=== PATIENT | male | born 1945 | race Caucasian/White ===

== ENCOUNTER 2020-07-20 10:13 | Outpatient (CLI) | payer MEDICARE, SELFPAY ==
[2020-07-20 10:43] LABS: Basophils Percent Auto 0.5 % (0.2-1.2); Eosinophils Absolute Auto 0.1 K/mm3 (0-0.3); Eosinophils Percent Auto 1.3 % (0-4.4); Hematocrit 43.7 % (42.0-52.0); Hemoglobin 14.6 g/dL (14.0-18.0); Immature Granulocyte Absolute 0.02 K/mm3 (0.00-0.031); Immature Granulocyte Percent A 0.3 % (0-0.5); Lymphocytes Absolute Auto 1.76 K/mm3 (0.9-3.2); Lymphocytes Percent Auto 28.7 % (18.3-44.2); Mean Corpuscular HGB Conc 33.4 g/dl (32-36); Mean Corpuscular Hemoglobin 30.3 pg (26-34); Mean Corpuscular Volume 90.7 fl (80-100); Mean Platelet Volume 10.4 fl (7.4-10.4); Monocytes Absolute Auto 0.7 K/mm3 (0.1-0.6); Monocytes Percent Auto 10.9 % (2.6-8.5); Neutrophils Absolute Auto 3.6 K/mm3 (1.3-6.7); Neutrophils Percent Auto 58.3 % (45.5-73.1); Platelet Count Result 248 k/mm3 (150-375); Red Blood Count 4.82 M/mm3 (4.6-6.20); Red Cell Distribution Width 12.2 % (11.5-14.5); White Blood Count 6.1 K/mm3 (4.5-10.0)
[2020-07-20 10:53] LABS: Blood Urea Nitrogen 19 mg/dL (8-26); Carbon Dioxide 24 mmol/L (22-30); Chloride 102 mmol/L (98-109); Estimated Glomerular Filt Rate > 60; Glucose 117 mg/dL (70-105); Potassium 4.1 mmol/L (3.5-4.9); Sodium 140 mmol/L (138-146)
[2020-07-20 13:35] LABS: Alanine Aminotransferase 26 U/L (4-50); Albumin Level 4.5 g/dL (3.5-5.1); Alkaline Phosphatase 56 U/L (38-126); Anion Gap 8 mmol/L (8-16); Aspartate Amino Transferase 30 U/L (17-59); Bilirubin,Total 0.7 mg/dL (0.2-1.3); Blood Urea Nitrogen 18 mg/dL (9-20); Calcium 9.6 mg/dL (8.4-10.2); Carbon Dioxide 25 mmol/L (22-30); Chloride 103 mmol/L (98-107); Estimated Glomerular Filt Rate > 60; Glucose 120 mg/dL (75-110); Potassium 4.5 mmol/L (3.4-5.0); Sodium 136 mmol/L (137-145)
[2020-07-20 13:51] LABS: Immunoglobulin A 129 mg/dL (70-400); Immunoglobulin G 745 mg/dL (700-1600)
[2020-07-20 14:09] LABS: Immunoglobulin M 673 mg/dL (40-230)
[2020-07-23 18:48] LABS: Kappa\\Lambda Light Chains 5.41 (0.26-1.65); Lambda Light Chain 8.1 mg/L (5.7-26.3)
[2020-07-24 21:25] LABS: Abnormal Protein Band 1 0.5 g/dL; Albumin 4.1 g/dL (3.8-4.8); Alpha 1 Globulin 0.3 g/dL (0.2-0.3); Alpha 2 Globulin 0.6 g/dL (0.5-0.9); Beta 1 Globulin 0.4 g/dL (0.4-0.6); Protein, Total 6.6 g/dL (6.1-8.1)
== END 2020-07-20 10:14 | disposition home or self-care (01) ==
LOC: ANHLAB 10:14
PROVIDERS: PCP Internal Medicine; Visit Provider Internal Medicine Hematology & Oncology
DX: D47.2 Monoclonal gammopathy (principal)
CPT/HCPCS: 36415; 80048; 80053; 82784; 83883; 84155; 84165; 85025; 86334

== ENCOUNTER 2021-08-08 09:36 | Outpatient (CLI) | payer MEDICARE, SELFPAY ==
[2021-08-08 10:00] LABS: Basophils Percent Auto 0.8 % (0.2-1.2); Eosinophils Absolute Auto 0.2 K/mm3 (0-0.3); Eosinophils Percent Auto 2.8 % (0-4.4); Hematocrit 42.8 % (42.0-52.0); Immature Granulocyte Absolute 0.01 K/mm3 (0.00-0.031); Immature Granulocyte Percent A 0.2 % (0-0.5); Lymphocytes Absolute Auto 1.57 K/mm3 (0.9-3.2); Lymphocytes Percent Auto 29.8 % (18.3-44.2); Mean Corpuscular HGB Conc 32.7 g/dl (32-36); Mean Corpuscular Hemoglobin 30.1 pg (26-34); Monocytes Absolute Auto 0.7 K/mm3 (0.1-0.6); Monocytes Percent Auto 12.7 % (2.6-8.5); Neutrophils Absolute Auto 2.8 K/mm3 (1.3-6.7); Neutrophils Percent Auto 53.7 % (45.5-73.1); Platelet Count Result 209 k/mm3 (150-375); Red Blood Count 4.65 M/mm3 (4.6-6.20); Red Cell Distribution Width 12.3 % (11.5-14.5); White Blood Count 5.3 K/mm3 (4.5-10.0)
[2021-08-12 03:06] LABS: Abnormal Protein Band 1 0.5 g/dL; Alpha 1 Globulin 0.3 g/dL (0.2-0.3); Alpha 2 Globulin 0.6 g/dL (0.5-0.9); Beta 1 Globulin 0.4 g/dL (0.4-0.6); Protein, Total 6.5 g/dL (6.1-8.1)
== END 2021-08-08 09:37 | disposition home or self-care (01) ==
LOC: ANHLAB 09:38
PROVIDERS: PCP Internal Medicine; Visit Provider Internal Medicine Hematology & Oncology
DX: D47.2 Monoclonal gammopathy (principal)
CPT/HCPCS: 36415; 84155; 84165; 85025

== ENCOUNTER 2022-08-08 11:11 | Outpatient (CLI) | payer MEDICARE, SELFPAY ==
[2022-08-08 12:05] LABS: Basophils Percent Auto 0.6 % (0.2-1.2); Eosinophils Absolute Auto 0.1 K/mm3 (0-0.3); Eosinophils Percent Auto 1.1 % (0-4.4); Hematocrit 42.2 % (42.0-52.0); Hemoglobin 13.5 g/dL (14.0-18.0); Immature Granulocyte Absolute 0.01 K/mm3 (0.00-0.031); Immature Granulocyte Percent A 0.2 % (0-0.5); Lymphocytes Absolute Auto 1.46 K/mm3 (0.9-3.2); Lymphocytes Percent Auto 30.7 % (18.3-44.2); Mean Corpuscular Hemoglobin 30.1 pg (26-34); Mean Platelet Volume 9.8 fl (7.4-10.4); Monocytes Absolute Auto 0.5 K/mm3 (0.1-0.6); Monocytes Percent Auto 11.2 % (2.6-8.5); Neutrophils Absolute Auto 2.7 K/mm3 (1.3-6.7); Neutrophils Percent Auto 56.2 % (45.5-73.1); Platelet Count Result 293 k/mm3 (150-375); Red Blood Count 4.49 M/mm3 (4.6-6.20); Red Cell Distribution Width 12.4 % (11.5-14.5); White Blood Count 4.8 K/mm3 (4.5-10.0)
[2022-08-08 12:33] LABS: Alanine Aminotransferase 43 U/L (6-50); Albumin Level 4.5 g/dL (3.5-5.1); Alkaline Phosphatase 60 U/L (38-126); Anion Gap 7 mmol/L (8-16); Aspartate Amino Transferase 66 U/L (17-59); Bilirubin,Total 0.7 mg/dL (0.2-1.3); Blood Urea Nitrogen 15 mg/dL (9-20); Calcium 9.2 mg/dL (8.4-10.2); Carbon Dioxide 27 mmol/L (22-30); Chloride 105 mmol/L (98-107); Estimated Glomerular Filt Rate > 60; Glucose 110 mg/dL (65-110); Potassium 4.1 mmol/L (3.4-5.0); Sodium 139 mmol/L (137-145)
[2022-08-08 14:11] LABS: Immunoglobulin A 91 mg/dL (70-400); Immunoglobulin G 637 mg/dL (700-1600)
[2022-08-08 14:24] LABS: Immunoglobulin M 651 mg/dL (40-230)
[2022-08-11 20:08] LABS: Abnormal Protein Band 1 0.6 g/dL; Albumin 4.1 g/dL (3.8-4.8); Alpha 1 Globulin 0.3 g/dL (0.2-0.3); Alpha 2 Globulin 0.6 g/dL (0.5-0.9); Beta 1 Globulin 0.4 g/dL (0.4-0.6); Protein, Total 6.6 g/dL (6.1-8.1)
[2022-08-12 05:01] LABS: Kappa\\Lambda Light Chains 6.18 (0.26-1.65); Lambda Light Chain 6.2 mg/L (5.7-26.3)
== END 2022-08-08 11:12 | disposition home or self-care (01) ==
LOC: ANHLAB 11:12
PROVIDERS: PCP Internal Medicine; Visit Provider Internal Medicine Hematology & Oncology
DX: D47.2 Monoclonal gammopathy (principal)
CPT/HCPCS: 36415; 80053; 82784; 83883; 84155; 84165; 85025

== ENCOUNTER 2023-08-01 08:59 | Outpatient (CLI) | payer MEDICARE, SELFPAY ==
[2023-08-01 09:25] LABS: Basophils Percent Auto 0.4 % (0.2-1.2); Eosinophils Absolute Auto 0.1 K/mm3 (0-0.3); Eosinophils Percent Auto 1.2 % (0-4.4); Hematocrit 45.1 % (42.0-52.0); Hemoglobin 14.7 g/dL (14.0-18.0); Immature Granulocyte Absolute 0.01 K/mm3 (0.00-0.031); Immature Granulocyte Percent A 0.2 % (0-0.5); Lymphocytes Absolute Auto 2.01 K/mm3 (0.9-3.2); Lymphocytes Percent Auto 38.7 % (18.3-44.2); Mean Corpuscular HGB Conc 32.6 g/dl (32-36); Mean Corpuscular Hemoglobin 29.5 pg (26-34); Mean Corpuscular Volume 90.4 fl (80-100); Mean Platelet Volume 10.1 fl (7.4-10.4); Monocytes Absolute Auto 0.6 K/mm3 (0.1-0.6); Monocytes Percent Auto 10.6 % (2.6-8.5); Neutrophils Absolute Auto 2.6 K/mm3 (1.3-6.7); Neutrophils Percent Auto 48.9 % (45.5-73.1); Platelet Count Result 289 k/mm3 (150-375); Red Blood Count 4.99 M/mm3 (4.6-6.20); Red Cell Distribution Width 12.2 % (11.5-14.5); White Blood Count 5.2 K/mm3 (4.5-10.0)
[2023-08-01 11:40] LABS: Anion Gap 6 mmol/L (8-16); Blood Urea Nitrogen 13 mg/dL (9-20); Carbon Dioxide 30 mmol/L (22-30); Chloride 102 mmol/L (98-107); Sodium 138 mmol/L (137-145)
[2023-08-01 11:41] LABS: Alanine Aminotransferase 27 U/L (6-50); Albumin Level 4.5 g/dL (3.5-5.1); Alkaline Phosphatase 62 U/L (38-126); Aspartate Amino Transferase 35 U/L (17-59); Bilirubin,Total 0.9 mg/dL (0.2-1.3); Calcium 9.2 mg/dL (8.4-10.2); Estimated Glomerular Filt Rate > 60; Glucose 111 mg/dL (65-110)
[2023-08-01 11:46] LABS: Immunoglobulin A 119 mg/dL (70-400); Immunoglobulin G 841 mg/dL (700-1600)
[2023-08-01 12:36] LABS: Immunoglobulin M 796 mg/dL (40-230)
[2023-08-04 12:55] LABS: Abnormal Protein Band 1 0.6 g/dL; Albumin 4.1 g/dL (3.8-4.8); Alpha 1 Globulin 0.3 g/dL (0.2-0.3); Alpha 2 Globulin 0.6 g/dL (0.5-0.9); Beta 1 Globulin 0.4 g/dL (0.4-0.6); Gamma Globulin 1.3 g/dL (0.8-1.7)
[2023-08-05 15:46] LABS: Kappa\\Lambda Light Chains 5.91 (0.26-1.65); Lambda Light Chain 9.2 mg/L (5.7-26.3)
== END 2023-08-01 09:00 | disposition home or self-care (01) ==
PROVIDERS: PCP Internal Medicine; Visit Provider Internal Medicine Hematology & Oncology
DX: D47.2 Monoclonal gammopathy (principal)
CPT/HCPCS: 36415; 80053; 82784; 83883; 84155; 84165; 85025

== ENCOUNTER 2024-07-17 08:42 | Emergency (ER) | payer MEDICARE, SELFPAY ==
--- NOTE | ~2024-07-17 | XR_ITS ---
EXAMINATION: XR chest 2V DATE: 07/17/2024 09:28 INDICATION: Chest tightness TECHNIQUE: PA and lateral views of the chest were obtained. COMPARISON: None FINDINGS: Mild eventration along the left and right hemidiaphragm. Calcified right lower lobe nodule consistent with old granulomatous disease. No other airspace opacities, pulmonary edema, pleural effusion or pn eumothorax. The cardiomediastinal silhouette is normal. Old healed anterior right sixth and seventh r ib fractures. IMPRESSION: 1. No acute cardiopulmonary disease. Reviewed, dictated and finalized at location B.
[2024-07-17 08:53] VITALS: BP 121/76; PULSE 73; RESP 24; TEMP 36.3; O2SAT 100
--- NOTE | 2024-07-17 08:55 | ECG_ITS ---
Test Date: 2024-07-17 08:58:02 Measurements Intervals [place] Rate: 80 P: 0 MS: 0 QRS: -26 QRSD: 143 T: 1 QT: 441 QTc: 509 Interpretive Statements ATRIAL FLUTTER WITH NORMAL VENTRICULAR RESPONSE RIGHT BUNDLE BRANCH BLOCK ABNORMAL ECG No previous ECG available for comparison Electronically Signed On 07-17-2024 10:05:39 CDT by Prashanth House D.O.
[2024-07-17 09:04] VITALS: PULSE 68
[2024-07-17 09:07] LABS: Basophils Percent Auto 0.7 % (0.2-1.2); Eosinophils Absolute Auto 0.2 K/mm3 (0-0.3); Eosinophils Percent Auto 2.9 % (0-4.4); Hematocrit 45.4 % (42.0-52.0); Hemoglobin 14.9 g/dL (14.0-18.0); Immature Granulocyte Absolute 0.02 K/mm3 (0.00-0.031); Immature Granulocyte Percent A 0.3 % (0-0.5); Lymphocytes Absolute Auto 2.22 K/mm3 (0.9-3.2); Lymphocytes Percent Auto 38.5 % (18.3-44.2); Mean Corpuscular HGB Conc 32.8 g/dl (32-36); Mean Corpuscular Hemoglobin 30.8 pg (26-34); Mean Corpuscular Volume 93.8 fl (80-100); Mean Platelet Volume 10.2 fl (7.4-10.4); Monocytes Absolute Auto 0.6 K/mm3 (0.1-0.6); Monocytes Percent Auto 10.4 % (2.6-8.5); Neutrophils Absolute Auto 2.7 K/mm3 (1.3-6.7); Neutrophils Percent Auto 47.2 % (45.5-73.1); Platelet Count Result 312 k/mm3 (150-375); Red Blood Count 4.84 M/mm3 (4.6-6.20); Red Cell Distribution Width 12.6 % (11.5-14.5); White Blood Count 5.8 K/mm3 (4.5-10.0)
--- NOTE | 2024-07-17 09:07 | ED.CHESTPAIN ---
HPI - Chest Pain General Chief Complaint: Chest Pain Stated Complaint: CP Time Seen by Provider: 07/17/24 09:04 Source: patient Mode of arrival: EMS Limitations: no limitations History of Present Illness HPI narrative: This is a 78 year old male that presents to the ER for an episode of chest pain today. Reports he was seated at breakfast. Started to feel sweaty and nauseous. Had some associated chest tightness. He took Nitro with relief. Reports history of CAD. His supervisor testing is Dr. Thomson. He reports he recently had a stress test that was without concerning findings. Denies shortness of breath or lower extremity edema. Related Data Home Medications Medication Instructions Recorded Confirmed albuterol sulfate 90 mcg/actuation 1 puff inhalation Q4H PRN 01/08/20 05/15/22 aerosol inhaler (ProAir HFA) amlodipine 5 mg tablet 5 mg PO DAILY 01/08/20 05/15/22 aspirin 81 mg tablet,delayed 81 mg PO DAILY 01/08/20 05/15/22 release (Adult Low Dose Aspirin) atorvastatin 20 mg tablet 20 mg PO DAILY 01/08/20 05/15/22 cyanocobalamin (vitamin B-12) 1,000 mcg PO DAILY 01/08/20 05/15/22 1,000 mcg capsule dutasteride 0.5 mg capsule 0.5 mg PO DAILY 01/08/20 05/15/22 fluticasone propionate 50 1 spray intranasal DAILY 01/08/20 05/15/22 mcg/actuation nasal spray,suspension (Allergy Relief (fluticasone)) folic acid 800 mcg tablet 0.8 mg PO DAILY 01/08/20 05/15/22 isosorbide mononitrate 60 mg 60 mg PO DAILY 01/08/20 05/15/22 tablet,extended release 24 hr lisinopril 20 mg tablet 20 mg PO DAILY 01/08/20 05/15/22 loratadine 10 mg tablet 10 mg PO DAILY 01/08/20 05/15/22 multivitamin 1 tablet PO DAILY 01/08/20 05/15/22 Allergies Allergy/AdvReac Type Severity Reaction Status Date / Time No Known Allergies Allergy Unverified 05/15/22 12:45 Review of Systems Review of Systems: CONSTITUTIONAL: Denies fever CARDIOVASCULAR: Reports chest pain. Denies edema. RESPIRATORY: Denies dyspnea. GASTROINTESTINAL: Reports nausea All systems reviewed & are unremarkable except as noted in HPI and below PMFSH Past Medical History Medical History (Updated 07/17/24 @ 13:35 by Deloris Abbott PA-C) History of atrial fibrillation History of CAD (coronary artery disease) History of hyperlipidemia History of hypertension Social History Social History Social History: Smoking status: Never smoker Second hand tobacco smoke exposure: No Alcohol intake: current Alcohol use details: occasionally Substance use: never Substance use type: does not use Living arrangements: with family Occupation/Education: retired Gender identity (if verbalized by the patient): Male Exam Narrative: GENERAL: Well-appearing, well-nourished, and in no acute distress. HEAD: Normocephalic, atraumatic. EYES: EOMI. NECK: Supple. No JVD CHEST: Clear to auscultation. No respiratory distress. No wheezes rales or rhonchi HEART: Regular rate and rhythm. No murmur heard. Normal peripheral pulses. EXTREMITIES: Normal range of motion. No edema. SKIN: Warm, dry, no rash. NEURO: No focal deficits. Alert and oriented x3. PSYCH: Normal mood and affect Course Course Emergency Course: Patient still feeling well, resting comfortably. Updated on workup. Agrees with plan of care Consultations Consultation #1: Spoke with patient's supervisor testing office. He did just have a stress test last week. Is scheduled for a cardioversion in a couple of weeks. They will get ahold of patient to ensure follow up Date: 07/17/24 Vital Signs Vital signs: Vital Signs Temperature 97.4 F L 07/17/24 08:53 Pulse Rate 73 07/17/24 08:53 Respiratory Rate 24 H 07/17/24 08:53 Blood Pressure 121/76 07/17/24 08:53 Pulse Oximetry 100 07/17/24 08:53 Oxygen Delivery Room Air 07/17/24 08:53 Temperature 97.4 F L 07/17/24 08:53 Pulse Rate 90 07/17/24 12:00 Respiratory Rate 19
[2024-07-17 09:20] LABS: Alanine Aminotransferase 28 U/L (6-50); Albumin Level 4.2 g/dL (3.5-5.1); Alkaline Phosphatase 56 U/L (38-126); Anion Gap 9 mmol/L (4-12); Aspartate Amino Transferase 38 U/L (17-59); Bilirubin,Total 0.7 mg/dL (0.2-1.3); Blood Urea Nitrogen 21 mg/dL (9-20); Carbon Dioxide 27 mmol/L (22-30); Chloride 102 mmol/L (98-107); Estimated CRCL calculation 52 ml/min; Estimated Glomerular Filt Rate > 60; Glucose 143 mg/dL (65-110); INR 1.3; Lipase 82 U/L (23-300); Prothrombin Time 16.4 Seconds (11.1-14.7); Sodium 138 mmol/L (137-145)
[2024-07-17 09:21] LABS: Partial Thromboplastin Time 26.6 Seconds (22.3-36.8)
[2024-07-17 09:30] LABS: Troponin I < 0.012 ng/mL (0.000-0.034)
[2024-07-17 10:07] VITALS: BP 96/68; PULSE 68; RESP 20; O2SAT 96
--- NOTE | 2024-07-17 11:49 | ECG_ITS ---
Test Date: 2024-07-17 11:55:01 Measurements Intervals [place] Rate: 94 P: 0 UT: 0 QRS: -45 QRSD: 155 T: 3 QT: 434 QTc: 543 Interpretive Statements ATRIAL FLUTTER/TACHYCARDIA RIGHT BUNDLE BRANCH BLOCK LEFT ANTERIOR FASCICULAR BLOCK ABNORMAL ECG Compared to ECG 07/17/2024 08:58:02 NO SIGNIFICANT CHANGE Electronically Signed On 07-17-2024 13:06:01 CDT by Prashanth House D.O.
[2024-07-17 12:00] VITALS: BP 117/71; PULSE 90; RESP 19; O2SAT 97
[2024-07-17 12:22] LABS: Troponin I < 0.012 ng/mL (0.000-0.034)
[2024-07-17] MEDS: PANTOPRAZOLE SODIUM IV 40 MG VIAL IV PUSH (13:12)
[2024-07-17 13:38] VITALS: BP 124/90; PULSE 85; RESP 20; O2SAT 98
== END 2024-07-17 13:47 | disposition home or self-care (01) ==
PROVIDERS: Emergency Medicine; Emergency Provider Physician Assistant; PCP Internal Medicine
DX: R07.89 Other chest pain (principal); I48.91 Unspecified atrial fibrillation; I25.10 Atherosclerotic heart disease of native coronary artery without angina pectoris; I10 Essential (primary) hypertension; E78.5 Hyperlipidemia, unspecified; Z79.82 Long term (current) use of aspirin; Z79.899 Other long term (current) drug therapy; I48.92 Unspecified atrial flutter; I45.2 Bifascicular block; R00.0 Tachycardia, unspecified
CPT/HCPCS: 36415; 71046; 80053; 83690; 84484; 85025; 85610; 85730; 93005; 96374; 99284; J2470

== ENCOUNTER 2024-12-17 08:51 | Outpatient (CLI) | payer MEDICARE, SELFPAY ==
--- OUTSIDE RECORDS SUMMARY | 2024-12-17 09:25 | XMS_ITS | Data Portability ---
Author Organization [place] - [facility], Main Office Address [address] [place] [address] Care Team Providers Care Supervisor Tree Trimming Name Role Phone BELINDA COSTELLO Primary Care Provider BELINDA COSTELLO Referring Provider TANIA THOMSON Oracle Iam Consultant MIGUEL VO Yard Motor Operator CELIO FUNEZ Engine Wiper Assessment Encounter Date Assessment Date Assessment LastModified by Organization Details LastModified Time 12/24/2023 12/24/2023 12/13/2022: A1C 5.9 TSH 4.720H, FT4 1.27 CBC: WNL Gluc 110 Urine monty alb: WNL Lipids WNL 01/15/2023: PSA 0.54 04/20/2023: Gluc 114 A1C 6.3 HGB 12.9 08/22/2023: A1C 5.8 Gluc 108 12/10/2023: [facility]1C 5.4 [email or web address] Not available 12/24/2023 12:12:01 02/19/2024 02/19/2024 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 Jasper Santos. Patient may need gammaglobulin infusions during times of infection. General information on COPD was covered. The video explained what COPD is and how it affects breathing. Self-care skills such as not smoking, using medications as prescribed, oxygen therapy, and knowing when to contact the healthcare provider are covered. Diaphragmatic breathing and pursed lip breathing are explained and demonstrated. Positive lifestyle changes are introduced. Following these self-care skills will help in the management of COPD so the patient can stay out of the hospital. Advised to continue not to smoke. Continue albuterol HFA as needed. Discontinue Wixela Inhub. The patient does not know how to accurately administer the inhaler. Today, the patient was shown how to take this medication. The proper technique for delivering this medication was instructed. The patient expressed a clear understanding and demonstrated back how to use this medication. Without the proper technique, the patient will not reap the benefits of this medication as the contents will not reach the lower airways as intended to be. Adherence to therapy is advocated. Nonadherence may lead to treatment failure, further progression of the condition, and other complications. Hospitals admissions are often the result of individuals not taking prescription medications accurately. Alternatively, greater adherence to medication regimens have shown to lower rates of hospitalization and decrease total medical costs in patients with chronic medical conditions. Advocated influenza vaccination annually and pneumonia vaccination MARTHA. Advocated weight loss through diet and exercise. Patient's ideal body weight according to height and gender is up to 200 lbs. Encouraged patient to adjust caloric intake to maintain/achieve ideal body weight, emphasizing on fruits, vegetables, whole grains, and fat-free or low-fat products. These include lean meats, poultry, fish, beans, eggs, and nuts and foods that are low in saturated fats, trans-fats, cholesterol, salt (sodium), and glycemic index. Stressed the importance of regular exercise up to the patient's capacity limits. In this case, we recommend 20 min daily walking, 2 days a week of resistance training. Patient to monitor BP daily and bring records to PCP for further management. Follow-up: 1 year, February 2024 Not available 02/19/2024 11:40:45 05/12/2024 05/12/2024 12/13/2022: A1C 5.9 TSH 4.720H, FT4 1.27 CBC: WNL Gluc 110 Urine monty alb: WNL Lipids WNL 01/15/2023: PSA 0.54 04/20/2023: Gluc 114 A1C 6.3 HGB 12.9 08/22/2023: A1C 5.8 Gluc 108 12/10/2023: A1C 5.4 scott Not available 05/12/2024 10:46:31 05/23/2024 05/23/2024 The patient has lateral hip trochanteric bursitis of the left hip. We talked about treatment options in detail today I offered him a shot of cortisone and oral prednisone he declined both of these he states these did not help his hip in the past he would rather just do physical therapy. We will get him set up for a course of physical therapy to work on modalities and stretching exercises teach home program. I will see him back in 6-8 weeks see how he is doing if he has symptoms continue we will push harder for a shot of cortisone and/or oral prednisone. For now we will see how he does he voiced understanding agrees above plan call for any further problems difficulties or questions. [email or web address] Not available 05/23/2024 12:28:56 09/22/2024 09/22/2024 12/13/2022: A1C 5.9 TSH 4.720H, FT4 1.27 CBC: WNL Gluc 110 Urine monty alb: WNL Lipids WNL 01/15/2023: PSA 0.54 04/20/2023: Gluc 114 A1C 6.3 HGB 12.9 08/22/2023: A1C 5.8 Gluc 108 12/10/2023: A1C 5.4 05/13/2024: A1C 5.7 Gluc 120 09/19/2024: CBC/Lipids/TSH/FT4 : Stable 45 minutes spent with the patient, labs reviewed, discussed is julianne in detail, and discussed his appointment with Dr Soto [facility], will instead see Dr Berto chavez Not available 09/22/2024 14:00:54 Plan of Treatment Reminders Order Date Submit Date Provider Last Modified By Organization Details Last Modified Time Details Appointments Any 15 2024 01:45P Eliana correia MD Not available Not available Not available Any 15 2024 10:00A Eliana Vo MD Not available Not available Not available Lab glycohemo globin, total, blood [address] (Lab), [address] [place], [address], 06/23/2024 14:29:07 microalbu min, urine [address] (Lab), [address] [place], [address], 06/23/2024 14:29:08 lipid panel, serum [address] (Lab), [address] [place], [address], 06/23/2024 14:29:08 CMP, serum or plasma [address] (Lab), [address] [place], [address], 06/23/2024 14:29:08 CBC w/ auto diff [address] (Lab), [address] [place], [address], 06/23/2024 14:29:08 TSH, serum or plasma [address] (Lab), [address] [place], [address], 06/23/2024 14:29:08 T4, free, serum [address] (Lab), [address] [place], [address], 06/23/2024 14:29:08 lipid panel, serum 2023 024 NICOLE [facility] (Lab), [address] [place], [address], 05/13/2024 13:24:07 CMP, serum or plasma 2023 024 [facility] (Lab), [address] [place], [address], 05/13/2024 13:24:13 CBC w/ auto diff 2023 024 [facility] (Lab), [address] [place], [address], 05/13/2024 12:50:23 TSH, serum or plasma 2023 024 [facility] (Lab), [address] [place], [address], 05/13/2024 13:28:22 T4, free, serum 2023 024 [facility] (Lab), [address] [place], [address], 05/13/2024 13:28:11 glycohemo globin, total, blood 2023 024 [facility] (Lab), [address] [place], [address], 05/13/2024 14:33:10 microalbu min, urine 2023 024 [facility] (Lab), [address] [place], [address], 05/13/2024 15:30:04 lipid panel, serum [address] (Lab), [address] [place], [address], 09/22/2024 12:29:42 CMP, serum or plasma [address] (Lab), [address] [place], [address], 09/22/2024 12:29:42 CBC w/ auto diff [address] (Lab), [address] [place], [address], 09/22/2024 12:29:42 TSH, serum or plasma [address] (Lab), [address] [place], [address], 09/22/2024 12:29:42 T4, free, serum [address] (Lab), [address] [place], [address], 09/22/2024 12:29:43 glycohemo globin, total, blood [address] (Lab), [address] [place], [address], 09/22/2024 12:29:41 microalbu min, urine [address] (Lab), [address] [place], [address], 09/22/2024 12:29:41 Referral podiatris t referral 2023 024 [email or web address] Yoan Phillips DPM, [address], [address], [place], [address], 06/23/2024 14:30:04 nephrolog ist referral 2023 024 [email or web address] [place], [address] [address], [address], [place], [address], 01/21/2024 09:41:54 cardiolog ist referral 2023 024 [email or web address] Tania Thomson, [address] [address], [place], [address], 06/23/2024 14:29:47 nephrolog ist referral 2023 024 [email or web address] [place], [address] [address], [address], [place], [address], 06/18/2024 12:30:32 orthopedi c surgeon referral 2023 024 NICOLE Jimenez MD, [address] [facility], [place], [address], 05/23/2024 12:31:47 cardiolog ist referral 2023 024 [email or web address] Tania Thomson, [address] [address], [place], [address], 11/13/2024 08:33:30 podiatris t referral 2023 024 [email or web address] Theodore Thakkar Jr DPM, [address], [address], [place], [address], 09/24/2024 16:14:19 physical therapist referral - Please contact patient to schedule [email or web address] [facility], [address] [place], [address], 06/12/2024 09:58:07 nephrolog ist referral 2023 024 [email or web address] [place], [address] [address], [address], [place], [address], 09/24/2024 16:13:38 orthopedi c surgeon referral 2023 024 [email or web address] Peter Jimenez MD, [address] [facility], [place], [address], 09/24/2024 16:12:54 cardiolog ist referral 2023 024 [email or web address] Tania Soodhir, [address] [address], [place], [address], 09/24/2024 16:09:32 podiatris t referral - Please call patient to schedule. 2023 024 GERRY Thakkar Jr DPM, [address], [address], [place], [address], 09/24/2024 17:02:05 Procedures None recorded. Surgeries None recorded. Imaging XR, hip + pelvis, unilatera l 2023 024 [email or web address], [address], [place], [address], 05/23/2024 13:16:31 Medication Orders albuterol sulfate HFA 90 mcg/actua tion aerosol inhaler 2023 024 [id number], [address], [place], [place], [id number], 02/19/2024 11:39:04 Patient TargetsNo targets recorded. Patient Instructions Encounter Date Encounter Id Patient Instructions Last Modified By Organization Details Last Modified Time 02/19/2024 [id number] complete PFT w/ post bronchodilator spirometry* Not available 02/19/2024 11:38:55 05/12/2024 [id number] dementia rating scale-2* Not available 05/12/2024 12:09:14 alcohol misuse* [email or web address] Not available 05/12/2024 12:09:29 depression screening* [email or web address] Not available 05/12/2024 12:09:53 Timed Up and Go test (TUG)* [email or web address] Not available 05/12/2024 12:10:10 multi-dimensiona l health assessment questionnaire* [email or web address] Not available 05/12/2024 17:04:17 Personalized a lth Plan and Screening Recommendations Advance Directives - Do you have one? Yes Advance Directives - Do we have your advance directive on file in your health record? No, please bring in a copy at your earliest convenience Primary Prevention/Interven tion (prevents or decreases the chance of common diseases from occurring) Smoking Risk: Non Smoker Alcohol Misuse Screening: Negative Weight: Appropriate Overwei ght continue your current weight loss efforts try to lose 5% of your body weight try to lose 10% of your body weight Physical activity: Need more exercise/physical activity minimum of 10-20 minutes of activity that causes mild breathlessness/day Nutrition: Good Average Refer to attached handout Heart-Healthy Diet: After Your Visit Refer to attached handout DASH Diet: After Your Visit Fall Risk (screened today): Low Refer to attached handout Preventing Falls: After your Visit Vaccines Pneumococcal: Ordered Recommended today Recommended today, but you have declined No further needed Influenza: Your next one in the fall of this year Chronic Disease Risks Stroke: Low Risk Heart Attack: Low risk Intermediate Risk Clogging of the Arteries: Low risk Intermediate Risk Diabetes: High Risk Active diagnosis, Continue current treatment plan Secondary Prevention/Interven tion (detects treatable diseases before they may cause symptoms, disability, or ) Prostate Cancer Screening: No PSA screening necessary Colon Cancer Screening: Colonoscopy Date Screening Last Performed: 04/18/24 Eye Disease Screening: Ordered Recommended today Dementia Risk: Low I have no recommendations Depression Screening: Negative [email or web address] Not available 05/12/2024 12:12:23 Reason for Referral Mailing Specialist Referral for Hype rglycemia Referring Physician: Belinda Costello Internal Medicine, Encounter Date: 12/24/2023 Engine Wiper Referral for Ch ronic kidney disease Referring Physician: Belinda Costello Internal Medicine, Encounter Date: 12/24/2023 Oracle Iam Consultant Referral for Es sential hypertension Referring Physician: Belinda Costello Internal Medicine, Encounter Date: 12/24/2023 Engine Wiper Referral for Ch ronic kidney disease Referring Physician: Belinda Costello Internal Medicine, Encounter Date: 05/12/2024 Oracle Iam Consultant Referral for Es sential hypertension Referring Physician: Belinda Costello Internal Medicine, Encounter Date: 05/12/2024 Orthopedic Surgeon Referral for Pain of left hip joint Referring Physician: Belinda Costello Internal Medicine, Encounter Date: 05/12/2024 Mailing Specialist Referral for Pain in left foot Referring Physician: Belinda Costello Internal Medicine, Encounter Date: 05/12/2024 Physical Therapist Referral for Trochanteric bursitis of left hip Please contact patient to schedule Referring Physician: Marco Antonio Iglesias, Orthopedic Surgery, Encounter Date: 05/23/2024 Engine Wiper Referral for Ch ronic kidney disease Referring Physician: Belinda Costello Internal Medicine, Encounter Date: 09/22/2024 Oracle Iam Consultant Referral for Es sential hypertension Referring Physician: Belinda Costello Internal Medicine, Encounter Date: 09/22/2024 Orthopedic Surgeon Referral for Pain of left hip joint Referring Physician: Belinda Costello Internal Medicine, Encounter Date: 09/22/2024 Mailing Specialist Referral for Pain in left foot Please call patient to schedule. Referring Physician: Belinda Costello Internal Medicine, Encounter Date: 09/22/2024 Results Created Date Observation Date Name Description Value Unit Range Abnormal Flag Note LastModifiedBy Organization Detail LastModifiedTime 12/10/19 24 12/10/2023 CBC/C OMPLE TE BLD COUNT W/DIF F white blood cells 5.4 x10'3 /uL 4.2-10 .8 Not Available [facility] (Lab) [address] [place], [address], 12/10/2023 12:39:09 12/10/19 24 12/10/2023 CBC/C OMPLE TE BLD COUNT W/DIF F red blood cells 4.68 x10'6 /uL 4.10-5 .80 Not Available [facility] (Lab) [address] [place], [address], 12/10/2023 12:39:09 12/10/19 24 12/10/2023 CBC/C OMPLE TE BLD COUNT W/DIF F hemoglobin 14.5 g/dL 13.2-1 7.0 Not Available [facility] (Lab) [address] [facility] [place], [address], 12/10/2023 12:39:09 12/10/19 24 12/10/2023 CBC/C OMPLE TE BLD COUNT W/DIF F hematocrit 43.8 % 39.3-5 0.0 Not Available [facility] (Lab) [address] [facility] [place], [address], 12/10/2023 12:39:09 12/10/19 24 12/10/2023 CBC/C OMPLE TE BLD COUNT W/DIF F mean red cell volume 93.6 fL 80.0-9 7.0 Not Available [facility] (Lab) [address] [place], [address], 12/10/2023 12:39:09 12/10/19 24 12/10/2023 CBC/C OMPLE TE BLD COUNT W/DIF F mean red cell hemoglobin 31.0 pg 27.0-3 3.0 Not Available [facility] (Lab) [address] [place], [address], 12/10/2023 12:39:09 12/10/19 24 12/10/2023 CBC/C OMPLE TE BLD COUNT W/DIF F mean RBC HGB concentratio n 33.1 g/dL 31.0-3 6.0 Not Available [facility] (Lab) [address] [place], [address], 12/10/2023 12:39:09 12/10/19 24 12/10/2023 CBC/C OMPLE TE BLD COUNT W/DIF F red cell distribution width 12.1 % 11.8-1 5.5 Not Available [facility] (Lab) [address] [place], [address], 12/10/2023 12:39:09 12/10/19 24 12/10/2023 CBC/C OMPLE TE BLD COUNT W/DIF F platelets 313 x10'3 /uL 150-40 0 Not Available [facility] (Lab) [address] [place], [address], 12/10/2023 12:39:09 12/10/19 24 12/10/2023 CBC/C OMPLE TE BLD COUNT W/DIF F mean platelet volume 10.5 fL 9.0-12 .4 Not Available [facility] (Lab) [address] [facility] [place], [address], 12/10/2023 12:39:09 12/10/19 24 12/10/2023 CBC/C OMPLE TE BLD COUNT W/DIF F neutrophils 50.3 % 39.0-7 2.0 Not Available [facility] (Lab) [address] [place], [address], 12/10/2023 12:39:09 12/10/19 24 12/10/2023 CBC/C OMPLE TE BLD COUNT W/DIF F lymphocytes 35.9 % 16.0-4 7.0 Not Available [facility] (Lab) [address] [place], [address], 12/10/2023 12:39:09 12/10/19 24 12/10/2023 CBC/C OMPLE TE BLD COUNT W/DIF F monocytes 11.7 % 5.0-12 .0 Not Available [facility] (Lab) [address] [place], [address], 12/10/2023 12:39:09 12/10/19 24 12/10/2023 CBC/C OMPLE TE BLD COUNT W/DIF F eosinophils 1.3 % 1.0-7. 0 Not Available [facility] (Lab) [address] [facility] [place], [address], 12/10/2023 12:39:09 12/10/19 24 12/10/2023 CBC/C OMPLE TE BLD COUNT W/DIF F basophils 0.4 % 0.0-2. 0 Not Available [facility] (Lab) [address] [place], [address], 12/10/2023 12:39:09 12/10/19 24 12/10/2023 CBC/C OMPLE TE BLD COUNT W/DIF F immature granulocytes 0.4 % 0.00-0 .50 Not Available [facility] (Lab) [address] [place], [address], 12/10/2023 12:39:09 12/10/19 24 12/10/2023 CBC/C OMPLE TE BLD COUNT W/DIF F neutrophils, absolute count 2.72 x10'3 /uL 1.5-8. 0 Not Available [facility] (Lab) [address] [place], [address], 12/10/2023 12:39:09 12/10/19 24 12/10/2023 CBC/C OMPLE TE BLD COUNT W/DIF F lymphocytes, absolute count 1.94 x10'3 /uL 1.07-3 .43 Not Available [facility] (Lab) [address] [place], [address], 12/10/2023 12:39:09 12/10/19 24 12/10/2023 CBC/C OMPLE TE BLD COUNT W/DIF F monocytes, absolute count 0.63 x10'3 /uL 0.29-0 .99 Not Available [facility] (Lab) [address] [place], [address], 12/10/2023 12:39:09 12/10/19 24 12/10/2023 CBC/C OMPLE TE BLD COUNT W/DIF F eosinophils, absolute count 0.07 x10'3 /uL 0.02-0 .53 Not Available [facility] (Lab) [address] [place], [address], 12/10/2023 12:39:09 12/10/19 24 12/10/2023 CBC/C OMPLE TE BLD COUNT W/DIF F basophils, absolute count 0.02 x10'3 /uL 0.01-0 .08 Not Available [facility] (Lab) [address] [place], [address], 12/10/2023 12:39:09 12/10/19 24 12/10/2023 CBC/C OMPLE TE BLD COUNT W/DIF F immature granulocytes ,absolute 0.02 x10'3 /uL 0.00-0 .05 Not Available [facility] (Lab) [address] [place], [address], 12/10/2023 12:39:09 12/10/19 24 12/10/2023 CBC/C OMPLE TE BLD COUNT W/DIF F nucleated red blood cells 0.0 % -0 Not Available [facility] (Lab) [address] [place], [address], 12/10/2023 12:39:09 12/10/19 24 12/10/2023 CBC/C OMPLE TE BLD COUNT W/DIF F NRBC# 0.00 x10'3 /uL Not Available [facility] (Lab) [address] [place], [address], 12/10/2023 12:39:09 12/10/19 24 12/10/2023 LIPID PANEL cholesterol 136 mg/dL 140-19 9 low NIH ANAND NSUS RECOM MENDA TION FOR DALI STERO L: ADULT CHILD LOW RISK: <200 <170 BORDE RLINE : <200- 239 ----- HIGH RISK: >240 >200 Not Available [facility] (Lab) [address] [place], [address], 12/10/2023 12:54:07 12/10/19 24 12/10/2023 LIPID PANEL triglyceride s 58 mg/dL 0-150 NIH ANAND NSUS REPOR T RECOM MENDA TION FOR TRIGL YCERI LIANNE: ADULT CHILD LOW RISK: <150 ----- BODER LINE: 150-1 99 ----- HIGH RISK: >200 ----- Not Available [facility] (Lab) [address] [place], [address], 12/10/2023 12:54:07 12/10/19 24 12/10/2023 LIPID PANEL HDL cholesterol 64 mg/dL 40- Not Available [facility] (Lab) [address] [place], [address], 12/10/2023 12:54:07 12/10/19 24 12/10/2023 LIPID PANEL LDL cholesterol, calculated 60 mg/dL 0-130 NIH ANAND NSUS REPOR T RECOM MENDA TIONS FOR LDL: ADULT CHILD LOW RISK <130 <110 (OPTI MAL LDL) <100 ----- BORDE RLINE : 130-1 59 ----- HIGH RISK: >160 >130 A TRIGL YCERI DE RESUL T >400 INVAL IDATE S THE CALCU LATIO N FOR LDL FRACT IONAT ION - THE LDL RESUL T WILL NOT BE REPOR ANABELLE. Not Available [facility] (Lab) [address] [place], [address], 12/10/2023 12:54:07 12/10/19 24 12/10/2023 COMPR EHENS RONNY METAB OLIC PANEL sodium 140 mmol/ L 137-14 5 Not Available [facility] (Lab) [address] [place], [address], 12/10/2023 12:54:12 12/10/19 24 12/10/2023 COMPR EHENS RONNY METAB OLIC PANEL potassium 4.7 mmol/ L 3.5-5. 1 Not Available [facility] (Lab) [address] [place], [address], 12/10/2023 12:54:12 12/10/19 24 12/10/2023 COMPR EHENS RONNY METAB OLIC PANEL chloride 104 mmol/ L 98-107 Not Available [facility] (Lab) [address] [facility] [place], [address], 12/10/2023 12:54:12 12/10/19 24 12/10/2023 COMPR EHENS RONNY METAB OLIC PANEL carbon dioxide 33 mmol/ L 22-30 high Not Available [facility] (Lab) [address] [place], [address], 12/10/2023 12:54:12 12/10/19 24 12/10/2023 COMPR EHENS RONNY METAB OLIC PANEL anion gap 7.7 mmol/ L 14-22 low Not Available [facility] (Lab) [address] [place], [address], 12/10/2023 12:54:12 12/10/19 24 12/10/2023 COMPR EHENS RONNY METAB OLIC PANEL glucose 99 mg/dL 70-99 Not Available [facility] (Lab) [address] [place], [address], 12/10/2023 12:54:12 12/10/19 24 12/10/2023 COMPR EHENS RONNY METAB OLIC PANEL BUN 19 mg/dL 8-19 Not Available [facility] (Lab) [address] [place], [address], 12/10/2023 12:54:12 12/10/19 24 12/10/2023 COMPR EHENS RONNY METAB OLIC PANEL creatinine 1.06 mg/dL 0.66-1 .25 Not Available [facility] (Lab) [address] [place], [address], 12/10/2023 12:54:12 12/10/19 24 12/10/2023 COMPR EHENS RONNY METAB OLIC PANEL GFR >60 Refer ence Range : [place] ge GFR Healt hy Adult : >60 mL/mi n/1.7 3 m2 Chron ic Kidne y Disea se: 15-60 mL/mi n/1.7 3 m2 Kidne y Failu re: <15/m L/min /1.73 m2 www.n iddk. nih.g ov The MDRD study equat ion has not been valid ated in child malathi <18 years of age; pregn ant women ; the elder ly >85 years of age; or in some racia l or ethni c subgr oups, such as Hispa nics. Outsi de the valid ated nisha eters , estim ated GFR is less accur ate, requi ring clini dilcia judgm ent on a case- by-ca se basis . Clini dilcia inter preta tion for other races and ages must be made by the clini bereket. The MDRD study equat ion has not been valid ated for the evalu ation of serum creat inine relat ed to nutri rosa l statu s or medic ation usage . For perso ns <18 years of age, a pedia tric GFR calcu lator is avail able on the [facility] websi te: https ://romy ayala.jerrica bautista/nidia copelandal s/binao qi/gf r_cal culat or Not Available [facility] (Lab) [address] [place], [address], 12/10/2023 12:54:12 12/10/19 24 12/10/2023 COMPR EHENS RONNY METAB OLIC PANEL alkaline phosphatase 63 U/L 38-126 Not Available [facility] (Lab) [address] [place], [address], 12/10/2023 12:54:12 12/10/19 24 12/10/2023 COMPR EHENS RONNY METAB OLIC PANEL alanine aminotransfe rase 27 U/L 0-50 Not Available [facility] (Lab) [address] [place], [address], 12/10/2023 12:54:12 12/10/19 24 12/10/2023 COMPR EHENS RONNY METAB OLIC PANEL aspartate aminotransfe rase 39 U/L 15-46 Not Available [facility] (Lab) [address] [place], [address], 12/10/2023 12:54:12 12/10/19 24 12/10/2023 COMPR EHENS RONNY METAB OLIC PANEL bilirubin, total 0.80 mg/dL 0.20-1 .30 Not Available [facility] (Lab) [address] [place], [address], 12/10/2023 12:54:12 12/10/19 24 12/10/2023 COMPR EHENS RONNY METAB OLIC PANEL calcium 9.4 mg/dL 8.4-10 .2 Not Available [facility] (Lab) [address] [place], [address], 12/10/2023 12:54:12 12/10/19 24 12/10/2023 COMPR EHENS RONNY METAB OLIC PANEL total protein 7.0 g/dL 6.3-8. 2 Not Available [facility] (Lab) [address] [place], [address], 12/10/2023 12:54:12 12/10/19 24 12/10/2023 COMPR EHENS RONNY METAB OLIC PANEL albumin 4.3 g/dL 3.0-4. 4 Not Available [facility] (Lab) [address] [place], [address], 12/10/2023 12:54:12 12/10/19 24 12/10/2023 COMPR EHENS RONNY METAB OLIC PANEL globulin 2.7 g/dL 2.6-4. 2 Not Available [facility] (Lab) [address] [place], [address], 12/10/2023 12:54:12 12/10/19 24 12/10/2023 COMPR EHENS RONNY METAB OLIC PANEL A/G ratio 1.6 ratio 1.0-2. 0 Not Available [facility] (Lab) [address] [place], [address], 12/10/2023 12:54:12 12/10/19 24 12/10/2023 MICRO ALBUM IN RANDO M URINE microalbumin , urine <6.0 mg/L 0.0-16 .6 Not Available [facility] (Lab) [address] [place], [address], 12/10/2023 12:57:00 12/10/19 24 12/10/2023 T4 FREE free T4 1.14 NG/dL 0.78-2 .19 Not Available [facility] (Lab) [address] [place], [address], 12/10/2023 13:00:32 12/10/19 24 12/10/2023 TSH thyroid-stim ulating hormone 4.470 uIU/m L 0.465- 4.680 Not Available [facility] (Lab) [address] [place], [address], 12/10/2023 13:02:41 12/10/19 24 12/10/2023 HEMOG LOBIN A1C HA1C 5.4 % 4.0-6. 0 Diabe hallie Scree maryjane Crite dasia: <5.7% Consi stent with absen ce of diabe hallie 5.7-6 .4% Consi stent with incre ased risk for diabe hallie (pred iabet es) >OR=6 .5% Consi stent with diabe hallie REFER ENCE: Diabe hallie Care 2016, 39([place] ppl.1 ):s13 -s22 Not Available [facility] (Lab) [address] [place], [address], 12/10/2023 13:54:21 05/13/20 24 05/13/2024 CBC/C OMPLE TE BLD COUNT W/DIF F white blood cells 6.1 x10'3 /uL 4.2-10 .8 Not Available [facility] (Lab) [address] [place], [address], 05/13/2024 12:50:23 05/13/20 24 05/13/2024 CBC/C OMPLE TE BLD COUNT W/DIF F red blood cells 4.61 x10'6 /uL 4.10-5 .80 Not Available [facility] (Lab) [address] [place], [address], 05/13/2024 12:50:23 05/13/2005/13/2024 CBC/C OMPLE TE BLD COUNT W/DIF F hemoglobin 14.3 g/dL 13.2-1 7.0 Not Available [facility] (Lab) [address] [place], [address], 05/13/2024 12:50:23 05/13/20 24 05/13/2024 CBC/C OMPLE TE BLD COUNT W/DIF F hematocrit 43.7 % 39.3-5 0.0 Not Available [facility] (Lab) [address] [place], [address], 05/13/2024 12:50:23 05/13/2005/13/2024 CBC/C OMPLE TE BLD COUNT W/DIF F mean red cell volume 94.8 fL 80.0-9 7.0 Not Available [facility] (Lab) [address] [place], [address], 05/13/2024 12:50:23 05/13/20 24 05/13/2024 CBC/C OMPLE TE BLD COUNT W/DIF F mean red cell hemoglobin 31.0 pg 27.0-3 3.0 Not Available [facility] (Lab) [address] [place], [address], 05/13/2024 12:50:23 05/13/20 24 05/13/2024 CBC/C OMPLE TE BLD COUNT W/DIF F mean RBC HGB concentratio n 32.7 g/dL 31.0-3 6.0 Not Available [facility] (Lab) [address] [place], [address], 05/13/2024 12:50:23 05/13/20 24 05/13/2024 CBC/C OMPLE TE BLD COUNT W/DIF F red cell distribution width 12.3 % 11.8-1 5.5 Not Available [facility] (Lab) [address] [place], [address], 05/13/2024 12:50:23 05/13/20 24 05/13/2024 CBC/C OMPLE TE BLD COUNT W/DIF F platelets 308 x10'3 /uL 150-40 0 Not Available [facility] (Lab) [address] [place], [address], 05/13/2024 12:50:23 05/13/20 24 05/13/2024 CBC/C OMPLE TE BLD COUNT W/DIF F mean platelet volume 10.5 fL 9.0-12 .4 Not Available [facility] (Lab) [address] [place], [address], 05/13/2024 12:50:23 05/13/20 24 05/13/2024 CBC/C OMPLE TE BLD COUNT W/DIF F neutrophils 49.4 % 39.0-7 2.0 Not Available [facility] (Lab) [address] [place], [address], 05/13/2024 12:50:23 05/13/20 24 05/13/2024 CBC/C OMPLE TE BLD COUNT W/DIF F lymphocytes 35.8 % 16.0-4 7.0 Not Available [facility] (Lab) [address] [place], [address], 05/13/2024 12:50:23 05/13/20 24 05/13/2024 CBC/C OMPLE TE BLD COUNT W/DIF F monocytes 10.7 % 5.0-12 .0 Not Available [facility] (Lab) [address] [place], [address], 05/13/2024 12:50:23 05/13/20 24 05/13/2024 CBC/C OMPLE TE BLD COUNT W/DIF F eosinophils 3.3 % 1.0-7. 0 Not Available [facility] (Lab) [address] [place], [address], 05/13/2024 12:50:23 05/13/20 24 05/13/2024 CBC/C OMPLE TE BLD COUNT W/DIF F basophils 0.5 % 0.0-2. 0 Not Available [facility] (Lab) [address] [place], [address], 05/13/2024 12:50:23 05/13/20 24 05/13/2024 CBC/C OMPLE TE BLD COUNT W/DIF F immature granulocytes 0.3 % 0.00-0 .50 Not Available [facility] (Lab) [address] [place], [address], 05/13/2024 12:50:23 05/13/20 24 05/13/2024 CBC/C OMPLE TE BLD COUNT W/DIF F neutrophils, absolute count 2.99 x10'3 /uL 1.5-8. 0 Not Available [facility] (Lab) [address] [place], [address], 05/13/2024 12:50:23 05/13/20 24 05/13/2024 CBC/C OMPLE TE BLD COUNT W/DIF F lymphocytes, absolute count 2.17 x10'3 /uL 1.07-3 .43 Not Available [facility] (Lab) [address] [place], [address], 05/13/2024 12:50:23 05/13/20 24 05/13/2024 CBC/C OMPLE TE BLD COUNT W/DIF F monocytes, absolute count 0.65 x10'3 /uL 0.29-0 .99 Not Available [facility] (Lab) [address] [place], [address], 05/13/2024 12:50:23 05/13/20 24 05/13/2024 CBC/C OMPLE TE BLD COUNT W/DIF F eosinophils, absolute count 0.20 x10'3 /uL 0.02-0 .53 Not Available [facility] (Lab) [address] [place], [address], 05/13/2024 12:50:23 05/13/20 24 05/13/2024 CBC/C OMPLE TE BLD COUNT W/DIF F basophils, absolute count 0.03 x10'3 /uL 0.01-0 .08 Not Available [facility] (Lab) [address] [place], [address], 05/13/2024 12:50:23 05/13/20 24 05/13/2024 CBC/C OMPLE TE BLD COUNT W/DIF F immature granulocytes ,absolute 0.02 x10'3 /uL 0.00-0 .05 Not Available [facility] (Lab) [address] [place], [address], 05/13/2024 12:50:23 05/13/20 24 05/13/2024 CBC/C OMPLE TE BLD COUNT W/DIF F nucleated red blood cells 0.0 % -0 Not Available [facility] (Lab) [address] [place], [address], 05/13/2024 12:50:23 05/13/20 24 05/13/2024 CBC/C OMPLE TE BLD COUNT W/DIF F NRBC# 0.00 x10'3 /uL Not Available [facility] (Lab) [address] [place], [address], 05/13/2024 12:50:23 05/13/2005/13/2024 LIPID PANEL cholesterol 146 mg/dL 140-19 9 NIH ANAND NSUS RECOM MENDA TION FOR DALI STERO L: ADULT CHILD LOW RISK: <200 <170 BORDE RLINE : <200- 239 ----- HIGH RISK: >240 >200 Not Available [facility] (Lab) [address] [place], [address], 05/13/2024 13:24:07 05/13/20 24 05/13/2024 LIPID PANEL triglyceride s 88 mg/dL 0-150 NIH ANAND NSUS REPOR T RECOM MENDA TION FOR TRIGL YCERI LIANNE: ADULT CHILD LOW RISK: <150 ----- BODER LINE: 150-1 99 ----- HIGH RISK: >200 ----- Not Available [facility] (Lab) [address] [place], [address], 05/13/2024 13:24:07 05/13/20 24 05/13/2024 LIPID PANEL HDL cholesterol 69 mg/dL 40- Not Available [facility] (Lab) [address] [place], [address], 05/13/2024 13:24:07 05/13/20 24 05/13/2024 LIPID PANEL LDL cholesterol, calculated 59 mg/dL 0-130 NIH ANAND NSUS REPOR T RECOM MENDA TIONS FOR LDL: ADULT CHILD LOW RISK <130 <110 (OPTI MAL LDL) <100 ----- BORDE RLINE : 130-1 59 ----- HIGH RISK: >160 >130 A TRIGL YCERI DE RESUL T >400 INVAL IDATE S THE CALCU LATIO N FOR LDL FRACT IONAT ION - THE LDL RESUL T WILL NOT BE REPOR ANABELLE. Not Available [facility] (Lab) [address] [place], [address], 05/13/2024 13:24:07 05/13/20 24 05/13/2024 COMPR EHENS RONNY METAB OLIC PANEL sodium 137 mmol/ L 137-14 5 Not Available [facility] (Lab) [address] [place], [address], 05/13/2024 13:24:13 05/13/20 24 05/13/2024 COMPR EHENS RONNY METAB OLIC PANEL potassium 4.4 mmol/ L 3.5-5. 1 Not Available [facility] (Lab) [address] [place], [address], 05/13/2024 13:24:13 05/13/20 24 05/13/2024 COMPR EHENS RONNY METAB OLIC PANEL chloride 106 mmol/ L 98-107 Not Available [facility] (Lab) [address] [place], [address], 05/13/2024 13:24:13 05/13/20 24 05/13/2024 COMPR EHENS RONNY METAB OLIC PANEL carbon dioxide 30 mmol/ L 22-30 Not Available [facility] (Lab) [address] [place], [address], 05/13/2024 13:24:13 05/13/20 24 05/13/2024 COMPR EHENS RONNY METAB OLIC PANEL anion gap 5.4 mmol/ L 14-22 low Not Available [facility] (Lab) [address] [place], [address], 05/13/2024 13:24:13 05/13/20 24 05/13/2024 COMPR EHENS RONNY METAB OLIC PANEL glucose 120 mg/dL 70-99 high Not Available [facility] (Lab) [address] [place], [address], 05/13/2024 13:24:13 05/13/20 24 05/13/2024 COMPR EHENS RONNY METAB OLIC PANEL BUN 18 mg/dL 8-19 Not Available [facility] (Lab) [address] [place], [address], 05/13/2024 13:24:13 05/13/2005/13/2024 COMPR EHENS RONNY METAB OLIC PANEL creatinine 1.15 mg/dL 0.66-1 .25 Not Available [facility] (Lab) [address] [place], [address], 05/13/2024 13:24:13 05/13/20 24 05/13/2024 COMPR EHENS RONNY METAB OLIC PANEL GFR >60 Refer ence Range : [place] ge GFR Healt hy Adult : >60 mL/mi n/1.7 3 m2 Chron ic Kidne y Disea se: 15-60 mL/mi n/1.7 3 m2 Kidne y Failu re: <15/m L/min /1.73 m2 www.n iddk. nih.g ov The MDRD study equat ion has not been valid ated in child malathi <18 years of age; pregn ant women ; the elder ly >85 years of age; or in some racia l or ethni c subgr oups, such as Hismd nics. Outsi de the valid ated nisha eters , estim ated GFR is less accur ate, requi ring clini dilcia judgm ent on a case- by-ca se basis . Clini dilcia inter preta tion for other races and ages must be made by the clini bereket. The MDRD study equat ion has not been valid ated for the evalu ation of serum creat inine relat ed to nutri rosa l statu s or medic ation usage . For perso ns <18 years of age, a pedia tric GFR calcu lator is avail able on the NKF websi te: https ://romy ayala.jerrica bautista/pr ofess ional s/kdo qi/gf r_cal culat or Not Available [facility] (Lab) [address] [place], [address], 05/13/2024 13:24:13 07/09/20 24 05/13/2024 COMPR EHENS RONNY METAB OLIC PANEL alkaline phosphatase 57 U/L 38-126 Not Available [facility] (Lab) [address] [place], [address], 05/13/2024 13:24:13 05/13/20 24 05/13/2024 COMPR EHENS RONNY METAB OLIC PANEL alanine aminotransfe rase 27 U/L 0-50 Not Available [facility] (Lab) [address] [place], [address], 05/13/2024 13:24:13 05/13/20 24 05/13/2024 COMPR EHENS RONNY METAB OLIC PANEL aspartate aminotransfe rase 36 U/L 15-46 Not Available [facility] (Lab) [address] [place], [address], 05/13/2024 13:24:13 05/13/20 24 05/13/2024 COMPR EHENS RONNY METAB OLIC PANEL bilirubin, total 1.00 mg/dL 0.20-1 .30 Not Available [facility] (Lab) [address] [place], [address], 05/13/2024 13:24:13 05/13/20 24 05/13/2024 COMPR EHENS RONNY METAB OLIC PANEL calcium 9.1 mg/dL 8.4-10 .2 Not Available [facility] (Lab) [address] [place], [address], 05/13/2024 13:24:13 05/13/20 24 05/13/2024 COMPR EHENS RONNY METAB OLIC PANEL total protein 6.8 g/dL 6.3-8. 2 Not Available [facility] (Lab) [address] [place], [address], 05/13/2024 13:24:13 05/13/20 24 05/13/2024 COMPR EHENS RONNY METAB OLIC PANEL albumin 4.3 g/dL 3.0-4. 4 Not Available [facility] (Lab) [address] [place], [address], 05/13/2024 13:24:13 05/13/20 24 05/13/2024 COMPR EHENS RONNY METAB OLIC PANEL globulin 2.5 g/dL 2.6-4. 2 low Not Available [facility] (Lab) [address] [place], [address], 05/13/2024 13:24:13 05/13/20 24 05/13/2024 COMPR EHENS RONNY METAB OLIC PANEL A/G ratio 1.7 ratio 1.0-2. 0 Not Available [facility] (Lab) [address] [place], [address], 05/13/2024 13:24:13 05/13/20 24 05/13/2024 T4 FREE free T4 1.14 NG/dL 0.78-2 .19 Not Available [facility] (Lab) [address] [place], [address], 05/13/2024 13:28:11 05/13/20 24 05/13/2024 TSH thyroid-stim ulating hormone 2.750 uIU/m L 0.465- 4.680 Not Available [facility] (Lab) [address] [place], [address], 05/13/2024 13:28:21 05/13/20 24 05/13/2024 HEMOG LOBIN A1C HA1C 5.7 % 4.0-6. 0 Diabe hallie Scree maryjane Crite dasia: <5.7% Consi stent with absen ce of diabe hallie 5.7-6 .4% Consi stent with incre ased risk for diabe hallie (pred iabet es) >OR=6 .5% Consi stent with diabe hallie REFER ENCE: Diabe hallie Care 2016, 39([place] ppl.1 ):s13 -s22 Not Available [facility] (Lab) [address] [place], [address], 05/13/2024 14:33:10 05/13/20 24 05/13/2024 MICRO ALBUM IN RANDO M URINE microalbumin , urine <6.0 mg/L 0.0-16 .6 Not Available [facility] (Lab) [address] [place], [address], 05/13/2024 15:30:04 09/19/20 24 09/19/2024 CBC/C OMPLE TE BLD COUNT W/DIF F white blood cells 6.5 x10'3 /uL 4.2-10 .8 Not Available [facility] (Lab) [address] [place], [address], 09/19/2024 12:38:27 09/19/20 24 09/19/2024 CBC/C OMPLE TE BLD COUNT W/DIF F red blood cells 5.21 x10'6 /uL 4.10-5 .80 Not Available [facility] (Lab) [address] [place], [address], 09/19/2024 12:38:27 09/19/20 24 09/19/2024 CBC/C OMPLE TE BLD COUNT W/DIF F hemoglobin 16.3 g/dL 13.2-1 7.0 Not Available [facility] (Lab) [address] [place], [address], 09/19/2024 12:38:27 09/19/20 24 09/19/2024 CBC/C OMPLE TE BLD COUNT W/DIF F hematocrit 49.2 % 39.3-5 0.0 Not Available [facility] (Lab) [address] [place], [address], 09/19/2024 12:38:27 09/19/20 24 09/19/2024 CBC/C OMPLE TE BLD COUNT W/DIF F mean red cell volume 94.4 fL 80.0-9 7.0 Not Available [facility] (Lab) [address] [place], [address], 09/19/2024 12:38:27 09/19/20 24 09/19/2024 CBC/C OMPLE TE BLD COUNT W/DIF F mean red cell hemoglobin 31.3 pg 27.0-3 3.0 Not Available [facility] (Lab) [address] [facility] [place], [address], 09/19/2024 12:38:27 09/19/20 24 09/19/2024 CBC/C OMPLE TE BLD COUNT W/DIF F mean RBC HGB concentratio n 33.1 g/dL 31.0-3 6.0 Not Available [facility] (Lab) [address] [place], [address], 09/19/2024 12:38:27 09/19/20 24 09/19/2024 CBC/C OMPLE TE BLD COUNT W/DIF F red cell distribution width 12.7 % 11.8-1 5.5 Not Available [facility] (Lab) [address] [place], [address], 09/19/2024 12:38:27 09/19/20 24 09/19/2024 CBC/C OMPLE TE BLD COUNT W/DIF F platelets 348 x10'3 /uL 150-40 0 Not Available [facility] (Lab) [address] [place], [address], 09/19/2024 12:38:27 09/19/20 24 09/19/2024 CBC/C OMPLE TE BLD COUNT W/DIF F mean platelet volume 10.7 fL 9.0-12 .4 Not Available [facility] (Lab) [address] [place], [address], 09/19/2024 12:38:27 09/19/20 24 09/19/2024 CBC/C OMPLE TE BLD COUNT W/DIF F neutrophils 50.2 % 39.0-7 2.0 Not Available [facility] (Lab) [address] [place], [address], 09/19/2024 12:38:27 09/19/20 24 09/19/2024 CBC/C OMPLE TE BLD COUNT W/DIF F lymphocytes 36.9 % 16.0-4 7.0 Not Available [facility] (Lab) [address] [place], [address], 09/19/2024 12:38:27 09/19/20 24 09/19/2024 CBC/C OMPLE TE BLD COUNT W/DIF F monocytes 11.0 % 5.0-12 .0 Not Available [facility] (Lab) [address] [place], [address], 09/19/2024 12:38:27 09/19/20 24 09/19/2024 CBC/C OMPLE TE BLD COUNT W/DIF F eosinophils 1.1 % 1.0-7. 0 Not Available [facility] (Lab) [address] [place], [address], 09/19/2024 12:38:27 09/19/20 24 09/19/2024 CBC/C OMPLE TE BLD COUNT W/DIF F basophils 0.5 % 0.0-2. 0 Not Available [facility] (Lab) [address] [place], [address], 09/19/2024 12:38:27 09/19/20 24 09/19/2024 CBC/C OMPLE TE BLD COUNT W/DIF F immature granulocytes 0.3 % 0.00-0 .50 Not Available [facility] (Lab) [address] [place], [address], 09/19/2024 12:38:27 09/19/20 24 09/19/2024 CBC/C OMPLE TE BLD COUNT W/DIF F neutrophils, absolute count 3.29 x10'3 /uL 1.5-8. 0 Not Available [facility] (Lab) [address] [place], [address], 09/19/2024 12:38:27 09/19/20 24 09/19/2024 CBC/C OMPLE TE BLD COUNT W/DIF F lymphocytes, absolute count 2.41 x10'3 /uL 1.07-3 .43 Not Available [facility] (Lab) [address] [place], [address], 09/19/2024 12:38:27 09/19/20 24 09/19/2024 CBC/C OMPLE TE BLD COUNT W/DIF F monocytes, absolute count 0.72 x10'3 /uL 0.29-0 .99 Not Available [facility] (Lab) [address] [place], [address], 09/19/2024 12:38:27 09/19/20 24 09/19/2024 CBC/C OMPLE TE BLD COUNT W/DIF F eosinophils, absolute count 0.07 x10'3 /uL 0.02-0 .53 Not Available [facility] (Lab) [address] [place], [address], 09/19/2024 12:38:27 09/19/20 24 09/19/2024 CBC/C OMPLE TE BLD COUNT W/DIF F basophils, absolute count 0.03 x10'3 /uL 0.01-0 .08 Not Available [facility] (Lab) [address] [place], [address], 09/19/2024 12:38:27 09/19/20 24 09/19/2024 CBC/C OMPLE TE BLD COUNT W/DIF F immature granulocytes ,absolute 0.02 x10'3 /uL 0.00-0 .05 Not Available [facility] (Lab) [address] [place], [address], 09/19/2024 12:38:27 09/19/20 24 09/19/2024 CBC/C OMPLE TE BLD COUNT W/DIF F nucleated red blood cells 0.0 % -0 Not Available [facility] (Lab) [address] [place], [address], 09/19/2024 12:38:27 09/19/20 24 09/19/2024 CBC/C OMPLE TE BLD COUNT W/DIF F NRBC# 0.00 x10'3 /uL Not Available [facility] (Lab) [address] [place], [address], 09/19/2024 12:38:27 09/19/2009/19/2024 LIPID PANEL cholesterol 189 mg/dL 140-19 9 NIH ANAND NSUS RECOM MENDA TION FOR DALI STERO L: ADULT CHILD LOW RISK: <200 <170 BORDE RLINE : <200- 239 ----- HIGH RISK: >240 >200 Not Available [facility] (Lab) [address] [place], [address], 09/19/2024 13:14:44 09/19/2009/19/2024 LIPID PANEL triglyceride s 75 mg/dL 0-150 NIH ANAND NSUS REPOR T RECOM MENDA TION FOR TRIGL YCERI LIANNE: ADULT CHILD LOW RISK: <150 ----- BODER LINE: 150-1 99 ----- HIGH RISK: >200 ----- Not Available [facility] (Lab) [address] [place], [address], 09/19/2024 13:14:44 09/19/20 24 09/19/2024 LIPID PANEL HDL cholesterol 82 mg/dL 40- Not Available [facility] (Lab) [address] [place], [address], 09/19/2024 13:14:44 09/19/20 24 09/19/2024 LIPID PANEL LDL cholesterol, calculated 92 mg/dL 0-130 NIH ANAND NSUS REPOR T RECOM MENDA TIONS FOR LDL: ADULT CHILD LOW RISK <130 <110 (OPTI MAL LDL) <100 ----- BORDE RLINE : 130-1 59 ----- HIGH RISK: >160 >130 A TRIGL YCERI DE RESUL T >400 INVAL IDATE S THE CALCU LATIO N FOR LDL FRACT IONAT ION - THE LDL RESUL T WILL NOT BE REPOR ANABELLE. Not Available [facility] (Lab) [address] [place], [address], 09/19/2024 13:14:44 09/19/20 24 09/19/2024 T4 FREE free T4 1.09 NG/dL 0.78-2 .19 Not Available [facility] (Lab) [address] [place], [address], 09/19/2024 13:31:16 09/19/20 24 09/19/2024 TSH thyroid-stim ulating hormone 3.040 uIU/m L 0.465- 4.680 Not Available [facility] (Lab) [address] [place], [address], 09/19/2024 13:55:56 01/31/20 24 01/30/2024 pulmo nary funct ion test* No observ ation record ed. BARCODE Not Available 2023 11:24:10 05/23/20 XR, hip + pelvi s, unila teral No observ ation record ed. [email or web address] [facility] [address] [facility] [address], [place], [address], 05/23/2024 12:29:51 07/11/20 24 07/11/2024 cardi ac stres s test No observ ation record ed. [email or web address] [facility] [address], [place], [address], 10/27/2024 14:59:08 09/11/20 24 09/10/2024 imagi ng/di agnos tic resul t No observ ation record ed. [email or web address] [facility] [address], [place], [address], 10/30/2024 09:02:29 09/11/20 24 09/10/2024 imagi ng/di agnos tic resul t No observ ation record ed. [address] [facility] [address], [place], [address], 10/30/2024 09:02:42 11/13/19 25 10/30/2024 imagi ng/di agnos tic resul t No observ ation record ed. [facility] [address], [place], [address], 11/13/2024 10:29:57 11/21/19 25 11/21/2024 imagi ng/di agnos tic resul t No observ ation record ed. [address], [address], 11/21/2024 14:11:36 Result Notes None recorded. Problems Name Problem SNOMED Code Status Onset Date Resolution Date Notes Provider Name and Address Organization Details Recorded Time Hallux valgus 225409087 Active Not Available [facility] 3 08:23:49 Capsulitis of metatarsop halangeal joint of left foot 0246138330438 9105 Active 2020 Not Available [facility] 3 08:23:49 Benign prostatic hyperplasi a 684843748 Active Not Available [facility] 3 08:23:49 Benavides's neuroma of left foot 0999774423676 05 Active 2019 Not Available [facility] 3 08:23:49 Enthesopat hy of hip region 96192108 Active Not Available [facility] 3 08:23:49 Hypertensi ve disorder 15246093 Active Not Available [facility] 3 08:23:49 Osteoarthr itis 768804566 Active Not Available [facility] 3 08:23:49 Hypothyroi dism 24141027 Active 2022 Not Available [facility] 3 08:23:49 Coronary arterioscl erosis 31677573 Active Not Available [facility] 3 08:23:49 Hyperlipid emia 46623065 Active Not Available [facility] 3 08:23:49 Allergic rhinitis 93038561 Active Not Available [facility] 3 08:23:49 COVID-19 364290287 Active 2022 Not Available [facility] 3 08:23:49 Recurrent urinary tract infection 611712663 Active 2022 Not Available [facility] 3 08:23:49 Chronic kidney disease 413223851 Active 2022 Not Available [facility] 3 08:23:49 Urinary incontinen ce 589412121 Active 2022 Not Available [facility] 3 08:23:49 Neuropathy 025681442 Active 2022 Not Available [facility] 3 08:23:49 Environmen philip allergy 213149093 Active 2022 Not Available [facility] 3 08:23:49 Serum thyroid stimulatin g hormone level outside reference range 799040666 Active 2022 Not Available [facility] 3 08:23:49 Mild chronic obstructiv e pulmonary disease 716003791 Active 2022 Not Available [facility] 3 08:23:49 Bunion 757952292 Active 2022 Not Available [facility] 3 08:23:49 Thyroid nodule 543845438 Active 2022 Karley guerrier, [facility] 3 11:07:15 Acute urinary tract infection 750146501 Active 2023 MANOLO Mendes, [facility] 4 15:13:44 Pain in right hip joint [id number] 02 Active 2023 Belinda parker MD [address], [address], [place], [address] , [facility] 4 14:51:37 Chronic obstructiv e pulmonary disease 48752982 Active 2023 Belinda parker MD [address], [address], [place], [address] , [place] [facility] 4 14:51:37 Essential hypertensi on 89077355 Active 2023 Belinda parker MD [address], [address], [place], [address] , [facility] 4 14:51:37 Hyperglyce livan 97881785 Active 2023 Belinda parker MD [address], [address], [place], [address] , [facility] 4 14:51:37 Forgetful 43968538 Active 2023 Belinda parker MD [address], [address], [place], [address] , [facility] 4 14:51:37 Pain of left hip joint [id number] 00 Active 2023 Belinda parker MD [address], [address], [place], [address] , [facility] 4 11:22:21 Pain in left foot [id number] 07 Active 2023 Belinda parker MD [address], [address], [place], [address] , [facility] 4 11:23:38 Trochanter ic bursitis of left hip [id number] 03 Active 2023 Henrietta guerrier, [place] [facility] 4 12:25:15 Notes:Medical History: COVID infection 12/2022 Right hearing loss/tinnitus Rhinitis with postnasal drip Eosinophils 90/uL IgE 35 IU/mL Hypogammaglobulinemia (total) AAT PiMM 160 mg% Mild COPD RLL calcified granuloma Obesity Hypothyroidism Hyperlipidemia Hypertension CAD Intermittent atrial fibrillation Elevated BNP OCTAVIANO BPH OA Hallux valgus Left Benavides's neuroma Bunion Procedure History: Bilateral knee arthroscopies 1991 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 Unintended recipients are directed to securely destroy any materials received. You are hereby notified that the unauthorized disclosure or other unlawful use of this fax or any personal health information is prohibited. To the extent patient information contained in this fax is subject to 42 CFR Part 2, this regulation prohibits unauthorized disclosure of these records. If you received this fax in error, please visit [email or web address] to notify the sender and confirm that the information will be destroyed. If you do not have internet access, please call to notify the sender and confirm that the information will be destroyed. Thank you for your attention and cooperation. [ID:[id number]] , Date: 4RE: Jesusita Saab MD, I would like to thank you for referring John Alston to me for consultation and evaluation of Left hip pain , on 05/23/2024. I have enclosed a copy of the office assessment and plan for your records. Once again, thank you for allowing me to participate in the care of this patient. Sincerely, Electronically Signed by: ENE RAMESH, PASFAYE Assessment/PlanThe patient has lateral hip trochanteric bursitis of the left hip. We talked about treatment options in detail today I offered him a shot of cortisone and oral prednisone he declined both of these he states these did not help his hip in the past he would rather just do physical therapy. We will get him set up for a course of physical therapy to work on modalities and stretching exercises teach home program. I will see him back in 6-8 weeks see how he is doing if he has symptoms continue we will push harder for a shot of cortisone and/or oral prednisone. For now we will see how he does he voiced understanding agrees above plan call for any further problems difficulties or questions. 1. Pain of left hip [id number]: Pain in left hip XR, HIP + PELVIS, UNILATERAL Side: LEFT 2. Trochanteric bursitis of left hipM70.62: Trochanteric bursitis, left hip PHYSICAL THERAPIST REFERRAL - Schedule Within: provider's discretion Note to Provider: Please contact patient to schedule Evaluate & Treat: as per p.t. Exercises: as per p.t Modalities: as per p.t. Side: LEFT # of requested visits: 8 XR, HIP + PELVIS, UNILATERAL Side: LEFT X-rays done today in the office as read by me AP pelvis AP lateral left hip demonstrates no fracture lesion mass. Bony structures around the proximal femur and femoral head are unremarkable femoral acetabular joint space is well-maintained. There is some hypertrophic spurring off the superior lateral edge of the acetabulum. X-rays are otherwise unremarkable no hypertrophic or sclerotic changes noted around the greater trochanteric region. Return to Office ENE Ramesh for Any 5 at [facility] Ortho [place] on 07/24/2024 at 01:15 PM Belinda Costello MD for Any 15 at [facility] Internal Med [place] on 09/22/2024 at 10:30 AM to see Richy Shah MD for Follow Up 15 at [facility] ENT [place] on or around 11/01/2024 Miguel Vo MD for Any 15 at [facility] Pulmonology [place] on 02/18/2025 at 10:00 AM Not Available [facility] 05/23/2024 12:31:47 Procedures Surgical History Date Name Laterality Status Provider Name and Address Organization Details Recorded Time 05/12/20 24 Medicare Wellness CPT Code, subsequent completed Shahram Otoole LPN [place] [employer] 05/06/2024 11:08:36 04/18/20 24 Colonoscopy completed IRAM Cook [employer] 05/12/2024 10:35:14 03/26/20 23 Callus Debridement 2-4 completed Yoan Phillips DPM [address], [address], [place], [address], [employer] 03/26/2023 11:53:49 01/10/20 23 Cystoscopy (male) completed Adiel Pichardo MD [address], [address], [place], [address], [employer] 01/09/2023 15:21:38 08/25/20 14 excision of bunion completed Not Available [facility] 01/03/2023 05:58:17 Unlisted px hands/fingers completed Not Available [facility] 01/03/2023 05:58:17 Cardiac Stent Placement completed Not Available [facility] 01/03/2023 05:58:17 Cardiac Stent Placement completed Not Available [facility] 01/03/2023 05:58:17 Cardiac Stent Placement completed Not Available [facility] 01/03/2023 05:58:17 Knee Surgery completed Not Available [facility] 01/03/2023 05:58:17 Imaging Results Imaging Date Name Status LastModified by [facility] Details LastModified Time 01/30/2024 pulmonary function test* completed BARCODE Information not available 01/31/2024 11:24:10 05/23/2024 XR, hip + pelvis, unilateral completed [email or web address] [place] [address], [place], [address], 05/23/2024 12:29:51 07/11/2024 cardiac stress test completed [email or web address] [facility] [address], [place], [address], 10/27/2024 14:59:08 09/10/2024 imaging/diagnos tic result completed [email or web address] [facility] [address], [place], [address], 10/30/2024 09:02:29 09/10/2024 imaging/diagnos tic result completed [email or web address] [facility] [address], [place], [address], 10/30/2024 09:02:42 10/30/2024 imaging/diagnos tic result active [facility] [address], [place], [address], 11/13/2024 10:29:57 11/21/2024 imaging/diagnos tic result active [address], [address], 11/21/2024 14:11:36 Procedure Notes None recorded. Medical Equipment None Reported. Allergies Allergen ID Allergen Name Allergen Category Reaction Reaction Severity Criticality Documentation Date Start Date Code Code System Note Provider Name and Address Organization Details Recorded Time 56989 Pneumovax 23 medicatio n other moderate Not available 01/03/20232013 89856 3 RxNorm pt devel oped blist ers after the pneum ovax Not Available [facility] 3 06:17:43 Medications Name Sig Start Date Stop Date Status Note LastModified by Organization Details LastModified Time amoxicill in 500 mg capsule active Not Available Not Available Not Available latanopro st 0.005 % eye drops INSTILL 1 DROP IN BOTH EYES AT BEDTIME active Not Available Not Available No t Available atorvasta tin 40 mg tablet daily 10/04 completed Not Available Not Available Not Available neomycin- polymyxin -hydrocor t 3.5 mg/mL-10, 000 unit/mL-1 % ear solution 11/25 completed Not Available Not Available Not Available prednison e 10 mg tablet 30mg x2 days, 20mg x2days, 10mg x2 days 08/16 completed Not Available Not Available Not Available doxycycli ne hyclate 100 mg capsule active Not Available Not Available Not Available atorvasta tin 20 mg tablet TAKE 1 TABLET BY MOUTH DAILY active Not Available Not Available No t Available azithromy magalis 250 mg tablet Take 1 dose pk by oral route as directed . 08/16 completed Not Available Not Available Not Available benzonata te 200 mg capsule Take 1 capsule 3 times a day by oral route as needed. active Not Available Not Available No t Available sotalol 80 mg tablet TAKE 1 TABLET BY MOUTH TWICE DAILY active Not Available Not Available No t Available Levaquin 750 mg tablet Take 1 tablet every day by oral route for 7 days. 10/04 completed Not Available Not Available Not Available lisinopri l 20 mg tablet TAKE 1 TABLET BY MOUTH DAILY active Not Available Not Available No t Available isosorbid e mononitra te ER 30 mg tablet,ex tended release 24 hr active Not Available Not Available Not Available penicilli n V potassium 500 mg tablet active Not Available Not Available Not Available acetamino phen 300 mg-codein e 30 mg tablet active Not Available Not Available Not Available clopidogr el 75 mg tablet TAKE 1 TABLET BY MOUTH DAILY 08/27 completed Not Available Not Available Not Available chlorthal idone 25 mg tablet 04/22 completed Not Available Not Available Not Available amlodipin e 5 mg tablet TAKE 1 TABLET BY MOUTH DAILY active Not Available Not Available No t Available valacyclo vir 500 mg tablet 12/19 completed Not Available Not Available Not Available ciproflox acin 500 mg tablet Take 1 tablet twice a day by oral route for 7 days. active Not Available Not Available No t Available aspirin 81 mg tablet,de layed release Take 1 tablet every day by oral route. 05/23 completed Not Available Not Available Not Available tramadol 50 mg tablet TAKE 1 TABLET BY MOUTH THREE TIMES DAILY FOR 5 DAYS NEEDED FOR PAIN active Not Available Not Available No t Available amoxicill in 500 mg tablet TAKE 1 TABLET BY MOUTH THREE TIMES DAILY UNTIL ALL TAKEN 12/19 completed Not Available Not Available Not Available nystatin- triamcino lone 100,000 unit/gram -0.1 % topical ointment APPLY TOPICALL Y TO THE AFFECTED AREA TWICE DAILY 02/18 completed Not Available Not Available Not Available meloxicam 7.5 mg tablet Take 1 tablet every day by oral route. 11/29 completed Not Available Not Available Not Available isosorbid e mononitra te ER 60 mg tablet,ex tended release 24 hr TAKE 1 TABLET BY MOUTH EVERY DAY active Not Available Not Available No t Available amlodipin e 10 mg tablet Take 1 tablet every day by oral route. 09/14 completed Not Available Not Available Not Available benzonata te 100 mg capsule TAKE ONE CAPSULE BY MOUTH THREE TIMES DAILY 08/16 completed Not Available Not Available Not Available hydrocodo ne 7.5 mg-acetam inophen 325 mg tablet active Not Available Not Available Not Available cephalexi n 500 mg capsule TAKE 1 CAPSULE BY MOUTH THREE TIMES DAILY FOR 5 DAYS active Not Available Not Available No t Available fluticaso ne propionat e 100 mcg/actua tion blister powder for inhalatio n Inhale 1 puff twice a day by inhalati on route. 12/07 completed Not Available Not Available Not Available ranitidin e 150 mg tablet Take 1 tablet twice a day by oral route. 05/23 completed Not Available Not Available Not Available nitroglyc adriana 400 mcg/spray transling ual USE 1 SPRAY 1 TIME NEEDED 12/28 completed Not Available Not Available Not Available nitroglyc adriana 0.4 mg sublingua l tablet ONE TABLET UNDER TONGUE NEEDED FOR CHEST PAIN DIRECTED . MAY REPEAT EVERY 5 MINUTES IF STILL HAVING CHEST PAIN - MAX OF 3 TABLETS PER EPISODE active Not Available Not Available No t Available folic acid 1 mg tablet Take 1 tablet every day by oral route. 11/25 completed Not Available Not Available Not Available monteluka st 10 mg tablet Take 1 tablet every day by oral route. 04/22 completed Not Available Not Available Not Available codeine 10 mg-guaife nesin 100 mg/5 mL oral liquid Take 10 mL twice a day by oral route for 10 days. 05/23 completed Not Available Not Available Not Available bisacodyl 5 mg tablet,de layed release TAKE 6 TABLETS BY MOUTH AT 8AM ON 04/18 completed Not Available Not Available Not Available aspirin 81 mg tablet Take 1 tablet every day by oral route. 12/21 completed Not Available Not Available Not Available levetirac etam 750 mg tablet 12/11 completed Not Available Not Available Not Available ranitidin e 150 mg capsule Take 1 capsule every day by oral route. 12/08/ 2016 07/19 /2021 completed Not Available Not Available Not Available gabapenti n 100 mg capsule TAKE ONE CAPSULE BY MOUTH EVERY DAY, NO ALCOHOL, DRIVING OR WITH SEDATION MEDICATI ON active Not Available Not Available No t Available metoprolo l succinate ER 25 mg tablet,ex tended release 24 hr twice daily 10/04 completed Not Available Not Available Not Available methylpre dnisolone 4 mg tablets in a dose pack Take 1 dose pk by oral route. 01/20 completed Not Available Not Available Not Available albuterol sulfate HFA 90 mcg/actua tion aerosol inhaler INHALE 1 PUFF BY MOUTH EVERY 4 HOURS NEEDED active Not Available Not Available No t Available lisinopri l 40 mg tablet Take 1 tablet every day by oral route. 2013 active Not Available Not Available Not Avai lable fluticaso ne propionat e 50 mcg/actua tion nasal spray,marina pension SHAKE LIQUID AND USE 1 TO 2 SPRAYS IN EACH NOSTRIL EVERY DAY active Not Available Not Available No t Available Fish Oil 1,000 mg capsule Take 1 capsule every day by oral route. 12/21 completed Not Available Not Available Not Available loratadin e 10 mg tablet TAKE 1 TABLET BY MOUTH ONCE A DAY DIRECTED as needed 12/24 completed Not Available Not Available Not Available folic acid 800 mcg tablet Take 1 tablet every day by oral route. 2019 active Not Available Not Available Not Avai lable amoxicill in 875 mg-potass ium clavulana te 125 mg tablet TK 1 T PO Q 12 H FOR 7 DAYS active Not Available Not Available No t Available amoxicill in 500 mg-potass ium clavulana te 125 mg tablet active Not Available Not Available Not Available Vitamin B12 100 mcg tablet Take by oral route. 11/25 completed Not Available Not Available Not Available dutasteri de 0.5 mg capsule TAKE 1 CAPSULE BY MOUTH DAILY active Not Available Not Available No t Available Multivita min 50 Plus tablet Take 1 tablet every day by oral route. 12/28 completed Not Available Not Available Not Available alfuzosin ER 10 mg tablet,ex tended release 24 hr TAKE 1 TABLET BY MOUTH EVERY DAY active Not Available Not Available No t Available metoprolo l tartrate 25 mg tablet TAKE 1/2 TABLET BY MOUTH TWICE DAILY 04/12 completed Not Available Not Available Not Available Boostrix Tdap 2.5 Lf unit-8 mcg-5 Lf/0.5 mL intramusc ular syringe active Not Available Not Available Not Available Asmanex Twisthale r 220 mcg/actua tion(120 doses) breath activated inhlr Inhale 1 puff twice a day by inhalati on route for 30 days. 09/25 completed Not Available Not Available Not Available Asmanex Twisthale r 220 mcg/actua tion(14 doses) breath activated inhalr 1BID 11/29 completed Not Available Not Available Not Available aspirin 100mg daily 07/[address] Thomson as a research medicati on Not Available Not Available Not Available Fish Oil 1200 mg daily 11/25 completed Not Available Not Available Not Available fluticaso ne propionat e PRN 12/21 completed Not Available Not Available Not Available metoprolo l succinate 12.5mg bid 12/[address] Thomson 11/11/19 21 Not Available Not Available Not Available sotalol 40mg bid 12/[address] Thomson 11/11/19 21, s/p shock given for A.fib Not Available Not Available Not Available Multivita mins daily 11/25 completed Not Available Not Available Not Available multivita min 1 po qd 05/23 completed Not Available Not Available Not Available Multivita min 50 Plus 05/23 completed Not Available Not Available Not Available Asmanex Twisthale r 05/23 completed Not Available Not Available Not Available ranolazin e ER 500 mg tablet,ex tended release,1 2 hr TAKE 1 TABLET BY MOUTH TWICE DAILY active Not Available Not Available No t Available Zostavax (PF) 19,400 unit/0.65 mL subcutane ous suspensio n active Not Available Not Available Not Available Fish Oil 1,000 mg capsule daily 2012 active Not Available Not Available Not Avai lable GaviLyte- G 236 gram-22.7 4 gram-6.74 gram-5.86 gram oral solution 05/12 completed Not Available Not Available Not Available Effient 10 mg tablet daily active Not Available Not Available Not Available B12 1,000mcg PO QD 2019 active Not Available Not Available Not Avai lable Suprep Bowel Prep Kit 17.5 gram-3.13 gram-1.6 gram oral solution MIX AND DRINK DIRECTED 06/08 completed Not Available Not Available Not Available rivaroxab an 2.5 mg bid 11/[address] Thomson as a research medicati on Not Available Not Available Not Available Brilinta 90 mg tablet active Not Available Not Available Not Available Xarelto 20 mg tablet TAKE 1 TABLET BY MOUTH DAILY WITH EVENING MEAL 12/20 completed Not Available Not Available Not Available Eliquis 5 mg tablet TAKE 1 TABLET BY MOUTH TWICE DAILY active Not Available Not Available No t Available Fluzone High-Dose 7483-7782 (PF) 180 mcg/0.5 mL intramusc ular syringe active Not Available Not Available Not Available Fluzone High-Dose 2013- (PF) 180 mcg/0.5 mL intramusc ular syringe active Not Available Not Available Not Available Fluzone High-Dose 2014- (PF) 180 mcg/0.5 mL intramusc ular syringe active Not Available Not Available Not Available Fluzone High-Dose 9939-5635 (PF) 180 mcg/0.5 mL intramusc ular syringe 09/25 completed Not Available Not Available Not Available Fluzone High-Dose 8458-9534 (PF) 180 mcg/0.5 mL intramusc ular syringe ADM 0.5ML IM UTD active Not Available Not Available No t Available Shingrix (PF) 50 mcg/0.5 mL intramusc ular suspensio n, kit 09/14 completed Not Available Not Available Not Available Fluzone High-Dose (PF) 180 mcg/0.5 mL intramusc ular syringe active Not Available Not Available Not Available Xarelto 2.5 mg tablet 1 tab two times daily active Not Available Not Available No t Available Wixela Inhub 250 mcg-50 mcg/dose powder for inhalatio n INHALE 1 PUFF BY MOUTH TWICE DAILY 02/12 completed Not Available Not Available Not Available Fluzone High-Dose (PF) 180 mcg/0.5 mL intramusc ular syringe active Not Available Not Available Not Available Fluzone High-Dose Quad (PF) 240 mcg/0.7 mL IM syringe ADM 0.7ML IM UTD active Not Available Not Available No t Available aspirin 81 mg capsule Take 1 capsule every day by oral route. 12/24 completed Not Available Not Available Not Available Paxlovid 300 mg (150 mg x 2)-100 mg tablets in a dose pack TAKE DIRECTED . HOLD ATORVAST ATIN 01/22 completed Not Available Not Available Not Available Vitals Date Recorded Body height Body mass index (BMI) Body weight Body temperature Heart rate Oxygen saturation Oxygen saturation in Arterial blood by Pulse oximetry Systolic blood pressure Diastolic blood pressure Provider Name and Address Organization Details Last Updated DateTime 4 185.42 cm 31.8 kg/m2 393347. 76 g 97.3 [degF] 50 /min 97 % 97 % 120 mm[Hg] 82 mm[Hg] IRAM Moore [facility] [employer]@ [employer] [facility] 4 12:06:31 Date Recorded Body height Body mass index (BMI) Body weight Oxygen saturation Oxygen saturation in Arterial blood by Pulse oximetry Body temperature Systolic blood pressure Diastolic blood pressure Provider Name and Address Organization Details Last Updated DateTime 4 185.42 cm 31.3 kg/m2 933648. 39 g 98 % 98 % 97.6 [degF] 126 mm[Hg] 74 mm[Hg] Argenis Godwin CMA [facility] [employer] [facility] 4 11:10:21 Date Recorded Heart rate Heart rate Respiratory rate Provider Name and Address Organization Details Last Updated DateTime 02/19/2024 51 /min 51 /min 15 /min Miguel Vo MD [address] [place] [address] [address], [place], [address], [facility] [employer] [facility] 02/19/2024 11:36:45 Date Recorded Body height Body mass index (BMI) Body weight Body temperature Heart rate Systolic blood pressure Diastolic blood pressure Provider Name and Address Organization Details Last Updated DateTime 4 185.42 cm 31.3 kg/m2 435051. 39 g 97.5 [degF] 60 /min 120 mm[Hg] 80 mm[Hg] Anay Perkins Beau [facility] [employer] [facility] 4 10:37:35 Date Recorded Pain severity - 0-10 verbal numeric rating [Score] - Reported Provider Name and Address Organization Details Last Updated DateTime 05/12/2024 4 Shahram Otoole LPN [facility] I [employer] [facility] 05/12/2024 12:04:55 Date Recorded Body height Body mass index (BMI) Body weight Provider Name and Address Organization Details Last Updated DateTime 05/23/2024 187.96 cm 30.6 kg/m2 152777.98 g Amy TRISTAN Johnson [facility] [employer] [facility] 05/23/2024 11:58:43 Date Recorded Body height Body mass index (BMI) Body weight Body temperature Heart rate Systolic blood pressure Diastolic blood pressure Provider Name and Address Organization Details Last Updated DateTime 187.96 cm 29.1 kg/m2 223341. 47 g 97.6 [degF] 66 /min 100 mm[Hg] 70 mm[Hg] Anay Perkins [facility] [employer] [facility] 11:01:27 Social History Question Answer Notes LastModified by Organizat ion Details LastModified Time Tobacco Smoking Status Never Smoker Not Available [facility] 01/03/2023 05:58:05 Do You Have An Advance Directive? Yes [id number] Information not available 01/03/2023 What Is Your Level Of Alcohol Consumption? None Information not available 05/23/2024 Do You Wear A Helmet When Biking? No Does Not Bike Information not available 05/12/2024 Are You Blind Or Do You Have Difficulty Seeing? No [id number] Information not available 01/03/2023 Is Blood Transfusion Acceptable In An Emergency? Yes [email or web address] Information not available 05/12/2024 What Is Your Level Of Caffeine Consumption? Occasional [id number] Information not available 01/03/2023 In The 14 Days Before Symptom Onset, Have You Had Close Contact With A Laboratory-hellen sarah COVID-19 While That Case Was Ill? No [id number] Information not available 01/03/2023 In The 14 Days Before Symptom Onset, Have You Had Close Contact With A Person Who Is Under Investigation For COVID-19 While That Person Was Ill? No [id number] Information not available 01/03/2023 Are You Currently Employed? No [email or web address] Information not available 05/12/2024 Are You Deaf Or Do You Have Serious Difficulty Hearing? No [id number] Information not available 01/03/2023 What Type Of Diet Are You Following? REGULAR [id number] Information not available 01/03/2023 What Is The Highest Grade Or Level Of School You Have Completed Or The Highest Degree You Have Received? [id number] Information not available 01/03/2023 Do You Have An Electrostatic Air Filter? Yes [id number] Information not available 01/03/2023 What Is Your Occupation? Retired [id number] Information not available 01/03/2023 How Many Days Of Moderate To Strenuous Exercise, Like A Brisk Walk, Did You Do In The Last 7 Days? 0 [email or web address] Information not available 05/12/2024 Have There Been Any Changes To Your Family Or Social Situation? No [id number] Information not available 01/03/2023 What Is The Fluoride Status Of Your Home? Unknown [id number] Information not available 01/03/2023 Are There Any Guns Present In Your Home? Yes [id number] Information not available 01/03/2023 Do You Have A Humidifier? No [id number] Information not available 01/03/2023 Do You Use Insect Repellent Routinely? Yes [id number].[id number] Information not available 01/03/2023 Where Do You Live? [place]House MIGRATION.26754 [id number] Information not available 01/03/2023 Presence Of Domestic Violence No [email or web address] Information not available 05/12/2024 Guns Present In The Home? Yes [email or web address] Information not available 05/12/2024 Are You Able To Care For Yourself? Yes Information not available 05/12/2024 Are You Blind Or Do Yo Have Difficulty Seeing? No Information not available 05/12/2024 Are You Deaf Or Do You Have Serious Difficulty Hearing? No Information not available 05/12/2024 General Stress Level? Low [email or web address] Information not available 05/12/2024 Live Alone Of With Others? With Others Information not available 05/12/2024 Do You Have A Medical Power Of Compensation/Benefits Specialist? Yes MIGRATION.90934 [id number] Information not available 01/03/2023 Do You Have Moisture Problems In Your Home? No MIGRATION.33153 07909 Information not available 01/03/2023 What Was The Date Of Your Most Recent Tobacco Screening? 09/22/2024 [email or web address] Information not available 09/22/2024 Do You Have Any Pets? No MIGRATION.16985 02605 Information not available 01/03/2023 What Is Your Relationship Status? MIGRATION.61742 23337 Information not available 01/03/2023 Do You Use Your Seat Belt Or Car Seat Routinely? Yes MIGRATION.66151 30095 Information not available 01/03/2023 Do You Have Smoke And Carbon Monoxide Detectors In Your Home? Yes MIGRATION.58901 32618 Information not available 01/03/2023 Are You Passively Exposed To Smoke? No MIGRATION.46437 27267 Information not available 01/03/2023 Are There Any Smokers In Your House? No MIGRATION.59934 46843 Information not available 01/03/2023 What Types Of Sporting Activities Do You Participate In? None MIGRATION.37358 79944 Information not available 01/03/2023 Do You Feel Stressed (tense, Restless, Nervous, Or Anxious, Or Unable To Sleep At Night)? [id number] MIGRATION.40933 04426 Information not available 01/03/2023 Do You Use Any Illicit Or Recreational Drugs? No MIGRATION.52941 64799 Information not available 01/03/2023 Do You Use Sunscreen Routinely? Yes MIGRATION.71091 83925 Information not available 01/03/2023 Has Tobacco Cessation Counseling Been Provided? No N/A [email or web address] Information not available 05/12/2024 Have You Recently Traveled Abroad? No MIGRATION.94006 79897 Information not available 01/03/2023 Do You Have Any Dietary Restrictions? No MIGRATION.56936 22262 Information not available 01/03/2023 Do You Or Have You Ever Used Any Other Forms Of Tobacco Or Nicotine? No MIGRATION.92052 73770 Information not available 01/03/2023 Sex: Male Functional Status Question Answer Note LastModified by Organ[employer] Details LastModified Time Do you have difficulty walking or climbing stairs? No MIGRATION.2150659 026 Information not available 01/03/2023 Do you have transportation difficulties? No MIGRATION.7163905 026 Information not available 01/03/2023 Are you able to walk? YESWOREST MIGRATION.1741293 026 Information not available 01/03/2023 Do you have difficulty doing errands alone? No MIGRATION.8175045 026 Information not available 01/03/2023 Are you able to care for yourself? Yes MIGRATION.6943516 026 Information not available 01/03/2023 Do you have difficulty dressing or bathing? No MIGRATION.1649004 026 Information not available 01/03/2023 What is your exercise level? Occasional MIGRATION.[id number] 026 Information not available 01/03/2023 Mental Status Question Answer Note LastModified by [employer] Details LastModified Time Do you have difficulty concentrating, remembering or making decisions? No MIGRATION.[id number] 6 Information not available 01/03/2023 Family History Relationship Description Onset Age of this Age Resolved Age Notes LastModified by Organization Details LastModified Time Brother Myocardial infarction MIGRATION.916 [id number] Not available 01/03/2023 05:58:25 Brother Malignant tumor of prostate 70 MIGRATION.536 [id number] Not available 01/03/2023 05:58:25 Brother Hypertensive disorder multip le brothe rs Not available 05/23/2024 11:59:38 Brother Heart disease multip le brothe rs Not available 05/23/2024 11:59:55 Father Heart disease MIGRATION.060 [id number] Not available 01/03/2023 05:58:25 Mother Carcinoma of lung MIGRATION.514 [id number] Not available 01/03/2023 05:58:25 Mother Carcinoma of colon MIGRATION.431 [id number] Not available 01/03/2023 05:58:25 Sister Carcinoma of breast MIGRATION.215 [id number] Not available 01/03/2023 05:58:25 Notes:NO ENT Medical History Condition Response NERVE DISEASE N BLINDNESS N RHEUMATIC FEVER N KIDNEY STONES N BLADDER PROBLEMS N MRSA N OTHER # 1 N POLIO N LUNG DISEASE/DISORDER N HISTORY OF DRUG ABUSE N COPD Y RADIATION / CHEMOTHERAPY N Other # 2 N BLOOD DISEASES Y EAR OR HEARING PROBLEMS Y MUMPS N SHINGLES N BOWEL PROBLEMS N DEPRESSION (INCLUDING POST ) N STROKE/TIA N ULCERS N BENIGN PROSTATIC HYPERPLASIA N MEASLES N HYPOTENSION N MYOCARDIAL INFARCTION N OBESITY N GERD/NAUSEA Y ANEURYSM N URINARY/BLADDER/KIDNEY PROBLEMS Y CORONARY ARTERY DISEASE (CAD) Y ADDICTION CONCERNS N ENDOMETRIOSIS N Impotence N USE OF BLOOD THINNERS Y SKIN PROBLEMS N GASTROINTESTINAL DISORDER N PERIPHERAL VASCULAR DISEASE N MUSCLE,JOINT OR BONE PROBLEMS N GASTROINTESTINAL BLEEDING N BLOOD CLOTS N ASTHMA Y CATARACTS N ERECTILE DYSFUNCTION N VARICOSITIES N GI PROBLEMS N Low Testosterone N INFERTILITY N AIDS/HIV N CHEMOTHERAPY / RADIATION N LIVER DISEASE N MALE HYPOGONADISM N HYPERTENSION Y Deficiency N TOURETTE'S N ANXIETY DISORDER N BLOOD TRANSFUSION N ANEMIA/BLOOD DISORDER N CHRONIC EAR INFECTIONS N BRONCHITIS N TUBERCULOSIS N GLAUCOMA N FOOT PROBLEM Y DIVERTICULITIS N CHICKENPOX N SLEEP APNEA N INFECTIOUS DISEASE N HEART ARRHYTHMIA Y PROSTATE N INSOMNIA N HIGH CHOLESTEROL / HYPERLIPIDEMIA Y HYPERTHYROIDISM N EYE PROBLEMS N EDEMA N CHRONIC PAIN SYNDROME N HYPOTHYROIDISM N CAROTID BLOCKAGE N CONSTIPATION N BACK / NECK PROBLEMS N ATHEROSCLEROSIS N BREAST PROBLEMS N DIALYSIS N ECZEMA N OSTEOPOROSIS N ARTHRITIS Y APPENDICITIS N DIABETES, TYPE N BAD TEETH N ENT Y HEARTBURN / REFLUX N AUTISM SPECTRUM DISORDER (ASD) N HEPATITIS / LIVER DISEASE N GOUT N SLEEP DISORDER N ALZHEIMER'S DISEASE N Brain Problems N HERPES N DEMENTIA N HEADACHES/MIGRAINES N SEIZURES/EPILEPSY N VASCULAR DISEASE N PACEMAKER N Blood Disorder N DIZZINESS N HEART DISEASE/HEART PROBLEMS N KIDNEY DISEASE Y MULTIPLE SCLEROSIS N CARDIAC ARRHYTHMIA N CANCER: SPECIFY N ATRIAL FIBRILLATION N Gall Stones N PULMONARY EMBOLISM N AUTOIMMUNE DISEASE N Immunizations Vaccine Type Date Status Note Provider Nam e and Address Organization Details Recorded Time Influenza, high-dose, quadrivalent, PF 3 completed Belinda Costello MD [address] [place] [address], [id number], [facility] [employer] 08/27/2023 17:58:14 COVID-19, mRNA, LNP-S, bivalent, PF, 30 mcg/0.3 mL dose 2 completed Not Available [facility], [facility] 06/14/2023 08:23:50 COVID-19, mRNA, LNP-S, PF, 30 mcg/0.3 mL dose 1 completed Not Available [facility] 06/14/2023 08:23:50 SARS-COV-2 (COVID-19) vaccine, UNSPECIFIED 1 completed Not Available [facility] 06/14/2023 08:23:50 Tdap 5 completed Not Available [facility] 06/14/2023 08:23:50 Influenza, high-dose, trivalent, PF 5 completed Not Available [facility] 06/14/2023 08:23:50 zoster live 4 completed Not Available [facility] 06/14/2023 08:23:50 Influenza, high-dose, trivalent, PF 4 completed Not Available [facility] 06/14/2023 08:23:50 pneumococcal polysaccharide PPV23 2 completed Not Available [facility] 06/14/2023 08:23:50 Influenza, split virus, quadrivalent, preservative 1 completed Not Available [facility] 06/14/2023 08:23:50 COVID-19, mRNA, LNP-S, PF, 100 mcg/0.5mL dose or 50 mcg/0.25mL dose 1 completed Not Available [facility] 06/14/2023 08:23:50 Influenza, high-dose, trivalent, PF 0 completed Not Available [facility] 06/14/2023 08:23:50 Influenza, high-dose, quadrivalent, PF 9 completed Not Available [facility] 06/14/2023 08:23:50 Influenza, split virus, quadrivalent, preservative 8 completed Not Available [facility] 06/14/2023 08:23:50 Influenza, high-dose, trivalent, PF 7 completed Not Available [facility] 06/14/2023 08:23:50 Influenza, high-dose, trivalent, PF 6 completed Not Available [facility] 06/14/2023 08:23:50 Influenza, high-dose, trivalent, PF 3 completed Not Available [facility] 06/14/2023 08:23:50 Influenza, high-dose, quadrivalent, PF 2 completed Not Available [facility] 06/14/2023 08:23:50 DT (pediatric) 0 completed Not Available [facility] 06/14/2023 08:23:50 Past Encounters Encounter ID Performer Location Encounter Start Date Encounter Closed Date Diagnosis/Indication Diagnosis SNOMED-CT Code Diagnosis ICD10 Code Diagnosis Note [id number] [facility] [place] [address] , [place] [address] 05/23/2021 00:00:00 05/25/2021 11:35:53 [id number] [facility] [place] [address] [facility] [address] [place] [address] 08/18/2021 00:00:00 08/21/2021 15:05:58 [id number] [facility] [place] [address] , [place] [address] 12/07/2021 00:00:00 12/07/2021 14:48:00 [id number] [facility] [place] [address] [place] [address] 01/23/2022 00:00:00 01/23/2022 13:46:36 [id number] [facility] [place] [address] [place] [address] 04/12/2022 00:00:00 04/12/2022 15:00:38 [id number] [facility] [place] [address] [facility] [address] [place] [address] 06/26/2022 00:00:00 06/27/2022 13:11:09 [id number] [facility] [place] [address] [place] [address] 08/16/2022 00:00:00 08/16/2022 15:18:15 [id number] [facility] Urology [address], [address] [place] [address] 09/19/2022 00:00:00 09/19/2022 15:21:20 [id number] [facility] U[facility] [address], [address] [address] 12/19/2022 00:00:00 12/19/2022 15:33:24 [id number] [facility] Internal Med [place] [address] [facility] [place] [address] 12/20/2022 00:00:00 12/20/2022 17:13:34 [id number] [facility] Pulmonolo gy [address], [address] [address] 12/28/2022 00:00:00 12/28/2022 16:43:07 [id number] Adiel Pichardo MD [facility] Urology [address], [address] [address] 01/09/2023 14:21:41 01/09/2023 15:30:00 Recurrent urinary tract infection [id number] N39.0 Doing better with uroxatral, discussed urolift, would need trus. we agree to wait 3 months when due for prostate check. Screening for malignant neoplasm of prostate 717338690 Z12.5 [id number] Belinda parker MD [facility] Internal Med [place] [address] [facility] [place] [address] 01/22/2023 15:26:18 01/22/2023 15:58:21 Screening - NAD [id number] Z13.9 C-scope: 04/16/2017 next in 3 yearsAdden dum: 04/30/2020 : Next in [address] Bolaños Get yearly flu shotUTD on Tdap 2015UTD on zoster 2014UTD on PPV 23 2011, declines any more shot as #23 caused blistersUT D COVID 19 vaccine RTC in 4 monthsDo labsER if worseHe verbalized his understand ing of the above Hyperlipidemia 67752834 E78.5 On ASAOn atorvastat in 20mg dailyGet labs Essential hypertension 31263692 I10 On amlodipine 5mg dailyOn plavix On isosorbide ER 60mg daily On lisinoprol 20mg daily Not on metoprolol 25mg 1/2 tab bid should not be taking this On NTG On sotalol 80mg 1/3 tab bid Sees [facility] Dr Thomson Coronary arteriosclerosis 16042711 I25.10 04/13/2020 : US Carotid: 60-69% R ICA 020: CTA neck: No [id number]: Dr Thomson, noted to have atrial flutter, to get CATHY/CVOff xareltoSee s Dr Thomson [facility]/p admitted and d/c 06/12/2022 , d/c 06/16/2022 , s/p stent, xarelto d/c started on ASA and plavix Pain in ri ght hip joint [id number] 56996 M25.551 MRI 12/11/2019 , sees ortho for thisHas seen Dr Barnes in the pastDoes well Chronic ob structive pulmonary disease 48996023 J44.9 On albuterolO n flonaseSee s pulmonary Dr Mary Jo Huston Chronic ki dney disease 066286539 N18.[address] Funez Urinary incontinence 165 797484 R32 On Dutasterid e 0.5mg dailyDoes wellS/p cystoscope , see urology Environmental allergy 42 1606128 T78.49XA On flonase and loratidine Neuropathy 780288907 G62 .9 On gabapentin Forgetful 63299448 R41.3 Get MRI brain, may need to see neurology, as per his , he is getting forgetful OV 01/22/2023 :MRI 01/15/2023 : Neg Hyperglycemia 77584142 R 73.9 Declines any medsGet labs COVID-19 029507732 U07.1 +ve 12/06/2022 Does well Urinary tr act infectious disease 03602266 N39.0 Dysuria, no blood, no fevers or chills, no back painUS: trace protein, cloudyGet on ciproFluid s as neededER if worse Serum thyr oid stimulating hormone level outside reference range 780615290 R79.89 Get US thyroid, repeat the labs [id number] Miguel Vo MD [facility]monolo [address], [address] [address] 02/12/2023 14:53:43 02/13/2023 08:18:04 Mild chronic obstructive pulmonary disease 021435873 J44.9 [id number] Yoan Phillips DPM [facility] Podiatry [place] [address] [place] [address] 03/26/2023 10:46:33 03/26/2023 12:06:38 Foot callus 392114327 L84 multiple debrided without incidentRe commend use of pumice stone and over-the-c ounter Amlactin lotionfoll ow-up as needed Bunion 710088319 M21.61 9 educated on optionspat ient had previous bunion surgery on the left with continued buniondeni es surgeryFol low-up as needed continue conservati ve therapy Pain in both feet 751229 8626 5188812 M79.671 M79.672 Secondary to bunionreco mmend wide shoe gearRecomm end silicone sleeve Tear of skin 819158444 T 14.8XXA left plantar footeducat ed on daily wound careMonito r for signs of infection, if present seek medical attention immediatel yReturn to clinic in 1 week if not healed [id number] Belinda parker MD [facility] Internal Med [place] [address] [facility] [place] [address] 04/23/2023 11:46:44 04/23/2023 12:55:31 Screening - NAD 118829888 Z13.9 C-scope: 04/16/2017 next in 3 yearsAdden dum: 04/30/2020 : Next in [address] Bolaños Get yearly flu shotUTD on Tdap 2015UTD on zoster 2014UTD on PPV 23 2011, declines any more shot as #23 caused blistersUT D COVID 19 vaccine RTC in 4 monthsDo labsER if worseHe verbalized his understand ing of the above Hyperlipidemia 50143698 E78.5 On ASAOn atorvastat in 20mg dailyGet labs Essential hypertension 27192199 I10 On amlodipine 5mg dailyOn plavixOn isosorbide ER 60mg dailyOn lisinoprol 20mg daily Not on metoprolol 25mg 1/2 tab bid should not be taking thisOn NTGOn sotalol 80mg 1/3 tab bid Sees [facility] Dr Thomson Coronary arteriosclerosis 80618862 I25.10 04/13/2020 : US Carotid: 60-69% R ICA 020: CTA neck: No [id number]: Dr Thomson, noted to have atrial flutter, to get CATHY/CVOff xareltoSee s Dr Thomson [facility]/p admitted and d/c 06/12/2022 , d/c 06/16/2022 , s/p stent, xarelto d/c started on ASA and plavix Pain in ri ght hip joint 4323317374 59851 M25.551 MRI 12/11/2019 , sees ortho for thisHas seen Dr Barnes in the pastDoes well Chronic ob structive pulmonary disease 58329297 J44.9 On albuterolO n flonaseSee s pulmonary Dr Mary Jo Huston Chronic ki dney disease 168510789 N18.[address] Funez Urinary incontinence 165 833546 R32 On Dutasterid e 0.5mg dailyDoes wellS/p cystoscope , see urology Environmental allergy 42 1692260 T78.49XA On flonase and loratidine Neuropathy 567878460 G62 .9 On gabapentin Forgetful 82354896 R41.3 Get MRI brain, may need to see neurology, as per his , he is getting forgetful OV 01/22/2023 :MRI 01/15/2023 : Neg Hyperglycemia 43968721 R 73.9 Declines any medsGet labs COVID-19 296934491 U07.1 +ve 12/06/2022 Does well Serum thyr oid stimulating hormone level outside reference range 333544664 R79.89 Get US thyroid, repeat the labs [id number] Belinda parker MD [facility] Internal [facility] [place] [address] [place] [address] 08/27/2023 11:57:08 08/27/2023 12:54:41 Screening - NAD 220748048 Z13.9 C-scope: 04/16/2017 next in 3 yearsAdden dum: 04/30/2020 : Next in [address] Bolaños Get yearly flu shotUTD on Tdap 2015UTD on zoster 2014UTD on PPV 23 2011, declines any more shot as #23 caused blistersUT D COVID 19 vaccine RTC in 4 monthsDo labsER if worseHe verbalized his understand ing of the above Hyperlipidemia 81515036 E78.5 On ASAOn atorvastat in 20mg dailyGet labs Essential hypertension 50570079 I10 On amlodipine 5mg dailyNot on plavixOn eliquis by Dr Thomson on 08/13/2023 On isosorbide ER 60mg dailyOn lisinoprol 20mg daily Not on metoprolol 25mg 1/2 tab bid should not be taking thisOn NTGOn sotalol 80mg 1/3 tab bid Sees [facility] Dr Thomson Coronary arteriosclerosis 52641136 I25.10 04/13/2020 : US Carotid: 60-69% R ICA 04/22/2020 : CTA neck: No stenosis 11/04/2020 : Dr Thomson, noted to have atrial flutter, to get CATHY/CV Off xarelto Sees Dr Thomson [facility]/p admitted and d/c 06/12/2022 , d/c 06/16/2022 , s/p stent, xarelto d/c started on ASA and plavix Pain in ri ght hip joint 4825327956 68767 M25.551 MRI 12/11/2019 , sees ortho for this Has seen Dr Barnes in the past Does well Chronic ob structive pulmonary disease 58904240 J44.9 On albuterolO n flonase Sees pulmonary Dr Mary Jo Huston Chronic ki dney disease 769507852 N18.[address] Funez Urinary incontinence 165 754648 R32 On Dutasterid e 0.5mg daily Does wellS/p cystoscope , see urology Environmental allergy 42 1541915 T78.49XA On flonase and loratidine Neuropathy 904328479 G62 .9 On gabapentin Forgetful 93850957 R41.3 Get MRI brain, may need to see neurology, as per his , he is getting forgetful OV 01/22/2023 :MRI 01/15/2023 : Neg Hyperglycemia 00277947 R 73.9 Declines any medsGet labs COVID-19 027078810 U07.1 +ve 12/06/2022 Does well Serum thyr oid stimulating hormone level outside reference range 859244992 R79.89 Get US thyroid, repeat the labs Fall W19.XXXA CT head 05/11/2023 : Neg Administra tion of influenza vaccine 01947628 Z23 [id number] Richy Shah MD [facility] E[facility] [place] [address] [place] [address] 11/01/2023 12:10:47 11/01/2023 12:50:21 Thyroid nodule 929629774 E04.1 [id number] Belinda parker MD [facility] Internal Med [facility] [address] [place] [address] 12/24/2023 11:51:50 12/24/2023 12:50:16 Screening - NAD 980020561 Z13.9 C-scope: 04/16/2017 next in 3 yearsAdden dum: 04/30/2020 : Next in [address] Bolaños Get yearly flu shotUTD on Tdap 2015UTD on zoster 2014UTD on PPV 23 2011, declines any more shot as #23 caused blistersUT D COVID 19 vaccineCan do RSV vaccine RTC in 4 monthsDo labsER if worseHe and his verbalized his understand ing of the above Hyperlipidemia 20170069 E78.5 On ASAOn atorvastat in 20mg dailyGet labs Essential hypertension 76434348 I10 On amlodipine 5mg dailyNot on plavixOn eliquis by Dr Thomson on 08/13/2023 On isosorbide ER 60mg dailyOn lisinoprol 20mg daily Not on metoprolol 25mg 1/2 tab bid should not be taking thisOn NTGOn sotalol 80mg 1/3 tab bid Sees [facility] Dr Thomson Coronary arteriosclerosis 36079387 I25.10 04/13/2020 : US Carotid: 60-69% R ICA 04/22/2020 : CTA neck: No stenosis 11/04/2020 : Dr Thomson, noted to have atrial flutter, to get CATHY/CV S/p admitted and d/c 06/12/2022 , d/c 06/16/2022 , s/p stent, xarelto d/c started on ASA and plavix Off xareltoOn eliquis Sees Dr Thomson [facility] Pain in ri ght hip joint 8823725143 00236 M25.551 MRI 12/11/2019 , sees ortho for this Has seen Dr Barnes in the past Does well Chronic ob structive pulmonary disease 81697078 J44.9 On albuterolO n flonase Sees pulmonary Dr Mary Jo Huston Chronic ki dney disease 555323527 N18.[address] Funez Urinary incontinence 165 970846 R32 On Dutasterid e 0.5mg daily Does wellS/p cystoscope , see urology Environmental allergy 42 1870870 T78.49XA On flonase and loratidine Neuropathy 612607448 G62 .9 On gabapentin Forgetful 26089094 R41.3 Get MRI brain, may need to see neurology, as per his , he is getting forgetful OV 01/22/2023 :MRI 01/15/2023 : Neg Hyperglycemia 19286314 R 73.9 Declines any medsGet labs COVID-19 736270955 U07.1 +ve 12/06/2022 Does well Serum thyr oid stimulating hormone level outside reference range 054764874 R79.89 US thyroid 08/28/[address] Shah 11/01/2023 , do US thyroid in one year Fall W19.XXXA CT head 05/11/2023 : Neg [id number] Miguel Vo MD [facility] Pulmonolo gy [place] [address] [place] [address], [facility] [address] [place] [address] 02/19/2024 09:47:56 02/20/2024 08:53:23 Mild chronic obstructive pulmonary disease 791380073 J44.9 [id number] Belinda parker MD [facility] Internal Med [place] [address] , [facility] [place] [address] 05/12/2024 10:29:35 05/12/2024 11:26:48 Adult health examination 941337601 Z00.00 Screening for disorder 203121199 Z13.9 Screening - NAD 72330261 3 Z13.9 C-scope: 04/16/2017 next in 3 yearsAdden dum: 04/30/2020 : Next in [address] Bolaños Get yearly flu shotUTD on Tdap 2015UTD on zoster 2014UTD on PPV 23 2011, declines any more shot as #23 caused blistersUT D COVID 19 vaccineCan do RSV vaccine RTC in 4 monthsDo labsER if worseHe and his verbalized his understand ing of the above Hyperlipidemia 85658187 E78.5 On ASAOn atorvastat in 20mg dailyGet labs Essential hypertension 06035086 I10 On amlodipine 5mg dailyNot on plavixOn eliquis by Dr Thomson on 08/13/2023 On isosorbide ER 60mg dailyOn lisinoprol 20mg daily Not on metoprolol 25mg 1/2 tab bid should not be taking thisOn NTGOn sotalol 80mg 1/3 tab bid Sees [facility] Dr Thomson Coronary arteriosclerosis 55449593 I25.10 04/13/2020 : US Carotid: 60-69% R ICA 04/22/2020 : CTA neck: No stenosis 11/04/2020 : Dr Thomson, noted to have atrial flutter, to get CATHY/CV S/p admitted and d/c 06/12/2022 , d/c 06/16/2022 , s/p stent, xarelto d/c started on ASA and plavix Off xareltoOn eliquis Sees Dr Thomson [facility] Pain in ri ght hip joint 1102906240 94500 M25.551 MRI 12/11/2019 , sees ortho for this Has seen Dr Barnes in the past Does well Chronic ob structive pulmonary disease 43838419 J44.9 On albuterolO n flonase Sees pulmonary Dr Mary Jo Huston Chronic ki dney disease 078498187 N18.[address] Funez Urinary incontinence 165 375600 R32 On Dutasterid e 0.5mg daily Does wellS/p cystoscope , see urology Environmental allergy 42 5704963 T78.49XA On flonase and loratidine Neuropathy 976547298 G62 .9 On gabapentin Forgetful 51023945 R41.3 Get MRI brain, may need to see neurology, as per his , he is getting forgetful OV 01/22/2023 :MRI 01/15/2023 : Neg OV 05/12/2024 : Does well now Hyperglycemia 65165515 R 73.9 Declines any medsGet labs COVID-19 414228705 U07.1 +ve 12/06/2022 Does well Serum thyr oid stimulating hormone level outside reference range 733039880 R79.89 US thyroid 08/28/[address] Shah 11/01/2023 , do US thyroid in one year Fall W19.XXXA CT head 05/11/2023 : Neg Pain of le ft hip joint 8198979303 02896 M25.552 Get a referral to Dr Jimenez Pain in left foot 724242 6541 53582 M79.672 S/p bunyectomy in the past, now again has pain in the bottom of the foot, also has a callusDoes not want to see Dr Phillips, will refer to Dr Thakkar [id number] ENE Ramesh [facility] [place] [address] [place] [address] 05/23/2024 11:34:43 05/23/2024 12:32:29 Pain of left hip joint 9382189184 73958 M25.552 Trochanter ic bursitis of left hip 6230039745 24766 M70.62 [id number] Belinda parker MD [facility] Primary [facility] [address] [facility] [address] [place] [address] 09/22/2024 10:50:07 09/22/2024 12:31:17 Screening - NAD 382309400 Z13.9 C-scope: 04/16/2017 next in 3 yearsAdden dum: 04/30/2020 : Next in [address] Bolaños Get yearly flu shotUTD on Tdap 2015UTD on zoster 2014UTD on PPV 23 2011, declines any more shot as #23 caused blistersUT D COVID 19 vaccineCan do RSV vaccine RTC in 4 monthsDo labsER if worseHe and his verbalized his understand ing of the above Hyperlipidemia [id number] E78.5 On ASAOn atorvastat in 20mg dailyGet labs Essential hypertension [id number] I10 On amlodipine 5mg dailyNot on plavixOn eliquis by Dr Thomson on 08/13/2023 On isosorbide ER 60mg dailyOn lisinoprol 20mg daily Not on metoprolol 25mg 1/2 tab bid should not be taking thisOn NTGOn sotalol 80mg 1/3 tab bid Sees [facility] Dr Thomson Coronary arteriosclerosis [id number] I25.10 04/13/2020 : US Carotid: 60-69% R ICA 04/22/2020 : CTA neck: No stenosis 11/04/2020 : Dr Thomson, noted to have atrial flutter, to get CATHY/CV S/p admitted and d/c 06/12/2022 , d/c 06/16/2022 , s/p stent, xarelto d/c started on ASA and plavix Off xareltoOn eliquis Sees Dr Thomson [facility], will see [facility] on 09/24/2024 as he has had some dizzy spells, none today 09/22/2024 ,not in obvious a.fib today on auscultati on, was advised to proceed to the ER if any symptoms worsen Pain in ri ght hip joint [id number] 69676 M25.551 MRI 12/11/2019 , sees ortho for this Has seen Dr Barnes in the past Does well Chronic ob structive pulmonary disease 23883070 J44.9 On albuterolO n flonase Sees pulmonary Dr Mary Jo Werner sees Dr Vo, next apt 02/18/2025 Chronic ki dney disease [id number] N18.[address] Funez Urinary incontinence 165 993465 R32 On Dutasterid e 0.5mg daily Does wellS/p cystoscope , see urology Environmental allergy 42 3528452 T78.49XA On flonase and loratidine Neuropathy [id number] G62 .9 On gabapentin Forgetful 66022936 R41.3 Get MRI brain, may need to see neurology, as per his , he is getting forgetful OV 01/22/2023 :MRI 01/15/2023 : Neg OV 05/12/2024 : Does well now Hyperglycemia 17411589 R 73.9 Declines any medsGet labs COVID-19 [id number] U07.1 +ve 12/06/2022 Does well Serum thyr oid stimulating hormone level outside reference range [id number] R79.89 US thyroid 08/28/[address] Shah 11/01/2023 , do US thyroid in one year Fall W19.XXXA CT head 05/11/2023 : Neg Pain of le ft hip joint [id number] [address] Jimenez Pain in left foot 842072 5100 22022 M79.672 S/p bunyectomy in the past, now again has pain in the bottom of the foot, also has a callusDoes not want to see Dr Phillips, will refer to Dr Thakkar [facility] Concerns Section Related Observation LastModified by Organization Detai ls LastModified Time None Recorded Concern Status LastModified by Organization Details LastModified Time None Recorded Advance Directives Directive Y: Payers Encounter Date Sequence Insurance Name Policy Number Policy Andrews Covered Member ID Andrews Member ID Guarantor Name 12/24/2023 1 [employer] (MEDICARE REPLACEMENT PPO) [id number] John W Zeisset [id number] John W Zeisset 02/19/2024 1 [employer] (MEDICARE REPLACEMENT PPO) [id number] John W Zeisset [id number] John W Zeisset 05/12/2024 1 [employer] (MEDICARE REPLACEMENT PPO) [id number] John W Zeisset [id number] John W Zeisset 05/23/2024 1 [employer] (MEDICARE REPLACEMENT PPO) [id number] John W Zeisset [id number] John W Zeisset 09/22/2024 1 [employer] (MEDICARE REPLACEMENT PPO) [id number] John W Zeisset [id number] John W Zeisset Notes Date Note Type Note Provider Name and Address Organization Details Recorded Time 12/24/19 24 text/htm lucia MontillaHTNAsthmaHLDCADReviewed his social family and surgical history.He states that he did see the rating officer and is here to discuss that, he states that he is doing well at this time. OV 12/11/17:Here for his routine aptHe states that he is doing well todayHe did do the labs and is here to review theseOV 04/22/18:Here for his routine aptHe states that Dr Thomson the rating officer has him on a research study and he takes ASA and rivarobaxanHe is doing well todayHe states that he also has 'arthritis in the knees', both knees R>LHe feels that prolonged sitting hurts the knees and he also has pain in the R hip, feels that it could be a spurOV 08/12/18:ACV:Here with sinus and nasal congestionC/o mild non productive coughNo blood in sputumNo chest pain, no SOB, no fevers or chillsNo N/V or diarrheaNo rashThese symptoms have resolved since he has started the z-pack and he is on the flonase and claritinOV 10/21/18:Here for his routine aptHe states that he is doing well at this timeHe did do the labs on 10/15/18 and is here to review theseOV 07/16/19:Here for his routine aptHe feels wellHe did do the labsHe does need to get med refillsOV 12/23/2019:Here for his ACV:C/o URI sx for 2 weeksCough and slight feversNo sputum, no blood in sputumNo chest pain or SOBNo N/V or diarrheaNo rashNo wheezingHe has not done the labsHe has seen Dr Cameron bledsoe for R hip pain and is in PT OV 01/21/2020:Here for his routine aptHe states that he is doing wellHe did do the labsHe also is now on proair and adviar states that he was seen in the past by the lung MD Dr Roberts is also to see ENT for a R ear tube, feels that he has 'fluid in the ear' OV 06/08/2020:Here for his routine aptHe is doing wellWants to see about a rash also on the L foot and a abrasion on the L forearmHe did do the labsHe is also here for his MWVOV 09/14/2020:Here for his routine aptHe feels very wellHe did do the labsHe states that the rash on the legs is resolved, he now remembers that it could be due to a wrap he had on both his leg that could have caused the rash OV 12/21/2020:Here for his routine aptHe feels well and he has done the labs OV 05/23/2021:Here for his routine aptHe did do the labsHe feels wellNeeds to see SUSUOV 12/07/2021:Here for his routine aptHe is doing wellHe did do the labs on 11/18/2021 OV 04/12/2022:Here for his routine apt and medicare wellness visitHe is doing well, he has not yet done any labsHe has seen Dr Thomson [facility] OV 08/16/2022:Here for his f/u apt, he is doing well, no recent labs, here with his OV 12/20/2022:Here for his f/u apt, he did do the labs and he is here with his , does have some N/T in the legs OV 01/22/2023:Here for ACVC/o UTI sx of burning with urination, no LBP, no fevers or chills, no N/V, no hematuria, did have a cystoscope done recently OV 04/23/2023: Here for his f/u apt, he is here with his , he did do the labs, feels 'great' but recently he did have a trip and a fall while working on some concrete in his backyard and hit his head, seen in the ER, did have a CT head done, no complaints now OV 08/27/2023: Here for his f/u apt, feels well and did do the labs OV 12/24/2023: Here for his f/u apt, he is doing very well, here with his Belinda Costello MD [address] [facility], [address], [place], [address], [place] [facility] 12/24/2023 18:22:51 02/19/20 24 text/htm l Primary care/Referring provider: Gabino Alexander is here to go over his PFT as part of his COPD management.Initial development of shortness of breath: 2013Duration of shortness of breath: 11 yearsCondition of shortness of breath: stableTiming of shortness of breath: noneFrequency: up to 1 time a dayLimits activities: yesAggravating factors: walking. cutting wood or grass, dust exposureAlleviating factors: restModified Medical Research [place] (mMRC) Dyspnea Scale - Grade 1Grade 0 I only get breathless with strenuous exercise .Grade 1 I get short of breath when hurrying on the level or walking up a slight hill .Grade 2 I walk slower than people of the same age on the level because of breathlessness or have to stop for breath when walking at my own pace on the level .Grade 3 I stop for breath after walking about 100 yards or after a few minutes on the level .Grade 4 I am too breathless to leave the house or I am breathless when dressing .Treatment history:Albuterol HFA as needed since dvair 250/50 1 puff daily 2015-2018Wixela Inhub 250/50 1 puff daily only since 2019Other symptoms:Drooling: noDysarthria: noNeck pain: noOdynophagia: noDysphagia: noWeak mastication: noFacial weakness: noNasal speech: noProtruding tongue: noProductive cough: noWheezing: noChest tightness: yesOrthopnea: noFrequent throat clearing or swallowing: noPalpitations: noHeartburn: noEdema: noEnvironmental exposures:Nicotine smoke: neverPaint: noDye: noDust mites: yesMold: noDamp basement: noWood burning stove: noAnimal dander: noCockroaches: noPollen: yesArsenic: noAsbestos: noBeryllium: noCadmium: noChromium: noCoal smoke: noDiesel fumes: noNickel: noSilica: noSoot: noEPWORTH SLEEPINESS SCALE (ESS)CHANCE OF DOZING SCORE0 = would never doze1 = slight chance of dozing2 = moderate chance of dozing3 = high chance of dozingSITUATION AND CHANCE OF DOZINGSitting and reading - 1Watching television - 1Sitting inactive in a public place (e.g. a theater or meeting) - 0As a passenger in a car for an hour without a break - 0Lying down to rest in the afternoon when circumstances permit - 2Sitting and talking to someone - 0Sitting quietly after lunch without alcohol - 1In a car, while stopped for a few minutes in the traffic - 0TOTAL SCORE 5Subjectively, patient has a slight chance of dozing. Miguel Vo MD [address] [facility], [address], [place], [address], [place] [facility] 02/19/2024 11:47:21 05/12/20 24 text/htm l Hx ofHTNAsthmaHLDCADReviewed his social family and surgical history.He states that he did see the rating officer and is here to discuss that, he states that he is doing well at this time. OV 12/11/17:Here for his routine aptHe states that he is doing well todayHe did do the labs and is here to review theseOV 04/22/18:Here for his routine aptHe states that Dr Thomson the rating officer has him on a research study and he takes ASA and rivarobaxanHe is doing well todayHe states that he also has 'arthritis in the knees', both knees R>LHe feels that prolonged sitting hurts the knees and he also has pain in the R hip, feels that it could be a spurOV 08/12/18:ACV:Here with sinus and nasal congestionC/o mild non productive coughNo blood in sputumNo chest pain, no SOB, no fevers or chillsNo N/V or diarrheaNo rashThese symptoms have resolved since he has started the z-pack and he is on the flonase and claritinOV 10/21/18:Here for his routine aptHe states that he is doing well at this timeHe did do the labs on 10/15/18 and is here to review theseOV 07/16/19:Here for his routine aptHe feels wellHe did do the labsHe does need to get med refillsOV 12/23/2019:Here for his ACV:C/o URI sx for 2 weeksCough and slight feversNo sputum, no blood in sputumNo chest pain or SOBNo N/V or diarrheaNo rashNo wheezingHe has not done the labsHe has seen Dr Cameron bledsoe for R hip pain and is in PT OV 01/21/2020:Here for his routine aptHe states that he is doing wellHe did do the labsHe also is now on proair and adviar states that he was seen in the past by the lung MD Dr Roberts is also to see ENT for a R ear tube, feels that he has 'fluid in the ear' OV 06/08/2020:Here for his routine aptHe is doing wellWants to see about a rash also on the L foot and a abrasion on the L forearmHe did do the labsHe is also here for his MWVOV 09/14/2020:Here for his routine aptHe feels very wellHe did do the labsHe states that the rash on the legs is resolved, he now remembers that it could be due to a wrap he had on both his leg that could have caused the rash OV 12/21/2020:Here for his routine aptHe feels well and he has done the labs OV 05/23/2021:Here for his routine aptHe did do the labsHe feels wellNeeds to see [facility] 12/07/2021:Here for his routine aptHe is doing wellHe did do the labs on 11/18/2021 OV 04/12/2022:Here for his routine apt and medicare wellness visitHe is doing well, he has not yet done any labsHe has seen Dr Thomson [facility] OV 08/16/2022:Here for his f/u apt, he is doing well, no recent labs, here with his OV 12/20/2022:Here for his f/u apt, he did do the labs and he is here with his , does have some N/T in the legs OV 01/22/2023:Here for ACVC/o UTI sx of burning with urination, no LBP, no fevers or chills, no N/V, no hematuria, did have a cystoscope done recently OV 04/23/2023: Here for his f/u apt, he is here with his , he did do the labs, feels 'great' but recently he did have a trip and a fall while working on some concrete in his backyard and hit his head, seen in the ER, did have a CT head done, no complaints now OV 08/27/2023: Here for his f/u apt, feels well and did do the labs OV 12/24/2023: Here for his f/u apt, he is doing very well, here with his OV 05/12/2024: Here for his f/u apt he is here with his and his here for his MWV also Belinda Costello MD [address], [facility] [address], [place], [address], [facility] [employer]@ [employer] [facility] 05/12/2024 18:49:29 05/23/20 24 text/htm l the patient is a 78-year-old male who is complaining of about 9-12 month history of left hip trochanteric pain. He states he had this many years ago he had a shot of cortisone back then which really did not help him much he then tried a course of physical therapy which gave him excellent relief for several years. Now he has been trying to work on some stretching exercises on his own at home however his symptoms continue. He denies any back pain no radicular pain just pain over the lateral trochanteric region sometimes it goes down the side of his thigh slightly but he denies any weakness. He states actually he was climbing a ladder trimming a tree he recently and this seems to have actually helped his pain being a little more active. He denies any effusion or swelling no weakness no trauma or injury. He can not sleep on that side it is quite tender. Despite conservative measures including stretching and ice his symptoms continue he can not take oral anti-inflammatory medication due to the fact that he is on blood thinners chronically. He comes in today for initial evaluation treatment. New past medical history sheet was reviewed and signed on intake sheet of today's date drug allergies current medications family social history previous surgical history 10 point review of systems was reviewed and discussed in detail today with the patient. ENE Ramesh [address], [facility] [address], [place], [address], [facility] [employer]@ [employer] [facility] 05/23/2024 12:31:03 09/22/20 24 text/htm l Sangeetha HaywoodReviewed his social family and surgical history.He states that he did see the rating officer and is here to discuss that, he states that he is doing well at this time. OV 12/11/17:Here for his routine aptHe states that he is doing well todayHe did do the labs and is here to review theseOV 04/22/18:Here for his routine aptHe states that Dr Thomson the rating officer has him on a research study and he takes ASA and rivarobaxanHe is doing well todayHe states that he also has 'arthritis in the knees', both knees R>LHe feels that prolonged sitting hurts the knees and he also has pain in the R hip, feels that it could be a spurOV 08/12/18:ACV:Here with sinus and nasal congestionC/o mild non productive coughNo blood in sputumNo chest pain, no SOB, no fevers or chillsNo N/V or diarrheaNo rashThese symptoms have resolved since he has started the z-pack and he is on the flonase and claritinOV 10/21/18:Here for his routine aptHe states that he is doing well at this timeHe did do the labs on 10/15/18 and is here to review theseOV 07/16/19:Here for his routine aptHe feels wellHe did do the labsHe does need to get med refillsOV 12/23/2019:Here for his ACV:C/o URI sx for 2 weeksCough and slight feversNo sputum, no blood in sputumNo chest pain or SOBNo N/V or diarrheaNo rashNo wheezingHe has not done the labsHe has seen Dr Cameron bledsoe for R hip pain and is in PT OV 01/21/2020:Here for his routine aptHe states that he is doing wellHe did do the labsHe also is now on proair and adviar states that he was seen in the past by the lung MD Dr Roberts is also to see ENT for a R ear tube, feels that he has 'fluid in the ear' OV 06/08/2020:Here for his routine aptHe is doing wellWants to see about a rash also on the L foot and a abrasion on the L forearmHe did do the labsHe is also here for his MWVOV 09/14/2020:Here for his routine aptHe feels very wellHe did do the labsHe states that the rash on the legs is resolved, he now remembers that it could be due to a wrap he had on both his leg that could have caused the rash OV 12/21/2020:Here for his routine aptHe feels well and he has done the labs OV 05/23/2021:Here for his routine aptHe did do the labsHe feels wellNeeds to see [facility] 12[facility]07/2021:Here for his routine aptHe is doing wellHe did do the labs on 11/18/2021 OV 04/12/2022:Here for his routine apt and medicare wellness visitHe is doing well, he has not yet done any labsHe has seen Dr Thomson [facility] OV 08/16/2022:Here for his f/u apt, he is doing well, no recent labs, here with his OV 12/20/2022:Here for his f/u apt, he did do the labs and he is here with his , does have some N/T in the legs OV 01/22/2023:Here for ACVC/o UTI sx of burning with urination, no LBP, no fevers or chills, no N/V, no hematuria, did have a cystoscope done recently OV 04/23/2023: Here for his f/u apt, he is here with his , he did do the labs, feels 'great' but recently he did have a trip and a fall while working on some concrete in his backyard and hit his head, seen in the ER, did have a CT head done, no complaints now OV 08/27/2023: Here for his f/u apt, feels well and did do the labs OV 12/24/2023: Here for his f/u apt, he is doing very well, here with his OV 05/12/2024: Here for his f/u apt he is here with his and his here for his MWV also OV 09/22/2024: Here for his f/u apt, he is doing well today, he states that about a week ago he did have a feeling of being 'sweaty' and dizzy and had to take NTG and ASA, prior to that he had a similar episode and had to call 911, not hospitalized, he states that his rating officer Dr Thomson is aware of this and he does have apts with him, he has done his labs Belinda Costello MD [address] [place] [address], [facility] [address], [place], [address], [place] [facility] 09/22/2024 14:01:16
--- OUTSIDE RECORDS SUMMARY | 2024-12-17 09:25 | XMS_ITS | Clinical Summary ---
Author Organization [facility] Address [address] [place] [address] Care Team Providers Care Sap Bobj Developer Name Role Phone Imelda Costello MD Primary Care Provider Allergies Active Allergy Reactions Criticality Noted Date Comments Pneumococcal 23-Linda Ps Vaccine Shortness of Breath/Wheezing,Other (See Comments) High 04/05/2014 Medications cyanocobalamin (VITAMIN B-12) 1,000 mcg Tablet Vitamin B12 100 mcg tablet Take by oral route. Active albuterol HFA 90 mcg inhaler ProAir HFA 90 mcg/actuation aerosol inhaler Active amLODIPine (NORVASC) 5 mg tablet 9 Active atorvastatin (LIPITOR) 20 mg tablet 9 Active dutasteride (AVODART) 0.5 mg Capsule 9 Active fluticasone propionate (FLONASE) 50 mcg/spray Superior, Suspension nasal inhaler fluticasone propionate 50 mcg/actuation nasal spray,suspension Active multivitamin with iron (DAILY MULTIVITAMINS/I ESTEFANY ORAL) Multivitamins daily Active [id number] -Fish Oil (FISH OIL) 1,000 mg (120 mg-180 mg) Capsule Fish Oil 1,000 mg capsule daily Active loratadine (CLARITIN) 10 mg tablet loratadine 10 mg tablet TAKE ONE TABLET BY MOUTH EVERY DAY Active lisinopril (PRINIVIL) 20 mg tablet lisinopril 20 mg tablet Active isosorbide mononitrate (IMDUR) 60 mg Extended Release 24 hour tablet isosorbide mononitrate ER 60 mg tablet,extended release 24 hr Active XARELTO 2.5 mg Tablet 9 Active folic acid (FOLVITE) 0.8 mg Tablet every 24 hours. 0 Active metoprolol tartrate (LOPRESSOR) 25 mg tablet metoprolol tartrate 25 mg tablet Take 1/2 tablet daily Active sotaloL (BETAPACE) 80 mg tablet sotalol 80 mg tablet Active multivitamins-m inerals-lutein (Multivitamin 50 Plus) Tablet every 24 hours. Active Cyanocobalamin- Cobamamide (B12) 5,000-100 mcg Lozenge B12 1,000mcg PO QD 0 Active Eliquis 5 mg tablet Eliquis 5 mg tablet 3 Active Active Problems Problem Noted Date Diagnosed Date CAD (coronary atherosclerotic disease) 0 CKD (chronic kidney disease) 07/20/2020 Asthma 07/20/2020 BPH (benign prostatic hyperplasia) 07/20/2020 MGUS (monoclonal gammopathy of unknown significa nce) 09/08/2019 Family History Medical History Relation Name Comments Heart Disease Brother 2 Cancer Brother 3 Cancer Brother 4 Heart Disease Brother 4 Prostate Cancer Brother 4 Heart Disease Father Bone Cancer Sister 1 Breast Cancer Sister 1 Cancer Sister 1 Relation Name Status Comments Brother 1 Brother 2 Brother 3 Alive Brother 4 Alive Father Mother Sister 1 Sister 2 Alive Social History Tobacco Use Types Packs/Day Years Used Date Smoking Tobacco: Never Smokeless Tobacco: Never Tobacco Cessation:Counseling Given: Not Answered Alcohol Use Standard Drinks/Week Comments Not Currently 0 (1 standard drink = 0.6 oz pur e alcohol) Sex and Gender Information Value Date Recorded Sex Assigned at Not on file Legal Sex Male 11:17 AM CDT Gender Identity Not on file Sexual Orientation Not on file Last Filed Vital Signs Vital Sign Reading Time Taken Comments Blood Pressure 127/64 08/07/2023 1:04 PM CDT Pulse 54 08/07/2023 1:04 PM CDT Temperature 36.1 C (96.9 F) 08/07/2023 1:04 PM CDT Respiratory Rate 10 08/07/2023 1:04 PM CDT Oxygen Saturation 97% 08/07/2023 1:04 PM CDT Inhaled Oxygen Concentration - - Weight 104.3 kg (230 lb) 08/07/2023 1:04 PM CDT Height 188 cm (6' 2 ) 08/08/2021 11:19 AM CDT Body Mass Index 29.53 08/08/2021 11:19 AM CDT Plan of Treatment Upcoming Encounters Date Type Department Care Team (Late st Contact Info) Description 02/19/2025 2:30 PM CDT Office Visit [facility] Oncology and Hematology - Tony [address] [facility] [address] [place] [address] Bear Wasserman MD [address] [facility] [address] [place] [address] Health Maintenance Due Date Last Done Comments PNEUMOCOCCAL VACCINE 65+ YEA RS (2 of 2 - PCV) 08/27/2013 08/27/2012 ZOSTER VACCINE (2 of 3) 10/08/2014 08/13/2014 RSV VACCINE (60+ or ) (1 - 1-dose 75+ series) 2018 INFLUENZA VACCINE (#1) 2024 , 09/02/2021, 08/30/2020, Additional history exists COVID-19 Vaccine (2023-2 5 season) 2024 09/10/2021, 08/20/2021, 01/26/2021 DTAP/TDAP/TD VACCINES (3 - T d or Tdap) 06/08/2030 06/08/2020, 10/06/2015 Insurance [employer]NA [facility] Care Teams Sap Bobj Developer Relationship Specialty Start Date End Date Imelda Costello MD PCP - General Internal Medicine 02/10/19
--- OUTSIDE RECORDS SUMMARY | 2024-12-17 09:25 | XMS_ITS | Clinical Summary ---
Author Organization [facility] Facility Address [address] [place] [address] Care Team Providers Care Creative Arts Music Therapist Name Role Phone Imelda Costello MD Primary Care Provider [phone] Medications amLODIPine (NORVASC) 5 MG tablet TAKE 1 TABLET(5 MG) BY MOUTH 1 TIME EACH DAY 90 tablet 11/10/2021 Active Encounters Date Type Department Care Team Description 12/01/2024 Documentation Only [facility], [address] [phone] Celio Cheatham, DO 11/13/2024 Documentation Only [facility], [address] [phone] Celio Cheatham, DO 11/07/2024 Documentation Only [facility], [address] [phone] Celio Cheatham, DO 10/16/2024 Documentation Only [facility], [address] [phone] Celio Cheatham, DO 10/16/2024 Documentation Only [facility], [address] [phone] Celio Cheatham, DO 10/09/2024 Documentation Only [facility], [address] [phone] Celio Cheatham DO 09/26/2024 Documentation Only [facility], [address] [place] [place] [phone] Celio Cheatham DO from Last 3 Months Social History Tobacco Use Types Packs/Day Years Used Date Smoking Tobacco: Never Alcohol Use Standard Drinks/Week Comments Yes 0 (1 standard drink = 0.6 oz pure alcohol) Alcoholic Drinks/day: Occasional social drink Sex and Gender Information Value Date Recorded Sex Assigned at Not on file Legal Sex Male 2:49 PM EDT Gender Identity Not on file Sexual Orientation Not on file Last Filed Vital Signs Vital Sign Reading Time Taken Comments Blood Pressure 138/80 06/10/2024 3:12 PM CDT Pulse 56 06/10/2024 3:12 PM CDT Temperature 36.1 C (97 F) 06/10/2024 3:12 PM CDT Respiratory Rate 18 06/10/2024 3:12 PM CDT Oxygen Saturation 97% 06/10/2024 3:12 PM CDT Inhaled Oxygen Concentration - - Weight 107 kg (236 lb) 06/10/2024 3:12 PM CDT Height 188 cm (6' 2 ) 01/03/2022 1:10 PM ASSISTANT CORPORATION COUNSEL Body Mass Index 30.3 01/03/2022 1:10 PM ASSISTANT CORPORATION COUNSEL Plan of Treatment Upcoming Encounters Date Type Department Care Team (Late st Contact Info) Description 03/10/2025 12:30 PM CDT Office Visit [facility], [facility] [address] [phone] Celio Cheatham DO [address] [place] [address] [address] [place] [place] [phone] Health Maintenance Due Date Last Done Comments Influenza Vaccine (#1) 2024 , 08/30/2020, 09/08/2018, Additional history exists Pneumococcal Vaccine: 65+ Years Completed 08/05/2018, 08/27/2012 Hepatitis B Vaccine Aged Out No longe r eligible based on patient's age to complete this topic Insurance [employer] MCR ADV PPO ([id number]) Care Teams Creative Arts Music Therapist Relationship Specialty Start Date End Date Imelda Costello MD [address] [facility], [address] [place] [address] PCP - General Internal Medicine 07/05/21
--- OUTSIDE RECORDS SUMMARY | 2024-12-17 09:25 | XMS_ITS | Referral Summary ---
Author Organization [facility] Address [address] [facility] [place] [address] Care Team Providers Care Internet Marketing Manager Name Role Phone Unavailable Primary Care Provider Unavailabl e Source Comments [facility],non-owned Affiliates and Associated Physician Practices is amultiple site organization consisting of ambulatory clinics and hospital sitesin [place], [place], [place] and [place]. This disclosure is being madepursuant to the Care Everywhere program and may not contain all information available regarding this patient. Last updated 18.[facility] [employer] Social History Tobacco Use Types Packs/Day Years Used Date Smoking Tobacco: Never Assessed Sex and Gender Information Value Date Recorded Sex Assigned at Not on file Gender Identity Not on file Sexual Orientation Not on file Plan of Treatment Not on file
--- OUTSIDE RECORDS SUMMARY | 2024-12-17 09:25 | XMS_ITS | Clinical Summary ---
Author Organization [facility] Address [address] [place] [address] Care Team Providers Care Air Conditioning Equipment Mechanic Name Role Phone Unavailable Primary Care Provider Unavailabl e Immunizations Immunization Administration Dates Next Due Covid-19, Mrna, Lnp-s, Pf, 30 Mcg/0.3 Ml Dose (P fizer) 08/20/2021 Social History Tobacco Use Types Packs/Day Years Used Date Smoking Tobacco: Never Assessed Sex and Gender Information Value Date Recorded Sex Assigned at Not on file Legal Sex Male 11:28 AM CDT Gender Identity Not on file Sexual Orientation Not on file Plan of Treatment Health Maintenance Due Date Last Done Comments Hepatitis C Virus (HCV) Screening 1945 Pneumococcal Immunization (50+ years) (2 of 2 - PCV) 08/27/2013 08/27/2012 Respiratory Syncytial Virus (RSV) Immunization (Adult) (1 - 1-dose 75+ series) 2018 Zoster Immunization (3 of 3) 10/25/2020 08/30/2020, 08/13/2014 Influenza Immunization (#1) 07/06/202408/06, 09/13/2019, 09/08/2018, Additional history exists SARS-COV-2 Immunization ( season) 2024 08/20/2021, 01/26/2021, 01/02/2021 TdaP Immunization Completed 10/05/2015 DTaP/Tdap/Td Immunization Discontinued 06/08/2020, 11/2014 Hepatitis B Immunization Aged Out No longer eligible based on patient's age to complete this topic Meningococcal Immunization (ACWY) Aged Out No longer eligible based on patient's age to complete this topic Rotavirus Immunization Aged Out No lo nger eligible based on patient's age to complete this topic
--- OUTSIDE RECORDS SUMMARY | 2024-12-17 09:25 | XMS_ITS | Encounter Summary ---
Author Organization [facility] Address [address] [facility] [address] [facility] [place] [address] Care Team Providers Care Post Manager Name Role Phone Unavailable Primary Care Provider Unavailabl e Encounter Details Date Type Department Care Team (Late st Contact Info) Description 09/05/2022 Lab Requisition [facility] [address] [facility] [place] [phone] Horace Somers MD [address] [place] [address] Social History Tobacco Use Types Packs/Day Years Used Date Smoking Tobacco: Never Assessed Sex and Gender Information Value Date Recorded Sex Assigned at Not on file Gender Identity Not on file Sexual Orientation Not on file documented as of this encounter Plan of Treatment Not on file documented as of this encounter Procedures Procedure Name Priority Date/Time Associated Diagnosis Comments DERMATOPATHOLOGY Routine 08/31/2022 12:0 0 AM CDT documented in this encounter Results * DERMATOPATHOLOGY (08/31/2022 12:00 AM CDT) Case Report Dermatopathology Report Case: [id number] Authorizing Provider: Horace Somers MD Collected: 08/31/2022 12:00 AM Ordering Location: [facility] Received: 09/05/2022 08:26 AM Pathologist: Leni Valdes MD Specimens: A) - Skin, mid chin B) - Skin, right lat upper arm 2 1:30 PM CDT DERMATOPATHOLOGY LABORATORY Final Diagnosis Specimen A. SKIN, mid chin: ANGIOFIBROMA (FIBROUS PAPULE) (D21.0) PRESENT AT MARGIN Specimen B. 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 Please Check Margins. B: Hemangioma. Please Check Margins. 1:30 PM CDT DERMATOPATHOLOGY LABORATORY Gross Description Specimen A: Received is one formalin filled container labeled with the patient's name and designated mid chin. The specimen consists of a shave biopsy measuring [id number] and it is inked. Jar 0. Specimen B: Received is one formalin filled container labeled with the patient's name and designated right lat upper arm. The specimen consists of a shave biopsy measuring [id number] and it is inked. Jar 0. 1:30 PM CDT DERMATOPATHOLOGY LABORATORY Microscopic Description Specimen A. SKIN, mid chin: This dome-shaped lesion contains dilated blood vessels, coarse collagen bundles, and stellate fibroblasts. This lesion is present at the margin of the specimen. Specimen B. SKIN, right lat upper arm: In the dermis, there are dilated vascular spaces surrounded by widely spaced endothelial cells. This lesion is present at the margin of the specimen. 1:30 PM CDT DERMATOPATHOLOGY LABORATORY Disclaimer An external and internal positive and negative controls are appropriate for the histochemical, immunohistochemical and immunofluorescence stain(s) in this case (if any), except where stated explicitly. The performance characteristics of the stain(s) cited in this report were developed and its performance characteristic determined by the Dermatopathology Laboratory at [facility], directed by Dr. Emmanuel Ni. These tests need not be, and therefore are not, approved by the [place] Food and Drug Administration. The tests are used for clinical purposes. Billing Codes Specimen Charges Stain Charges 53432 77321 1 1 1:30 PM CDT DERMATOPATHOLOGY LABORATORY Embedded Images 1:30 PM CDT DERMATOPATHOLOGY LABORATORY Pathology/Cytology TISSUE SPECIMEN FROM SKIN / Unknown 08/31/2022 09/05/2022 8:26 AM CDT Miscellaneous samples (specimen) TISSUE SPECIMEN FROM SKIN / Unknown 08/31/2022 09/05/2022 8:26 AM CDT Horace Somers MD LAB - PATHOLOGY/CYTO LOGY ORDERABLES DERMATOPATHOLOGY LABORATORY [facility] - Department of Dermatology [facility] [address] [place] [address], [address] [phone] documented in this encounter Visit Diagnoses Not on filedocumented in this encounter
--- OUTSIDE RECORDS SUMMARY | 2024-12-17 09:25 | XMS_ITS | Clinical Summary ---
Author Organization [facility] Address [address] [place] [address] Care Team Providers Care Drop Press Hand Name Role Phone Unavailable Primary Care Provider Unavailabl e Source Comments [facility],non-owned Affiliates and Associated Physician Practices is amultiple site organization consisting of ambulatory clinics and hospital sitesin [place], [place], [place] and [place]. This disclosure is being madepursuant to the Care Everywhere program and may not contain all information available regarding this patient. Last updated 18.[facility] Social History Tobacco Use Types Packs/Day Years Used Date Smoking Tobacco: Never Assessed Sex and Gender Information Value Date Recorded Sex Assigned at Not on file Gender Identity Not on file Sexual Orientation Not on file Plan of Treatment Health Maintenance Due Date Last Done Comments DTAP/TDAP/TD VACCINES (1 - Tdap) 1962 PNEUMOCOCCAL VACCINE 50+ (1 of 1 - PCV) 1993 ZOSTER VACCINE (1 of 2) 1993 Respiratory Syncytial Virus (RSV) Vaccine Pt: or over 60 yrs (1 - 1-dose 75+ series) 2018 COVID-19 VACCINE ( - 2023-2 5 season) 2024 INFLUENZA VACCINE (#1) 2024 DEPRESSION SCREENING 11/05/2024 MEDICARE AWV CALENDAR YEAR 2024 HEPATITIS B VACCINE Aged Out No longe r eligible based on patient's age to complete this topic HIB VACCINE Aged Out No longer eligi ble based on patient's age to complete this topic HPV VACCINE Aged Out No longer eligi ble based on patient's age to complete this topic MENINGOCOCCAL (Group B) VACCINE Aged Out No longer eligible based on patient's age to complete this topic MENINGOCOCCAL VACCINE Aged Out No polo kayla eligible based on patient's age to complete this topic
--- OUTSIDE RECORDS SUMMARY | 2024-12-17 09:25 | XMS_ITS | Patient Health Summary ---
Author Organization [facility] Address [address] [facility] [place] [address] Care Team Providers Care Plaster Mixer Name Role Phone Unavailable Primary Care Provider Unavailabl e Note from [facility],non-owned Affiliates and Associated Physician Practices is amultiple site organization consisting of ambulatory clinics and hospital sitesin [place], [place], [place] and [place]. This disclosure is being madepursuant to the Care Everywhere program and may not contain all information available regarding this patient. Last updated 18.[facility] [employer] Social History Tobacco Use Types Packs/Day Years Used Date Smoking Tobacco: Never Assessed Sex and Gender Information Value Date Recorded Sex Assigned at Not on file Gender Identity Not on file Sexual Orientation Not on file Procedures * DERMATOPATHOLOGY(Performed 08/31/2022) Results * DERMATOPATHOLOGY (08/31/2022 12:00 AM CDT) Case Report Dermatopathology Report Case: [id number] Authorizing Provider: Horace Somers MD Collected: 08/31/2022 12:00 AM Ordering Location: [facility] Lab Received: 09/05/2022 08:26 AM Pathologist: Leni Valdes MD Specimens: A) - Skin, mid chin B) - Skin, right lat upper arm 1:30 PM CDT DERMATOPATHOLOGY LABORATORY Final Diagnosis Specimen A. SKIN, mid chin: ANGIOFIBROMA (FIBROUS PAPULE) (D21.0) PRESENT AT MARGIN Specimen B. 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 Please Check Margins. B: Hemangioma. Please Check Margins. 11/02/202 2 1:30 PM CDT DERMATOPATHOLOGY LABORATORY Gross Description Specimen A: Received is one formalin filled container labeled with the patient's name and designated mid chin. The specimen consists of a shave biopsy measuring 6d1z2ot and it is inked. Jar 0. Specimen B: Received is one formalin filled container labeled with the patient's name and designated right lat upper arm. The specimen consists of a shave biopsy measuring 8m4p1fc and it is inked. Jar 0. 1:30 [...] characteristic determined by the Dermatopathology Laboratory at [facility], directed by Dr. Emmanuel Ni. These tests need not be, and therefore are not, approved by the [place] Food and Drug Administration. The tests are used for clinical purposes. Billing Codes Specimen Charges Stain Charges 83572 [id number] 1 1 2 1:30 PM CDT DERMATOPATHOLOGY LABORATORY Embedded Images 2 1:30 PM CDT DERMATOPATHOLOGY LABORATORY Pathology/Cytology TISSUE SPECIMEN FROM SKIN / Unknown 08/31/2022 09/05/2022 8:26 AM CDT Miscellaneous samples (specimen) TISSUE SPECIMEN FROM SKIN / Unknown 08/31/2022 09/05/2022 8:26 AM CDT Horace Somers MD LAB - PATHOLOGY/CYTO LOGY ORDERABLES DERMATOPATHOLOGY LABORATORY [facility] - Department of Dermatology [address], [address] [phone]
--- OUTSIDE RECORDS SUMMARY | 2024-12-17 09:26 | XMS_ITS | Clinical Summary ---
Author Organization [facility] Address [facility] [place] [address] Care Team Providers Care Culinary Chef Name Role Phone Unavailable Primary Care Provider Unavailabl e Social History Tobacco Use Types Packs/Day Years Used Date Smoking Tobacco: Never Assessed Sex and Gender Information Value Date Recorded Sex Assigned at Not on file Legal Sex Male 8:07 AM CDT Gender Identity Not on file Sexual Orientation Not on file Plan of Treatment Health Maintenance Due Date Last Done Comments DTaP, Tdap and Td Vaccines ( 1 - Tdap) 1962 Zoster Vaccines (1 of 2) 1993 Pneumococcal Vaccine: 65+ Ye ars (1 of 1 - PCV) 2008 RSV Immunization or 60+ Years (1 - 1-dose 75+ series) 2018 COVID-19 Vaccine ( - 2023-2 5 season) 2024 Influenza Adult (#1) 2024 Meningococcal B Vaccine Aged Out No l onger eligible based on patient's age to complete this topic Meningococcal Vaccine Aged Out No polo kayla eligible based on patient's age to complete this topic RSV Immunizations Under 20 Months Aged Out No longer eligible based on patient's age to complete this topic
--- OUTSIDE RECORDS SUMMARY | 2024-12-17 09:26 | XMS_ITS | CONTINUITY OF CARE DOCUMENT ---
Author Name rock wilkerson Address Unknown Organization [facility] Address [address] [place] [address] Phone [phone] Care Team Providers Care Postdoctoral Research Associate Name Role Phone Berto NEVILLE, Tania Unavailable BELINDA CISSE MD Unavailable BELINDA CISSE MD Unavailable [phone] PROBLEMS Condition Status Date Provider Notes S/P Dual chamb PCM - Biotron ik ( MRI Safe) active Emani Rojas GERD active Denpretty Norman Hypercholesterolemia active Aurora gordon HEALTH MAINTENANCE EXAM completed - Tania Duarte MD Chest pain-type to be determined completed - Tania Duarte MD CAD-VISION LAD & RCA 2006, XIENCE OM2 2010 S/P mid LAD stent 07/20, pLAD PCI 06/2022 active Tania Duarte MD Acute NSTEMI active Tania Duarte MD Afib/flutter active Tania Duarte MD Cardiology examination active 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 Aortic Murmur active Tania Duarte MD Aortic stenosis active Tania Duarte MD Cardiology examination active Tania conde MD Sick sinus syndrome active Kiana wright MD Foot pain, left active Tania Duarte MD Foot swelling, bilateral active Tania swenson MD Fatigue active Tania Duarte MD Exposure to SARS-associated coronavirus active Isak Rios Carotid Artery Stenosis active Tania smith MD CKD active Tania Duarte MD COPD active Tania Duarte MD Bradycardia active Tania Duarte MD Family History of Hyperlipidemia: completed - Tania Duarte MD Family History of Hyperlipidemia: completed - Tania Duatre MD CHEST PAIN- RESOLVED-05/17 CA TH PATENT STENT LAD-OM-RCA completed - Tania Duarte MD CAD-VISION LAD & RCA 2006, XIENCE OM2 2010 completed - Tania Duarte MD CARDIAC ARRHYTHMIA-09/[address]-SB completed - Tania Duarte MD CAD-01/13 STENT XIENCE 2 OM 09/11 CATH STENTS PATENT completed - Tania Duarte MD STENT-10/16 CATH PAT STENTS-09/10 VISION-LAD, DIS RCA completed - Tania Duarte MD HTN active 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 CHEST PAIN-TYPE TO BE DETERMINED completed - Tania Duarte MD ENCOUNTERS Date Type Provider Location Encounter Diag nosis - In-person encounter Office Visit Kiana Rodriguez MD [facility] Sick sinus syndrome - In-person encounter Office Visit Tania Duarte MD [facility] Cardiology examination - In-person encounter Office Visit Tania Duarte MD [facility] Foot pain, left - In-person encounter Office Visit Tania Duarte MD [facility] Aortic stenosis - In-person encounter Office Visit Tania Duarte MD [facility] Aortic Murmur - In-person encounter Office Visit Lemuel Logan MD [facility] Cardiology examination - In-person encounter Office Visit Tania Duarte MD [facility] - In-person encounter Office Visit Tania Duarte MD [facility] - In-person encounter Office Visit Tania Duarte MD [facility] - In-person encounter Office Visit Tania Duarte MD [facility] - In-person encounter Office Visit Tania Duarte MD [facility] Foot swelling, bilateral - In-person encounter Office Visit Tania Duarte MD [facility] - In-person encounter Office Visit Tania Duarte MD [facility] CAD-VISION LAD & RCA 2006, XIENCE OM2 2010 S/P mid LAD stent 07/20, pLAD PCI 06/2022 - In-person encounter Office Visit Tania Duarte MD [facility] Fatigue - In-person encounter Office Visit Tania Duarte MD [facility] - In-person encounter Office Visit Tania Duarte MD [facility] - In-person encounter Office Visit Tania Duarte MD [facility] - In-person encounter Office Visit Tania Duarte MD [facility] - In-person encounter Office Visit Tania Duarte MD [facility] - In-person encounter Office Visit Tania Duarte MD [facility] Exposure to SARS-associated coronavirus - In-person encounter Office Visit Tania Duarte MD [facility] Afib/flutter - In-person encounter Office Visit Tania Duarte MD [facility] Carotid Artery Stenosis - In-person encounter Office Visit Barrington Garcia MD [facility] HTNCAD-VISION LAD & RCA 2007, XIENCE OM2 2010 S/P mid LAD stent 07/20, pLAD PCI 06/2022 - In-person encounter Office Visit Tania Duarte MD [facility] - In-person encounter Office Visit Tania Duarte MD [facility] - In-person encounter Office Visit Tania Duarte MD [facility] CKD - In-person encounter Office Visit Tania Duarte MD [facility] Chest pain-type to be determinedCOPDCKD - In-person encounter Office Visit Tania Duarte MD [facility] CKD - In-person encounter Office Visit Tania Duarte MD [facility] COPD - In-person encounter Office Visit Tania Duarte MD [facility] BradycardiaCAD-VISION LAD & RCA 2007, XIENCE OM2 2010 S/P mid LAD stent 07/20, pLAD PCI cute NSTEMI - In-person encounter Office Visit Tania Duarte MD [facility] - In-person encounter Office Visit Tania Duarte MD [facility] - In-person encounter Office Visit Tania Duarte MD [facility] - In-person encounter Office Visit Tania Duarte MD [facility] CAD-VISION LAD & RCA 2007, XIENCE OM2 2010CAD-VISION LAD & RCA 2007, XIENCE OM2 2010 S/P mid LAD stent 07/20, pLAD PCI 06/2022 - In-person encounter Office Visit Tania Duarte MD [facility] CAD-VISION LAD & RCA 2007, XIENCE OM2 2010 S/P mid LAD stent 07/20, pLAD PCI 06/2022 - In-person encounter Office Visit Tania Duarte MD [facility] - In-person encounter Office Visit Tania Duarte MD [facility] Bradycardia - In-person encounter Office Visit Tania Duarte MD [facility] Family History of Hyperlipidemia:Family History of Hyperlipidemia: - In-person encounter Office Visit Tania Duarte MD [facility] - In-person encounter Office Visit Tania Duarte MD [facility] CARDIAC ARRHYTHMIA-09/10 HOLTER SR-SB - In-person encounter Office Visit Tania Duarte MD [facility] CHEST PAIN- RESOLVED-05/17 CATH PATENT STENT LAD-OM-RCA - In-person encounter Office Visit Tania Duarte MD [facility] STENT-10/16 CATH PAT STENTS-09/10 VISION-LAD, DIS RCACAD-01/13 STENT XIENCE 2 OM 09/11 CATH STENTS PATENTCAD-VISION LAD & RCA 2007, XIENCE OM2 2010CHEST PAIN- RESOLVED-05/17 CATH PATENT STENT LAD-OM-RCA - In-person encounter Office Visit Tania Duarte MD [facility] - In-person encounter Office Visit Tania Duarte MD [facility] - In-person encounter Office Visit Tania Duarte MD [facility] - In-person encounter Office Visit Tania Duarte MD [facility] - In-person encounter Office Visit Tania Duarte MD [facility] - In-person encounter Office Visit Tania Duarte MD [facility] HEALTH MAINTENANCE EXAM - In-person encounter Office Visit Tania Duarte MD [facility] - In-person encounter Office Visit Tania Duarte MD [facility] - In-person encounter Office Visit Tania Duarte MD [facility] - In-person encounter Office Visit Tania Duarte MD [facility] - In-person encounter Office Visit Tania Duarte MD [facility] - In-person encounter Office Visit Tania Duarte MD [facility] - In-person encounter Office Visit Tania Duarte MD [facility] CHEST PAIN-TYPE TO BE DETERMINED VITAL SIGNS Date Observation Value Provider Body Mass Index (Ratio) 28.48 kg/m2 Albert Rodriguez MD blood pressure, cuff size regular Ke rri Pranav blood pressure, diastolic 90 mm[Hg] Ke rri Sofia blood pressure, systolic 134 mm[Hg] Meghan ri Pranav oxygen saturation, oximetry 96 % Aurora Pranav pulse rate 71 /min Aurora Mere [facility] weight E&M 234 [lb_av] Aurora Mere [facility] height E&M 76 [in_i] Aurora Severino er Body Mass Index (Ratio) 28.48 kg/m2 Bjorn Duarte MD blood pressure, diastolic 85 mm[Hg] Crow Payne blood pressure, systolic 131 mm[Hg] Ani Payne oxygen saturation, oximetry 97 % Yamileth Payne pulse rate 75 /min Yamileth Payne respiratory rate E&M 12 /min Yamileth Payne weight E&M 234 [lb_av] Yamileth Payne height E&M 76 [in_i] Yamileth Payne blood pressure, cuff size regular Crow tolentino Payne Body Mass Index (Ratio) 27.82 kg/m2 Bjorn Duarte MD blood pressure, diastolic 85 mm[Hg] Gilmar crenshaw [place] blood pressure, systolic 123 mm[Hg] Sherrill norton [place] oxygen saturation, oximetry 99 % [facility] [place] pulse rate 103 /min [facility] [place] blood pressure, cuff size regular Gilmar flower [place] weight E&M 228.6 [lb_av] [facility] [place] height E&M 76 [in_i] [facility] [place] Body Mass Index (Ratio) 27.92 kg/m2 Bjorn Duarte MD blood pressure, diastolic 74 mm[Hg] Gilmar celesten [place] blood pressure, systolic 146 mm[Hg] Sherrill errol [place] oxygen saturation, oximetry 98 % [facility] [place] pulse rate 52 /min [facility] [place] blood pressure, cuff size regular Gilmar flower [place] weight E&M 229.4 [lb_av] [facility] [place] height E&M 76 [in_i] [facility] [place] Body Mass Index (Ratio) 27.87 kg/m2 Bjorn Duarte MD blood pressure, diastolic 66 mm[Hg] Vi pin [facility] blood pressure, systolic 120 mm[Hg] Vip in [facility] oxygen saturation, oximetry 96 % [facility] respiratory rate E&M 12 /min [facility] pulse [facility] 50 /min [facility] weight E&M 229 [lb_av] [facility] blood pressure, cuff size regular Vi pin [facility] height E&M 76 [in_i] [facility] Body Mass Index (Ratio) 27.75 kg/m2 Miranda Logan MD blood pressure, cuff size regular Barrie salgado Carreno blood pressure, diastolic 86 mm[Hg] Ta naomi Carreno blood pressure, systolic 140 mm[Hg] Tab [facility] Car[facility]o oxygen saturation, oximetry 97 % Raven Carreno pulse rate 95 /min Raven Carreno respiratory rate E&M 12 /min Raven Carreno weight E&M 228 [lb_av] Raven Carreno height E&M 76 [in_i] Raven Carreno Body Mass Index (Ratio) 28.24 kg/m2 Bjorn Duarte MD respiratory rate E&M 16 /min [facility] pulse rate 81 /min [facility] weight E&M 232 [lb_av] [facility] blood pressure, cuff size regular mayra [facility] blood pressure, diastolic 79 mm[Hg] Vi pin [facility] blood pressure, systolic 125 mm[Hg] Vip in [facility] oxygen saturation, oximetry 98 % [facility] height E&M 76 [in_i] [facility] Body Mass Index (Ratio) 28.72 kg/m2 Bjorn Duarte MD blood pressure, diastolic 60 mm[Hg] Li nkLogic blood pressure, systolic 115 mm[Hg] Belinda blood pressure, cuff size regular Ja rret blood pressure, diastolic 60 mm[Hg] Ja rret blood pressure, systolic 115 mm[Hg] Jar ret pulse rate 57 /min [facility] oxygen saturation, oximetry 95 % [facility] respiratory rate E&M 14 /min Dirk weight E&M 236 [lb_av] [facility] y height E&M 76 [in_i] [facility] y Body Mass Index (Ratio) 28.60 kg/m2 Bjorn Duarte MD blood pressure, diastolic 71 mm[Hg] Li blood pressure, systolic 130 mm[Hg] Belinda blood pressure, cuff size regular Ja rret blood pressure, diastolic 71 mm[Hg] Ja rret blood pressure, systolic 130 mm[Hg] Jar ret oxygen saturation, oximetry 98 % Dirk respiratory rate E&M 12 /min Dirk weight E&M 235 [lb_av] [facility] y height E&M 76 [in_i] [facility] y Body Mass Index (Ratio) 29.45 kg/m2 Bjorn Duarte MD blood pressure, diastolic 83 mm[Hg] Li nkLogic blood pressure, systolic 123 mm[Hg] Belinda kLogic blood pressure, diastolic 83 mm[Hg] Crow Shepherd blood pressure, systolic 123 mm[Hg] Any elena Joao pulse rate 74 /min Josiane Joao blood pressure, cuff size large An toño Joao oxygen saturation, oximetry 99 % Josiane Joao weight E&M 242 [lb_av] Josiane Joao height E&M 76 [in_i] Josiane Joao Body Mass Index (Ratio) 29.47 kg/m2 Melissa delcid Leidy blood pressure, diastolic 68 mm[Hg] Lauren [facility] blood pressure, systolic 153 mm[Hg] Belinda [facility] blood pressure, diastolic 68 mm[Hg] [facility] blood pressure, systolic 153 mm[Hg] Belinda [facility] weight E&M 242.1 [lb_av] Qing Salima pulse rate 65 /min Qing Salima respiratory rate E&M 20 /min Qing Borrego blood pressure, cuff size regular dong Borrego blood pressure, diastolic 68 mm[Hg] dong Borrego blood pressure, systolic 153 mm[Hg] She jimmy Salima oxygen saturation, oximetry 97 % Qing Borrego height E&M 76 [in_i] Qing Salima Body Mass Index (Ratio) 27.99 kg/m2 Bjorn Duarte MD blood pressure, diastolic 80 mm[Hg] Britney Morgan blood pressure, systolic 151 mm[Hg] Ter i Cathy oxygen saturation, oximetry 97 % Socorro Cathy respiratory rate E&M 15 /min Socorro Zeyad albarran pulse rate 49 /min Socorro Cathy weight E&M 230 [lb_av] Socorro Cathy Body Mass Index (Ratio) 28.48 kg/m2 Bjorn Duarte MD blood pressure, diastolic 86 mm[Hg] Lauren nkLogic blood pressure, systolic 164 mm[Hg] Belinda kLogic blood pressure, diastolic 86 mm[Hg] Scarlett orozco Bourne blood pressure, systolic 164 mm[Hg] Brian rina [place] oxygen saturation, oximetry 96 % Juju Bourne pulse rate 87 /min Juju Ishaan yaniv weight E&M 234 [lb_av] [facility]ju [facility] blood pressure, cuff size 234large Scarlett orozco [place] respiratory rate E&M 16 /min Leidy valeria [place] height E&M 76 [in_i] Juju Ishaancrow yaniv Body Mass Index (Ratio) 29.09 kg/m2 Melissa Forbes pulse rate 54 /min Chastity Debbie blood pressure, diastolic 78 mm[Hg] Ch astity Debbie blood pressure, systolic 136 mm[Hg] [place] stity Debbie oxygen saturation, oximetry 99 % Chastity Debbie weight E&M 239 [lb_av] Chastity Debbie respiratory rate E&M 16 /min Chastit y Debbie height E&M 76 [in_i] Chastity Debbie Body Mass Index (Ratio) 28.85 kg/m2 Bjorn Duarte MD blood pressure, diastolic 72 mm[Hg] Lauren nkLogic blood pressure, systolic 134 mm[Hg] Belinda kLogic blood pressure, diastolic 72 mm[Hg] Ca therine [place] blood pressure, systolic 134 mm[Hg] Cat herine [place] oxygen saturation, oximetry 98 % Madhavi [place] respiratory rate E&M 16 /min Catheri ne Darren pulse rate 56 /min Madhavi Darren weight E&M 237 [lb_av] Madhavi [place] blood pressure, cuff size regular Ca therine [place] height E&M 76 [in_i] Madhavi Darren Body Mass Index (Ratio) 28.36 kg/m2 Bjorn Duarte MD blood pressure, diastolic 70 mm[Hg] Lauren nkLogic blood pressure, systolic 130 mm[Hg] Belinda kLogic blood pressure, diastolic 70 mm[Hg] Kyle Ortiz blood pressure, systolic 130 mm[Hg] Trixie Ortiz oxygen saturation, oximetry 97 % Roque Ortiz respiratory rate E&M 16 /min Jessica Montesenson pulse rate 59 /min Roque Grijalva nschristiano weight E&M 233 [lb_av] Roque Grijalva nschristiano height E&M 76 [in_i] Roque Grijalva [facility] Body Mass Index (Ratio) 28.72 kg/m2 Bjorn Duarte MD blood pressure, diastolic 70 mm[Hg] Kyle Oreilly'Dev blood pressure, systolic 140 mm[Hg] Trixie padilla O'Dev oxygen saturation, oximetry 97 % Christy O'Dev respiratory rate E&M 16 /min Christy O'Dev pulse rate 61 /min Christy O'Dev weight E&M 236 [lb_av] Christy O'Dev height E&M 76 [in_i] Christy O'Dev Body Mass Index (Ratio) 28.77 kg/m2 Raudel Rios blood pressure, diastolic 60 mm[Hg] Kyle Ortiz blood pressure, systolic 126 mm[Hg] Trixie Ortiz oxygen saturation, oximetry 98 % Roque Ortiz respiratory rate E&M 16 /min Jessica Ortiz pulse rate 60 /min Roque zamarripa weight E&M 236.4 [lb_av] Roque mann height E&M 76 [in_i] Roque zamarripa Body Mass Index (Ratio) 28.55 kg/m2 Raudel Rios blood pressure, diastolic 60 mm[Hg] Kyle Ortiz blood pressure, systolic 112 mm[Hg] Trixie Ortiz oxygen saturation, oximetry 94 % Roque Ortiz respiratory rate E&M 16 /min Jessica Ortiz pulse rate 54 /min Roque zamarripa weight E&M 234.6 [lb_av] Roque mann height E&M 76 [in_i] Roque zamarripa Body Mass Index (Ratio) 28.04 kg/m2 Raudel Rios blood pressure, diastolic 60 mm[Hg] Kyle Ortiz blood pressure, systolic 100 mm[Hg] Trixie Ortiz oxygen saturation, oximetry 96 % Roque Ortiz respiratory rate E&M 18 /min Jessica Ortiz pulse rate 86 /min Roque zamarripa weight E&M 230.4 [lb_av] Roque mann height E&M 76 [in_i] Roque zamarripa Body Mass Index (Ratio) 28.72 kg/m2 Raudel n Kyte pulse rate 101 /min Jocelyne myers oxygen saturation, oximetry 97 % Jocelyne Ellis blood pressure, diastolic 91 mm[Hg] Jovany sappa Ellis blood pressure, systolic 131 mm[Hg] Melissa jarvis Ellis blood pressure, cuff size regular Cy grecia Ellis respiratory rate E&M 16 /min Jocelynejarvis Ellis weight E&M 236 [lb_av] Jocelyne Singletonbel l height E&M 76 [in_i] Jocelyne Manibel lucia Body Mass Index (Ratio) 28.60 kg/m2 [facility] Acacia [facility] temperature E&M 96.4 [degF] Acacia [facility] e blood pressure, diastolic 58 mm[Hg] Cy grecia Ellis blood pressure, systolic 102 mm[Hg] Melissa jarvis Ellis respiratory rate E&M 16 /min Jocelynejarvis Ellis pulse rate 66 /min Jocelyne myers oxygen saturation, oximetry 96 % Jocelyne Ellis weight E&M 235 [lb_av] Jocelyne Fisher l blood pressure, cuff size regular Cy grecia Ellis height E&M 76 [in_i] Jocelyne Singletonbel lucia Body Mass Index (Ratio) 29.21 kg/m2 Marci Garcia MD blood pressure, cuff size regular Cy grecia Ellis blood pressure, diastolic 70 mm[Hg] Cy ntblake Ellis blood pressure, systolic 140 mm[Hg] Melissa jarvis Ellis oxygen saturation, oximetry 97 % Jocelyne Ellis respiratory rate E&M 16 /min Jocelynejarvis Ellis pulse rate 74 /min Jocelyne Manibel l weight E&M 240 [lb_av] Jocelyne Manibel l height E&M 76 [in_i] Jocelyne Manibel l Body Mass Index (Ratio) 29.70 kg/m2 Raudel mariama Rios oxygen saturation, oximetry 97 % Chastity Debbie pulse rate 73 /min Chastity Debbie blood pressure, diastolic 82 mm[Hg] Ch astity Debbie blood pressure, systolic 146 mm[Hg] [place] stity Debbie respiratory rate E&M 16 /min Chastit y Debbie weight E&M 244 [lb_av] Chastity Debbie height E&M 76 [in_i] Chastity Debbie Body Mass Index (Ratio) 29.09 kg/m2 Raudel mariama Gilmarbritney blood pressure, cuff size regular Cy grecia Ellis blood pressure, diastolic 64 mm[Hg] Cy ntblake Ellis blood pressure, systolic 130 mm[Hg] Melissa jarvis Ellis oxygen saturation, oximetry 96 % Jocelyne Ellis respiratory rate E&M 16 /min Jocelyne Ellis pulse rate 65 /min Jocelyne Campbel l weight E&M 239 [lb_av] Jocelyne Campbel l height E&M 76 [in_i] Jocelyne Campbel l Body Mass Index (Ratio) 29.70 kg/m2 Bjorn Duarte MD blood pressure, diastolic 66 mm[Hg] Da tu Bienvenido blood pressure, systolic 112 mm[Hg] Dac ia Bienvenido oxygen saturation, oximetry 97 % Eva Bienvenido respiratory rate E&M 16 /min Eva V oss pulse rate 67 /min Eva Bienvenido weight E&M 244 [lb_av] Eva Bienvenido height E&M 76 [in_i] Eva Bienvenido Body Mass Index (Ratio) 28.85 kg/m2 Bjorn Duarte MD blood pressure, fontanez tolic, third observation 81 mm[Hg] Tania Duarte MD blood pressure, syst olic, third observation 152 mm[Hg] Tania Duarte MD blood pressure, fontanez tolic, second observation 80 mm[Hg] Tania Duarte MD blood pressure, syst olic, second observation 159 mm[Hg] Tania Duarte MD blood pressure, cuff size small Cy grecia Ellis blood pressure, diastolic 80 mm[Hg] Cy grecia Ellis blood pressure, systolic 180 mm[Hg] Melissa jarvis Ellis weight E&M 237 [lb_av] Jocelyne Fisher l pulse rate 61 /min Jocelyne myers respiratory rate E&M 18 /min Jocelyne Ellis oxygen saturation, oximetry 98 % Jocelyne Ellis height E&M 76 [in_i] Jocelyne Singletonbel l Body Mass Index (Ratio) 29.82 kg/m2 Bjorn Duarte MD blood pressure, diastolic 70 mm[Hg] Da tu Bienvenido blood pressure, systolic 132 mm[Hg] Dac ia Bienvenido oxygen saturation, oximetry 95 % Eva Bienvenido respiratory rate E&M 18 /min Eva V oss pulse rate 71 /min Eva Bienvenido weight E&M 245 [lb_av] Eva Bienvenido height E&M 76 [in_i] Eva Binevenido Body Mass Index (Ratio) 29.38 kg/m2 Juan Pemberton blood pressure, diastolic 80 mm[Hg] Kyle Ortiz blood pressure, systolic 151 mm[Hg] Trixie Ortiz oxygen saturation, oximetry 97 % Roque Ortiz respiratory rate E&M 18 /min Jessica Ortiz pulse rate 64 /min Roque zamarripa weight E&M 241.4 [lb_av] Roque mann height E&M 76 [in_i] Roque Grijalva nschristiano Body Mass Index (Ratio) 28.72 kg/m2 Antonio Angelo blood pressure, resting Yes Bjorn Duarte MD blood pressure, diastolic 80 mm[Hg] Da tu Bienvenido blood pressure, systolic 126 mm[Hg] Dac ia Bienvenido oxygen saturation, oximetry 97 % Eva Bienvenido respiratory rate E&M 16 /min Eva V oss pulse rate 64 /min Eva Bienvenido weight E&M 236 [lb_av] Eva Bienvenido height E&M 76 [in_i] Eva Bienvenido Body Mass Index (Ratio) 29.09 kg/m2 Bjorn Duarte MD blood pressure, diastolic 89 mm[Hg] Kyle Rachael Ortiz blood pressure, systolic 169 mm[Hg] Trixie Celena Ortiz oxygen saturation, oximetry 98 % Roque Ortiz respiratory rate E&M 18 /min Jessica Ortiz pulse rate 63 /min Roque zamarripa weight E&M 239 [lb_av] Roque zamarripa height E&M 76 [in_i] Roque zamarripa blood pressure, diastolic, left arm 79 mm [Hg] Acacia Jerome blood pressure, systolic, left arm 134 mm [Hg] Acacia Jerome blood pressure, diastolic, right arm 74 m m[Hg] Acacia Jerome blood pressure, systolic, right arm 135 m m[Hg] Acacia Jerome blood pressure, diastolic 79 mm[Hg] Or kenny Jerome blood pressure, systolic 134 mm[Hg] Melina dixie Jerome pulse rate 62 /min Acacia Jerome oxygen saturation, oximetry 98 % Acacia Jerome respiratory rate E&M 16 /min Acacia Jerome Body Mass Index (Ratio) 28.48 kg/m2 Diana Cano weight E&M 234 [lb_av] Acacia Cano blood pressure, diastolic 82 mm[Hg] Toan Herreras RN blood pressure, systolic 150 mm[Hg] Reginald Weaver RN pulse rate 62 /min Reginald Weaver RN height E&M 76 [in_i] Reginald Weaver RN height in centimeters E&M 193.04 cm Toan Weaver RN blood pressure, diastolic 69 mm[Hg] Dennys jenniferi Pranav blood pressure, systolic 118 mm[Hg] Meghan Rock pulse rate 68 /min Aurora Mere palenciaer oxygen saturation, oximetry 98 % Aurora Rock respiratory rate E&M 16 /min Aurora Ayad larson Body Mass Index (Ratio) 28.37 kg/m2 Ethan haines Pranav weight E&M 230 [lb_av] Aurora Mere lder blood pressure, diastolic 69 mm[Hg] Me kenny Duron blood pressure, systolic 116 mm[Hg] Melina dixie Duron pulse rate 74 /min Acacia Duron oxygen saturation, oximetry 97 % Acacia Duron respiratory rate E&M 14 /min Acacia Duron Body Mass Index (Ratio) 28.12 kg/m2 Diana [facility] weight E&M 228 [lb_av] Acacia Duron blood pressure, diastolic 80 mm[Hg] Me kenny Duron blood pressure, systolic 157 mm[Hg] Melina dixie Duron pulse rate 62 /min Acacia Duron oxygen saturation, oximetry 98 % Acacia Duron respiratory rate E&M 14 /min Acacia Duron Body Mass Index (Ratio) 28.12 kg/m2 [facility] weight E&M 228 [lb_av] Acacia Duron Body Mass Index (Ratio) 28.37 kg/m2 [facility] blood pressure, diastolic 77 mm[Hg] Me kenny Duron blood pressure, systolic 152 mm[Hg] Melina dixie Duron pulse rate 70 /min Acacia Duron oxygen saturation, oximetry 98 % Acacia Duron respiratory rate E&M 15 /min Acacia Duron weight E&M 230 [lb_av] Acacia Duron blood pressure, diastolic 78 mm[Hg] Kyle Ortiz blood pressure, systolic 132 mm[Hg] Trixie Ortiz Body Mass Index (Ratio) 28.34 kg/m2 Sylwiajeffrey Ortiz pulse rate 63 /min Roque Grijalva dallin oxygen saturation, oximetry 94 % Roque Ortiz respiratory rate E&M 16 /min Jessica Ortiz weight E&M 229.8 [lb_av] Roque Montes johanthan Body Mass Index (Ratio) 28.12 kg/m2 [facility] blood pressure, diastolic 78 mm[Hg] Me kenny blood pressure, systolic 149 mm[Hg] Melina dixie Duron pulse rate 58 /min Acacia Duron oxygen saturation, oximetry 98 % Acacia Duron respiratory rate E&M 14 /min Acacia Duron weight E&M 228 [lb_av] Acacia Duron Body Mass Index (Ratio) 29.85 kg/m2 Long i Pranav blood pressure, diastolic 80 mm[Hg] Ke rri Pranav blood pressure, systolic 142 mm[Hg] Ker ri Pranav pulse rate 60 /min Aurora Severino lder oxygen saturation, oximetry 98 % Aurora Zavalalorna respiratory rate E&M 17 /min Aurora Lion marsha weight E&M 242 [lb_av] Aurora Zavalalalithavaleria lder blood pressure, diastolic 84 mm[Hg] Toan leslie Weaver RN blood pressure, systolic 145 mm[Hg] Reginald Herreras RN pulse rate 67 /min Reginald Herreras RN oxygen saturation, oximetry 98 % Reginald Herreras RN respiratory rate E&M 18 /min Reginald [facility] RN Body Mass Index (Ratio) 29.21 kg/m2 Reginald Herreras RN weight E&M 236 [lb_av] Reginald Herreras RN Body Mass Index (Ratio) 29.46 kg/m2 Debbie Henderson blood pressure, fontanez tolic, second observation 92 mm[Hg] Sandi Henderson blood pressure, syst olic, second observation 155 mm[Hg] Sandi Henderson blood pressure, diastolic 92 mm[Hg] Na eric Henderson blood pressure, systolic 155 mm[Hg] Tisha Henderson pulse rate 62 /min Sandi Henderson oxygen saturation, oximetry 98 % Sandi Henderson respiratory rate E&M 16 /min Sandi Henderson weight E&M 238 [lb_av] Sandi Henderson Body Mass Index (Ratio) 28.22 kg/m2 Gurdeep Brand blood pressure, diastolic 87 mm[Hg] Hernandez blood pressure, systolic 175 mm[Hg] Adam Brand pulse rate 56 /min Maylin Brand oxygen saturation, oximetry 98 % Maylin Brand respiratory rate E&M 16 /min Maylin Brand weight E&M 228 [lb_av] Maylin Brand Body Mass Index (Ratio) 29.34 kg/m2 Long yancy Blacker blood pressure, diastolic 58 mm[Hg] Ke rri Gruenenfelder blood pressure, systolic 98 mm[Hg] Meghan ri Rogelionenfelder pulse rate 67 /min Aurora Mere lder oxygen saturation, oximetry 97 % Aurora Dexelder respiratory rate E&M 17 /min Aurora malonenfelder weight E&M 237 [lb_av] Aurora Severino lder Body Mass Index (Ratio) 30.08 kg/m2 Long yancy Blacker blood pressure, diastolic 86 mm[Hg] Ke rri Dexelder blood pressure, systolic 172 mm[Hg] Meghan ri Rogelionechelaelder pulse rate 65 /min Aurora Severino lder oxygen saturation, oximetry 98 % Aurora Kowalskielder respiratory rate E&M 17 /min Aurora malonenfelder weight E&M 243 [lb_av] Aurora Severino lder Body Mass Index (Ratio) 30.70 kg/m2 Cole villalobos [place] blood pressure, diastolic, left arm 78 mm [Hg] Abdi [place] blood pressure, systolic, left arm 132 mm [Hg] Abdi [place] blood pressure, diastolic, right arm 80 m m[Hg] Abdi [place] blood pressure, systolic, right arm 144 m m[Hg] Abdi [place] blood pressure, diastolic 80 mm[Hg] Alana ambrose [place] blood pressure, systolic 144 mm[Hg] Richard martin [place] pulse rate 59 /min Abdi [place] oxygen saturation, oximetry 97 % Abdi Tai respiratory rate E&M 16 /min Abdi Manacosam weight E&M 248 [lb_av] Abdi Tai Body Mass Index (Ratio) 29.96 kg/m2 Bjorn Duarte MD blood pressure, diastolic, left arm 69 mm [Hg] Reginald Weaver RN blood pressure, systolic, left arm 133 mm [Hg] Reginald Weaver RN blood pressure, diastolic, right arm 69 m m[Hg] Reginald Weaver RN blood pressure, systolic, right arm 135 m m[Hg] Reginald Weaver RN blood pressure, diastolic 69 mm[Hg] Toan Weaver RN blood pressure, systolic 133 mm[Hg] Reginald Weaver RN pulse rate 58 /min Reginald Weaver RN oxygen saturation, oximetry 97 % Reginald Weaver RN respiratory rate E&M 16 /min Reginald armijo RN weight E&M 242 [lb_av] Reginald Weaver RN height E&M 75.5 [in_i] Reginald Weaver RN blood pressure, diastolic 80 mm[Hg] Hernandez blood pressure, systolic 121 mm[Hg] Adam Brand pulse rate 76 /min Maylin Brand oxygen saturation, oximetry 99 % Maylin Brand respiratory rate E&M 16 /min Maylin Brand weight E&M 238 [lb_av] Maylin Brand blood pressure, diastolic 77 mm[Hg] Toan Weaver RN blood pressure, systolic 139 mm[Hg] Reginald Weaver RN pulse rate 81 /min Reginald Weaver RN oxygen saturation, oximetry 97 % Reginald Weaver RN respiratory rate E&M 18 /min Reginald armijo RN weight E&M 244 [lb_av] Reginald eWaver RN weight E&M 239 [lb_av] Reginald Weaver RN blood pressure, diastolic 72 mm[Hg] Hernandez blood pressure, systolic 120 mm[Hg] Adam Brand pulse rate 65 /min Maylin Brand oxygen saturation, oximetry 96 % Maylin Brand respiratory rate E&M 18 /min Maylin Brand blood pressure, diastolic 81 mm[Hg] Toan leslie Weaver RN blood pressure, systolic 158 mm[Hg] Reginald Herreras RN pulse rate 53 /min Reginald Herreras RN oxygen saturation, oximetry 98 % Reginald Herreras RN respiratory rate E&M 18 /min Reginald Solis zofia RN weight E&M 241 [lb_av] Reginald Herreras RN blood pressure, diastolic, left arm 64 mm [Hg] Maylin Brand blood pressure, systolic, left arm 120 mm [Hg] Maylin Brand blood pressure, diastolic, right arm 64 m m[Hg] Maylin Brand blood pressure, systolic, right arm 125 m m[Hg] Maylin Brand blood pressure, diastolic 64 mm[Hg] Hernandez blood pressure, systolic 125 mm[Hg] Adam Brand pulse rate 61 /min Maylin Brand oxygen saturation, oximetry 98 % Maylin Brand respiratory rate E&M 16 /min Maylin Brand weight E&M 247 [lb_av] Maylin Brand blood pressure, diastolic, left arm 66 mm [Hg] Abdi Manacop blood pressure, systolic, left arm 118 mm [Hg] Abdi [place] blood pressure, diastolic 66 mm[Hg] Alana ambrose [place] blood pressure, systolic 118 mm[Hg] Richard martin [place] pulse rate 65 /min Abdi [place] oxygen saturation, oximetry 97 % Abdi [place] respiratory rate E&M 16 /min Abdi [place] weight E&M 242 [lb_av] Abdi [place] blood pressure, diastolic 68 mm[Hg] Toan Weaver RN blood pressure, systolic 123 mm[Hg] Reginald Herreras RN pulse rate 66 /min Reginald Weaver RN oxygen saturation, oximetry 95 % Reginald Herreras RN respiratory rate E&M 16 /min Reginald armijo RN weight E&M 249 [lb_av] Reginald Weaver RN blood pressure, diastolic, left arm 78 mm [Hg] Abdi Man[place] blood pressure, systolic, left arm 148 mm [Hg] Abdi [place] blood pressure, diastolic, right arm 80 m m[Hg] Abdi [place] blood pressure, systolic, right arm 128 m m[Hg] Abdi [place] blood pressure, diastolic 80 mm[Hg] Alana seph [place] blood pressure, systolic 128 mm[Hg] Richard eph [place] pulse rate 68 /min Abdi [place] oxygen saturation, oximetry 93 % Abdi [place] respiratory rate E&M 16 /min Abdi [place] weight E&M 241 [lb_av] Abdi [place] height E&M 74 [in_i] Abdi [place] blood pressure, diastolic, left arm 76 mm [Hg] Doug Elaine blood pressure, systolic, left arm 120 mm [Hg] Doug Elaine blood pressure, diastolic, right arm 79 m m[Hg] Doug Elaine blood pressure, systolic, right arm 122 m m[Hg] Doug Elaine pulse rate 61 /min Doug Elaine oxygen saturation, oximetry 97 % Doug Elaine respiratory rate E&M 18 /min Doug omndragon weight E&M 242 [lb_av] Doug Elaine ALLERGIES Allergy Name Onset Date Reaction Criticality Status BRILINTA Pt had swelling of lower lip. Low Cr iticality active PNEUMONIA VAC Low Criticality active RESULTS Date Observation Value Provider Reference Range Interpretation Location magnesium, serum 2.2 mg/dL [facility] 1.6-2.3 prothrombin time (patient) 12.9 s [facility] 9.1-12.0 High international normalized ratio (INR) 1.2 [facility] 0.9-1.2 calcium, serum 9.2 mg/dL [facility] 8.6-10.2 carbon dioxide, venous blood 26 mmol/L [facility] 20-29 chloride, serum 103 mmol/L [facility] 96-106 potassium, serum 4.2 mmol/L [facility] 3.5-5.2 sodium, serum 142 mmol/L [facility] [phone]/01 /01 urea nitrogen/creatinine ratio, serum 20 [facility] 10-24 eGFR if 68 mL/min/{1.73_ m2} [facility] >59 eGFR if not 59 mL/min/{1.73_ m2} [facility] >59 Low creatinine, serum 1.19 mg/dL [facility] 0.76-1.27 urea nitrogen, blood 24 mg/dL [facility] 8-27 blood glucose, random 96 mg/dL [facility] 65-99 eGFR if 57 mL/min/{1.73_ m2} [facility] >59 Low eGFR if not 49 mL/min/{1.73_ m2} [facility] >59 Low creatinine, serum 1.39 mg/dL [facility] 0.76-1.27 High prothrombin time (patient) 11.0 s [facility] 9.0 - 11.5 international normalized ratio (INR) 1.1 [facility] 0.9 - 1.1 red blood cell distribution width, size density 40.3 fL [facility] - immature granulocytes, percentage of total cells, blood 0.2 % [facility] - nucleated red blood cells as percent of blood leukocytes 0.4 % [facility] - red blood cell (erythrocyte) count, per high power field 0.0 10*3/UL [facility] - eosinophils as percent of blood leukocytes 1.2 % [facility] - neutrophils as percent of blood leukocytes 61.4 % [facility] - Absolute Neutrophils 3.2 CELLS/UL [facility] 1.5 - 7.8 basophils as percent of blood leukocytes 0.2 % [facility] - Absolute Basophils 0.0 CELLS/UL [facility] 0.0 - 0.2 monocytes as percent of blood leukocytes 7.1 % [facility] - Absolute Monocytes 0.4 CELLS/UL [facility] 0.2 - 1.0 lymphocytes as percent of blood leukocytes 29.9 % [facility] - Absolute Lymphocytes 1.6 CELLS/UL [facility] 0.9 - 3.9 mean platelet volume 11.8 (?) [facility] - platelet count 213.0 THOUSAND/UL [facility] 100.0 - 400.0 mean corpuscular hemoglobin concentration, RBC 32.4 G/DL [facility] 31.0 - 38.0 mean corpuscular hemoglobin, RBC 29.8 pg [facility] 25.0 - 35.0 mean corpuscular volume, RBC 91.9 fL [facility] 75.0 - 100.0 hematocrit, blood 46.3 % [facility] 35.0 - 55.0 hemoglobin, blood 15.0 g/dL [facility] 11.5 - 16.5 erythrocyte count, whole blood 5.0 MILLION/UL [facility] 3.5 - 5.5 very low density lipoproteins 13.4 mg/dL [facility] 5.0 - 40.0 LDL/HDL (low-density lipoprotein/high-de nsity lipoprotein) ratio 1.1 RATIO [facility] - HDL cholesterol, serum 70.0 mg/dL [facility] 35.0 - 55.0 High sum total cholesterol 163.0 mg/dL [facility] 0.0 - 200.0 Triglycerides-direc t 67.0 mg/dL [facility] 0.0 - 150.0 urea nitrogen/creatinine ratio, serum 15.0 [facility] - Estimated Glomerular Filtration Rate (calc) 78.3 (?) [facility] 59.0 - chloride, serum 99.1 mmol/L [facility] 98.0 - 107.0 potassium, serum 4.4 mmol/L [facility] 3.5 - 5.1 sodium, serum 139.0 mmol/L [facility] 136.0 - 145.0 creatine, serum 1.0 mg/dL [facility] 0.7 - 1.2 carbon dioxide, venous blood 28.0 mmol/L [facility] 23.0 - 31.0 calcium, serum 9.7 mg/dL [facility] 8.6 - 10.2 urea nitrogen, blood 15.0 mg/dL [facility] 8.0 - 23.0 Glucose Urine 109.0 mg/dL [facility] 74.0 - 99.0 High thyroid stimulating hormone, serum 2.50 u[IU]/mL [facility] 0.270-4.20 Normal folate, serum 19.6 ng/mL [facility] 7.3-26.1 Normal vitamin b12, serum 490 pg/mL [facility] [phone] Normal LDL/HDL (low-density lipoprotein/high-de nsity lipoprotein) ratio 0.8 RATIO [facility] 0.2-4.3 Normal VLDL cholesterol 25 mg/dL [facility] 8-41 Normal lipoprotein, beta, serum, point, quantitative, calculated 68 mg/dL [facility] 0-130 Normal cholesterol/HDL ratio, serum, percent 2.1 ratio [facility] 1.5-5.6 Normal HDL cholesterol, serum 84 mg/dL [facility] 55 Normal triglyceride, serum, fasting 126 mg/dL [facility] Normal cholesterol, serum 177 mg/dL [facility] 0-199 Normal basophils, absolute, manual 0.07 K/UL [facility] 0.0-0.1 Normal basophils as percent of blood leukocytes 1.1 % [facility] 0.3-0.9 High eosinophils, absolute, manual 0.10 K/UL [facility] 0.1-0.5 Normal eosinophils as percent of blood leukocytes 1.6 % [facility] 1.1-7.6 Normal monocyte count, blood 0.56 10*3/mm3 [facility] 0.2-0.7 Normal monocytes as percent of blood leukocytes 8.9 % [facility] 4.2-11.2 Normal lymphocytes as percent of blood leukocytes 2.10 K/UL [facility] 0.6-3.4 Normal lymphocytes, absolute 33.2 % [facility] 19.8-46.2 Normal neutrophil count, absolute 3.49 K/uL [facility] 1.9-5.9 Normal neutrophils as percent of blood leukocytes 55.2 % [facility] 42.7-72.4 Normal mean platelet volume 9.2 % [facility] 7.4-9.9 Normal red blood cell distribution width 11.7 % [facility] 10.9-14.6 Normal platelet count 194 10*3/mm3 [facility] 165-429 Normal mean corpuscular hemoglobin concentration, RBC 34.3 % [facility] 32.5-34.5 Normal mean corpuscular hemoglobin, RBC 31.1 pg [facility] 21.5-33.3 Normal mean corpuscular volume, RBC 91 fL [facility] 76-98 Normal hematocrit, blood 44.5 % [facility] 34.4-47.3 Normal hemoglobin, blood 15.3 g/dL [facility] 12.5-17.2 Normal erythrocyte (RBC) count 4.91 M/UL [facility] 3.8-5.5 Normal leukocyte count, blood 6.3 10*3/mm3 [facility] 3.7-8.9 Normal calcium, serum 9.7 mg/dL [facility] 8.6-10.0 Normal blood glucose, random 100 mg/dL [facility] 74-109 Normal eGFR if 85 mL/min/{1.73_ m2} [facility] >60 Normal eGFR if not 70 mL/min/{1.73_ m2} [facility] >60 Normal urea nitrogen/creatinine ratio, serum 12.7 ratio [facility] 8.0-25.0 Normal creatinine, serum 1.1 mg/dL [facility] 0.70-1.20 Normal urea nitrogen, blood 14 mg/dL [facility] 6-20 Normal carbon dioxide, venous blood 27 mmol/L [facility] 22-29 Normal chloride, serum 100 MEQ/L [facility] 98-107 Normal potassium, serum 4.6 MEQ/L [facility] 3.5-5.1 Normal sodium, serum 140 MEQ/L [facility] 136-145 Normal platelet count 198 10*3/mm3 Giorgio Austin hematocrit, blood 42.9 % Giorgio Austin creatinine, serum 1.03 mg/dL Giorgio Austin potassium, serum 4.4 mmol/L Giorgio Austin sodium, serum 140 mmol/L Giorgio Austin international normalized ratio (INR) 1.0 Giorgio Austin triglyceride, serum, fasting 139 mg/dL Jacklyn Arizmendi RN HDL cholesterol, serum 40 mg/dL [facility] LDL cholesterol, serum 54 mg/dL [facility] cholesterol, serum 122 mg/dL [facility] alanine aminotransferase (SGPT), serum 19 1/L [facility] aspartate aminotransferase (SGOT), serum 19 1/L [facility] blood glucose, fasting 102 mg/dL [facility] creatinine, serum 1.08 mg/dL [facility] urea nitrogen, blood 17 mg/dL [facility] carbon dioxide, serum, total 28 mmol/L [facility] chloride, serum 103 mmol/L [facility] potassium, serum 3.6 mmol/L [facility] sodium, serum 139 mmol/L [facility] prothrombin time (patient) 10.7 s [facility] international normalized ratio (INR) 1.0 [facility] platelet count 224 10*3/uL [facility] red blood cell distribution width 11.5 % [facility] mean corpuscular hemoglobin concentration, RBC 34.9 g/dL [facility] mean corpuscular hemoglobin, RBC 30.2 pg [facility] mean corpuscular volume, RBC 86.6 fL [facility] hematocrit, blood 43.9 % [facility] hemoglobin, blood 15.3 g/dL [facility] erythrocyte (RBC) count 5.07 10*6/mm3 [facility] monocytes as percent of blood leukocytes 8.1 % [facility] lymphocytes as percent of blood leukocytes 25.6 % [facility] leukocyte count, blood 5.9 10*3/mm3 [facility] estimated glomerular filtration rate >60 [facility] calcium, serum 9.3 mg/dL [facility] blood glucose, fasting 114 mg/dL [facility] creatinine, serum 1.18 mg/dL [facility] urea nitrogen, blood 20.4 mg/dL [facility] carbon dioxide, serum, total 29 mmol/L [facility] chloride, serum 105 mmol/L [facility] potassium, serum 3.9 mmol/L [facility] sodium, serum 139 mmol/L [facility] platelet count 179 THOUSAND/UL [facility] 140-400 Normal red blood cell distribution width 12.7 % [facility] 11.0-15.0 Normal mean corpuscular hemoglobin concentration, RBC 34.0 G/DL [facility] 32.0-36.0 Normal mean corpuscular hemoglobin, RBC 31.1 pg [facility] 27.0-33.0 Normal mean corpuscular volume, RBC 91.4 fL [facility] 80.0-100.0 Normal hematocrit, blood 42.9 % [facility] 38.5-50.0 Normal hemoglobin electrophoresis, blood 14.6 [facility] 13.2-17.1 Normal erythrocyte (RBC) count 4.69 MILLION/UL [facility] 4.20-5.80 Normal leukocyte (white blood cells) count, blood 4.9 THOUSAND/UL [facility] 3.8-10.8 Normal alanine aminotransferase (SGPT), serum 18 1/L [facility] 9-60 Normal aspartate aminotransferase (SGOT), serum 18 1/L [facility] 10-35 Normal alkaline phosphatase, serum 58 1/L [facility] 40-115 Normal bilirubin, serum, total 0.8 mg/dL [facility] 0.2-1.2 Normal albumin/globulin ratio, serum 2.0 (calc) [facility] 1.0-2.1 Normal globulins, serum, total 2.2 G/DL (CALC) [facility] 2.1-3.7 Normal albumin, serum 4.4 g/dL [facility] 3.6-5.1 Normal protein, total, serum 6.6 g/dL [facility] 6.2-8.3 Normal calcium, serum 9.3 mg/dL [facility] 8.6-10.2 Normal carbon dioxide, venous blood 25 mmol/L [facility] 21-33 Normal chloride, serum 106 mmol/L [facility] 98-110 Normal potassium, serum 4.3 mmol/L [facility] 3.5-5.3 Normal sodium, serum 141 mmol/L [facility] 135-146 Normal urea nitrogen/creatinine ratio, serum NOT APPLICABLE (calc) [facility] 6- Estimated Glomerular Filtration Rate (calc) >60 mL/min/1.73m2 [facility] > OR = 60 Normal creatinine, serum 1.20 mg/dL [facility] 0.76-1.46 Normal urea nitrogen, blood 16 mg/dL [facility] 7-25 Normal blood glucose, random 108 mg/dL [facility] 65-99 High cholesterol/HDL ratio, serum, percent 3.1 (calc) [facility] < OR = 5.0 Normal LDL cholesterol, serum 79 MG/DL (CALC) [facility] <130 Normal triglyceride, serum, fasting 127 mg/dL [facility] <150 Normal HDL cholesterol, serum 49 mg/dL [facility] > OR = 40 Normal cholesterol, serum 153 mg/dL [facility] 125-200 Normal HISTORY OF MEDICATION USE Medication Status Instructions Dates Provider Indications Com ments tramadol 50 mg tablet active 1 tablet by mouth three times a day as needed for pain for 5 days 11/20 Tania Duarte MD cephalexin 500 mg capsule active 1 capsule by mouth three times a day for 5 days 11/20 Tania Duarte MD ranolazine 500 mg tablet extended release 12 hr completed Take 1 tablet by mouth twice a day 07/09 - 11/10 Leena Michaelmirenee ESCALERAP sotalol 80 mg tablet active TAKE 1 TABLET TWICE DAILY 04/14 Leena Hale 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 isosorbide mononitrate 60 mg tablet extended release 24 hr active TAKE 1 TABLET BY MOUTH EVERY DAY 02/04 Qing Borrego gabapentin 100 mg capsule active Take 1 capsule by mouth once a day as needed for pain Tania Duarte MD dutasteride 0.5 mg capsule active [facility] Eliquis 5 mg tablet active TAKE 1 TABLE T BY MOUTH TWICE DAILY 06/13 Shonna Efraínzachary isosorbide mononitrate 60 mg tablet extended release 24 hr completed Take 1 tablet by mouth once a day TAKE 1 TABLET BY MOUTH EVERY DAY 02/23 - 02/04 Qing Borrego sotalol 80 mg tablet completed Take 1/2 tablet by mouth twice a day - 04/14 [facility] amlodipine 5 mg tablet active TAKE 1 TABLET BY MOUTH ONCE DAILY 12/14 Carole Jennings Plavix 75 mg tablet completed TAKE 1 TABLE T BY MOUTH DAILY 11/05 - 07/18 [facility] lisinopril 20 mg tablet active TAKE 1 TABLET BY MOUTH DAILY 07/31 Carole Jennings sotalol 80 mg tablet completed Take 1/2 tablet by mouth twice a day TAKE ONE-HALF TABLET BY MOUTH TWICE DAILY 06/09 - 06/29 Tania Duarte MD Xarelto 20 mg tablet completed TAKE 1 TABLET BY MOUTH DAILY WITH EVENING MEAL 05/23 - 06/29 Juju Bourne sotalol 80 mg tablet completed TAKE ONE-HALF TABLET BY MOUTH TWICE DAILY 03/14 - 06/09 Mercedes Shepherd RN atorvastatin 20 mg tablet active TAKE 1 TABLET BY MOUTH DAILY 03/03 Carole Jennings isosorbide mononitrate 60 mg tablet extended release 24 hr completed TAKE 1 TABLET BY MOUTH EVERY DAY 02/20 - 02/23 Socorro Morgan sotalol 80 mg tablet completed - 06/09 Mercedes Shepherd RN metoprolol tartrate 25 mg tablet completed TAKE 1/2 TABLET BY MOUTH AT BEDTIME - 02/22 Qing Cleveland NP sotalol 80 mg tablet completed Take 1/2 tablet by mouth twice a day TAKE 1/2 TABLET BY MOUTH TWICE DAILY - 11/16 Mercedes Shepherd RN amlodipine 5 mg tablet completed Take 1 tablet by mouth once a day 12/15 - 12/14 Varsha Elizabeth sotalol 80 mg tablet completed TAKE 1/2 TABLET BY MOUTH TWICE DAILY 11/07 - Amy Flores RN Xarelto 20 mg tablet completed TAKE 1 TABLET BY MOUTH DAILY WITH EVENING - 05/23 Tania Duarte MD nitroglycerin 0.4 mg tablet, sublingual active 1 tablet under tongue as directed 1 tablet under tongue for chest pain. May repeat every 5 minutes if still having chest pain- to max of 3 tablets per episode.If no relief after 3rd dose, go to ER 07/20 Leena Hale 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 Nitrolingual 400 mcg/spray spray,non-aerosol completed Hector 1 spray using inhaler single dose as needed 06/24 - 07/20 Ramy Guerrero metoprolol tartrate 25 mg tablet completed 0.5 tablet twice a day 01/12 - 11/16 Mercedes Shepherd RN sotalol 80 mg tablet completed Take 0.5 tablet by mouth twice a day 12/20 - Reginald Weaver RN METOPROLOL TARTRATE 25 MG ORAL TABLET completed hold 12/15 - 05/23 Roque Ortiz This is a decrease from a full tablet twice daily AMOXICILLIN-POT CLAVULANATE 875-125 MG ORAL TABLET completed TK 1 T PO BID 01/20 - 07/31 Jocelyne Ellis #20, 10 days supply, Prescribed by [facility], Filled 01/20/2019 METHYLPREDNISOLONE 4 MG ORAL TABLET THERAPY PACK completed 01/20 - 07/31 Jocelyne Ellis #21, 6 days supply, Filled 01/20/2019 Xarelto 20 mg tablet completed 1 tablet every night 12/19 - Tania Duarte MD loratadine 10 mg tablet completed Take 1 tablet once a day 12/19 - 06/29 Juju Steffen ASPIRIN ADULT LOW DOSE 81 MG ORAL TABLET DELAYED RELEASE completed One Tab By Mouth Daily 12/12 - 12/15 Tania Duarte MD amlodipine 5 mg tablet completed Take 1 tablet once a day 05/03 - 12/15 Jocelyne LAFLEUR ASA/ RIVAROXABAN completed ASA 100mg once daily and Rivaroxaban 2.5mg BID 03/19 - 12/11 Acacia Duron ASPIRIN ADULT LOW DOSE 81 MG ORAL TABLET DELAYED RELEASE completed One Tab By Mouth Daily 03/17 - 03/19 Odilia LAFLEUR PROTONIX VS PLACEBO completed 11/25 - 03/19 Odilia LAFLEUR ASA/ RIVAROXABAN completed 11/25 - 03/16 Acacia Duron ACID CONTROL 150 MG ORAL TABLET completed take one pill twice a day 11/18 - 12/01 Jocelyne Ellis RANEXA 500 MG ORAL TABLET EXTENDED RELEASE 12 HOUR completed ONE TAB. TWICE DAILY for chronic angina 08/04 - 05/23 Aurora Rock isosorbide mononitrate 60 mg tablet extended release 24 hr completed Take 1 tablet by mouth once a day 04/29 - 02/20 Opal Halina ASPIRIN 81 MG ORAL TABLET completed ONE TAB. DAILY 08/04 - 11/24 Cheyenne Méndez RN PLAVIX 75 MG ORAL TABLET completed ONE TAB. DAILY 08/04 - 11/24 Cheyenne Méndez RN RANEXA 500 MG ORAL TABLET EXTENDED RELEASE 12 HOUR completed ONE TAB. TWICE DAILY for chronic angina 07/15 - 08/04 Acacia Duron folic acid 1 mg tablet active Take 1 tablet once a day 05/26 Tania Duarte MD CAD-VISION LAD & RCA 2006, XIENCE OM2 2010 S/P mid LAD stent 07/20, pLAD PCI 06/2022 Vitamin B-12 1,000 mcg tablet active 1 tablet once a day Roque Ortiz [facility] PROTONIX VS PLACEBO completed 02/23 - 08/04 Acacia Duron Asmanex Twisthaler 220 mcg/ actuation (14) aerosol powdr breath activated completed once a day 02/17 - 07/20 Acacia Duron CHOICE 1/ALIROCUMAB completed 07/03 - 02/23 Cheyenne Méndez RN COMPASS ASA/ RIVAROXABAN completed 07/03 - 08/04 Acacia Duron Nitrolingual 400 mcg/spray spray,non-aerosol completed 1 spray as needed 01/28 - 06/24 Tania Duarte MD atorvastatin 20 mg tablet completed Take 1 tablet by mouth once a day 06/15 - 05/30 Cayla HUMPHREY IBUPROFEN TABLET completed 200mg as needed 05/28 - 05/23 Aurora Rock DOXYCYCLINE HYCLATE 100 MG ORAL TABLET completed take one pill twice a day 05/28 - 05/23 Aurora Rock RANEXA 500 MG ORAL TABLET EXTENDED RELEASE 12 HOUR completed 1 tablet by mouth twice daily 11/20 - 01/28 Tania Duarte MD FISH OIL CAPSULE completed ONE TAB. DAILY - 12/15 Tania Duarte MD MULTIVITAMINS CAPS active 1 tablet once a day Reginald Weaver RN FLOVENT HFA AEROSOL completed 1 puf twice daily - 05/23 Eva Bienvenido VERAMYST SUSPENSION completed 2 sprays as needed - 05/23 Maylin Brand ProAir HFA 90 mcg/actuation HFA aerosol inhaler active 1 puff as needed Reginald Weaver RN lisinopril 20 mg tablet completed Take 1 tablet by mouth once a day 04/04 - 01/15 Dirk Santoro EFFIENT 10 MG ORAL TABLET completed One tablet daily - 05/23 Aurora Rock OMEPRAZOLE 20 MG ORAL TABLET DELAYED RELEASE completed po once daily 12/21 - 05/23 Maylin Brand NITROSTAT 0.4 MG SUBLINGUAL TABLET SUBLINGUAL completed s/l prn for pain 12/21 - 02/11 Reginald Weaver RN Avodart 0.5 mg capsule completed 1 capsule by mouth once a day 11/09 - 06/29 Juju Steffen LIPITOR 10 MG ORAL TABLET completed ONE TAB. DAILY - 12/21 Tania Duarte MD ASPIRIN EC 81 MG ORAL TABLET DELAYED RELEASE completed ONE TAB. DAILY - 07/03 Cheyenne Méndez RN LISINOPRIL 10 MG ORAL TABLET completed ONE TAB. DAILY - 01/18 Tania Duarte MD FISH OIL 1200 MG ORAL CAPSULE completed ONE TAB DAILY - 05/23 Abdi Tai TOPROL XL 25 MG ORAL TABLET EXTENDED RELEASE 24 HOUR completed TWICE DAILY - 05/05 Cheyenne Méndez RN SOCIAL HISTORY Date Observation Value Provider number of grandchildren Kiana Sevilla personal history of marijuana use no Yoan Sevilla drug use no Yoan Sevilla alcohol use no Yoan Sevilla passive cigarette sm mando exposure no Yoan Sevilla chewing tobacco use Never Yoan Juarez [place] smoking status Never smoker Yoan Sevilla personal history of marijuana use no Tania Duarte MD drug use no Tania Duarte MD alcohol use no Tania Duarte MD passive cigarette sm mando exposure no Tania Duarte MD chewing tobacco use Never Tania Duarte MD smoking status Never smoker Tania conde MD personal history of marijuana use no Leena Ventimiglia [facility] drug use no Leena 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 [facility] alcohol use no Leena 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 [facility] passive cigarette sm mando exposure no Leena Ventimiglia [facility] chewing tobacco use Never Leena V entimiglia [facility] smoking status Never smoker 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 Taina Duarte MD drug use no Tania Duarte MD alcohol use no Tania Duarte MD passive cigarette sm mando exposure no Tania Duarte MD chewing tobacco use Never Tania Duarte MD smoking status Never smoker Tania conde MD personal history of marijuana use no Leena Ventimiglia 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 use no Leena 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 Leena 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 cigarette sm mando exposure no Leena Ventimiglia 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 chewing tobacco use Never Leena V entimiglia 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 smoking status Never smoker 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 Leena 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 use no Leena 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 Leena 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 cigarette sm mando exposure no Leena Ventimiglia 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 chewing tobacco use Never Leena V entimiglia 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 smoking status Never smoker Leena Ventim iglia 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 use no Tania Duarte MD alcohol use no Tania Duarte MD passive cigarette sm mando exposure no Tania Duarte MD chewing tobacco use Never Tania Duarte MD smoking status Never smoker Tania conde MD social history reviewed E&M revi ewed - no changes required Tania Duarte MD seatbelt usage 100 % Tania conde MD physical exercise, frequency, days per week yes Tania Duarte MD caffeine use, averag e drinks per day 4 /d Tania Duarte MD passive cigarette sm mando exposure no Tania Duarte MD chewing tobacco use Never Tania Duarte MD smoking status Never smoker Tania conde MD drug use no Leena 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 [facility] alcohol use no Leena 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 [facility] social history reviewed E&M revi ewed - no changes required Leena Fernandamiglia [facility] social history E&M Marital Statu s: L buddy with family/friends E thnicity: Smoking History: P bridger has never smoked. Leena Hale [facility] seatbelt usage 100 % Josiane Shepherd physical exercise, frequency, days per week yes Josiane Shepherd caffeine use, averag e drinks per day 4 /d Josiane Shepherd passive cigarette sm mando exposure no Josiane Shepherd chewing tobacco use Never [facility]ianeelena [facility] smoking status Never smoker Josiane Shepherd social history E&M Marital Statu s: L buddy with family/friends E thnicity: Smoking History: P bridger has never smoked. Tania Duarte MD social history reviewed E&M revi ewed - no changes required Tania Duarte MD smoking status Never smoker Qing Salima social history E&M Marital Statu s: L buddy with family/friends E thnicity: Smoking History: P bridger has never smoked. Tania Duarte MD social history reviewed E&M revi ewed - no changes required Tania Duarte MD seatbelt usage 100 % Socorro Morgan caffeine use, averag e drinks per day 4 /d Socorro Morgan drug use no Socorro Morgan alcohol use no Socorro Morgan chewing tobacco use Never Socorro weston smoking status Never smoker Socorro Morgan social history E&M Marital Statu s: L buddy with family/friends E thnicity: Smoking History: P bridger has never smoked. Tania Duarte MD social history reviewed E&M revi ewed - no changes required Tania Duarte MD smoking status Never smoker Juju Quiros nahomy physical exercise, frequency, days per week yes Juju Bourne caffeine use, averag e drinks per day 1+ Juju Bourne passive cigarette sm mando exposure no Juju Bourne social history E&M Marital Statu s: L buddy with family/friends E thnicity: Smoking History: P bridger has never smoked. Tania Duarte MD social history reviewed E&M revi ewed - no changes required Tania Duarte MD physical exercise, frequency, days per week yes Chastity Debbie caffeine use, averag e drinks per day 1+ Chastity Debbie passive cigarette sm mando exposure no Chastity Debbie smoking status Never smoker Chastity Hogu e physical exercise, frequency, days per week yes Madhavi Darren caffeine use, averag e drinks per day 1+ Madhavi Darren passive cigarette sm mando exposure no Madhavi Darren smoking status Never smoker Madhavi Amie s social history E&M Marital Statu s: L buddy with family/friends E thnicity: Smoking History: P bridger has never smoked. Tania Duarte MD social history reviewed E&M revi ewed - no changes required Tania Duarte MD physical exercise, frequency, days per week yes Roque Ortiz caffeine use, averag e drinks per day 1+ Roque Ortiz passive cigarette sm mando exposure no Roque Ortiz smoking status Never smoker Roque Cochran physical exercise, frequency, days per week yes Tania Duarte MD caffeine use, averag e drinks per day 1+ Tania Duarte MD passive cigarette sm mando exposure no Tania Duarte MD smoking status Never smoker Tania conde MD social history reviewed E&M revi ewed - no changes required Tania Duarte MD social history E&M Marital Statu s: L buddy with family/friends E thnicity: Smoking History: P bridger has never smoked. Tania Duarte MD social history reviewed E&M revi ewed - no changes required Tania Duarte MD physical exercise, frequency, days per week yes Roque Ortiz caffeine use, averag e drinks per day 1+ Roque Ortiz passive cigarette sm mando exposure no Roque Ortiz smoking status Never smoker Roque Cochran social history E&M Marital Statu s: L buddy with family/friends E thnicity: Smoking History: P bridger has never smoked. Isak Rios social history reviewed E&M revi ewed - no changes required Isak Rios physical exercise, frequency, days per week yes Roque Ortiz caffeine use, averag e drinks per day 1+ Roque Ortiz passive cigarette sm mando exposure no Roque Ortiz smoking status Never smoker Roque Cochran social history E&M Marital Statu s: L buddy with family/friends E thnicity: Smoking History: P bridger has never smoked. Tania Duarte MD social history reviewed E&M revi ewed - no changes required Tania Duarte MD physical exercise, frequency, days per week yes Roque Ortiz caffeine use, averag e drinks per day 1+ Roque Ortiz passive cigarette sm mando exposure no Roque Ortiz smoking status Never smoker Roque Cochran social history E&M Marital Statu s: L buddy with family/friends E thnicity: Smoking History: P bridger has never smoked. Tania Duarte MD social history reviewed E&M revi ewed - no changes required Tania Duarte MD physical exercise, frequency, days per week yes Jocelyne Ellis caffeine use, averag e drinks per day 1+ Jocelyne Ellis passive cigarette sm mando exposure no Jocelyne Ellis smoking status Never smoker Jocelyne ferris social history E&M Marital Statu s: L buddy with family/friends E thnicity: Smoking History: P atchris has never smoked. Tania Duarte MD social history reviewed E&M revi ewed - no changes required Tania Duarte MD physical exercise, frequency, days per week yes Jocelyne Ellis caffeine use, averag e drinks per day 1+ Jocelyne Ellis passive cigarette sm mando exposure no Jocelyne Ellis smoking status Never smoker Jocelyne ferris social history E&M Marital Statu s: L buddy with family/friends E thnicity: Smoking History: P atchris has never smoked. Stacia Calloway NP social history reviewed E&M revi ewed - no changes required Stacia Calloway NP physical exercise, frequency, days per week yes Jocelyne Ellis caffeine use, averag e drinks per day 1+ Jocelyne Ellis passive cigarette sm mando exposure no Jocelyne Caleb smoking status Never smoker Jocelyne Yassine ferris social history E&M Marital Statu s: L buddy with family/friends E thnicity: Smoking History: Sam sparks has never smoked. Tania Duarte MD social history reviewed E&M revi ewed - no changes required Tania Duarte MD physical exercise, frequency, days per week yes Brianrobbin Lewis caffeine use, averag e drinks per day 1+ Cammy Aceue passive cigarette sm mando exposure no Cammy Aceue smoking status Never smoker Cammy Moe valeria social history E&M Marital Statu s: L buddy with family/friends E thnicity: Smoking History: Sam sparks has never smoked. Tania Duarte MD social history reviewed E&M revi ewed - no changes required Tania Duarte MD physical exercise, frequency, days per week yes Jocelyne Ellis caffeine use, averag e drinks per day 1+ Jocelyne Ellis passive cigarette sm mando exposure no Jocelyne Ellis smoking status Never smoker Jocelyne Yassine ferris social history E&M Marital Statu s: L buddy with family/friends E thnicity: Smoking History: Sam sparks has never smoked. Tania Duarte MD social history reviewed E&M revi ewed - no changes required Tania Duarte MD physical exercise, frequency, days per week yes Eva Faria alcohol counseling no Eva wright In the past 3 months , have you been waking up wanting to use drugs? (CAGE substance use question #4) N Eva Faria In the past 3 months , have you felt guilty or bad about using drugs? (CAGE substance use question #3) N Eva Faria In the past 3 months , has anyone annoyed you by telling you to cut down or stop using drugs? (CAGE substance use question #2) N Eva Highland In the past 3 months , have you felt you should cut down or stop using drugs?(CAGE substance use question #1) N Eva Highland alcohol use, average drinks per day <1 Eva Bienvenido alcohol use, type wine Eva Highland alcohol use no [facility] caffeine use, averag e drinks per day 1+ Eva Highland drug use no Eva Highland passive cigarette sm mando exposure no Eva Highland smoking status Never smoker [facility] social history E&M Marital Statu s: L buddy with family/friends E thnicity: Smoking History: P bridger has never smoked. Tania Duarte MD social history reviewed E&M revi ewed - no changes required Tania Duarte MD physical exercise, frequency, days per week yes Jocelyne Ellis alcohol counseling no Jocelyne ocampo In the past 3 months , have you been waking up wanting to use drugs? (CAGE substance use question #4) N Jocelyne Ellis In the past 3 months , have you felt guilty or bad about using drugs? (CAGE substance use question #3) N Jocelyne Ellis In the past 3 months , has anyone annoyed you by telling you to cut down or stop using drugs? (CAGE substance use question #2) N Jocelyne Ellis In the past 3 months , have you felt you should cut down or stop using drugs?(CAGE substance use question #1) N Jocelyne Ellis alcohol use, average drinks per day <1 Jocelyne Ellis alcohol use, type wine Jocelyne green alcohol use no Jocelyne myers caffeine use, averag e drinks per day 1+ Jocelyne Ellis drug use no Jocelyne myers passive cigarette sm mando exposure no Jocelyne Ellis smoking status Never smoker Jocelyne Metzger josy social history E&M Marital Statu s: Lucia goodwin with family/friends E thnicity: Smoking History: Sam sparks has never smoked. Tania Duarte MD social history reviewed E&M revi ewed - no changes required Tania Duarte MD physical exercise, frequency, days per week yes [facility] alcohol counseling no [facility] In the past 3 months , have you been waking up wanting to use drugs? (CAGE substance use question #4) N [facility] In the past 3 months , have you felt guilty or bad about using drugs? (CAGE substance use question #3) N [facility] In the past 3 months , has anyone annoyed you by telling you to cut down or stop using drugs? (CAGE substance use question #2) N [facility] In the past 3 months , have you felt you should cut down or stop using drugs?(CAGE substance use question #1) N [facility] alcohol use, average drinks per day <1 [facility] alcohol use, type wine [facility] alcohol use no [facility] caffeine use, averag e drinks per day 1+ [facility] drug use no [facility] passive cigarette sm mando exposure no [facility] smoking status Never smoker [facility] social history reviewed E&M revi ewed - no changes required Tania Duarte MD physical exercise, frequency, days per week yes Roque Ortiz alcohol counseling no Roque Ortiz In the past 3 months , have you been waking up wanting to use drugs? (CAGE substance use question #4) N Roque Ortiz In the past 3 months , have you felt guilty or bad about using drugs? (CAGE substance use question #3) N Roque Ortiz In the past 3 months , has anyone annoyed you by telling you to cut down or stop using drugs? (CAGE substance use question #2) N Roque Ortiz In the past 3 months , have you felt you should cut down or stop using drugs?(CAGE substance use question #1) N Roque Ortiz alcohol use, average drinks per day <1 Roque Ortiz alcohol use, type wine Roque Ortiz alcohol use no Roque zamarripa caffeine use, averag e drinks per day 1+ Roque Ortiz drug use no Roque zamarripa passive cigarette sm mando exposure no Roque Ortiz smoking status Never smoker Roque Chuy mcgovern number of grandchildren Tania Duarte MD social history reviewed E&M revi ewed - no changes required Tania Duarte MD social history E&M Marital Statu s: L buddy with family/friends E thnicity: Smoking History: P atchris has never smoked. Tania Duarte MD physical exercise, frequency, days per week yes Eva Bienvenido alcohol counseling no Eva Zita adriana In the past 3 months , have you been waking up wanting to use drugs? (CAGE substance use question #4) N Eva Highland In the past 3 months , have you felt guilty or bad about using drugs? (CAGE substance use question #3) N Eva Highland In the past 3 months , has anyone annoyed you by telling you to cut down or stop using drugs? (CAGE substance use question #2) N Eva Bienvenido In the past 3 months , have you felt you should cut down or stop using drugs?(CAGE substance use question #1) N [facility] alcohol use, average drinks per day <1 Eva Faria alcohol use, type wine Eva Faria alcohol use no Eva Faria caffeine use, averag e drinks per day 1+ Srinivasan Angelo drug use no Eva Bienvenido passive cigarette sm mando exposure no Evadat Faria smoking status Never smoker Evadat Faria smoking status Never smoker Tania conde MD social history E&M Marital Statu s: Lucia goodwin with family/friends E thnicity: Smoking History: Sam sparks has never smoked. Tania Duarte MD social history reviewed E&M revi ewed - no changes required Tania Duarte MD physical exercise, frequency, days per week yes Roque Ortiz alcohol counseling no Roque Ortiz In the past 3 months , have you been waking up wanting to use drugs? (CAGE substance use question #4) N Roque Ortiz In the past 3 months , have you felt guilty or bad about using drugs? (CAGE substance use question #3) N Roque Ortiz In the past 3 months , has anyone annoyed you by telling you to cut down or stop using drugs? (CAGE substance use question #2) N Roque Ortiz In the past 3 months , have you felt you should cut down or stop using drugs?(CAGE substance use question #1) N Roque Ortiz alcohol use, average drinks per day <1 Roque Ortiz alcohol use, type wine Roque Ortiz alcohol use no Roque Grijalva dallin caffeine use, averag e drinks per day yes Roque Ortiz drug use no Roque Grijalva dallin passive cigarette sm mando exposure no Roque Montesenson social history reviewed E&M revi ewed - no changes required Tania Duarte MD physical exercise, frequency, days per week yes Acacia Cano alcohol counseling no Acacia Alvarez patrick In the past 3 months , have you been waking up wanting to use drugs? (CAGE substance use question #4) N Acacia Cano In the past 3 months , have you felt guilty or bad about using drugs? (CAGE substance use question #3) N Acacia Cano In the past 3 months , has anyone annoyed you by telling you to cut down or stop using drugs? (CAGE substance use question #2) N Acacia Cano In the past 3 months , have you felt you should cut down or stop using drugs?(CAGE substance use question #1) N Acacia Cano alcohol use, average drinks per day <1 Acacia Cano alcohol use, type wine Acacia cooper alcohol use no Acacia Cano caffeine use, averag e drinks per day yes Acacia Cano drug use no Acacia Cano passive cigarette sm mando exposure no Acacia Cano smoking status Never smoker Acacia Cano social history E&M Marital Statu s: L buddy with family/friends E thnicity: Smoking History: P bridger has never smoked. Tania Duarte MD social history reviewed E&M revi ewed - no changes required Tania Duarte MD alcohol use no [facility] smoking status Never smoker Aurora García maurisio social history reviewed E&M revi ewed - no changes required Tania Duarte MD physical exercise, frequency, days per week yes Acacia Duron alcohol counseling no Acacia Monroy Juan Manuel In the past 3 months , have you been waking up wanting to use drugs? (CAGE substance use question #4) N Acacia Duron In the past 3 months , have you felt guilty or bad about using drugs? (CAGE substance use question #3) N Acacia Duron In the past 3 months , has anyone annoyed you by telling you to cut down or stop using drugs? (CAGE substance use question #2) N Acacia Duron In the past 3 months , have you felt you should cut down or stop using drugs?(CAGE substance use question #1) N Acacia Duron alcohol use, average drinks per day <1 Acacia Duron alcohol use, type wine Acacia Medrano alcohol use no Acacia Sloan caffeine use, averag e drinks per day yes Acacia Duron drug use no Acacia Duron passive cigarette sm mando exposure no Acacia Duron smoking status Never smoker Acacia Molina mariama social history E&M Marital Statu s: L buddy with family/friends E thnicity: Smoking History: P atient has never smoked. Tania Duarte MD social history reviewed E&M revi ewed - no changes required Tania Duarte MD physical exercise, frequency, days per week yes Acacia Duron alcohol counseling no Acacia Monroy Juan Manuel In the past 3 months , have you been waking up wanting to use drugs? (CAGE substance use question #4) N Acacia Sloan In the past 3 months , have you felt guilty or bad about using drugs? (CAGE substance use question #3) N Acacia Sloan In the past 3 months , has anyone annoyed you by telling you to cut down or stop using drugs? (CAGE substance use question #2) N Acacia Duron In the past 3 months , have you felt you should cut down or stop using drugs?(CAGE substance use question #1) N Acacia Duron alcohol use, average drinks per day <1 Acacia Duron alcohol use, type wine Acacia Mccall Nazia alcohol use no Acacia Sloan caffeine use, averag e drinks per day yes Acacia Duron drug use no Acacia Duron passive cigarette sm mando exposure no Acacia Duron smoking status Never smoker Acacia Molina mariama social history reviewed E&M revi ewed - no changes required Tania Duarte MD physical exercise, frequency, days per week yes Acacia Duron alcohol counseling no Acacia Monroy cCachiqui In the past 3 months , have you been waking up wanting to use drugs? (CAGE substance use question #4) N Acacia Duron In the past 3 months , have you felt guilty or bad about using drugs? (CAGE substance use question #3) N Acacia Duron In the past 3 months , has anyone annoyed you by telling you to cut down or stop using drugs? (CAGE substance use question #2) N Acacia Duron In the past 3 months , have you felt you should cut down or stop using drugs?(CAGE substance use question #1) N Acacia Duron alcohol use, average drinks per day <1 Acacia Duron alcohol use, type wine Acacia Nazia alcohol use no Acacia Duron caffeine use, averag e drinks per day yes Acacia Duron drug use no Acacia Duron passive cigarette sm mando exposure no Acacia Duron smoking status Never smoker Acacia Molina mariama social history E&M Marital Statu s: L buddy with family/friends E thnicity: Smoking History: P atchris has never smoked. Tania Duarte MD social history reviewed E&M revi ewed - no changes required Tania Duarte MD physical exercise, frequency, days per week yes Roque Ortiz alcohol counseling no Roque Ortiz In the past 3 months , have you been waking up wanting to use drugs? (CAGE substance use question #4) N Roque Ortiz In the past 3 months , have you felt guilty or bad about using drugs? (CAGE substance use question #3) N Roque Ortiz In the past 3 months , has anyone annoyed you by telling you to cut down or stop using drugs? (CAGE substance use question #2) N Roque Ortiz In the past 3 months , have you felt you should cut down or stop using drugs?(CAGE substance use question #1) N Roque rOtiz alcohol use, average drinks per day <1 Roque Ortiz alcohol use, type wine Roque Ortiz alcohol use no Roque zamarripa caffeine use, averag e drinks per day yes Roque Ortiz drug use no Roque zamarripa passive cigarette sm mando exposure no Roque Ortiz smoking status Never smoker Roque Chuy mcgovern social history reviewed E&M revi ewed - no changes required Tania Duarte MD physical exercise, frequency, days per week yes Acacia Duron alcohol counseling no Acacia Zambrano In the past 3 months , have you been waking up wanting to use drugs? (CAGE substance use question #4) N Acacia Duron In the past 3 months , have you felt guilty or bad about using drugs? (CAGE substance use question #3) N Acacia Duron In the past 3 months , has anyone annoyed you by telling you to cut down or stop using drugs? (CAGE substance use question #2) N Acacia Duron In the past 3 months , have you felt you should cut down or stop using drugs?(CAGE substance use question #1) N Acacia Duron alcohol use, average drinks per day <1 Acacia Duron alcohol use, type wine Acacia Medrano alcohol use no Acacia Duron caffeine use, averag e drinks per day yes Acacia Duron drug use no Acacia Sloanann passive cigarette sm mando exposure no Acacia Oliverio smoking status Never smoker Acacia Molina mariama social history E&M Marital Statu s: Lucia goodwin with family/friends E thnicity: Smoking History: Sam sparks has never smoked. Tania Duarte MD social history reviewed E&M revi ewed - no changes required Tania Duarte MD alcohol use no Aurora Kwoalskivaleria gordon smoking status Never smoker Aurora García maurisio social history reviewed E&M reviewed Reginald Weaver RN social history reviewed E&M reviewed Tania Duarte MD social history reviewed E&M reviewed Tania Duarte MD drug use no Maylin Brand alcohol counseling no Maylin francis In the past 3 months , have you been waking up wanting to use drugs? (CAGE substance use question #4) Mariama Brand In the past 3 months , have you felt guilty or bad about using drugs? (CAGE substance use question #3) Mariama Brand In the past 3 months , has anyone annoyed you by telling you to cut down or stop using drugs? (CAGE substance use question #2) Mariama Brand In the past 3 months , have you felt you should cut down or stop using drugs?(CAGE substance use question #1) Mariama Brand social history reviewed E&M reviewed Tania Duarte MD social history reviewed E&M reviewed Reginald Weaver RN social history reviewed E&M reviewed Reginald Weaver RN drug use none Tania Duarte MD passive cigarette sm mando exposure no Reginald Weaver RN alcohol use, type wine Reginald Weaver RN alcohol use, average drinks per day <1 Reginald Weaver RN smoking status never smoker Reginald Weaver RN social history reviewed E&M reviewed Reginald Weaver RN social history reviewed E&M reviewed Reginald Weaver RN social history reviewed E&M reviewed Reginald Weaver RN social history reviewed E&M reviewed Reginald Weaver RN drug use none Tania Duarte MD social history reviewed E&M reviewed Reginald Weaver RN social history reviewed E&M reviewed Reginald Weaver RN social history reviewed E&M reviewed Reginald Weaver RN social history reviewed E&M reviewed Reginald Weaver RN social history reviewed E&M reviewed Reginald Weaver RN social history E&M Marital Statu s: L buddy with family/friends E thnicity: Tania Duarte MD social history reviewed E&M reviewed Tania Duarte MD physical exercise, frequency, days per week yes [employer] caffeine use, averag e drinks per day yes [employer] alcohol use, average drinks per day none [employer] smoking status Non-smoker LinkLog FUNCTIONAL STATUS Date Observation Value Provider HRA, CV Assess/Plan, Angina (inactive) Management Plan continue current therapy Yoan Sevilla HRA, CV Assess/Plan, Angina (inactive) Management Plan continue current therapy Tania Duarte MD HRA, CV Assess/Plan, Angina (inactive) Management Plan continue current therapy Tania Duarte MD HRA, CV Assess/Plan, Angina (inactive) Management Plan continue current therapy Leena Ventimiglia 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 HRA, CV Assess/Plan, Angina (inactive) Management Plan continue current therapy Leena Ventimiglia 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 HRA, CV Assess/Plan, Angina (inactive) Management Plan antianginal therapy Leena Ventimiglia 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 HRA, CV Assess/Plan, Angina (inactive) Management Plan continue current therapy Tania Duarte MD HRA, CV Assess/Plan, Angina (inactive) Management Plan continue current therapy Tania Duarte MD HRA, CV Assess/Plan, Angina (inactive) Management Plan continue current therapy Leena Michaelmiconcettadat 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 HRA, CV Assess/Plan, Angina (inactive) Management Plan continue current therapy Tania Duarte MD HRA, CV Assess/Plan, Angina (inactive) Management Plan continue current therapy Tania Duarte MD HRA, CV Assess/Plan, Angina (inactive) Management Plan continue current therapy Tania Duarte MD HRA, CV Assess/Plan, Angina (inactive) Management Plan continue current therapy Tania Duarte MD HRA, CV Assess/Plan, Angina (inactive) Management Plan continue current therapy Qing Cleveland NP HRA, CV Assess/Plan, Angina (inactive) Management Plan continue current therapy Tania Duarte MD HRA, CV Assess/Plan, Angina (inactive) Management Plan continue current therapy Tania Duarte MD HRA, CV Assess/Plan, Angina (inactive) Management Plan continue current therapy Isak Kyte HRA, CV Assess/Plan, Angina (inactive) Management Plan continue current therapy Isak Kyte HRA, CV Assess/Plan, Angina (inactive) Management Plan continue current therapy Isak Kyte HRA, CV Assess/Plan, Angina (inactive) Management Plan continue current therapy Isak Kyte HRA, CV Assess/Plan, Angina (inactive) Management Plan continue current therapy Tania Duarte MD HRA, CV Assess/Plan, Angina (inactive) Management Plan continue current therapy Stacia Calloway NP HRA, CV Assess/Plan, Angina (inactive) Management Plan schedule PCI Tania Duarte MD HRA, CV Assess/Plan, Angina (inactive) Management Plan continue current therapy Tania Duarte MD HRA, CV Assess/Plan, Angina (inactive) Management Plan continue current therapy Tania Duarte MD HRA, CV Assess/Plan, Angina (inactive) Management Plan continue current therapy Tania Duarte MD HRA, CV Assess/Plan, Angina (inactive) Management Plan continue current therapy Tania Duaret MD HRA, CV Assess/Plan, Angina (inactive) Management Plan continue current therapy Tania Duarte MD HRA, CV Assess/Plan, Angina (inactive) Management Plan continue current therapy Tania Duarte MD MENTAL STATUS Date Observation Value Provider assessment of judgme nt and insight E&M Alert and oriented to time, place and person. Mood and affect are normal. Reginald Weaver RN assessment of judgme nt and insight E&M Alert and oriented to time, place and person. Mood and affect are normal. Tania Duarte MD assessment of judgme nt and insight E&M Alert and oriented to time, place and person. Mood and affect are normal. Tania Duarte MD assessment of judgme nt and insight E&M Alert and oriented to time, place and person. Mood and affect are normal. Tania Duarte MD assessment of judgme nt and insight E&M Alert and oriented to time, place and person. Mood and affect are normal. Reginald Weaver RN assessment of judgme nt and insight E&M Alert and oriented to time, place and person. Mood and affect are normal. Reginald Weaver RN assessment of judgme nt and insight E&M Alert and oriented to time, place and person. Mood and affect are normal. Reginald Weaver RN assessment of judgme nt and insight E&M Alert and oriented to time, place and person. Mood and affect are normal. Reginald Weaver RN assessment of judgme nt and insight E&M Alert and oriented to time, place and person. Mood and affect are normal. Reginald Weaver RN assessment of judgme nt and insight E&M Alert and oriented to time, place and person. Mood and affect are normal. Reginald Weaver RN assessment of judgme nt and insight E&M Alert and oriented to time, place and person. Mood and affect are normal. Reginald Weaver SHANDRA assessment of judgme nt and insight E&M Alert and oriented to time, place and person. Mood and affect are normal. Reginald Weaver SHANDRA assessment of judgme nt and insight E&M Alert and oriented to time, place and person. Mood and affect are normal. Reginald Weaver SHANDRA assessment of judgme nt and insight E&M Alert and oriented to time, place and person. Mood and affect are normal. Reginald Weaver SHANDRA assessment of judgme nt and insight E&M Alert and oriented to time, place and person. Mood and affect are normal. Reginald Weaver SHANDRA assessment of judgme nt and insight E&M Alert and oriented to time, place and person. Mood and affect are normal. 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 Take 1 tablet by mouth daily His updated medication list for this problem includes: Lisinopril 20 Mg Tablet (Lisinopril) ..... Take 1 tablet by mouth daily Sotalol 80 Mg Tablet (Sotalol) ..... Take 1/2 tablet by mouth twice a day Amlodipine 5 Mg Tablet (Amlodipine) ..... Take 1 tablet by mouth once daily Isosorbide Mononitrate 60 Mg Tablet Extended Release 24 Hr (Isosorbide mononitrate) ..... Take 1 tablet by mouth once a day take 1 tablet by mouth every day Lisinopril 20 Mg Tablet (Lisinopril) ..... Take 1 tablet by mouth once a day Nitroglycerin 0.4 Mg Tablet, Sublingual (Nitroglycerin) ..... 1 tablet under tongue as directed as needed 1 tablet under tongue for chest pain. may repeat every 5 minutes if still having chest pain- to max of 3 tablets per episode. Tania Duarte MD [id number],S,o n statins His updated medication list for this problem includes: Atorvastatin 20 Mg Tablet (Atorvastatin) ..... Take 1 tablet by mouth daily Tania Duarte MD [id number],S,B p stable B P today: 130/71 P rior BP: 123/83 (06/13/2023) Labs Reviewed: C reat: 1.19 (11/05/2020) C hol: 177 (01/28/2014) HDL: 70.0 (07/17/2015) T (01/28/2014) His updated medication list for this problem includes: Lisinopril 20 Mg Tablet (Lisinopril) ..... Take 1 tablet by mouth daily Sotalol 80 Mg Tablet (Sotalol) ..... Take 1/2 tablet by mouth twice a day Amlodipine 5 Mg Tablet (Amlodipine) ..... Take 1 tablet by mouth once daily Lisinopril 20 Mg Tablet (Lisinopril) ..... Take 1 tablet by mouth once a day Tania Duarte MD [id number],B,r ecent CATHY cardioversion in SR, continues on sotolol and penitentiary anticoagulation Tania Duarte MD [id number],S,c ontrolled will continue present medication regimen H is updated medication list for this problem includes: Sotalol 80 Mg Tablet (Sotalol) ..... Take 1/2 tablet by mouth twice a day Amlodipine 5 Mg Tablet (Amlodipine) ..... Take 1 tablet by mouth once daily Lisinopril 20 Mg Tablet (Lisinopril) ..... Take 1 tablet by mouth daily Lisinopril 20 Mg Tablet (Lisinopril) ..... Take 1 tablet by mouth once a day Leena Hale [facility] [id number],C,W ith last stent one year ago. Will stop asa/plavix as beginning Eliquis and patient bruises easily and increased risk for bleeding. Will mnitor H is updated medication list for this problem includes: Sotalol 80 Mg Tablet (Sotalol) ..... Take 1/2 tablet by mouth twice a day Isosorbide Mononitrate 60 Mg Tablet Extended Release 24 Hr (Isosorbide mononitrate) ..... Take 1 tablet by mouth once a day take 1 tablet by mouth every day Amlodipine 5 Mg Tablet (Amlodipine) ..... Take 1 tablet by mouth once daily Plavix 75 Mg Tablet (Clopidogrel) ..... Take 1 tablet by mouth daily Lisinopril 20 Mg Tablet (Lisinopril) ..... Take 1 tablet by mouth daily Lisinopril 20 Mg Tablet (Lisinopril) ..... Take 1 tablet by mouth once a day Nitroglycerin 0.4 Mg Tablet, Sublingual (Nitroglycerin) ..... 1 tablet under tongue as directed as needed 1 tablet under tongue for chest pain. may repeat every 5 minutes if still having chest pain- to max of 3 tablets per episode. Leena Hale [facility] [id number],W,E KG showed afib. He is symptomatic with SOB and fatigue. Will hold Plavix and Aspirin. Reccomend adding Eliquis 5 mg BID. Increase Sotolol to 1/2 tablet a day. Update bloodwork and schedule CATHY cardioversion. Will return post procedure or sooner if needed. H is updated medication list for this problem includes: Sotalol 80 Mg Tablet (Sotalol) ..... Take 1/2 tablet by mouth twice a day Plavix 75 Mg Tablet (Clopidogrel) ..... Take 1 tablet by mouth daily Orders: 9 9214 MOD 30-39min (CPT-85828) B ASIC METABOLIC PANEL W/EGFR (69492) B TYPE NATRIURETIC PEPTIDE (BNP) (99711) C BC (H/H, RBC, INDICES, WBC, PLT) (1759) T SH, free T4, total T3 (7444) C ardioversion (52176) P ROTHROMBIN TIME WITH INR (8847) M AGNESIUM (622) Leena Hale [facility] [id number],S,L ast LDL showed 75. Continue on Statin. Aim for LDL less than 70. H is updated medication list for this problem includes: Atorvastatin 20 Mg Tablet (Atorvastatin) ..... Take 1 tablet by mouth daily Leena Hale [facility] [id number],C,F oot swelling bilaterally. Will check venous duplex Tania Duarte MD [id number],C,B P elevated today at 153/68. Advised reduced sodium intake and routine monitoring of the blood pressure. We aim for less than 130/80. Tania Duarte MD [id number],C, C ontinues on atorvastatin. We aim for an LDL of <70. Tania Duarte MD [id number],C, N o chest pain. Continues on Plavix and nitro as needed Tania Duarte MD [id number],C, P t is in NSR on EKG today. Pt states he continues on sotalol 80 mg 1/3 tab BID. Will continue this dose as he is feeling well, continues in sinus, and QTc 455 ms Tania Duarte MD [id number],C,S otalol was discontinued at his last admission because of bradycardia. Had episodes of fluttering and he resumed medication. Sxs have resolved. Unclear that this was recurrence of afib or PAC's. Tania Duarte MD [id number],C,E pisode of substernum burning, lasted a few minutes, no recurrence. Probably from stress, has multiple stents and had last stent put in in Jun. of last year. We will recommence Plavix. He continues on baby ASA. Tania Duarte MD [id number],C, B P elevated today at 151/80. Advised reduced sodium intake and routine monitoring of the blood pressure. We aim for less than 130/80. Tania Duarte MD [id number],S, Tania smith MD [id number],C, C ontinues on atorvastatin. We aim for an LDL of <70. Tania Duarte MD [id number],S, Tania smith MD [id number],S, S /p PCI of proximal LAD ISR with Dr. Taylor on 06/15/22. Now chest pain free. Continues on DAPT with baby aspirin and plavix. Tania Duarte MD [id number],S, R ecent admission he was bradycardic. Sotalol and xarelto were both discontinued. EKG shows SR, HR 78. Tania Duarte MD [id number],S, C ontinues on atorvastatin. We aim for an LDL of <70. Tnaia Duarte MD [id number],W, B P elevated today. Advised routine home monitoring and dietary sodium restriction. Tania Duarte MD [id number],S, S /p PCI of proximal LAD ISR with Dr. Taylor on 06/15/22. Now chest pain free. Tania Duarte MD [id number],B, N o chest pain or SOB. Continues on amlodipine and isosorbide. Sagrario Forbes [id number],C, F or about 8 months, he has been having fatigue and headache in the middle of the day, he states it feels like 'it's time for my body to shut down'. This may be due to the sotalol, however his heart rhythm is well controlled on the medication. At this time, he and I agreed to continue the medication. Sagrario Forbes [id number],C, E KG shows SB rate 49. N o longer on Metoprolol. Continues on sotalol Tania Duarte MD [id number],C, B P controlled Tania Duarte MD [id number],C, C ontinues on atorvastatin Tania Duarte MD [id number],C, C ontinues on Ranitidine. Tania Duarte MD [id number],W,E KG shows SB rate 52. W ill decrease Metoprolol to 12.5 mg po at bedtime only. Qing Cleveland NP [id number],S, Qing levine NP [id number],S, Qing levine NP [id number],S,not in exacer bation Qing Cleveland NP [id number],S,BP controlled Qing Cristofer FAUSTINO [id number],S, H is updated medication list for this problem includes: Atorvastatin 20 Mg Tablet (Atorvastatin) ..... Take 1 tablet by mouth once a day Qing Cleveland NP [id number],S, H is updated medication list for this problem includes: Amlodipine 5 Mg Tablet (Amlodipine) ..... Take 1 tablet by mouth once a day Lisinopril 20 Mg Tablet (Lisinopril) ..... Take 1 tablet by mouth once a day Nitroglycerin 0.4 Mg Tablet, Sublingual (Nitroglycerin) ..... 1 tablet under tongue as directed as needed 1 tablet under tongue for chest pain. may repeat every 5 minutes if still having chest pain- to max of 3 tablets per episode. Isosorbide Mononitrate 60 Mg Tablet Extended Release 24 Hr (Isosorbide mononitrate) ..... Take 1 tablet by mouth once a day Qing Cleveland FAUSTINO [id number],C, I n sinus bradycardia on EKG today. He continues on Sotalol 40mg BID and Metoprolol Tartrate 12.5mg BID. QTC 471. 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 Tania Duarte MD [id number],C, C ontinues on Advair, Asmanex, Proair. Tania Duarte MD [id number],C, H is recent 05/2021 lab report showed total cholesterol 166, triglycerides 56, LDL 79. Tania Duarte MD [id number],C, H e had recent labs which showed creatinine 1.13 and eGFR >60 which is stable. Tania Duarte MD [id number],C, B P today: 130/70 P rior BP: 140/70 (05/25/2021) Labs Reviewed: C reat: 1.19 (11/05/2020) C hol: 177 (01/28/2014) HDL: 70.0 (07/17/2015) T (01/28/2014) Tania Duarte MD [id number],C, I n sinus bradycardia on EKG today. He continues on Sotalol 40mg BID and Metoprolol Tartrate 12.5mg BID. QTC 475. On Xarelto for penitentiary OAC. Tania Duarte MD [id number],C, C hest pain free. Stress test with normal perfusion 10/2020. Not on Aspirin due to anticoagulation with Xarelto. Tania Duarte MD [id number],C,H e had recent labs which showed creatinine 1.13 and eGFR >60 which is stable. Tania Duarte MD [id number],C,H is recent 05/2021 lab report showed total cholesterol 166, triglycerides 56, LDL 79. Tania Duarte MD [id number],C,B P is 140/70 today. Advised routine monitoring of the BP and reduced sodium intake. Tania Duarte MD [id number],C,C ontinues on Advair, Asmanex, Proair. Tania Duarte MD [id number],C,I n sinus bradycardia on EKG today. He continues on Sotalol 40mg BID and Metoprolol Tartrate 12.5mg BID. QTC 475. On Xarelto for penitentiary OAC. Tania Duarte MD [id number],C,C hest pain free. Stress test with normal perfusion 10/2020. Not on Aspirin due to anticoagulation with Xarelto. Tania Duarte MD Electrophysiology:Ex tensive review of the pertinent previous and curent labs , EKGs, cardiac tesing and imaging data was done by Dr. Rodriguez R ecommend PPM implantation and then attempting CV. He had 3 second conversion pause post-CV on 08/06/2024. l ow dose sotalol does not cause heart rate of < 40 bpm and pauses of 3 seconds N o reversible causes of pauses S herred decision regarding cardiac device implantation was done between the patient and Dr. Rodriguez and Dr. duarte Schedule DC-PPM implantation with Dr. Duarte. Kiana Rodriguez MD Electrophysiology:lo w dose sotalol does not cause heart rate of < 40 bpm and pauses of 3 seconds O rders: P acemaker, Dual chamber, Insert (37660) Kiana Rodriguez MD Electrophysiology: w ith hx of CAD and aortic stenosis, recommend PPM implantation and then attempting CV w ould not recommend ablation due to studies documenting possible coronary stent thrombosis in pateint's with multiple stents h e has RBBB and QRS of 144ms Kiana Rodriguez MD Electrophysiology: B P today: 134/90 P rior BP: 131/85 (10/15/2024) Labs Reviewed: C reat: 1.19 (11/05/2020) C hol: 177 (01/28/2014) HDL: 70.0 (07/17/2015) LDL: 68 (01/28/2014) T (01/28/2014) His updated medication list for this problem includes: Sotalol 80 Mg Tablet (Sotalol) ..... Take 1 tablet twice daily Lisinopril 20 Mg Tablet (Lisinopril) ..... Take 1 tablet by mouth daily Amlodipine 5 Mg Tablet (Amlodipine) ..... Take 1 tablet by mouth once daily Yoan Sevilla Electrophysiology: w ith hx of CAD and aortic stenosis, recommend PPM implantation and then attempting CV w ould not recommend ablation due to studies documenting possible coronary stent thrombosis in pateint's with multiple stents Yoan Sevilla Electrophysiology: m ild-moderate nonobstructive CAD on recent cath n o angina Yoan Sevilla Electrophysiology: H is EF is normal with mod AR and aortic stenosis on echo, gradient is 19 Yoan Sevilla Cardiology:He also c omplains of pain and discoloration of his left foot. His pedal pulses are palpable. Will obtain an arterial sensilase study. Tania Duarte MD Cardiology: r emains in NSR o n Eliquis for AC W ill remain on sotalol H is updated medication list for this problem includes: Sotalol 80 Mg Tablet (Sotalol) ..... Take 1 tablet twice daily Tania Duarte MD Cardiology: H is EF is normal with mod AR and aortic stenosis on echo, gradient is 19 W ill monitor closely for progression Tania Duarte MD Cardiology: B lood pressure is satisfactory. Tania Duarte MD Cardiology: Fatuma shaw had an episide of diaphoresis and CP over the weekend. It resolved after about 20 minutes after he'd taken some baby aspirin and a nitro. This is the second episode in the last 3 weeks. His stress PET/CT in July was negative for ischemia, but as he continue to have symptoms which resolve with nitroglycerin, he will need a cardiac cath for definitive imaging of his coronary anatomy. Tania Duarte MD Cardiology Leena SIDDIQUI Cardiology: H is updated medication list for this problem includes: Atorvastatin 20 Mg Tablet (Atorvastatin) ..... Take 1 tablet by mouth daily [facility] Cardiology:BP 146/74 B chava controlled per patient home reports W ill continue present medication regimen H is updated medication list for this problem includes: Sotalol 80 Mg Tablet (Sotalol) ..... Take 1 tablet twice daily Lisinopril 20 Mg Tablet (Lisinopril) ..... Take 1 tablet by mouth daily Amlodipine 5 Mg Tablet (Amlodipine) ..... Take 1 tablet by mouth once daily [facility] Cardiology:no new ch est pain or pressure r ecent normal stress test W ill stop ranexa at patient request The following medications were removed from the medication list: Ranolazine 500 Mg Tablet Extended Release 12 Hr (Ranolazine) ..... Take 1 tablet by mouth twice a day His updated medication list for this problem includes: Nitroglycerin 0.4 Mg Tablet, Sublingual (Nitroglycerin) ..... 1 tablet under tongue as directed 1 tablet under tongue for chest pain. may repeat every 5 minutes if still having chest pain- to max of 3 tablets per episode.if no relief after 3rd dose, go to er Sotalol 80 Mg Tablet (Sotalol) ..... Take 1 tablet twice daily Lisinopril 20 Mg Tablet (Lisinopril) ..... Take 1 tablet by mouth daily Amlodipine 5 Mg Tablet (Amlodipine) ..... Take 1 tablet by mouth once daily Isosorbide Mononitrate 60 Mg Tablet Extended Release 24 Hr (Isosorbide mononitrate) ..... Take 1 tablet by mouth every day [facility] Cardiology:His EF is normal with mod AR and aortic stenosis on echo, gradient is 19 W ill monitor closely for progression W ill do f/u echo in 6 mos [facility] Cardiology:remains i n NSR o n Eliquis for AC W ill remain on sotalol H is updated medication list for this problem includes: Sotalol 80 Mg Tablet (Sotalol) ..... Take 1 tablet twice daily Leena Hale [facility] Cardiology:chronic f or him Tania Duarte MD Cardiology:Chest amaya n free. Effort tolerance stable. No use of NTG since last visit. H ad PET-CT that was negative for ischemia Tania Duarte MD Cardiology:s/p cardi oversion to sinus rhythm E CG today shows that he has returned to sinus and the patient states that he has been feeling well since. Tania Duarte MD Cardiology:1-12/11 LYNNETTE W Ill check TTE to further assess this murmur Tania Duarte MD Cardiology: H is updated medication list for this problem includes: Atorvastatin 20 Mg Tablet (Atorvastatin) ..... Take 1 tablet by mouth daily [facility]ale [facility] Cardiology:This visi t has been a part of the consistent, comprehensive, and ongoing management of the chronic medical condition(s) listed above for the patient. H is updated medication list for this problem includes: Sotalol 80 Mg Tablet (Sotalol) ..... Take 1 tablet twice daily Lisinopril 20 Mg Tablet (Lisinopril) ..... Take 1 tablet by mouth daily Amlodipine 5 Mg Tablet (Amlodipine) ..... Take 1 tablet by mouth once daily BP today: 140/86 P rior BP: 125/79 (07/09/2024) Labs Reviewed: C reat: 1.19 (11/05/2020) C hol: 177 (01/28/2014) HDL: 70.0 (07/17/2015) LDL: 68 (01/28/2014) T (01/28/2014) [facility] Cardiology:Stress PET-CT negativ e for ishcemia [facility] Cardiology:Plan for cardioverson with Dr Berto MORGAN inicated as he has been taking eliquis for over 1 month H e is symptomatic of the afib p t has verbalized understanding that if his sx are to worsen he should head to nearest ER [facility] Cardiology: H is updated medication list for this problem includes: Atorvastatin 20 Mg Tablet (Atorvastatin) ..... Take 1 tablet by mouth daily [facility] Cardiology:BP 124/70 . continue present med regimen H is updated medication list for this problem includes: Sotalol 80 Mg Tablet (Sotalol) ..... Take 1 tablet twice daily Lisinopril 20 Mg Tablet (Lisinopril) ..... Take 1 tablet by mouth daily Amlodipine 5 Mg Tablet (Amlodipine) ..... Take 1 tablet by mouth once daily [facility] Cardiology:patient p resents today with chest pain similar to how he felt before his [facility]. New onset atrial fibrillation. E KG no acute ST/T wave changes. He has history of multiple stents with instent restenosis to proximal LAD a year ago P ain resolved with nitro. Plan PET/CT stress. If positive will plan LHC. If negative will consider cardioversion. A dd louiseexelena. H is updated medication list for this problem includes: Sotalol 80 Mg Tablet (Sotalol) ..... Take 1 tablet twice daily Ranolazine 500 Mg Tablet Extended Release 12 Hr (Ranolazine) ..... Take 1 tablet by mouth twice a day Lisinopril 20 Mg Tablet (Lisinopril) ..... Take 1 tablet by mouth daily Amlodipine 5 Mg Tablet (Amlodipine) ..... Take 1 tablet by mouth once daily Isosorbide Mononitrate 60 Mg Tablet Extended Release 24 Hr (Isosorbide mononitrate) ..... Take 1 tablet by mouth every day Nitroglycerin 0.4 Mg Tablet, Sublingual (Nitroglycerin) ..... 1 tablet under tongue as directed as needed 1 tablet under tongue for chest pain. may repeat every 5 minutes if still having chest pain- to max of 3 tablets per episode. [facility] Cardiology:Patient p resented today with chest pain and was found to be in atrial fibrillation rate controlled. He was seen with Dr. Duarte and will increase sotalol to 80 mg BID. Will update labs. Concern that afib represents ischemia. Will plan for PET/stress for further evaluation. Remains on Eliquis for AC H is updated medication list for this problem includes: Sotalol 80 Mg Tablet (Sotalol) ..... Take 1 tablet twice daily Leena Hale 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 Cardiology: T he following medications were removed from the medication list: Lisinopril 20 Mg Tablet (Lisinopril) ..... Take 1 tablet by mouth once a day His updated medication list for this problem includes: Lisinopril 20 Mg Tablet (Lisinopril) ..... Take 1 tablet by mouth daily Sotalol 80 Mg Tablet (Sotalol) ..... Take 1/2 tablet by mouth twice a day Amlodipine 5 Mg Tablet (Amlodipine) ..... Take 1 tablet by mouth once daily BP today: 115/60 P rior BP: 130/71 (07/18/2023) Labs Reviewed: C reat: 1.19 (11/05/2020) C hol: 177 (01/28/2014) HDL: 70.0 (07/17/2015) LDL: 68 (01/28/2014) T (01/28/2014) Tania Duarte MD Cardiology: H is updated medication list for this problem includes: Atorvastatin 20 Mg Tablet (Atorvastatin) ..... Take 1 tablet by mouth daily Tania Duarte MD Cardiology:-Carotid doppler 2020 C ONCLUSIONS: 1 . 50 - 69% stenosis of the right ICA in the ostium. 2 . <50% stenosis of the left ICA. 3 . Vertebral flow is antegrade bilaterally. Tania Duarte MD Cardiology:stable, continue curr ent medications Tania Duarte MD Cardiology Tania Cole Cardiology:Observed on ECG, continues on sotalol 40mg BID Tania Duarte MD Cardiology:ECG shows sinus bradycardia with RBBB. He continues on sotalol at 40mg BID N o bleeding issues with Eliquis 5mg BID Tania Duarte MD Cardiology:slight ch est discomfort lasting less than 1 minute, may be muscoskeletal T he following medications were removed from the medication list: Plavix 75 Mg Tablet (Clopidogrel) ..... Take 1 tablet by mouth daily His updated medication list for this problem includes: Lisinopril 20 Mg Tablet (Lisinopril) ..... Take 1 tablet by mouth daily Sotalol 80 Mg Tablet (Sotalol) ..... Take 1/2 tablet by mouth twice a day Amlodipine 5 Mg Tablet (Amlodipine) ..... Take 1 tablet by mouth once daily Isosorbide Mononitrate 60 Mg Tablet Extended Release 24 Hr (Isosorbide mononitrate) ..... Take 1 tablet by mouth once a day take 1 tablet by mouth every day Lisinopril 20 Mg Tablet (Lisinopril) ..... Take 1 tablet by mouth once a day Nitroglycerin 0.4 Mg Tablet, Sublingual (Nitroglycerin) ..... 1 tablet under tongue as directed as needed 1 tablet under tongue for chest pain. may repeat every 5 minutes if still having chest pain- to max of 3 tablets per episode. Tania Duarte MD Cardiology:on statin s His updated medication list for this problem includes: Atorvastatin 20 Mg Tablet (Atorvastatin) ..... Take 1 tablet by mouth daily Tania Duarte MD Cardiology:Bp stable B P today: 130/71 P rior BP: 123/83 (06/13/2023) Labs Reviewed: C reat: 1.19 (11/05/2020) C hol: 177 (01/28/2014) HDL: 70.0 (07/17/2015) T (01/28/2014) H is updated medication list for this problem includes: Lisinopril 20 Mg Tablet (Lisinopril) ..... Take 1 tablet by mouth daily Sotalol 80 Mg Tablet (Sotalol) ..... Take 1/2 tablet by mouth twice a day Amlodipine 5 Mg Tablet (Amlodipine) ..... Take 1 tablet by mouth once daily Lisinopril 20 Mg Tablet (Lisinopril) ..... Take 1 tablet by mouth once a day Tania Duarte MD Cardiology:recent TE E cardioversion in SR, continues on sotolol and penitentiary anticoagulation Tania Duarte MD Cardiology:controlle d will continue present medication regimen H is updated medication list for this problem includes: Sotalol 80 Mg Tablet (Sotalol) ..... Take 1/2 tablet by mouth twice a day Amlodipine 5 Mg Tablet (Amlodipine) ..... Take 1 tablet by mouth once daily Lisinopril 20 Mg Tablet (Lisinopril) ..... Take 1 tablet by mouth daily Lisinopril 20 Mg Tablet (Lisinopril) ..... Take 1 tablet by mouth once a day Leena Hale [facility] Cardiology:With last stent one year ago. Will stop asa/plavix as beginning Eliquis and patient bruises easily and increased risk for bleeding. Will mnitor H is updated medication list for this problem includes: Sotalol 80 Mg Tablet (Sotalol) ..... Take 1/2 tablet by mouth twice a day Isosorbide Mononitrate 60 Mg Tablet Extended Release 24 Hr (Isosorbide mononitrate) ..... Take 1 tablet by mouth once a day take 1 tablet by mouth every day Amlodipine 5 Mg Tablet (Amlodipine) ..... Take 1 tablet by mouth once daily Plavix 75 Mg Tablet (Clopidogrel) ..... Take 1 tablet by mouth daily Lisinopril 20 Mg Tablet (Lisinopril) ..... Take 1 tablet by mouth daily Lisinopril 20 Mg Tablet (Lisinopril) ..... Take 1 tablet by mouth once a day Nitroglycerin 0.4 Mg Tablet, Sublingual (Nitroglycerin) ..... 1 tablet under tongue as directed as needed 1 tablet under tongue for chest pain. may repeat every 5 minutes if still having chest pain- to max of 3 tablets per episode. Leena Hale [facility] Cardiology:EKG showe d afib. He is symptomatic with SOB and fatigue. Will hold Plavix and Aspirin. Reccomend adding Eliquis 5 mg BID. Increase Sotolol to 1/2 tablet a day. Update bloodwork and schedule CATHY cardioversion. Will return post procedure or sooner if needed. H is updated medication list for this problem includes: Sotalol 80 Mg Tablet (Sotalol) ..... Take 1/2 tablet by mouth twice a day Plavix 75 Mg Tablet (Clopidogrel) ..... Take 1 tablet by mouth daily Orders: 9 9214 MOD 30-39min (CPT-05592) B ASIC METABOLIC PANEL W/EGFR (15062) B TYPE NATRIURETIC PEPTIDE (BNP) (13078) C BC (H/H, RBC, INDICES, WBC, PLT) (1759) T SH, free T4, total T3 (7244) C ardioversion (19211) P ROTHROMBIN TIME WITH INR (8847) M AGNESIUM (622) Leenavale Hale [facility] Cardiology:Last LDL showed 75. Continue on Statin. Aim for LDL less than 70. H is updated medication list for this problem includes: Atorvastatin 20 Mg Tablet (Atorvastatin) ..... Take 1 tablet by mouth daily Leena Hale [facility] Cardiology:Foot swel ling bilaterally. Will check venous duplex Tania Duarte MD Cardiology:BP elevat ed today at 153/68. Advised reduced sodium intake and routine monitoring of the blood pressure. We aim for less than 130/80. Tania Duarte MD Cardiology: C ontinues on atorvastatin. We aim for an LDL of <70. Tania Duarte MD Cardiology: N o chest pain. Continues on Plavix and nitro as needed Tania Duarte MD Cardiology: P t is in NSR on EKG today. Pt states he continues on sotalol 80 mg 1/3 tab BID. Will continue this dose as he is feeling well, continues in sinus, and QTc 455 ms Tania Duarte MD Cardiology:Sotalol w as discontinued at his last admission because of bradycardia. Had episodes of fluttering and he resumed medication. Sxs have resolved. Unclear that this was recurrence of afib or PAC's. Tania Duarte MD Cardiology:Episode o f substernum burning, lasted a few minutes, no recurrence. Probably from stress, has multiple stents and had last stent put in in Jun. of last year. We will recommence Plavix. He continues on baby ASA. Tania Duarte MD Cardiology: B P elevated today at 151/80. Advised reduced sodium intake and routine monitoring of the blood pressure. We aim for less than 130/80. Tania Duarte MD Cardiology Tania Cole Cardiology: C ontinues on atorvastatin. We aim for an LDL of <70. Tania Duarte MD Cardiology Tania Cole Cardiology: S /p PCI of proximal LAD ISR with Dr. Taylor on 06/15/22. Now chest pain free. Continues on DAPT with baby aspirin and plavix. Tania Duarte MD Cardiology: R ecent admission he was bradycardic. Sotalol and xarelto were both discontinued. EKG shows SR, HR 78. Tania Duarte MD Cardiology: C ontinues on atorvastatin. We aim for an LDL of <70. Tania Duarte MD Cardiology: B P elevated today. Advised routine home monitoring and dietary sodium restriction. Tania Duarte MD Cardiology: S /p PCI of proximal LAD ISR with Dr. Taylor on 06/15/22. Now chest pain free. Tania Duarte MD Cardiology: N o chest pain or SOB. Continues on amlodipine and isosorbide. Sagrario Forbes Cardiology: F or about 8 months, he has been having fatigue and headache in the middle of the day, he states it feels like 'it's time for my body to shut down'. This may be due to the sotalol, however his heart rhythm is well controlled on the medication. At this time, he and I agreed to continue the medication. Sagrario Fobres Cardiology: E KG shows SB rate 49. N o longer on Metoprolol. Continues on sotalol Tania Duarte MD Cardiology: B P controlled Tania Duarte MD Cardiology: C ontinues on atorvastatin Tania Duarte MD Cardiology: C ontinues on Ranitidine. Tania Duarte MD Cardiology:EKG shows SB rate 52. W ill decrease Metoprolol to 12.5 mg po at bedtime only. Qing Cristofer [employer] Cardiology [facility] Cardiology [facility] Cardiology:not in exacerbation S justin Cleveland [employer] Cardiology:BP controlled Qing Cristofer [employer] Cardiology: H is updated medication list for this problem includes: Atorvastatin 20 Mg Tablet (Atorvastatin) ..... Take 1 tablet by mouth once a day Qing Cristofer [employer] Cardiology: H is updated medication list for this problem includes: Amlodipine 5 Mg Tablet (Amlodipine) ..... Take 1 tablet by mouth once a day Lisinopril 20 Mg Tablet (Lisinopril) ..... Take 1 tablet by mouth once a day Nitroglycerin 0.4 Mg Tablet, Sublingual (Nitroglycerin) ..... 1 tablet under tongue as directed as needed 1 tablet under tongue for chest pain. may repeat every 5 minutes if still having chest pain- to max of 3 tablets per episode. Isosorbide Mononitrate 60 Mg Tablet Extended Release 24 Hr (Isosorbide mononitrate) ..... Take 1 tablet by mouth once a day Qing Clevelnad FAUSTINO Cardiology: I n sinus bradycardia on EKG today. He continues on Sotalol 40mg BID and Metoprolol Tartrate 12.5mg BID. QTC 471. On Xarelto for penitentiary OAC. Tania Duarte MD Cardiology: C ontinues on Advair, Asmanex, Proair. Tania Duarte MD Cardiology: H is recent 05/2021 lab report showed total cholesterol 166, triglycerides 56, LDL 79. Tania Duarte MD Cardiology: H e had recent labs which showed creatinine 1.13 and eGFR >60 which is stable. Tania Duarte MD Cardiology: B P today: 130/70 P rior BP: 140/70 (05/25/2021) Labs Reviewed: C reat: 1.19 (11/05/2020) C hol: 177 (01/28/2014) HDL: 70.0 (07/17/2015) T (01/28/2014) Tania Duarte MD Cardiology: I n sinus bradycardia on EKG today. He continues on Sotalol 40mg BID and Metoprolol Tartrate 12.5mg BID. QTC 475. 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 Tania Duarte MD Cardiology: C hest pain free. Stress test with normal perfusion 10/2020. Not on Aspirin due to anticoagulation with Xarelto. Tania Duarte MD Cardiology:He had re cent labs which showed creatinine 1.13 and eGFR >60 which is stable. Tania Duarte MD Cardiology:His recen t 05/2021 lab report showed total cholesterol 166, triglycerides 56, LDL 79. Tania Duarte MD Cardiology:BP is 140 /70 today. Advised routine monitoring of the BP and reduced sodium intake. Tania Duarte MD Cardiology:Continues on Advair, Asmanex, Proair. Tania Duarte MD Cardiology:In sinus bradycardia on EKG today. He continues on Sotalol 40mg BID and Metoprolol Tartrate 12.5mg BID. QTC 475. On Xarelto for penitentiary OAC. Tania Duarte MD Cardiology:Chest amaya n free. Stress test with normal perfusion 10/2020. Not on Aspirin due to anticoagulation with Xarelto. Tania Duarte MD Cardiology:04/2020 CT A with no significant stenosis. The patient has been reassured. Isak Rios Cardiology:Continues on Atorvastatin. We aim for LDL < 70. Isak Rios Cardiology:Blood pressure contro l is satisfactory. Isak Cardiology:Chest amaya n free. Stress test with normal perfusion 10/2020. The patient has been reassured. Not on Aspirin due to Xarelto. Cardiology:s/p CATHY/C V. In Sinus bradycardia on EKG today. He continues on Sotalol 40mg BID and Metoprolol Tartrate 12.5mg BID. QTC 456. 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 Cardiology:He had re cent labs which showed creatinine 1.19 and eGFR 59 which is stable. Cardiology:Chest amaya n free. Stress test with normal perfusion 10/2020. The patient has been reassured. Cardiology:CTA with no significant stenosis. The patient has been reassured. Cardiology:Previous LDL 54. He continues on Lipitor 20mg. Cardiology:Blood pressure contro l is satisfactory. Cardiology:In Sinus bradycardia on EKG today. He continues on Sotalol 40mg BID. QTC 439. On Xarelto for penitentiary OAC. Cardiology:Stable. W ill continue to monitor. Cardiology:Previous LDL 54. He continues on Lipitor 20mg. Cardiology:Low blood pressure today of 100/60. Will reduce Lisinopril to 20mg daily. Cardiology:CTA with no significant stenosis. The patient has been reassured. Cardiology:Chest amaya n free. Stress test with normal perfusion. The patient has been reassured. Cardiology:Persisten t afib with 100% burden on recent monitor. Rate control with medications versus rhythm control with CATHY/CV was discussed with the patient. He would prefer CATHY/CV which will be arranged. He continues on Metoprolol and on Xarelto for terminal clerk OAC. Cardiology follow up :CTA with no significant stenosis. The patient has been reassured. Cardiology follow up :Previous LDL 54. He continues on Lipitor 20mg. Isak Rios Cardiology follow up :Blood Pressure 131/90. Advised reduced sodium intake and routine monitoring of the blood pressure. We aim for blood pressure less than 130/80. Isak Rios Cardiology follow up :New onset afib of unclear etiology. As he has history of CAD, will check echo and stress test. Isak Rios Cardiology follow up :New onset duration unknown. No symptoms at present. EKG today with afib/flutter with rapid ventricular rate. WIll start Metoprolol Tartrate 25mg BID for rate control. Will discontinue Fish Oil, Aspirin, and Xarelto 2.5mg BID and start Xarelto 20mg daily. A discussion about the risks and benefits of anticoagulation was had with the patient and he is agreeable to start anticoagulation. Unclear etiology therefore will check stress and echo. Will also arrange telesentry monitor. Will f/u in 2 weeks. Isak Rios Cardiology follow up :Stable. Will continue to monitor. Tania Duarte MD Cardiology follow up :On asthmanex, advair, and proair. Tania Duarte MD Cardiology follow up :Previous LDL 54. He continues on Lipitor 20mg. Tania Duarte MD Cardiology follow up :Blood pressure control is satisfactory. Tania Duarte MD Cardiology follow up :Abnormal carotid doppler today. The carotid doppler today shows 50 - 69% stenosis of the right ICA in the ostium and < 50% stenosis of the left. Will arrange carotid CTA. Tania Duarte MD Cardiology follow up :No recurrence of chest pain. His cath 08/2019 showed patent stents and no new significant stenosis. He continues on Aspirin and Plavix. Tania Duarte MD Cardiology follow up :Stable. Will continue to monitor. Stacia Calloway NP Cardiology follow up :Recent LDL 54. He continues on Lipitor 20mg. 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 Cardiology follow up :Renal angio normal. Advised reduced sodium intake. BP today: 140/70 P rior BP: 146/82 (08/20/2019) Labs Reviewed: C reat: 1.1 (01/28/2014) C hol: 177 (01/28/2014) HDL: 70.0 (07/17/2015) T (01/28/2014) Stacia Prasade [employer] Cardiology follow up :No recurrence of chest pain. His very recent cath showed patent stents and no new significant stenosis. He continues on Aspirin and Plavix. 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 Cardiology:Continues on Ranitidi ne. Isak Cardiology:Stable. B MP today with eGFR of 49. Will continue to monitor. Cardiology:Continues on Lipitor. Lipid panel done today with LDL of 54 which is satisfactory. Cardiology:Blood pre ssure elevated. Will arrange renal angiogram. Cardiology:Chest amaya n in a patient with CAD and risk factors. His recent stress test was normal. As his symptoms persist, a cardiac cath was discussed with the patient and he is agreeable to undergo the procedure. Will hold Xarelto for 4 days prior to procedure. The risks and benefits of the procedure, including but not limited the risk of heart attack, , stroke, bleeding, kidney failure, and loss of limb as well as the alternative of continued medical therapy, stress testing or bypass surgery were discussed with the patient and any present family members and the patient wishes to proceed with cardiac cath and stenting. The patient and family had opportunity to discuss this with us. Written material including informed consent was given out. Isak Rios Cardiology follow up :Stable. Most recent eGFR > 60. Tania Duarte MD Cardiology follow up :On Ranitidine. Tania Duarte MD Cardiology follow up :Resolved. Tania Duarte MD Cardiology follow up :Continues on Lipitor. Recent LDL 49 which is satisfactory. Tania Duarte MD Cardiology follow up :Blood pressure control is satisfactory. Tania Duarte MD Cardiology follow up :Chest pain free. Effort tolerance stable. Continues on Aspirina and Xarelto 2.5mg BID. Tania Duarte MD Cardiology follow up :On Ranitidine. Tania Duarte MD Cardiology follow up :CKD III has improved. Recent eGFR > 60, creatinine 1.01. Tania Duarte MD Cardiology follow up :On asthmanex, advair, and proair. Tania Duarte MD Cardiology follow up :Continues on Lipitor. Recent LDL 49 which is satisfactory. Tania Duarte MD Cardiology follow up :Blood pressure control is satisfactory. Tania Duarte MD Cardiology follow up :Chest pain free. Recent stress test showed no evidence of ischemia. The patient has been reassured. Tania Duarte MD Cardiology follow up :Denies of any lightheadedness or dizziness. Tania Duarte MD Cardiology follow up :Continues on Lipitor. Will check lipid panel. Tania Duarte MD Cardiology follow up :Blood pressure elevated on initial measurement in office. Repeat measurement showed a decrease of 20mmHg. The patient will continue to monitor his blood pressure. No changes in antihypertensive medications have been made. Tania Duarte MD Cardiology follow up :Fatigue and decreased effort tolerance in a patient with known CAD. Will arrange stress test and echocardiogram. This patient has had multiple stents and has been on COMPASS and has done remarkably well with no further chest pains or interventions. He will benefit from continuing on Aspirin and low dose Xarelto. Tania Duarte MD Cardiology follow up:On asthmane x. Tania Duarte MD Cardiology follow up:Stage 3. St able. Tania Duarte MD Cardiology follow up :On Ranitidine. Tania Duarte MD Cardiology follow up :Blood pressure control is satisfactory. Tania Duarte MD Cardiology follow up :Last LDL 54. Cont on Lipitor 20mg BID. Satisfactory lipid panel. Tania Duarte MD Cardiology follow up :Denies of chest pain. Effort tolerance is stable. Continues on Lisinopril, Isosorbide mononitrate, ASA 100mg daily and Xarelto 2.5mg BID. Tania Duarte MD Cardiology:Continues on Lipitor. Urmila McCray Cardiology:On Advair. Tanai villasenor MD Cardiology:Blood pre ssure is elevated. He will continue to monitor his blood pressure. He continues lisinopril. Tania Duarte MD Cardiology:Now in sinus rhythm. Tania Duarte MD Cardiology:Chest amaya n free. Effort tolerance stable. Continues on ASA, Imdur. Tania Duarte MD Cardiology Follow up Srinivasan chapin Cardiology Follow up :Continues on Atorvastatin 20mg daily. Srinivasan Angelo Cardiology Follow up :Blood pressure control is satisfactory. Srinivasan Riveraberg Cardiology Follow up :Stable angina. Continues on ASA 81mg daily and remains on the [facility] protonix vs placebo. Srinivasan Angelo Cardiology Tania Cole Cardiology:Continues on Lipitor. Tania Duarte MD Cardiology:Chest amaya n free. Continues on Aspirin and Plavix. Tania Duarte MD Cardiology:Blood pre ssure today was 169/89. On recheck the BP 120/70. Tania Duarte MD Cardiology:Blood pressure contro l is satisfactory. Tania Duarte MD Cardiology:Chest pain free. Bjorn Duarte MD Cardiology:No recurrence. Dennys Duarte MD Cardiology:On Ranitidine. Dennys Duarte MD Cardiology:On atorvastatin. Bjorn Duarte MD Cardiology Follow up :Blood pressure control is satisfactory. Will continue on Lisinopril. Tania Duarte MD Cardiology Follow up :SInce his last stent placement , he has remained well. He has had no further chest pain. Tania Duarte MD Cardiology Follow up :On Lipitor . Tania Duarte MD Cardiology Follow up :On Ranitid ine. Tania Duarte MD Cardiology:Resolved. He is off b eta blockers. Tania Duarte MD Cardiology:He contin ues on aspirin and Plavix, nitrates and Ranexa as before. Once symptoms resolve we will take him off the Ranexa. Tania Duarte MD Cardiology:On Lipitor. Tania Duarte MD Cardiology:Blood pressure contro l is satisfactory. Tania Duarte MD Cardiology:Started o n Ranitidine 150 mg twice daily. Tania Duarte MD Cardiology Tania Cole Cardiology:On Lisino pril 20 mg twice a day. Blood pressure is stable. Tania Duarte MD Cardiology:On statins. Tania Duarte MD Cardiology:Continues to have effort related angina. The EKG does not show any changes. Will start him on Imdur 30 mg a day and Ranexa 500 mg twice daily. He continues on aspirin, Plavix, and Lisinopril as before. If he continues to be symptomatic, he may need a repeat cardiac cath. Tania Duarte MD Cardiology Tania Cole Cardiology:Blood pressure contro l is satisfactory. Tania Duarte MD Cardiology:Resolved. Off beta bl ockers. Tania Duarte MD Cardiology Tania Cole Cardiology:On Lipitor. Tania Duarte MD hfu:His heart rate i s still in the 50s. He will get an event monitor and will wait and see the results. Tania Duarte MD hfu:S/P Stents - Marie st pain free. Denies of any nitroglycerin use since the last visit. Tania Duarte MD hfu Tania Cole hfu: Blood pressure today is sat isfactory 132/78. Tania Duarte MD hfu:On Lipitor. Tania Cole follow up: H is updated medication list for this problem includes: Lipitor 20 Mg Tabs (Atorvastatin calcium) ..... One tab. daily Tania Duarte MD follow up Tania Cole follow up: H is updated medication list for this problem includes: Toprol Xl 25 Mg Tb24 (Metoprolol succinate) ..... Twice daily Lipitor 20 Mg Tabs (Atorvastatin calcium) ..... One tab. daily Lisinopril 20 Mg Tabs (Lisinopril) ..... Two tablets daily Nitrolingual 0.4 Mg/spray Soln (Nitroglycerin) ..... One spray as needed for chest discomfort Orders: E KG (CPT-86279) Tania Duarte MD follow up: H is updated medication list for this problem includes: Toprol Xl 25 Mg Tb24 (Metoprolol succinate) ..... Twice daily Lisinopril 20 Mg Tabs (Lisinopril) ..... Two tablets daily Tania Duarte MD Follow up Tania Cole Follow up Tania Cole Follow up : H is updated medication list for this problem includes: Toprol Xl 25 Mg Tb24 (Metoprolol succinate) ..... Twice daily Lisinopril 20 Mg Tabs (Lisinopril) ..... Two tablets daily Orders: E KG (CPT-62201) Tania Duarte MD Follow up Tania Cole regrding bp:BP eleva sinan.upto 150/90. Dietary compliance. increase lisinopril 10 mg po daily. H is updated medication list for this problem includes: Toprol Xl 25 Mg Tb24 (Metoprolol succinate) ..... Twice daily Aspirin Ec 81 Mg Tbec (Aspirin) ..... One tab. daily BP today: 128/80-148/90 Tania Duarte MD regrding bp: H is updated medication list for this problem includes: Lipitor 10 Mg Tabs (Atorvastatin calcium) ..... One tab. daily BP today: 128/80 Prior BP: / () Tania Duarte MD regrding bp: B P today: 128/80 Prior BP: / () D iscussed lifestyle modifications, diet, antacids/medications, and preventive measures. Handout provided. Tania Duarte MD regrding bp: H is updated medication list for this problem includes: Toprol Xl 25 Mg Tb24 (Metoprolol succinate) ..... Twice daily Aspirin Ec 81 Mg Tbec (Aspirin) ..... One tab. daily Lipitor 10 Mg Tabs (Atorvastatin calcium) ..... One tab. daily BP today: 128/80 Prior BP: / () N uclear Stress Findings: 1. Normal Jean Pierre protocol exercise tolerance test. 2 . Normal left ventricular size and function with a calculated ejection fraction of 61%%. 3 . Myocardial scintigraphy is normal without evidence for previous myocardial infarction or reversible ischemia. (04/01/2008) C ardiac Cath: EF 60%. Normal LVSF. Patent stents in the proximal LAD and the mid RCA. (09/06/2007) C ardiac Cath Comments: 3.5 x 15mm Vision stent proximal LAD 3 .0 x 23mm mini-Vision stent [id number] RCA (09/05/2006) C arotid Doppler/Duplex: LESS THAN 50 % STENOSIS OF THE INTERNAL CAROTID A RTERIES BILATERALLY. (04/01/2008) Tania Duarte MD regrding bp: H is updated medication list for this problem includes: Toprol Xl 25 Mg Tb24 (Metoprolol succinate) ..... Twice daily Aspirin Ec 81 Mg Tbec (Aspirin) ..... One tab. daily B P today: 128/80 Prior BP: / () H olter Monitor Comments: SR with SB and ST 46-105bpm. Rare isolated VE beats with 3 pairs and no VTAC, there was 9 bigeminy 1 trigeminy and 11 quadrigeminy episodes noted. Rare isolated SVE beats with 9 pairs and 10 atrial/SVT runs the longest/fastest 11 beats @158bpm. (09/06/2006) N uclear Stress Findings: 1. Normal Jean Pierre protocol exercise tolerance test. 2 . Normal left ventricular size and function with a calculated ejection fraction of 61%%. 3 . Myocardial scintigraphy is normal without evidence for previous myocardial infarction or reversible ischemia. (04/01/2008) E chocardiogram: LV EF is estimated at 55%. The left ventrical is mildly enlarged. Borderline left ventricular hypertrophy. There is E: A reversal of m itral inflow velocities consistent with diastolic dysfunction. Normal left ventricular function. No clinically significant valvular abnormalities. (04/01/2008) C ardiac Cath: EF 60%. Normal LVSF. Patent stents in the proximal LAD and the mid RCA. (09/06/2007) C ardiac Cath Comments: 3.5 x 15mm Vision stent proximal LAD 3 .0 x 23mm mini-Vision stent peg-pa-seimki RCA (09/05/2006) Tania Duarte MD regrding bp: H is updated medication list for this problem includes: Toprol Xl 25 Mg Tb24 (Metoprolol succinate) ..... Twice daily Aspirin Ec 81 Mg Tbec (Aspirin) ..... One tab. daily Lipitor 10 Mg Tabs (Atorvastatin calcium) ..... One tab. daily BP today: 128/80 Prior BP: / () N uclear Stress Findings: 1. Normal Jean Pierre protocol exercise tolerance test. 2 . Normal left ventricular size and function with a calculated ejection fraction of 61%%. 3 . Myocardial scintigraphy is normal without evidence for previous myocardial infarction or reversible ischemia. (04/01/2008) C ardiac Cath: EF 60%. Normal LVSF. Patent stents in the proximal LAD and the mid RCA. (09/06/2007) C ardiac Cath Comments: 3.5 x 15mm Vision stent proximal LAD 3 .0 x 23mm mini-Vision stent [id number] RCA (09/05/2006) C arotid Doppler/Duplex: LESS THAN 50 % STENOSIS OF THE INTERNAL CAROTID A RTERIES BILATERALLY. (04/01/2008) Tania Duarte MD regrding bp: H is updated medication list for this problem includes: Toprol Xl 25 Mg Tb24 (Metoprolol succinate) ..... Twice daily Aspirin Ec 81 Mg Tbec (Aspirin) ..... One tab. daily B P today: 128/80 Prior BP: / () N uclear Stress Findings: 1. Normal Jean Pierre protocol exercise tolerance test. 2 . Normal left ventricular size and function with a calculated ejection fraction of 61%%. 3 . Myocardial scintigraphy is normal without evidence for previous myocardial infarction or reversible ischemia. (04/01/2008) C ardiac Cath: EF 60%. Normal LVSF. Patent stents in the proximal LAD and the mid RCA. (09/06/2007) C ardiac Cath Comments: 3.5 x 15mm Vision stent proximal LAD 3 .0 x 23mm mini-Vision stent [id number] RCA (09/05/2006) C arotid Doppler/Duplex: LESS THAN 50 % STENOSIS OF THE INTERNAL CAROTID A RTERIES BILATERALLY. (04/01/2008) E chocardiogram: LV EF is estimated at 55%. The left ventrical is mildly enlarged. Borderline left ventricular hypertrophy. There is E: A reversal of m itral inflow velocities consistent with diastolic dysfunction. Normal left ventricular function. No clinically significant valvular abnormalities. (04/01/2008) Tania Duarte MD regrding bp: H is updated medication list for this problem includes: Aspirin Ec 81 Mg Tbec (Aspirin) ..... One tab. daily Carotid Duplex Scan: L ESS THAN 50 % STENOSIS OF THE INTERNAL CAROTID A RTERIES BILATERALLY. (04/01/2008) Echocardiogram: L V EF is estimated at 55%. The left ventrical is mildly enlarged. Borderline left ventricular hypertrophy. There is E: A reversal of m itral inflow velocities consistent with diastolic dysfunction. Normal left ventricular function. No clinically significant valvular abnormalities. (04/01/2008) Tania Duarte MD Tania Cole :Needs lipid panel n ext visit. H is updated medication list for this problem includes: Lipitor 10 Mg Tabs (Atorvastatin calcium) ..... One tab. daily Tania Duarte MD :BP control satisact ory. H is updated medication list for this problem includes: Toprol Xl 25 Mg Tb24 (Metoprolol succinate) ..... Twice daily Lisinopril 5 Mg Tabs (Lisinopril) ..... One tab. daily Aspirin Ec 81 Mg Tbec (Aspirin) ..... One tab. daily Tania Duarte MD :Chest pain free. My oview normal perfusion. H is updated medication list for this problem includes: Toprol Xl 25 Mg Tb24 (Metoprolol succinate) ..... Twice daily Lisinopril 5 Mg Tabs (Lisinopril) ..... One tab. daily Aspirin Ec 81 Mg Tbec (Aspirin) ..... One tab. daily Lipitor 10 Mg Tabs (Atorvastatin calcium) ..... One tab. daily Orders: C omplete Echo ([id number]) Tania Duarte MD Date Name CXR- PA/Lat URINALYSIS, COMPLETE W/REFLEX TO CULTURE PROTHROMBIN TIME WIT H INR Partial Thromboplast in Time, Activated CBC (INCLUDES DIFF/P LT) COMPREHENSIVE METABO LIC PANEL, W/EGFR Arterial - SENSILASE PROTHROMBIN TIME WIT H INR LIPID PANEL CBC (INCLUDES DIFF/P LT) BASIC METABOLIC PANE L W/EGFR Complete Echo Complete Echo MAGNESIUM PROTHROMBIN TIME WIT H INR CBC (INCLUDES DIFF/P LT) TSH, free T4, total T3 LIPID PANEL BASIC METABOLIC PANE L W/EGFR Stress Cardiac PET-C T CATHY - [facility] MAGNESIUM PROTHROMBIN TIME WIT H INR TSH, free T4, total T3 CBC (H/H, RBC, INDIC ES, WBC, PLT) B TYPE NATRIURETIC P EPTIDE (BNP) BASIC METABOLIC PANE L W/EGFR Venous Doppler Bilat eral LE - Reflux Monitor - Telemetry (Mobile Cardiac) CATHY/CV - [facility] COVID19 nasal swab ( LC) PROTHROMBIN TIME WIT H INR BASIC METABOLIC PANE L W/EGFR MAGNESIUM Stress Regadenoson Complete Echo Creatinine, Serum CT Angio, Carotids Renal Angio - [facility] PROTHROMBIN TIME WIT H INR LIPID PANEL CBC (INCLUDES DIFF/P LT) BASIC METABOLIC PANE L W/EGFR Carotid Duplex Bilat eral Complete Echo Stress Regadenoson HEMOGLOBIN A1c Other TSH, 3RD GENERATION W/REFLEX TO FT4 HEPATITIS C ANTIBODY LIPID PANEL CBC (H/H, RBC, INDIC ES, WBC, PLT) COMPREHENSIVE METABO LIC PANEL, W/EGFR Complete Echo PROTHROMBIN TIME WIT H INR CBC (INCLUDES DIFF/P LT) LIPID PANEL BASIC METABOLIC PANE L W/EGFR Cardiac Cath - Left - GC TSH, 3RD GENERATION W/REFLEX TO FT4 CBC (H/H, RBC, INDIC ES, WBC, PLT) FOLATE, SERUM VITAMIN B12 LIPID PANEL BASIC METABOLIC PANE L W/EGFR Cardiac Cath - Left - CNE Stress Test - Nuclea r Complete Echo HEPATIC FUNCTION CHRISTIE EL Carotid Duplex Bilat eral LIPID PANEL Cardiac Cath - GC Complete Echo CBC (H/H, RBC, INDIC ES, WBC, PLT) LIPID PANEL COMPREHENSIVE METABO LIC PANEL W/EGFR Stress Test - Nuclea r Complete Echo Complete Echo HISTORY OF PROCEDURES Procedure Date Procedure Name Provider Procedure Notes S tatus EKG Tania Duarte MD complet ed Complex e/m visit add on Tania Duarte MD completed Complex e/m visit add on Tania Duarte MD completed Complex e/m visit add on Tania Duarte MD completed EKG Lemuel Logan MD completed EKG Tania Duarte MD complet ed EKG Tania Duarte MD complet ed EKG Tania Duarte MD complet ed EKG Tania Duarte MD complet ed EKG Tania Duarte MD complet ed EKG Tania Duarte MD complet ed EKG Tania Duarte MD complet ed EKG Tania Duarte MD complet ed EKG Tania Duarte MD complet ed EKG Tania Duarte MD complet ed EKG Tania Duarte MD complet ed Mobile Cardiac Telem etry - Tech Tania Duarte MD completed Mobile Cardiac Telem etry - Prof Tania Duarte MD completed EKG Tania Duarte MD complet ed EKG Tania Duarte MD complet ed EKG Tania Duarte MD complet ed EKG Tania Duarte MD complet ed EKG Tania Duarte MD complet ed EKG Tania Duarte MD complet ed EKG Tania Duarte MD complet ed EKG Tania Duarte MD complet ed EKG Tania Duarte MD complet ed EKG Tania Duarte MD complet ed EKG Tania Duarte MD complet ed Regadenoson, 4 units Tania Duarte MD completed Cardiolite, 2 units Tania Duarte MD completed SPECT Images Tania Duarte MD compl eted Stress EKG Etienne Rand MD complete d EKG Tania Duarte MD complet ed EKG Tania Duaret MD complet ed EKG Tania Duarte MD complet ed SNOMED-CT: 226971336 767583 Current Medications Documented Tania Duarte MD completed EKG Tania Duarte MD complet ed SNOMED-CT: 689933259 007618 Current Medications Documented Tania Duarte MD completed SNOMED-CT: 48846214 Physical Exam, Performed: Pulse Exam of Foot Tania Duarte MD completed EKG Tania Duarte MD complet ed SNOMED-CT: 970513252 763929 Current Medications Documented Tania Duarte MD completed SNOMED-CT: 753204131 Smoking Cessation Counseling Tania Duarte MD completed SNOMED-CT: 54245050 Physical Exam, Performed: Pulse Exam of Foot Tania Duarte MD completed EKG Tania Duarte MD complet ed SNOMED-CT: 832324029 347237 Current Medications Documented Tania Duarte MD completed SNOMED-CT: 466144546 Smoking Cessation Counseling Tania Duarte MD completed SNOMED-CT: 38039448 Physical Exam, Performed: Pulse Exam of Foot Tania Duarte MD completed EKG Tania Duarte MD complet ed SNOMED-CT: 725180501 096167 Current Medications Documented Tania Duarte MD completed SNOMED-CT: 797538319 Smoking Cessation Counseling Tania Duarte MD completed SNOMED-CT: 10388857 Physical Exam, Performed: Pulse Exam of Foot Tania Duarte MD completed EKG Tania Duarte MD complet ed SNOMED-CT: 025125643 221526 Current Medications Documented Tania Duarte MD completed SNOMED-CT: 000193321 Smoking Cessation Counseling Tania Duarte MD completed SNOMED-CT: 58361573 Physical Exam, Performed: Pulse Exam of Foot Tania Duarte MD completed SNOMED-CT: 285191241 516645 Current Medications Documented Tania Duarte MD completed EKG Tania Duarte MD complet ed EKG Tania Duarte MD complet ed EKG Tania Duarte MD complet ed EKG Tania Duarte MD complet ed EKG Tania Duarte MD complet ed EKG Tania Duarte MD complet ed EKG Tania Duarte MD complet ed ePrescribe - Check t his box if eRx is used Tania Duarte MD completed ePrescribe - Check t his box if eRx is used Tania Duarte MD completed Lipid Strip Tania Duarte MD comple sinan EKG Tania Duarte MD complet ed ePrescribe - Check t his box if eRx is used Tania Duarte MD completed EKG Tania Duarte MD complet ed EKG Tania Duarte MD complet ed EKG Tania Duarte MD complet ed
[2024-12-17 09:39] LABS: Basophils Percent Auto 0.3 % (0.2-1.2); Eosinophils Absolute Auto 0.1 K/mm3 (0-0.3); Eosinophils Percent Auto 1.4 % (0-4.4); Hematocrit 43.7 % (42.0-52.0); Hemoglobin 14.2 g/dL (14.0-18.0); Immature Granulocyte Absolute 0.02 K/mm3 (0.00-0.031); Immature Granulocyte Percent A 0.3 % (0-0.5); Lymphocytes Absolute Auto 1.97 K/mm3 (0.9-3.2); Lymphocytes Percent Auto 33.6 % (18.3-44.2); Mean Corpuscular HGB Conc 32.5 g/dl (32-36); Mean Corpuscular Hemoglobin 30.9 pg (26-34); Mean Platelet Volume 10.2 fl (7.4-10.4); Monocytes Absolute Auto 0.7 K/mm3 (0.1-0.6); Monocytes Percent Auto 11.9 % (2.6-8.5); Neutrophils Absolute Auto 3.1 K/mm3 (1.3-6.7); Neutrophils Percent Auto 52.5 % (45.5-73.1); Platelet Count Result 282 k/mm3 (150-375); Red Cell Distribution Width 12.1 % (11.5-14.5); White Blood Count 5.9 K/mm3 (4.5-10.0)
[2024-12-17 09:49] LABS: Alanine Aminotransferase 22 U/L (6-50); Albumin Level 4.1 g/dL (3.5-5.1); Alkaline Phosphatase 58 U/L (38-126); Anion Gap 8 mmol/L (4-12); Aspartate Amino Transferase 29 U/L (17-59); Bilirubin,Total 1.2 mg/dL (0.2-1.3); Blood Urea Nitrogen 21 mg/dL (9-20); Calcium 9.1 mg/dL (8.4-10.2); Carbon Dioxide 30 mmol/L (22-30); Chloride 101 mmol/L (98-107); Cholesterol 138 mg/dL (0-200); Estimated Glomerular Filt Rate > 60; Glucose 100 mg/dL (65-110); HDL Direct 63 mg/dL; Potassium 4.5 mmol/L (3.4-5.0); Sodium 139 mmol/L (137-145); Triglycerides 62 mg/dL (<150)
[2024-12-17 10:00] LABS: LDL Cholesterol Direct 53 mg/dL
[2024-12-17 10:06] LABS: Hemoglobin A1C 5.7 % (<5.7)
[2024-12-17 10:22] LABS: Free T4 Free Thyroxine 1.25 ng/dL (0.78-2.19)
[2024-12-17 10:30] LABS: Creatinine Urine 44.1 mg/dL
[2024-12-17 10:34] LABS: Microalbumin Urine Random 9.7 mg/L (0-16.7)
== END 2024-12-17 08:52 | disposition home or self-care (01) ==
PROVIDERS: PCP Internal Medicine; Visit Provider Internal Medicine
DX: E78.5 Hyperlipidemia, unspecified (principal); R73.9 Hyperglycemia, unspecified
CPT/HCPCS: 36415; 80053; 80061; 82043; 83036; 84439; 84443; 85025

== ENCOUNTER 2025-02-18 08:54 | Outpatient (CLI) | payer MEDICARE, SELFPAY ==
[2025-02-18 09:09] LABS: Basophils Percent Auto 0.5 % (0.2-1.2); Eosinophils Absolute Auto 0.1 K/mm3 (0-0.3); Eosinophils Percent Auto 1.3 % (0-4.4); Hematocrit 45.6 % (42.0-52.0); Immature Granulocyte Absolute 0.03 K/mm3 (0.00-0.031); Immature Granulocyte Percent A 0.5 % (0-0.5); Lymphocytes Absolute Auto 1.87 K/mm3 (0.9-3.2); Lymphocytes Percent Auto 31.5 % (18.3-44.2); Mean Corpuscular HGB Conc 32.9 g/dl (32-36); Mean Corpuscular Hemoglobin 30.2 pg (26-34); Mean Corpuscular Volume 91.9 fl (80-100); Monocytes Absolute Auto 0.7 K/mm3 (0.1-0.6); Monocytes Percent Auto 10.9 % (2.6-8.5); Neutrophils Absolute Auto 3.3 K/mm3 (1.3-6.7); Neutrophils Percent Auto 55.3 % (45.5-73.1); Platelet Count Result 292 k/mm3 (150-375); Red Blood Count 4.96 M/mm3 (4.6-6.20); Red Cell Distribution Width 12.7 % (11.5-14.5); White Blood Count 5.9 K/mm3 (4.5-10.0)
--- OUTSIDE RECORDS SUMMARY | 2025-02-18 09:23 | XMS_ITS | Encounter Summary ---
Author Organization [facility] Address [address] [place] [address] Care Team Providers Care Log Roller Name Role Phone Unavailable Primary Care Provider Unavailabl e Encounter Details Date Type Department Care Team (Late st Contact Info) Description 09/05/2022 Lab Requisition [facility] DermPath Lab [address] [facility] [place] [id number] Horace Somers MD [address] [place] [address] Social History Tobacco Use Types [...] AM CDT) Case Report Dermatopathology Report Case: [id number] Authorizing Provider: Horace Somers MD Collected: 08/31/2022 12:00 AM Ordering Location: [facility] DermPath Lab Received: 09/05/2022 08:26 AM Pathologist: Leni Valdes MD Specimens: A) - Skin, mid chin B) - Skin, right lat upper arm 2 1:30 PM CDT DERMATOPATHOLOGY LABORATORY Final Diagnosis Specimen A. SKIN, mid chin: ANGIOFIBROMA (FIBROUS PAPULE) (D21.0) PRESENT AT MARGIN Specimen B. 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 Please Check Margins. B: Hemangioma. Please Check Margins. 1:30 PM CDT DERMATOPATHOLOGY LABORATORY Gross Description Specimen A: Received is one formalin filled container labeled with the patient's name and designated mid chin. The specimen consists of a shave biopsy measuring [id number] and it is inked. Jar 0. Specimen B: Received is one formalin filled container labeled with the patient's name and designated right lat upper arm. The specimen consists of a shave biopsy measuring 8h1l2pi and it is inked. Jar 0. 1:30 [...] characteristic determined by the Dermatopathology Laboratory at [facility], directed by Dr. Emmanuel Ni. These tests need not be, and therefore are not, approved by the [place] Food and Drug Administration. The tests are used for clinical purposes. Billing Codes Specimen Charges Stain Charges 05509 57403 1 1 1:30 PM CDT DERMATOPATHOLOGY LABORATORY Embedded Images 1:30 PM CDT DERMATOPATHOLOGY LABORATORY Pathology/Cytology TISSUE SPECIMEN FROM SKIN / Unknown 08/31/2022 09/05/2022 8:26 AM CDT Miscellaneous samples (specimen) TISSUE SPECIMEN FROM SKIN / Unknown 08/31/2022 09/05/2022 8:26 AM CDT us Horace Somers MD LAB - PATHOLOGY/CYTOLOGY ORDERAB LES Final Result DERMATOPATHOLOGY LABORATORY [facility] - Department of Dermatology [facility] Medicine [address] [place] [address], [address] [phone] documented in this encounter Visit Diagnoses Not on filedocumented in this encounter
--- OUTSIDE RECORDS SUMMARY | 2025-02-18 09:23 | XMS_ITS | Clinical Summary ---
Author Organization [facility] Address [address] [place] [address] Care Team Providers Care Food Service Counter Clerk Name Role Phone Unavailable Primary Care Provider [...]
--- OUTSIDE RECORDS SUMMARY | 2025-02-18 09:23 | XMS_ITS | Clinical Summary ---
Author Organization [facility] Address [address] [place] [address] Care Team Providers Care Machine Installer Name Role Phone Imelda Costello MD Primary Care Provider [phone] Medications amLODIPine (NORVASC) 5 MG tablet TAKE 1 TABLET(5 MG) BY MOUTH 1 TIME EACH DAY 90 tablet 11/10/2021 Active Encounters Date Type Department Care Team Description 02/02/2025 Documentation Only [facility], [address] [address] Celio Cheatham DO 12/01/2024 Documentation Only [address] [address] Celio Cheatham DO from Last 3 [...] cm (6' 2 ) 01/03/2022 1:10 PM ENVIRONMENTAL EDUCATION SPECIALIST Body Mass Index 30.3 01/03/2022 1:10 PM ENVIRONMENTAL EDUCATION SPECIALIST Plan of Treatment Upcoming Encounters Date Type Department Care Team (Late st Contact Info) Description 03/10/2025 12:30 PM CDT Office Visit [facility], [facility] [address] [facility] [address] [place] [phone] Celio Cheatham DO [address] [facility] [address] [place] [address] Health Maintenance Due Date Last Done Comments Influenza Vaccine (Season Ended) 2025 09/02/2021, 08/30/2020, 09/08/2018, Additional history exists Pneumococcal Vaccine: 50+ Years Completed 08/05/2018, 08/27/2012 Hepatitis B Vaccine Aged Out No longe r eligible based on patient's age to complete this topic Insurance [employer] MCR Adv PPO ([id number]) Care Teams Machine Installer Relationship Specialty Start Date End Date Imelda Costello MD [address] [facility], [address] [place] [address] PCP - General Internal Medicine 07/05/21
--- OUTSIDE RECORDS SUMMARY | 2025-02-18 09:23 | XMS_ITS | Clinical Summary ---
Author Organization [facility] Address [address] [facility] [place] [address] Care Team Providers Care Bleach Liquor Maker Name Role Phone Unavailable Primary Care Provider Unavailabl e Source Comments [facility],non-owned Affiliates and Associated Physician Practices is amultiple site organization consisting of ambulatory clinics and hospital sitesin [place], [place], [place] and [place]. This disclosure is being madepursuant to the Care Everywhere program and may not contain all information available regarding this patient. Last updated 18.[facility] Social History Tobacco Use Types Packs/Day Years [...] VACCINE ( - 2023-2 5 season) 2024 DEPRESSION SCREENING 11/05/2024 MEDICARE AWV CALENDAR YEAR 2024 INFLUENZA VACCINE (Season Ended) 2025 HEPATITIS B VACCINE Aged Out No longe r eligible based on patient's age to complete this topic HIB VACCINE Aged Out No longer eligi ble based on patient's age to complete this topic HPV VACCINE Aged Out No longer eligi ble based on patient's age to complete this topic MENINGOCOCCAL (Group B) VACC INE SHARED DECISION-MAKING Aged Out No longer eligibl e based on patient's age to complete this topic MENINGOCOCCAL GROUPS A/C/Y/W VACCINE Aged Out No longer eligible b ased on patient's age to complete this topic Insurance [facility] MANAGED MEDICARE ADV
--- OUTSIDE RECORDS SUMMARY | 2025-02-18 09:23 | XMS_ITS | Clinical Summary ---
Author Organization [facility] Address [facility] [place] [address] Care Team Providers Care Guide Name Role Phone Unavailable Primary Care Provider [...] Vaccines (1 of 2) 1993 Pneumococcal Vaccine: 50+ Ye ars (1 of 1 - PCV) 2008 RSV Immunization or 60+ Years (1 - 1-dose 75+ series) 2018 COVID-19 Vaccine ( - 2023-2 5 season) 2024 Meningococcal B Vaccine Aged Out No l onger eligible based on patient's age to complete this topic Meningococcal Vaccine Aged Out No polo kayla eligible based on patient's age to complete this topic RSV Immunizations Under 20 Months Aged Out No longer eligible based on patient's age to complete this topic
--- OUTSIDE RECORDS SUMMARY | 2025-02-18 09:23 | XMS_ITS | Clinical Summary ---
Author Organization [facility] Address [address] [place] [address] Care Team Providers Care Campaign Analyst Name Role Phone Imelda Costello MD Primary [...] 9 Active fluticasone propionate (FLONASE) 50 mcg/spray Springer, Suspension nasal inhaler fluticasone propionate 50 mcg/actuation nasal spray,suspension Active multivitamin with iron (DAILY MULTIVITAMINS/I ESTEFANY ORAL) Multivitamins daily Active Oicaz-0-URT-EPA -Fish Oil (FISH OIL) 1,000 mg (120 [...] (monoclonal gammopathy of unknown significa nce) 09/08/2019 Encounters Date Type Department Care Team Description 01/07/2025 Abstract [facility] Oncology and Hematology [place] [address] [place] [address] [address] Bear Wassreman MD from Last 3 Months Family History Medical History Relation Name Comments [...] Care Team (Late st Contact Info) Description 03/06/2025 1:30 PM CDT Office Visit [facility] Oncology and Hematology - [place] [address] [facility] [address] [place] [address] Bear Wasserman MD [address] [facility] [address] [place] [address] Health Maintenance Due Date Last Done Comments PNEUMOCOCCAL VACCINE 50+ YEA RS (2 of 2 - PCV) 08/27/2013 08/27/2012 ZOSTER VACCINE (2 of 3) 10/08/2014 08/13/2014 RSV VACCINE (60+ or ) (1 - 1-dose 75+ series) 2018 INFLUENZA VACCINE (#1) 2024 , 09/02/2021, 08/30/2020, Additional history exists COVID-19 Vaccine (2023-2 5 season) 2024 09/10/2021, 08/20/2021, 01/26/2021 [place] Preventative Visit/Annual Wellness Visit 11/05/2024 DTAP/TDAP/TD VACCINES (3 - T d or Tdap) 06/08/2030 06/08/2020, 10/06/2015 Insurance [employer] O [facility] Care Teams Campaign Analyst Relationship Specialty Start Date End Date Imelda Costello MD PCP - General Internal Medicine 02/10/19
--- OUTSIDE RECORDS SUMMARY | 2025-02-18 09:24 | XMS_ITS | CONTINUITY OF CARE DOCUMENT ---
Author Name rock wilkerson Address Unknown Organization [facility] Address [address] [place] [address] Phone [phone] Care Team Providers Care Private Pilot Name Role Phone Berto NEVILLE, Tania Unavailable BELINDA CISSE MD Unavailable [phone] BELINDA CISSE MD Unavailable [phone] PROBLEMS Condition Status Date Provider Notes S/P Dual chamb PCM - Biotron ik ( MRI Safe) active Emani Rojas GERD active Denetrromario Norman Hypercholesterolemia active Aurora gordon CHEST PAIN-TYPE TO BE DETERMINED completed - Tania Duarte MD HTN active 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 CATH PAT STENTS-09/10 VISION-LAD, DIS RCA completed - Tania Duarte MD CAD-01/13 STENT XIENCE 2 OM 09/11 CATH STENTS PATENT completed - Tania Duarte MD CARDIAC ARRHYTHMIA-09/[address] SR-SB completed - Tania Duarte MD CAD-VISION LAD & RCA 2006, XIENCE OM2 2010 completed - Tania Duarte MD CHEST PAIN- RESOLVED-05/17 CA TH PATENT STENT LAD-OM-RCA completed - Tania Duarte MD HEALTH MAINTENANCE EXAM completed - Tania Duarte MD Family History of Hyperlipidemia: completed - Tania Duarte MD Family History of Hyperlipidemia: completed - Tania Duarte MD Bradycardia active Tania Duarte MD Chest pain-type to be determined completed - Tania Duarte MD CAD-VISION LAD & RCA 2006, XIENCE OM2 2010 S/P mid LAD stent 07/20, pLAD PCI 06/2022 active Tania Duarte MD Acute NSTEMI active Tania Duarte MD COPD active Tania Duarte MD CKD active Tania Duarte MD Carotid Artery Stenosis active Tania smith MD Afib/flutter active Tania Duarte MD Exposure to SARS-associated coronavirus active Isak Kyte Fatigue active Tania Duarte MD Foot swelling, bilateral active Tania swenson MD Cardiology examination active 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 Aortic Murmur active Tania Duarte MD Aortic stenosis active Tania Duarte MD Foot pain, left active Tania Duarte MD Cardiology examination active Tania conde MD Sick sinus syndrome active Kiana wright MD Cardiology examination active Tania conde MD ENCOUNTERS Date Type Provider Location Encounter Diag nosis - In-person encounter Office Visit Tania Duarte MD [facility] Cardiology examination - In-person encounter Office Visit Tania Duarte MD [facility] - In-person encounter Office Visit Kiana Rodriguez MD [facility] Sick sinus syndrome - In-person encounter Office Visit Tania Duarte MD [facility] Cardiology examination - In-person encounter Office Visit Tania Duarte MD [facility] Foot pain, left - In-person encounter Office Visit Tania Duarte MD [facility] Aortic stenosis - In-person encounter Office Visit Tania Duarte MD [facility] Aortic Murmur - In-person encounter Office Visit Lemuel Logan MD [facility] Cardiology examination - In-person encounter Office Visit Tania Duarte MD [facility] - In-person encounter Office Visit Tania Duarte MD [facility] - In-person encounter Office Visit Tania Duarte MD [facility] - In-person encounter Office Visit Tania Duarte MD [facility] - In-person encounter Office Visit Tania Duarte MD [facility] Foot swelling, bilateral - In-person encounter Office Visit Tania Duarte MD [facility] - In-person encounter Office Visit Tania Duarte MD [facility] CAD-VISION LAD & RCA 2006, XIENCE OM2 2010 S/P mid LAD stent 07/20, pLAD PCI 06/2022 - In-person encounter Office Visit Tania Duarte MD [facility] Fatigue - In-person encounter Office Visit Tania Duarte MD [facility] - In-person encounter Office Visit Tania Duarte MD [facility] - In-person encounter Office Visit Tania Duarte MD [facility] - In-person encounter Office Visit Tania Duarte MD [facility] - In-person encounter Office Visit Tania Duarte MD [facility] - In-person encounter Office Visit Tania Duarte MD [facility] Exposure to SARS-associated coronavirus - In-person encounter Office Visit Tania Duarte MD [facility] Afib/flutter - In-person encounter Office Visit Tania Duarte MD [facility] Carotid Artery Stenosis - In-person encounter Office Visit Barrington Garcia MD [facility] HTNCAD-VISION LAD & RCA 2007, XIENCE OM2 2010 S/P mid LAD stent 07/20, pLAD PCI 06/2022 - In-person encounter Office Visit Tania Duarte MD [facility] - In-person encounter Office Visit Tania Duarte MD [facility] - In-person encounter Office Visit Tania Duarte MD [facility] CKD - In-person encounter Office Visit Tania Duarte MD [facility] Chest pain-type to be determinedCOPDCKD - In-person encounter Office Visit Tania Duarte MD [facility] CKD - In-person encounter Office Visit Tania Duarte MD [facility] COPD - In-person encounter Office Visit Tania Duarte MD [facility] BradycardiaCAD-VISION LAD & RCA 2007, XIENCE OM2 2010 S/P mid LAD stent 07/20, pLAD PCI cute NSTEMI - In-person encounter Office Visit Tania Duarte MD [facility] - In-person encounter Office Visit Tania Duarte MD [facility] - In-person encounter Office Visit Tania Duarte MD [facility] - In-person encounter Office Visit Tania Duarte MD [facility] CAD-VISION LAD & RCA 2007, XIENCE OM2 2011CAD-VISION LAD & RCA 2007, XIENCE OM2 2010 S/P mid LAD stent 07/20, pLAD PCI 06/2022 - In-person encounter Office Visit Tania Duarte MD [facility] CAD-VISION LAD & RCA 2007, XIENCE OM2 2010 S/P mid LAD stent 07/20, pLAD PCI 06/2022 - In-person encounter Office Visit Tania Duarte MD [facility] - In-person encounter Office Visit Tania Duarte MD [facility] Bradycardia - In-person encounter Office Visit Tania Duarte MD [facility] Family History of Hyperlipidemia:Family History of Hyperlipidemia: - In-person encounter Office Visit Tania Duarte MD [facility] - In-person encounter Office Visit Tania Duarte MD [facility] CARDIAC ARRHYTHMIA-09/10 HOLTER SR-SB - In-person encounter Office Visit Tania Duarte MD [facility] CHEST PAIN- RESOLVED-05/17 CATH PATENT STENT LAD-OM-RCA - In-person encounter Office Visit Tania Duarte MD [facility] STENT-10/16 CATH PAT STENTS-09/10 VISION-LAD, DIS RCACAD-01/13 STENT XIENCE 2 OM 09/11 CATH STENTS PATENTCAD-VISION LAD & RCA 2007, XIENCE OM2 2010CHEST PAIN- RESOLVED-05/17 CATH PATENT STENT LAD-OM-RCA - In-person encounter Office Visit Tania Duarte MD [facility] - In-person encounter Office Visit Tania Duarte MD [facility] - In-person encounter Office Visit Tania Duarte MD [facility] - In-person encounter Office Visit Tania Duarte MD [facility] - In-person encounter Office Visit Tania Duarte MD [facility] - In-person encounter Office Visit Tania Duarte MD [facility] HEALTH MAINTENANCE EXAM - In-person encounter Office Visit Tania Duarte MD [facility] - In-person encounter Office Visit Tania Duarte MD [facility] - In-person encounter Office Visit Tania Duarte MD [facility] - In-person encounter Office Visit Tania Duarte MD [facility] - In-person encounter Office Visit Tania Duarte MD [facility] - In-person encounter Office Visit Tania Duarte MD [facility] - In-person encounter Office Visit Tania Duarte MD [facility] CHEST PAIN-TYPE TO BE DETERMINED VITAL SIGNS Date Observation Value Provider Body Mass Index (Ratio) 29.09 kg/m2 Conrad Brenner blood pressure, diastolic 83 mm[Hg] Lauren nkLogic blood pressure, systolic 126 mm[Hg] Belinda Linaresoglashay blood pressure, diastolic 83 mm[Hg] Li nkLoglashay blood pressure, systolic 126 mm[Hg] Belinda Milagrosoglashay blood pressure, systolic 126 mm[Hg] Jeffrey alesha Mcgee blood pressure, diastolic 83 mm[Hg] Fa christoph Mcgee blood pressure, cuff size regular Kamlesh hawthorne Everardo weight E&M 239 [lb_av] Shad Everardo oxygen saturation, oximetry 100 % Shad Mcgee pulse rate 87 /min Shad Everardo height E&M 76 [in_i] Shadalesha Mcgee Body Mass Index (Ratio) 29.33 kg/m2 Bjorn Duarte MD blood pressure, cuff size regular Montez Soares blood pressure, diastolic 81 mm[Hg] [facility], systolic 110 mm[Hg] [facility], oximetry 97 % Sherryelena Soares pulse rate 70 /min Sherryelena Soares weight E&M 241 [lb_av] [facility] height E&M 76 [in_i] [facility] Body Mass Index (Ratio) 28.48 kg/m2 Albert Rodriguez MD blood pressure, cuff size regular Ke rri Pranav blood pressure, diastolic 90 mm[Hg] Ke rri Lucasuenenfeden blood pressure, systolic 134 mm[Hg] Meghan ri Rogelionelazara oxygen saturation, oximetry 96 % Aurora Pranav pulse rate 71 /min Aurora Gruenenfe [facility] weight E&M 234 [lb_av] Aurora Gruenenfe [facility] height E&M 76 [in_i] Aurora Gruenenfe [facility] Body Mass Index (Ratio) 28.48 kg/m2 Bjorn Duarte MD blood pressure, diastolic 85 mm[Hg] An inaeem Payne blood pressure, systolic 131 mm[Hg] Ani naeem Payne oxygen saturation, oximetry 97 % Yamileth Payne pulse rate 75 /min Yamileth Payne respiratory rate E&M 12 /min Yamileth Payne weight E&M 234 [lb_av] Yamileth Payne height E&M 76 [in_i] Yamileth Payne blood pressure, cuff size regular Crow tolentino Payne Body Mass Index (Ratio) 27.82 kg/m2 Bjorn Duarte MD blood pressure, diastolic 85 mm[Hg] [place] flower [place] blood pressure, systolic 123 mm[Hg] Sherrill norton [place] oxygen saturation, oximetry 99 % [facility] [place] pulse rate 103 /min [facility] [place] blood pressure, cuff size regular [place] flower [place] weight E&M 228.6 [lb_av] [facility] [place] height E&M 76 [in_i] [facility] [place] Body Mass Index (Ratio) 27.92 kg/m2 Bjorn Duarte MD blood pressure, diastolic 74 mm[Hg] [place] flower [place] blood pressure, systolic 146 mm[Hg] Sherrill errol [place] oxygen saturation, oximetry 98 % [facility] [place] pulse rate 52 /min [facility] [place] blood pressure, cuff size regular [place] flower [place] weight E&M 229.4 [lb_av] [facility]ay [facility] [place] height E&M 76 [in_i] [facility] [place] Body Mass Index (Ratio) 27.87 kg/m2 Bjorn Duarte MD blood pressure, diastolic 66 mm[Hg] Vi pin [facility] blood pressure, systolic 120 mm[Hg] Vip in [facility] oxygen saturation, oximetry 96 % [facility] respiratory rate E&M 12 /min [facility] pulse rate 50 /min [facility] weight E&M 229 [lb_av] [facility] blood pressure, cuff size regular Vi pin [facility] height E&M 76 [in_i] [facility] Body Mass Index (Ratio) 27.75 kg/m2 Miranda Logan MD blood pressure, cuff size regular Ta naomi Carreno blood pressure, diastolic 86 mm[Hg] Ta bitha Carreno blood pressure, systolic 140 mm[Hg] Tab itha Carreno oxygen saturation, oximetry 97 % Raven Carreno pulse rate 95 /min Raven Carreno respiratory rate E&M 12 /min Raven Carreno weight E&M 228 [lb_av] Raven Carreno height E&M 76 [in_i] Raven Carreno Body Mass Index (Ratio) 28.24 kg/m2 Bjorn Duarte MD respiratory rate E&M 16 /min [facility] pulse rate 81 /min [facility] weight E&M 232 [lb_av] [facility] blood pressure, cuff size regular Vi pin [facility] blood pressure, diastolic 79 mm[Hg] Vi pin [facility] blood pressure, systolic 125 mm[Hg] [facility] in [facility] oxygen saturation, oximetry 98 % [facility] height E&M 76 [in_i] [facility] Body Mass Index (Ratio) 28.72 kg/m2 Bjorn Duarte MD blood pressure, diastolic 60 mm[Hg] Li blood pressure, systolic 115 mm[Hg] Belinda blood pressure, cuff size regular Ja rret blood pressure, diastolic 60 mm[Hg] Ja rret blood pressure, systolic 115 mm[Hg] Jar pulse rate 57 /min [facility] oxygen saturation, oximetry 95 % Dirk respiratory rate E&M 14 /min Dirk weight E&M 236 [lb_av] [facility] y height E&M 76 [in_i] [facility] y Body Mass Index (Ratio) 28.60 kg/m2 Bjorn Duarte MD blood pressure, diastolic 71 mm[Hg] Lauren blood pressure, systolic 130 mm[Hg] blood pressure, cuff size [facility], diastolic 71 mm[Hg] Ja rret blood pressure, systolic 130 mm[Hg] [facility] oxygen saturation, oximetry 98 % [facility] respiratory rate E&M 12 /min [facility] weight E&M 235 [lb_av] [facility] y height E&M 76 [in_i] [facility] y Body Mass Index (Ratio) 29.45 kg/m2 Bjorn Duarte MD blood pressure, diastolic 83 mm[Hg] Lauren Loglashay blood pressure, systolic 123 mm[Hg] Belinda blood pressure, diastolic 83 mm[Hg] An toño Shepherd blood pressure, systolic 123 mm[Hg] Analia Shepherd pulse rate 74 /min Josiane Shepherd blood pressure, cuff size large An toño Jaoo oxygen saturation, oximetry 99 % Josiane Joao weight E&M 242 [lb_av] Josiane Joao height E&M 76 [in_i] Josiane Joao Body Mass Index (Ratio) 29.47 kg/m2 Melissa delcid Leidy blood pressure, diastolic 68 mm[Hg] Lauren [facility] blood pressure, systolic 153 mm[Hg] Belinda [facility] blood pressure, diastolic 68 mm[Hg] Lauren [facility] blood pressure, systolic 153 mm[Hg] Belinda [facility] weight E&M 242.1 [lb_av] Qing Borrego pulse rate 65 /min Qing Borrego respiratory rate E&M 20 /min Qing Borrego blood pressure, cuff size regular dong Borrego blood pressure, diastolic 68 mm[Hg] dong Borrego blood pressure, systolic 153 mm[Hg] [facility] jimmy Borrego oxygen saturation, oximetry 97 % Qing Borrego height E&M 76 [in_i] Qing Borrego Body Mass Index (Ratio) 27.99 kg/m2 Bjorn Duarte MD blood pressure, diastolic 80 mm[Hg] Te liat Morgan blood pressure, systolic 151 mm[Hg] Ter i Morgan oxygen saturation, oximetry 97 % Socorro Cathy respiratory rate E&M 15 /min Socorro Zeyad albarran pulse rate 49 /min Socorro Morgan weight E&M 230 [lb_av] Socorro Morgan Body Mass Index (Ratio) 28.48 kg/m2 Bjorn Duarte MD blood pressure, diastolic 86 mm[Hg] Lauren Guy blood pressure, systolic 164 mm[Hg] [facility], diastolic 86 mm[Hg] Scarlett orozco [place] blood pressure, systolic 164 mm[Hg] Brian flynn [place] oxygen saturation, oximetry 96 % Juju [place] pulse rate 87 /min Juju Brice yaniv weight E&M 234 [lb_av] Juju Ishaancrow yaniv blood pressure, cuff size 234large Scarlett orozco [place] respiratory rate E&M 16 /min Leidy shaw [place] height E&M 76 [in_i] Juju Babs cole Body Mass Index (Ratio) 29.09 kg/m2 Melissa bhavin Forbes pulse rate 54 /min Chastity Debbie [...] Duarte MD blood pressure, diastolic 72 mm[Hg] Li nkLogic blood pressure, systolic 134 mm[Hg] Belinda kLogic blood pressure, diastolic 72 mm[Hg] Ca therine [place] blood pressure, systolic 134 mm[Hg] Cat herine Darren oxygen saturation, oximetry 98 % Madhavi Darren respiratory rate E&M 16 /min Catheri ne [place] pulse rate 56 /min Madhavi Darren weight E&M 237 [lb_av] Madhavi [place] blood pressure, cuff size regular Ca elisabetine [place] height E&M 76 [in_i] Madhavi [place] Body Mass Index (Ratio) 28.36 kg/m2 Bjorn Duarte MD blood pressure, diastolic 70 mm[Hg] Li nkLogic blood pressure, systolic 130 mm[Hg] Belinda kLogic blood pressure, diastolic 70 mm[Hg] Kyle Oritz blood pressure, systolic 130 mm[Hg] Trixie Ortiz oxygen saturation, oximetry 97 % Roque Montesenson respiratory rate E&M 16 /min JacklynPeyton jeffrey MontesOrtiz pulse rate 59 /min Roque Grijalva nschristiano weight E&M 233 [lb_av] Roque Rudi nson height E&M 76 [in_i] Roque Grijalva nson Body Mass Index (Ratio) 28.72 kg/m2 Bjorn [...] Body Mass Index (Ratio) 28.72 kg/m2 Raudel Rios pulse rate 101 /min Jocelyne myers oxygen saturation, oximetry 97 % Jocelyne Ellis blood pressure, diastolic 91 mm[Hg] Cy nthielena Ellis blood pressure, systolic 131 mm[Hg] Melissa thia Caleb blood pressure, cuff size regular Cy grecia Ellis respiratory rate E&M 16 /min Jocelynejarvis Ellis weight E&M 236 [lb_av] Jocelyne Singletonbel l height E&M 76 [in_i] Jocelyne Singletonbel l Body Mass Index (Ratio) 28.60 kg/m2 Raudel mariama [facility] temperature site temporal [facility] temperature E&M 96.4 [degF] Acacia Cyr e blood pressure, diastolic 58 mm[Hg] Cy grecia Ellis blood pressure, systolic 102 mm[Hg] Melissa jarvis Ellis respiratory rate E&M 16 /min Jocelynejarvis Ellis pulse rate 66 /min Jocelyne Singletonbel l oxygen saturation, oximetry 96 % Jocelyne Ellis weight E&M 235 [lb_av] Jocelyne Singletonbel l blood pressure, cuff size regular Cy grecia Ellis height E&M 76 [in_i] Jocelyne Singletonbel l Body Mass Index (Ratio) 29.21 kg/m2 Marci Garcia MD blood pressure, cuff size regular Cy grecia Ellis blood pressure, diastolic 70 mm[Hg] Cy grecia Ellis blood pressure, systolic 140 mm[Hg] Melissa jarvis Ellis oxygen saturation, oximetry 97 % Jocelynejarvis Ellis respiratory rate E&M 16 /min Jocelynejarvis Ellis pulse rate 74 /min Jocelynejarvis Singletonbel l weight E&M 240 [lb_av] Jocelyne aMnibel l height E&M 76 [in_i] Jocelyne Manibel l Body Mass Index (Ratio) 29.70 kg/m2 Raudel mariama Schaferbritney oxygen saturation, oximetry 97 % Chastity Debbie pulse rate 73 /min Chastity Debbie blood pressure, diastolic 82 mm[Hg] astity Debbie blood pressure, systolic 146 mm[Hg] Maine esteban Debbie respiratory rate E&M 16 /min Brianit lizz Debbie weight E&M 244 [lb_av] Mainestity Debbie height E&M 76 [in_i] [facility] Body [facility] Index (Ratio) 29.09 kg/m2 Raudel mariama Rios blood pressure, cuff size regular Cy grecia Ellis blood pressure, diastolic 64 mm[Hg] Cy grecia Ellis blood pressure, systolic 130 mm[Hg] Melissa Ellis oxygen saturation, oximetry 96 % Jocelyne Ellis respiratory rate E&M 16 /min Jocelyne Ellis pulse rate 65 /min Jocelyne Fisher l weight E&M 239 [lb_av] Jocelyne Singletonbel l height E&M 76 [in_i] Jocelyne Campbel l Body Mass Index (Ratio) 29.70 kg/m2 Bjorn Duarte MD blood pressure, diastolic 66 mm[Hg] Da tu Bienvenido blood pressure, systolic 112 mm[Hg] Dac ia [place] oxygen saturation, oximetry 97 % Eva [place] respiratory rate E&M 16 /min Eva V [...] Ellis blood pressure, systolic 180 mm[Hg] Melissa Ellis weight E&M 237 [lb_av] Jocelyne myers pulse rate 61 /min Jocelyne myers respiratory [...] [in_i] Eva Bienvenido Body Mass Index (Ratio) 29.38 kg/m2 Juan Pemberton blood pressure, diastolic 80 mm[Hg] Kyle Ortiz blood pressure, systolic 151 mm[Hg] Trixie Ortiz oxygen saturation, oximetry 97 % Roque Ortiz respiratory rate E&M 18 /min Jessica Ortiz pulse rate 64 /min Roque zamarripa weight E&M 241.4 [lb_av] Roque mann height E&M 76 [in_i] Roque zamarripa Body Mass Index (Ratio) 28.72 kg/m2 Antonio [...] MD blood pressure, diastolic 89 mm[Hg] Kyle Ortiz blood pressure, systolic 169 mm[Hg] Trixie Ortiz oxygen saturation, oximetry 98 % Roque Angel respiratory rate E&M 18 /min Jessica Ortiz pulse rate 63 /min Roque zamarripa weight E&M 239 [lb_av] Roque zamarripa height E&M 76 [in_i] Roque Grijalva christiano blood pressure, diastolic, left arm 79 mm [Hg] Acacia Jerome blood pressure, systolic, left arm 134 mm [Hg] Acacia Jerome blood pressure, diastolic, right arm 74 m m[Hg] Acacia Jerome blood pressure, systolic, right arm 135 m m[Hg] Acacia Jerome blood pressure, diastolic 79 mm[Hg] In kenny Cano blood pressure, systolic 134 mm[Hg] Melina dixie Jerome pulse rate 62 /min Acacia Jerome oxygen saturation, oximetry 98 % Acacia Jerome respiratory rate E&M 16 /min Acacia Jerome Body Mass Index (Ratio) 28.48 kg/m2 Dianayancy mcmullen Jerome weight E&M 234 [lb_av] Acacia Jerome blood pressure, diastolic 82 mm[Hg] Toan Herreras RN blood pressure, systolic 150 mm[Hg] Reginald Herreras RN pulse rate 62 /min Reginald Herreras RN height E&M 76 [in_i] Reginald Weaver RN height in centimeters E&M 193.04 cm Tona Weaver RN blood pressure, diastolic 69 mm[Hg] Ke jenniferi Pranav blood pressure, systolic 118 mm[Hg] Meghan josue Pranav pulse rate 68 /min Aurora Mere lder oxygen saturation, oximetry 98 % Aurora Pranav respiratory rate E&M 16 /min Aurora Lion marsha Body Mass Index (Ratio) 28.37 kg/m2 Long i Pranav weight E&M 230 [lb_av] Aurora Zavalachris lder blood pressure, diastolic 69 mm[Hg] Me cox Duron blood pressure, systolic 116 mm[Hg] eMlina louisa Duron pulse rate 74 /min Acacia Duron oxygen saturation, oximetry 97 % Acacia Duron respiratory rate E&M 14 /min Acacia Duron Body Mass Index (Ratio) 28.12 kg/m2 Diana ssa [place] weight E&M 228 [lb_av] Acacia Duron blood pressure, diastolic 80 mm[Hg] Me kenny Duron blood pressure, systolic 157 mm[Hg] Melina dixie Duron pulse rate 62 /min Acacia Duron oxygen saturation, oximetry 98 % Acacia Duron respiratory rate E&M 14 /min Acacia Duron Body Mass Index (Ratio) 28.12 kg/m2 Diana ssa [place] weight E&M 228 [lb_av] Acacia Duron Body Mass Index (Ratio) 28.37 kg/m2 Diana ssa Duron blood pressure, diastolic 77 mm[Hg] Me kenny Duron blood pressure, systolic 152 mm[Hg] Melina dixie Duron pulse rate 70 /min Acacia Duron oxygen saturation, oximetry 98 % Acacia Duron respiratory rate E&M 15 /min Acacia Duron weight E&M 230 [lb_av] Acacia Duron blood pressure, diastolic 78 mm[Hg] Kyle Ortiz blood pressure, systolic 132 mm[Hg] Trixie Dallas Ortiz Body Mass Index (Ratio) 28.34 kg/m2 Jacklyn Ortiz pulse rate 63 /min Roque zamarripa oxygen saturation, oximetry 94 % Roque Ortiz respiratory rate E&M 16 /min Jessica Ortiz weight E&M 229.8 [lb_av] Roque Montes enson Body Mass Index (Ratio) 28.12 kg/m2 [facility] blood pressure, diastolic 78 mm[Hg] Me kenny [...] ri Pranav pulse rate 60 /min Aurora Mere gordon oxygen saturation, oximetry 98 % Aurora Pranav respiratory rate E&M 17 /min Aurora larson weight E&M 242 [lb_av] Aurora gordon blood pressure, diastolic 84 mm[Hg] Toan Weaver RN blood pressure, systolic 145 mm[Hg] Reginald Weaver RN pulse rate 67 /min Reginald Weaver RN oxygen saturation, oximetry 98 % Reginald Herreras RN respiratory rate E&M 18 /min Reginald [facility] RN Body Mass Index (Ratio) 29.21 kg/m2 Reginald Herreras RN weight E&M 236 [lb_av] Reginald Herreras RN Body Mass Index (Ratio) 29.46 kg/m2 Debbie Henderson blood pressure, fontanez tolic, second observation 92 mm[Hg] Sandi Henderson blood pressure, syst olic, second observation 155 mm[Hg] Sandi Henderson blood pressure, diastolic 92 mm[Hg] Na eric Henderson blood pressure, systolic 155 mm[Hg] Tisha alec Henderson pulse rate 62 /min Sandi Henderson [...] Brand Body Mass Index (Ratio) 29.34 kg/m2 Ethan Rock blood pressure, diastolic 58 mm[Hg] Ke rri Dexelder blood pressure, systolic 98 mm[Hg] Meghan ri Dexelder pulse rate 67 /min Aurora Severino lder oxygen saturation, oximetry 97 % Aurora Kowalskielder respiratory rate E&M 17 /min Aurora campoeldministerio weight E&M 237 [lb_av] Aurora Severino lder Body Mass Index (Ratio) 30.08 kg/m2 Ethan Kowalskielder blood pressure, diastolic 86 mm[Hg] Ke [facility]ri [facility] blood [facility], systolic 172 mm[Hg] Meghan Kowalskisimaministerio pulse rate 65 /min Aurora Severino er oxygen saturation, oximetry 98 % Aurora Kowalskisimaministerio respiratory rate E&M 17 /min Aurora campoelder weight E&M 243 [lb_av] Aurora Severino er Body Mass Index (Ratio) 30.70 kg/m2 Cole [...] E&M 16 /min Abdi Manacop weight E&M 248 [lb_av] Abdi Manacop Body Mass Index (Ratio) 29.96 kg/m2 Bjorn [...] armijo RN weight E&M 244 [lb_av] Reginald Weaver RN weight E&M 239 [lb_av] Reginald Weaver [...] RN oxygen saturation, oximetry 95 % Reginald Herreraadriana DEVI respiratory rate E&M 16 /min Reginald Will armijo RN weight E&M 249 [lb_av] Reginald Herreras RN blood pressure, diastolic, left arm 78 [...] Elaine respiratory rate E&M 18 /min Doug mondragon weight E&M 242 [lb_av] Doug Elaine ALLERGIES [...] LinkLogic 3.5-5.2 sodium, serum 142 mmol/L LinkLogic [phone]/01 /01 urea nitrogen/creatinine ratio, serum 20 LinkLogic [...] Arizmendi RN HDL cholesterol, serum 40 mg/dL Jacklyn Arizmendi RN LDL cholesterol, serum 54 mg/dL Jacklyn Arizmendi RN cholesterol, serum 122 mg/dL Jacklyn Arizmendi RN 2011/03 /03 alanine aminotransferase (SGPT), serum 19 1/L [facility] aspartate aminotransferase (SGOT), serum 19 1/L [facility] blood glucose, fasting 102 mg/dL [facility] creatinine, serum 1.08 mg/dL [facility] urea nitrogen, blood 17 mg/dL [facility] carbon dioxide, serum, total 28 mmol/L [facility] chloride, serum 103 mmol/L [facility] potassium, serum 3.6 mmol/L [facility] sodium, serum 139 mmol/L [facility] prothrombin time (patient) 10.7 s [facility] international normalized ratio (INR) 1.0 [facility] platelet count 224 10*3/uL [facility] red blood cell distribution width 11.5 % [facility] mean corpuscular hemoglobin concentration, RBC 34.9 g/dL [facility] mean corpuscular hemoglobin, RBC 30.2 pg [facility] mean corpuscular volume, RBC 86.6 fL [facility] hematocrit, blood 43.9 % [facility] hemoglobin, blood 15.3 g/dL [facility] erythrocyte (RBC) count 5.07 10*6/mm3 [facility] monocytes as percent of blood leukocytes 8.1 % [facility] lymphocytes as percent of blood leukocytes 25.6 % [facility] leukocyte count, blood 5.9 10*3/mm3 [facility] estimated glomerular filtration rate >60 [facility] calcium, serum 9.3 mg/dL [facility] blood glucose, fasting 114 mg/dL [facility] creatinine, serum 1.18 mg/dL [facility] urea nitrogen, blood 20.4 mg/dL [facility] carbon dioxide, serum, total 29 mmol/L [facility] chloride, serum 105 mmol/L [facility] potassium, serum 3.9 mmol/L [facility] sodium, serum 139 mmol/L [facility] platelet count 179 THOUSAND/UL LinkLog 140-400 Normal red blood cell distribution width 12.7 % LinkLog 11.0-15.0 Normal mean corpuscular hemoglobin concentration, RBC 34.0 G/DL LinkLogic 32.0-36.0 Normal mean corpuscular hemoglobin, RBC 31.1 pg [employer]Logic 27.0-33.0 Normal mean corpuscular volume, RBC 91.4 fL LinkLog 80.0-100.0 Normal hematocrit, blood 42.9 % LinkLog 38.5-50.0 Normal hemoglobin electrophoresis, blood 14.6 LinkLogic [...] USE Medication Status Instructions Dates Provider Indications [facility] sotalol 80 mg tablet active TAKE 1 1/2 TABLET TWICE DAILY 02/11 Reginald Weaver RN isosorbide mononitrate 60 mg tablet extended release 24 hr active Take 1 tablet by mouth once a day 01/24 [place] tramadol 50 mg tablet active 1 tablet [...] twice a day 07/09 - 11/10 Leena Alexia SIDDIQUI sotalol 80 mg tablet completed TAKE 1 TABLET TWICE DAILY 04/14 - 02/11 Reginald Weaver RN isosorbide mononitrate 60 mg tablet extended release 24 hr completed TAKE 1 TABLET BY MOUTH EVERY DAY 02/04 - 01/24 [place] gabapentin 100 mg capsule active Take 1 capsule by mouth once a day as needed for pain Tania Duarte MD dutasteride 0.5 mg capsule active [facility] Eliquis 5 mg tablet active TAKE 1 TABLE T BY MOUTH TWICE DAILY 06/13 Shonna Pimentel isosorbide mononitrate 60 mg tablet extended release 24 hr completed Take 1 tablet by mouth once a day TAKE 1 TABLET BY MOUTH EVERY DAY 02/23 - 02/04 Qing Borrego sotalol 80 mg tablet completed Take 1/2 tablet by mouth twice a day - 04/14 [facility] amlodipine 5 mg tablet active TAKE 1 TABLET BY MOUTH ONCE DAILY 12/14 Carole Jennings Plavix 75 mg tablet completed TAKE 1 TABLE T BY MOUTH DAILY 11/05 - 07/18 [facility] lisinopril 20 mg tablet active TAKE 1 [...] once a day 12/15 - 12/14 Varsha Johnson sotalol 80 mg tablet completed TAKE 1/2 [...] dose, go to ER 07/20 Leena Hale [employer] Nitrolingual 400 mcg/spray spray,non-aerosol completed [place] 1 spray using inhaler single dose as [...] once a day 05/03 - 12/15 Jocelyne Ellis COMPASS ASA/ RIVAROXABAN completed ASA 100mg once daily and Rivaroxaban 2.5mg BID 03/19 - 12/11 Acacia Duron ASPIRIN ADULT LOW DOSE 81 MG ORAL TABLET DELAYED RELEASE completed One Tab By Mouth Daily 03/17 - 03/19 [facility] COMPASS PROTONIX VS PLACEBO completed 11/25 - 03/19 [facility] ASA/ RIVAROXABAN completed 11/25 - 03/16 Acacia Duron ACID CONTROL 150 MG ORAL TABLET completed take one pill twice a day 11/18 - 12/01 Jocelyneelena Ellis RANEXA 500 MG ORAL TABLET EXTENDED RELEASE 12 HOUR completed ONE TAB. TWICE DAILY for chronic angina 08/04 - 05/23 [place] isosorbide mononitrate 60 mg tablet extended release 24 hr completed Take 1 tablet by mouth once a day 04/29 - 02/20 Opal Meade ASPIRIN 81 MG ORAL TABLET completed ONE [...] Tania Duarte MD CAD-VISION LAD & RCA 2007, XIENCE OM2 2010 S/P mid LAD stent 07/20, pLAD PCI 06/2022 Vitamin B-12 1,000 mcg tablet active 1 tablet once a day Roque Ortiz MIQUEL PROTONIX VS PLACEBO completed 02/23 - 08/04 [...] po once daily 12/21 - 05/23 Maylin Barnd NITROSTAT 0.4 MG SUBLINGUAL TABLET SUBLINGUAL completed s/l prn for pain 12/21 - 02/11 Reginald Weaver RN Avodart 0.5 mg capsule completed 1 capsule by mouth once a day 11/09 - 06/29 Juju Bourne LIPITOR 10 MG ORAL TABLET completed ONE [...] RN SOCIAL HISTORY Date Observation Value Provider personal history of marijuana use no Tania Duarte MD drug use no Tania Duarte MD alcohol use no Tania Duarte MD passive cigarette sm mando exposure no Tania Duarte MD chewing tobacco use Never Tania Duarte MD smoking status Never smoker Tania conde MD personal history of marijuana use no Tania Duarte MD drug use no Tania Duarte MD alcohol use no Tania Duarte MD passive cigarette sm mando exposure no Tania Duarte MD chewing tobacco use Never Tania Duarte MD smoking status Never smoker Tania conde MD number of grandchildren Kiana Sevilla personal history of marijuana use no Yoan Sevilla drug use no Yoan Sevilla alcohol use no Yoan Sevilla passive cigarette sm mando exposure no Yoan Nacht chewing tobacco use Never Yoan Ann cht smoking status Never smoker Yoan Roel personal history of marijuana use no Tnaia Duarte MD drug use no Tania Duarte MD alcohol use no Tania Duarte MD passive cigarette sm mando exposure no Tania Duarte MD chewing tobacco use Never Tania Duarte MD smoking status Never smoker Tania conde MD personal history of marijuana use no Leena Ventimiglia [employer] drug use no Leena 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 [employer] alcohol use no Leena 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 [employer] passive cigarette sm mando exposure no Leena Ventimiglia [employer] chewing tobacco use Never Leena V entimiglia [employer] smoking status Never smoker Leena Ventim iglia [employer] personal history of marijuana use no Tania Duarte MD drug use no Tania Duarte MD alcohol use no Tanai Duarte MD passive cigarette sm mando exposure no Tania Duarte MD chewing tobacco use Never Tania Duarte MD smoking status Never smoker Tania conde MD personal history of marijuana use no Leena Ventimiglia [employer] drug use no Leena 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 [employer] alcohol use no Leena 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 [employer] passive cigarette sm mando exposure no Leena Ventimiglia [employer] chewing tobacco use Never Leena V entimiglia [employer] smoking status Never smoker Leena Ventim iglia [employer] personal history of marijuana use no Leena Ventimiglia [employer] drug use no Leena 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 [facility] alcohol use no Leena 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 [employer] passive cigarette sm mando exposure no Leena Ventimiglia [facility] chewing tobacco use Never Leena V entimiglia [facility] smoking status Never smoker Leena Ventim iglia [facility] drug use no Tania Duarte MD alcohol [...] MD drug use no Leena 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 [facility] alcohol use no Leena 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 [facility] social history reviewed E&M revi ewed - no changes required Leena Ventimiglia [facility] social history E&M Marital Statu s: L buddy with family/friends E thnicity: Smoking History: P atchris has never smoked. Leena Ventimiglia [facility] seatbelt usage 100 % Josiane Shepherd physical exercise, frequency, days per week yes Josiane Shepherd caffeine use, averag e drinks per day 4 /d Josiane Shepherd passive cigarette sm mando exposure no Josianeelena Shepherd chewing tobacco use Never Josiane Thony damon smoking status Never smoker Josiane Joao social history E&M Marital Statu s: L buddy with family/friends E thnicity: Smoking History: P bridger has never smoked. Tania Duarte MD social history reviewed E&M revi ewed - no changes required Tania Durate MD smoking status Never smoker Qing Borrego social history E&M Marital Statu s: L [...] Socorro Morgan chewing tobacco use Never Socorro Pic kett smoking status Never smoker Socorro Morgan social history E&M Marital Statu s: L buddy with family/friends E thnicity: Smoking History: Sam sparks has never smoked. Tania Duarte MD social history reviewed E&M revi ewed - no changes required Tania Duarte MD smoking status Never smoker Juju Rodrigues physical exercise, frequency, days per week yes [...] physical exercise, frequency, days per week yes RoqueYael Montesenson caffeine use, averag e drinks per day 1+ RoqueYael Montesenson passive cigarette sm mando exposure no RoqueYael Montesenson smoking status Never smoker Roque Cochran physical [...] Smoking History: Sam sparks has never smoked. Isak Rios social history reviewed E&M revi ewed - no changes required Isak Gabriel physical exercise, frequency, days per week yes [...] Smoking History: P bridger has never smoked. Stacia Calloway NP social [...] physical exercise, frequency, days per week yes Cammy Lewis caffeine use, averag e drinks per day 1+ Mainestrobbin Lewis passive cigarette sm mando exposure no Cammy Lewis smoking status Never smoker Cammy Aceu e social history E&M Marital Statu s: L buddy with family/friends E thnicity: Smoking History: P bridger has never smoked. Tania Duarte MD social history reviewed E&M revi ewed - no changes required Tania Duarte MD physical exercise, frequency, days per week yes Jocelyne Ellis caffeine use, averag e drinks per day 1+ Jocelyne Caleb passive cigarette sm mando exposure no Jocelyne Caleb smoking status Never smoker Jocelyne Yassine ferris social history E&M Marital Statu s: L buddy with family/friends E thnicity: Smoking History: P atient has never smoked. Tania Duarte MD social history reviewed E&M revi ewed - no changes required Tania Duarte MD physical exercise, frequency, days per week yes [facility] alcohol counseling no [facility] s In the past 3 months , have you been waking up wanting to use drugs? (CAGE substance use question #4) N [facility] In the past 3 months , have you felt guilty or bad about using drugs? (CAGE substance use question #3) N [facility] In the past 3 months , has anyone annoyed you by telling you to cut down or stop using drugs? (CAGE substance use question #2) N [facility] In the past 3 months , have you felt you should cut down or stop using drugs?(CAGE substance use question #1) N [facility] alcohol use, average drinks per day <1 [facility] alcohol use, type wine [facility] alcohol use no [facility] caffeine use, averag e drinks per day 1+ [facility] drug use no [facility] passive cigarette sm mando exposure no [facility] smoking status Never smoker Eva [place] social history E&M Marital Statu s: L buddy with family/friends E thnicity: Smoking History: P atient has never smoked. Tania Duarte MD social history reviewed E&M revi ewed - no changes required Tania Duarte MD physical exercise, frequency, days per week yes Jocelyne Ellis alcohol counseling no Jocelyneelena ocampo In the past 3 months , [...] 1+ Jocelyne Ellis drug use no Jocelyne Natalia myers passive cigarette sm mando exposure no Jocelyne Ellis smoking status Never smoker Jocelyne ferris social history E&M Marital Statu s: L buddy with family/friends E thnicity: Smoking History: P bridger has never smoked. Tania Duarte MD social history reviewed E&M revi ewed - no changes required Tania Duarte MD physical exercise, frequency, days per week yes Eva Faria alcohol counseling no Eva Mckeons adriana In the past 3 months , have you been waking up wanting to use drugs? (CAGE substance use question #4) N Eva Bienvenido In the past 3 months , have you felt guilty or bad about using drugs? (CAGE substance use question #3) N Eva Bienvenido In the past 3 months , has anyone annoyed you by telling you to cut down or stop using drugs? (CAGE substance use question #2) N Eva Bienvenido In the past 3 months , have you felt you should cut down or stop using drugs?(CAGE substance use question #1) N Eva Bienvenido alcohol use, average drinks per day <1 Eva Bienvenido alcohol use, type wine Eva Bienvenido alcohol use no Eva Bienvenido caffeine use, averag e drinks per day 1+ Eva Bienvenido drug use no Eva Bienvenido passive cigarette sm mando exposure no Eva Bienvenido smoking status Never smoker Eva Bienvenido social history reviewed E&M revi ewed - [...] 1+ Roque Ortiz drug use no Roque Grijalva nson passive cigarette sm mando exposure no Roque Ortiz smoking status Never smoker Roque Cochran number of grandchildren Tania Duarte MD social history reviewed E&M revi ewed - no changes required Tania Duarte MD social history E&M Marital Statu s: L buddy with family/friends E thnicity: Smoking History: Sam sparks has never smoked. Tania Duarte MD physical exercise, frequency, days per week yes [facility] alcohol counseling no [facility] s In the past 3 months , have you been waking up wanting to use drugs? (CAGE substance use question #4) N [facility] In the past 3 months , have you felt guilty or bad about using drugs? (CAGE substance use question #3) N [facility] In the past 3 months , has anyone annoyed you by telling you to cut down or stop using drugs? (CAGE substance use question #2) N [facility] In the past 3 months , have you felt you should cut down or stop using drugs?(CAGE substance use question #1) N [facility] alcohol use, average drinks per day <1 [facility] alcohol use, type wine [facility] alcohol use no [facility] caffeine use, averag e drinks per day 1+ Srinivasan Angelo drug use no [facility] passive cigarette sm mando exposure no [facility] smoking status Never smoker [facility] smoking status Never smoker Tania conde MD [...] cigarette sm mando exposure no Roque Ortiz social history reviewed E&M revi ewed - [...] Acacia Cano alcohol use, type wine Acacia Hameed kenneth alcohol use no Acacia Cano caffeine use, [...] Tania Duarte MD alcohol use no Aurora Severino lder smoking status Never smoker Aurora García maurisio social history reviewed E&M revi ewed - no changes required Tania Duarte MD physical exercise, frequency, days per week yes Acacia Duron alcohol counseling no Acacia Monroy Juan Manuel In the past 3 months , have you been waking up wanting to use drugs? (CAGE substance use question #4) N Acacia Sloanann In the past 3 months , have you felt guilty or bad about using drugs? (CAGE substance use question #3) N Acacia Duron In the past 3 months , has anyone annoyed you by telling you to cut down or stop using drugs? (CAGE substance use question #2) N Acacia Sloanann In the past 3 months , have you felt you should cut down or stop using drugs?(CAGE substance use question #1) N Acacia Sloanann alcohol use, average drinks per day <1 Acacia Duron alcohol use, type wine Acacia Cal Mandujano alcohol use no Acacia Sloanann caffeine use, averag e drinks per day yes Acacia Duron drug use no Acacia Duron passive cigarette sm mando exposure no Acacia Sloanann smoking status Never smoker Acacia Molina mariama social history E&M Marital Statu s: L buddy with family/friends E thnicity: Smoking History: P brigder has never smoked. Tania Duarte MD social history reviewed E&M revi ewed - no changes required Tania Duarte MD physical exercise, frequency, days per week yes Acacia Sloanann alcohol counseling no Acacia Monroy Juan Manuel [...] Acacia Duron alcohol use, type wine Acacia Cal Mandujano alcohol use no Acacia Duron caffeine use, [...] using drugs?(CAGE substance use question #1) N Acaicadixie Duron alcohol use, average drinks per day <1 Acacia Duron alcohol use, type wine Acacia Medrano alcohol use no Acacia Duron caffeine use, averag e drinks per day yes Acacia Duron drug use no Acacia Duron passive cigarette sm mando exposure no Acacia Duron smoking status Never smoker Acacia Molina mariama social history E&M Marital Statu s: Seth goodwin with family/friends E thnicity: Smoking History: P [...] yes Roque Ortiz drug use no Roque Montese dallin passive cigarette sm mando exposure no Roque Ortiz smoking status Never smoker Roque Cochran social history reviewed E&M revi ewed - [...] Acacia Mccall Nazia alcohol use no Acacia Duron caffeine use, averag e drinks per day yes Acacia Duron drug use no Acacia Duron passive cigarette sm mando exposure no Acacia Duron smoking status Never smoker Acacia Molina mariama social history E&M Marital Statu s: L buddy with family/friends E thnicity: Smoking History: P atchris has never smoked. Tania Duarte MD social history reviewed E&M i ewed - no changes required Tania Duarte MD alcohol use no Aurora gordon smoking status Never smoker Aurora forde social history reviewed E&M reviewed Reginald Weaver RN social history reviewed E&M reviewed Tania Duarte MD social history reviewed E&M reviewed Tania Duatre MD drug use no Maylin Brand alcohol counseling no Maylin francis In the past 3 months , have you been waking up wanting to use drugs? (CAGE substance use question #4) N Denyean Brand In the past 3 months , [...] alcohol use, average drinks per day none [facility] Date Observation Value Provider HRA, CV Assess/Plan, Angina (inactive) Management Plan continue current therapy, antianginal therapy Tania Duarte MD HRA, CV Assess/Plan, Angina (inactive) Management Plan continue current therapy Yoan Sevilla HRA, CV Assess/Plan, Angina (inactive) Management Plan continue current therapy Tania Duarte MD HRA, CV Assess/Plan, Angina (inactive) Management Plan continue current therapy Tania Duarte MD HRA, CV Assess/Plan, Angina (inactive) Management Plan continue current therapy Leena Ventimiglia [employer] HRA, CV Assess/Plan, Angina (inactive) Management Plan continue current therapy Leena Ventimiglia [employer] HRA, CV Assess/Plan, Angina (inactive) Management Plan antianginal therapy Leena Ventimiglia [employer] HRA, CV Assess/Plan, Angina (inactive) Management Plan continue current therapy Tania Duarte MD HRA, CV Assess/Plan, Angina (inactive) Management Plan continue current therapy Tania Duarte MD HRA, CV Assess/Plan, Angina (inactive) Management Plan continue current therapy Leena Ventimiglia [employer] HRA, CV Assess/Plan, Angina (inactive) Management Plan [...] person. Mood and affect are normal. Reginald Herreras SHANDRA assessment of judgme nt and insight E&M Alert and oriented to time, place and person. Mood and affect are normal. Reginald Herreras SHANDRA assessment of judgme nt and insight [...] person. Mood and affect are normal. Reginald Herreras SHANDRA assessment of judgme nt and insight [...] Payer name Policy type / Coverage type Regina red republican ID [employer] MEDICARE [place] PPO Medicare [id number] ADVANCE DIRECTIVES Name Date LIVING WILL ON FILE DISCUSSED - NO DECISION MADE TREATMENT PLAN Date Name Performer [id number],S,s light chest discomfort lasting less than 1 [...] 3 tablets per episode. Tania Duarte MD [id number],S,o n statins His updated medication list for this problem includes: Atorvastatin 20 Mg Tablet (Atorvastatin) ..... 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 Will [...] of 3 tablets per episode. Leena Hale [facility] [id number],W,E KG showed afib. He is symptomatic with [...] mouth daily Orders: 9 9214 MOD 30-39min (CPT-61206) B ASIC METABOLIC PANEL W/EGFR (25581) B TYPE NATRIURETIC PEPTIDE (BNP) (24132) C BC (H/H, RBC, INDICES, WBC, PLT) (1759) T SH, free T4, total T3 (7444) C ardioversion (50491) P ROTHROMBIN TIME WITH INR (8847) M AGNESIUM (622) Leena Hale [facility] [id number],S,L ast LDL showed 75. Continue on Statin. Aim for LDL less than 70. H is updated medication list for this problem includes: Atorvastatin 20 Mg Tablet (Atorvastatin) ..... Take 1 tablet by mouth daily Leena Hale [facility] [id number],C,F oot swelling bilaterally. Will check venous duplex Tania Duarte MD [id number],C,B P elevated today at 153/68. Advised reduced sodium intake and routine monitoring of the blood pressure. We aim for less than 130/80. Tania Duarte MD [id number],C, C ontinues on atorvastatin. We aim for an LDL of <70. Tania Duarte MD [id number],C, N o chest pain. Continues on Plavix and nitro as needed Tania Duarte MD [id number],C, P t is in NSR on EKG today. Pt states he continues on sotalol 80 mg 1/3 tab BID. Will continue this dose as he is feeling well, continues in sinus, and QTc 455 ms Tania Duarte MD [id number],C,S otalol was discontinued at his last admission because of bradycardia. Had episodes of fluttering and he resumed medication. Sxs have resolved. Unclear that this was recurrence of afib or PAC's. Tania Duarte MD [id number],C,E pisode of substernum burning, lasted a few minutes, no recurrence. Probably from stress, has multiple stents and had last stent put in in Jun. of last year. We will recommence Plavix. He continues on baby ASA. Tania Duarte MD [id number],C, B P elevated today at 151/80. Advised reduced sodium intake and routine monitoring of the blood pressure. We aim for less than 130/80. Tania Duarte MD [id number],S, Tania smith MD [id number],C, C ontinues on atorvastatin. We aim for an LDL of <70. Tania Duarte MD [id number],S, Tania smith MD [id number],S, S /p PCI of proximal LAD ISR with Dr. Taylor on 06/15/22. Now chest pain free. Continues on DAPT with baby aspirin and plavix. Tania Duarte MD [id number],S, R ecent admission he was bradycardic. Sotalol and xarelto were both discontinued. EKG shows SR, HR 78. Tania Duarte MD [id number],S, C ontinues on atorvastatin. We aim for an LDL of <70. Tania Duarte MD [id number],W, B P elevated today. Advised routine home monitoring and dietary sodium restriction. Tania Duarte MD [id number],S, S /p PCI of proximal LAD ISR with Dr. Taylor on 06/15/22. Now chest pain free. Tania Duarte MD [id number],B, N o chest pain or SOB. Continues on amlodipine and isosorbide. Sagrario Leidy [id number],C, F or about 8 months, he has been having fatigue and headache in the middle of the day, he states it feels like 'it's time for my body to shut down'. This may be due to the sotalol, however his heart rhythm is well controlled on the medication. At this time, he and I agreed to continue the medication. Sagrario Leidy [id number],C, E KG shows SB rate 49. N o longer on Metoprolol. Continues on sotalol Tania Duarte MD [id number],C, B P controlled Tania Duarte MD [id number],C, C ontinues on atorvastatin Tania Duarte MD [id number],C, C ontinues on Ranitidine. Tania Duarte MD [id number],W,E KG shows SB rate 52. W ill decrease Metoprolol to 12.5 mg po at bedtime only. 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 Take 1 tablet by mouth once a day Qing [place] NP [id number],S, H is updated medication list for this [...] mouth once a day Qing [place] NP [id number],C, I n sinus bradycardia on EKG today. He continues on Sotalol 40mg BID and Metoprolol Tartrate 12.5mg BID. QTC 471. On Xarelto for assisted OAC. Tania Duarte MD [id number],C, C ontinues on Advair, Asmanex, Proair. Tania Duarte MD [id number],C, H is recent 05/2021 lab report showed total cholesterol 166, triglycerides 56, LDL 79. Tania Duarte MD [id number],C, H e had recent labs which showed creatinine 1.13 and eGFR >60 which is stable. Tania Duarte MD [id number],C, B P today: 130/70 P rior BP: 140/70 (05/25/2021) Labs Reviewed: C reat: 1.19 (11/05/2020) C hol: 177 (01/28/2014) HDL: 70.0 (07/17/2015) T (01/28/2014) Tania Duarte MD [id number],C, I n sinus bradycardia on EKG today. He continues on Sotalol 40mg BID and Metoprolol Tartrate 12.5mg BID. QTC 475. On Xarelto for assisted OAC. Tania Duarte MD [id number],C, C hest pain free. Stress test with normal perfusion 10/2020. Not on Aspirin due to anticoagulation with Xarelto. Tania Duarte MD [id number],C,H e had recent labs which showed creatinine 1.13 and eGFR >60 which is stable. Tania Duarte MD [id number],C,H is recent 05/2021 lab report showed total cholesterol 166, triglycerides 56, LDL 79. Tania Duarte MD [id number],C,B P is 140/70 today. Advised routine monitoring of the BP and reduced sodium intake. Tania Duarte MD [id number],C,C ontinues on Advair, Asmanex, Proair. Tania Duarte MD [id number],C,I n sinus bradycardia on EKG today. He continues on Sotalol 40mg BID and Metoprolol Tartrate 12.5mg BID. QTC 475. On Xarelto for assisted OAC. Tania Duarte MD [id number],C,C hest pain free. Stress test with normal perfusion 10/2020. Not on Aspirin due to anticoagulation with Xarelto. Tania Duarte MD Cardiology:dropped w ooden board on left foot recently. Foot is still swollen; recommend to use warm foot baths each night and ensure feet are completely dry. Vincent Brenner Cardiology:BP is wel l controlled; continue to monitor, B P today: 126/83 P rior BP: 110/81 (12/31/2024) Labs Reviewed: C reat: 1.19 (11/05/2020) C hol: 177 (01/28/2014) HDL: 70.0 (07/17/2015) LDL: 68 (01/28/2014) T (01/28/2014) His updated medication list for this problem includes: Sotalol 80 Mg Tablet (Sotalol) ..... Take 1 tablet twice daily Lisinopril 20 Mg Tablet (Lisinopril) ..... Take 1 tablet by mouth daily Amlodipine 5 Mg Tablet (Amlodipine) ..... Take 1 tablet by mouth once daily Tania Duarte MD Cardiology:in Afib a t present. I will consult with Dr. Rodriguez as to whether we can start him on tikosyn outside of the hospital. At present feels reasonably well. on OAC with eliquis H is updated medication list for this problem includes: Sotalol 80 Mg Tablet (Sotalol) ..... Take 1 tablet twice daily Tania Duarte MD Cardiology Tania Cole Cardiology:denies an y SOB; uses NTG occasionally for short-lived sweating episodes. H is updated medication list for this problem includes: Isosorbide Mononitrate 60 Mg Tablet Extended Release [...] Take 1 tablet by mouth once daily Tania Duarte MD Cardiology: H is updated medication list for this problem includes: Atorvastatin 20 Mg Tablet (Atorvastatin) ..... Take 1 tablet by mouth daily Tania Duarte MD Cardiology:multifact orial, likely due to his afib which has become more chronic as of late. Discussed with the patient that we may increase sotalol to 120mg twice daily or changing him to another antirhythmic medication per EP Tania Duarte MD Cardiology:Chest amaya n free. Effort tolerance stable. No use of NTG since last visit. c ontinue treating him medically with statin, anticoagulation Tania Duarte MD Cardiology:Patients Afib burden on his most recent device transmission is 85%, he is in afib on his ekg today P t is experiencing fatigue, but no SOB O n sotalol 80mg twice daily, QTC stable Tania Duaret MD Electrophysiology:Ex tensive review of the pertinent [...] O rders: P acemaker, Dual chamber, Insert ([id number]) Kiana Rodriguez MD Electrophysiology: w ith hx [...] sensilase study. Tania Duarte MD Cardiology: r judy in NSR o n Eliquis for AC [...] his coronary anatomy. Tania Duarte MD Cardiology [facility] Cardiology: H is updated medication list for this problem includes: Atorvastatin 20 Mg Tablet (Atorvastatin) ..... Take 1 tablet by mouth daily [facility]:BP 146/74 B chava controlled per patient home reports W ill continue present medication regimen H is updated medication list for this problem includes: Sotalol 80 Mg Tablet (Sotalol) ..... Take 1 tablet twice daily Lisinopril 20 Mg Tablet (Lisinopril) ..... Take 1 tablet by mouth daily Amlodipine 5 Mg Tablet (Amlodipine) ..... Take 1 tablet by mouth once daily [facility] Cardiology:no new ch est pain or pressure [...] Take 1 tablet by mouth every day [facility] Cardiology:His EF is normal with mod AR and aortic stenosis on echo, gradient is 19 W ill monitor closely for progression W ill do f/u echo in 6 mos [facility] Cardiology:remains i n NSR o n Eliquis for AC W ill remain on sotalol H is updated medication list for this problem includes: Sotalol 80 Mg Tablet (Sotalol) ..... Take 1 tablet twice daily Leenavale Hale [facility] Cardiology:chronic f or him Tania Duarte MD [...] ..... Take 1 tablet by mouth daily [facility] Cardiology:This visi t has been a part [...] 70.0 (07/17/2015) LDL: 68 (01/28/2014) T (01/28/2014) [facility] Cardiology:Stress PET-CT negativ e for ishcemia [facility] Cardiology:Plan for cardioverson with Dr Berto MORGAN inicated as he has been taking eliquis for over 1 month H e is symptomatic of the afib p t has verbalized understanding that if his sx are to worsen he should head to nearest ER [facility] Cardiology: H is updated medication list for this problem includes: Atorvastatin 20 Mg Tablet (Atorvastatin) ..... Take 1 tablet by mouth daily [facility] Cardiology:BP 124/70 . continue present med regimen H is updated medication list for this problem includes: Sotalol 80 Mg Tablet (Sotalol) ..... Take 1 tablet twice daily Lisinopril 20 Mg Tablet (Lisinopril) ..... Take 1 tablet by mouth daily Amlodipine 5 Mg Tablet (Amlodipine) ..... Take 1 tablet by mouth once daily [facility] Cardiology:patient p resents today with chest pain similar to how he felt before his MS. New onset atrial fibrillation. E KG no acute ST/T wave changes. He has history of multiple stents with instent restenosis to proximal LAD a year ago P ain resolved with nitro. Plan PET/CT stress. If positive will plan LHC. If negative will consider cardioversion. A dd ranexa. H is updated medication list for this [...] to max of 3 tablets per episode. [facility] Cardiology:Patient p resented today with chest pain [...] Take 1 tablet twice daily Leena Hale [employer] Cardiology: T he following medications were removed [...] mouth daily Tania Duarte MD Cardiology:-Carotid doppler 2019 C ONCLUSIONS: 1 . 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 Will [...] of 3 tablets per episode. Leena Hale [facility] Cardiology:EKG showe d afib. He is symptomatic [...] mouth daily Orders: 9 9214 MOD 30-39min (CPT-40177) B ASIC METABOLIC PANEL W/EGFR (32726) B TYPE NATRIURETIC PEPTIDE (BNP) (63720) C BC (H/H, RBC, INDICES, WBC, PLT) (1759) T SH, free T4, total T3 (5344) C ardioversion (10761) P ROTHROMBIN TIME WITH INR (8847) M AGNESIUM (622) [facility] Cardiology:Last LDL showed 75. Continue on Statin. Aim for LDL less than 70. H is updated medication list for this problem includes: Atorvastatin 20 Mg Tablet (Atorvastatin) ..... Take 1 tablet by mouth daily Charlotte Alexia [facility] Cardiology:Foot swel ling bilaterally. Will check venous [...] PCI of proximal LAD ISR with Dr. aTylor on 06/15/22. Now chest pain free. Continues [...] agreed to continue the medication. Sagrario Forbes Cardiology: E KG shows SB rate 49. N o longer on Metoprolol. Continues on sotalol Tania Duarte MD Cardiology: B P controlled Tania Duarte MD Cardiology: C ontinues on atorvastatin Tania Duarte MD Cardiology: C ontinues on Ranitidine. Tania Duarte MD Cardiology:EKG shows SB rate 52. W ill decrease Metoprolol to 12.5 mg po at bedtime only. 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 Take 1 tablet by mouth once a day Qing Cleveland FAUSTINO Cardiology: H is updated medication list for [...] mouth once a day Qing Cleveland FAUSTINO Cardiology: I n sinus bradycardia on EKG today. He continues on Sotalol 40mg BID and Metoprolol Tartrate 12.5mg BID. QTC 471. On Xarelto for assisted OAC. Tania Duarte MD Cardiology: C ontinues on Advair, Asmanex, Proair. Tania Duarte MD Cardiology: H is recent 05/2021 lab report showed total cholesterol 166, triglycerides 56, LDL 79. Tania Duarte MD Cardiology: Fatuma e had recent labs which showed creatinine [...] 12.5mg BID. QTC 475. On Xarelto for assisted OAC. Tania Duarte MD Cardiology: C hest pain free. Stress test with normal perfusion 10/2020. Not on Aspirin due to anticoagulation with Xarelto. Tania Daurte MD Cardiology:He had re cent labs which [...] 12.5mg BID. QTC 475. 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 Tania Duarte MD Cardiology:Chest amaya n free. Stress test with normal perfusion 10/2020. Not on Aspirin due to anticoagulation with Xarelto. Tania Duarte MD Cardiology:04/2020 CT A with no significant stenosis. The patient has been reassured. Isak Rios Cardiology:Continues on Atorvastatin. We aim for LDL < 70. Cardiology:Blood pressure contro l is satisfactory. Cardiology:Chest amaya n free. Stress test with normal perfusion 10/2020. The patient has been reassured. Not on Aspirin due to Xarelto. Cardiology:s/p CATHY/C V. In Sinus bradycardia on EKG today. He continues on Sotalol 40mg BID and Metoprolol Tartrate 12.5mg BID. QTC 456. On Xarelto for assisted OAC. Cardiology:He had re cent labs which [...] 40mg BID. QTC 439. 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 Cardiology:Stable. W ill continue to monitor. [...] continues on Metoprolol and on Xarelto for assisted OAC. 2019/12/11 Cardiology follow up :CTA with no significant stenosis. The patient has been reassured. Isak [facility] Cardiology follow up :Previous LDL 54. He continues on Lipitor 20mg. [facility] Cardiology follow up :Blood Pressure 131/90. Advised reduced sodium intake and routine monitoring of the blood pressure. We aim for blood pressure less than 130/80. Isak [facility] Cardiology follow up :New onset afib of unclear etiology. As he has history of CAD, will check echo and stress test. [facility] Cardiology follow up :New onset duration unknown. [...] 54. He continues on Lipitor 20mg. Stacia Yanez Brodie HARMON Cardiology follow up :Renal angio normal. Advised reduced sodium intake. 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 His very recent cath showed patent stents and no new significant stenosis. He continues on Aspirin and Plavix. Stacia Calloway NP Cardiology:Continues on Ranitidi ne. Isak Cardiology:Stable. B [...] :Continues on Lipitor. Will check lipid panel. Tanai Duarte MD Cardiology follow up :Blood pressure [...] Tania Duarte MD Cardiology:Continues on Lipitor. Urmila Pemberton Cardiology:On Advair. Tania villasenor MD Cardiology:Blood pre ssure is elevated. [...] up :Blood pressure control is satisfactory. Srinivasan Angelo Cardiology Follow up :Stable angina. Continues on [...] needed for chest discomfort Orders: E KG (CPT-49323) Tania Duarte MD follow up: H is updated medication list for this problem includes: Toprol Xl 25 Mg Tb24 (Metoprolol succinate) ..... Twice daily Lisinopril 20 Mg Tabs (Lisinopril) ..... Two tablets daily Tania Duarte MD Follow up aTnia Cole Follow up Tania Cole Follow up : H is updated medication list for this problem includes: Toprol Xl 25 Mg Tb24 (Metoprolol succinate) ..... Twice daily Lisinopril 20 Mg Tabs (Lisinopril) ..... Two tablets daily Orders: E KG (CPT-19688) Tania Duarte MD Follow up Tania Cole [...] LAD 3 .0 x 23mm mini-Vision stent [id number] RCA (09/05/2006) C arotid Doppler/Duplex: LESS THAN [...] LAD 3 .0 x 23mm mini-Vision stent [id number] RCA (09/05/2006) Tania Duarte MD regrding bp: [...] LAD 3 .0 x 23mm mini-Vision stent [id number] RCA (09/05/2006) C arotid Doppler/Duplex: LESS THAN [...] LAD 3 .0 x 23mm mini-Vision stent [id number] RCA (09/05/2006) C arotid Doppler/Duplex: LESS THAN [...] One tab. daily Orders: C omplete Echo (CPT-32473) Tania Duarte MD Date Name CXR- PA/Lat [...] Procedure Name Provider Procedure Notes S tatus Complex e/m visit add on Tania Duarte MD completed EKG Tania Duarte MD complet ed Complex e/m visit add on Tania Duarte MD completed EKG Tania Duarte MD complet ed EKG Tania Duarte MD complet ed Complex [...] EKG Tania Duarte MD complet ed SNOMED-CT: 848376314 015608 Current Medications Documented Tania Duarte MD completed EKG Tania Duarte MD complet ed SNOMED-CT: 944228957 913509 Current Medications Documented Tania Duarte MD completed SNOMED-CT: 91974941 Physical Exam, Performed: Pulse Exam of Foot Tania Duarte MD completed JAKEG Tania Duarte MD complet ed SNOMED-CT: 983774302 464266 Current Medications Documented Tania Duarte MD completed SNOMED-CT: 177970891 Smoking Cessation Counseling Tania Duarte MD completed SNOMED-CT: 31069975 Physical Exam, Performed: Pulse Exam of Foot Tania Duarte MD completed EKG Tania Duarte MD complet ed SNOMED-CT: 034023171 668621 Current Medications Documented Tania Duarte MD completed SNOMED-CT: 251194578 Smoking Cessation Counseling Tania Duarte MD completed SNOMED-CT: 66922981 Physical Exam, Performed: Pulse Exam of Foot Tania Duarte MD completed EKG Tania Duarte MD complet ed SNOMED-CT: 619604591 922530 Current Medications Documented Tania Duarte MD completed SNOMED-CT: 512974437 Smoking Cessation Counseling Tania Duarte MD completed SNOMED-CT: 47589428 Physical Exam, Performed: Pulse Exam of Foot Tania Duarte MD completed EKG Tania Duarte MD complet ed SNOMED-CT: 033275346 718570 Current Medications Documented Tania Duarte MD completed SNOMED-CT: 265074665 Smoking Cessation Counseling Tania Duarte MD completed SNOMED-CT: 15149593 Physical Exam, Performed: Pulse Exam of Foot Tania Duarte MD completed SNOMED-CT: 412725546 798040 Current Medications Documented Tania Duarte MD completed [...]
[2025-02-18 09:38] LABS: Alanine Aminotransferase 33 U/L (6-50); Albumin Level 4.4 g/dL (3.5-5.1); Alkaline Phosphatase 65 U/L (38-126); Anion Gap 8 mmol/L (4-12); Aspartate Amino Transferase 36 U/L (17-59); Bilirubin,Total 1.4 mg/dL (0.2-1.3); Blood Urea Nitrogen 27 mg/dL (9-20); Calcium 9.3 mg/dL (8.4-10.2); Carbon Dioxide 30 mmol/L (22-30); Chloride 101 mmol/L (98-107); Estimated Glomerular Filt Rate 53; Glucose 118 mg/dL (65-110); Potassium 4.4 mmol/L (3.4-5.0); Sodium 139 mmol/L (137-145)
[2025-02-18 09:46] LABS: Immunoglobulin A 90 mg/dL (70-400); Immunoglobulin G 742 mg/dL (700-1600)
[2025-02-18 09:53] LABS: Immunoglobulin M > 400 mg/dL (40-230)
[2025-02-20 05:05] LABS: Protein, Total 6.6 g/dL (6.1-8.1)
[2025-02-20 21:08] LABS: Abnormal Protein Band 1 0.6 g/dL (NONE DETECTED); Alpha 1 Globulin 0.3 g/dL (0.2-0.3); Alpha 2 Globulin 0.6 g/dL (0.5-0.9); Beta 1 Globulin 0.4 g/dL (0.4-0.6)
[2025-02-23 15:48] LABS: Kappa\\Lambda Light Chains 5.13 (0.26-1.65); Lambda Light Chain 8.5 mg/L (5.7-26.3)
== END 2025-02-18 08:55 | disposition home or self-care (01) ==
LOC: ANHLAB 08:55
PROVIDERS: PCP Internal Medicine; Visit Provider Internal Medicine Hematology & Oncology
DX: D47.2 Monoclonal gammopathy (principal)
CPT/HCPCS: 36415; 80053; 82784; 83883; 84155; 84165; 85025

== ENCOUNTER 2025-07-02 06:52 | Outpatient (CLI) | payer MEDICARE, SELFPAY ==
--- OUTSIDE RECORDS SUMMARY | 2025-06-26 06:15 | XMS_ITS | Continuity of Care Document ---
Author Organization [facility] Address [address] [place] [phone] Phone Care Team Providers Care Production Statistical Clerk Name Role Phone Michael NEVILLE, Kiana Unavailable Unavailabl e Allergies, Adverse Reactions, Alerts Substance Reaction Status Criticality pneumococcal vaccine Active No Info rmation ticagrelor Unknown(mild) Active No Information Medications Medication Instructions Dosage Effective Dates (start - stop) Status Comments amlodipine 5 mg tablet take 1 tablet by oral route every day 5 MG - Active dofetilide 500 mcg capsule take 1 capsule by oral route 2 times every day 0.5 MG - Active isosorbide mononitrate ER 60 mg tablet,extended release 24 hr take 1 tablet by oral route every day in the morning 60 MG - Active nitroglycerin 0.[address] 1 tablet by sublingual route at 1st sign of attack; may repeat every 5 minutes up to 3 tabs; if norelief seek medical help 0.4 MG - Active lisinopril 20 mg tablet take 1 tablet by oral route every day 20 MG - Active atorvastatin 20 mg tablet take 1 tablet by oral route every day 20 MG - Active Eliquis 5 mg tablet take 1 tablet by ora l route 2 times every day 5 MG - Active gabapentin 100 mg capsule take 1 capsule by oral route as needed for pain - Active ranolazine ER 500 mg tablet,extended release,12 hr take 1 tablet by oral route 2 times every day 500 MG - Active dutasteride 0.5 mg capsule take 1 capsule by oral route every day 0.5 MG - Active folic acid 1 mg tablet take 1 tablet by oral route every day 1 MG - Active Vitamin B-12 1,000 mcg tablet 1 tablet once a day - Active multivitamin tablet 1 tablet once a day - Active ProAir RespiClick 90 mcg/actuation breath activated 1 puff as needed - Active Procedures Procedure Date Complex e/m visit add on OFFICE/OUTPATIENT VISIT, EST ELECTROCARDIOGRAM, COMPLETE Complex e/m visit add on OFFICE/OUTPATIENT VISIT, EST ELECTROCARDIOGRAM, COMPLETE ICM DEVICE INTERROGAT REMOTE Complex e/m visit add on OFFICE/OUTPATIENT VISIT, EST ELECTROCARDIOGRAM, COMPLETE Advance Directives Directive Yes / No Effective Date File Name No Information Encounters Encounter Description Practice Location Reason(s) For Visit Diagnoses Date Provider Providers Copied on Encounter OFFICE/OUTPA TIENT VISIT, [facility], [address] [place] [address], [id number] , tel: [phone] [facility] [place] Follow Up of cardiology exam (chief complaint) Atherosclerotic heart disease of [place] coronary artery without angina pectorisEssential (primary) hypertensionUnspec ified atrial fibrillationPresen ce of cardiac pacemaker 5 Michael Bruno. [address] [place] [address], [id number], . tel:[phone] Referring Provider: Tania Thomson, [address] [place] [address], [place], [address] . tel:[phone] [facility], [address] [place] [address], [id number] , tel: [phone] [facility] [place] No Information 5 Claudia Ramos. [address] [place] [address], [id number], . tel:[phone] OFFICE/OUTPA TIENT VISIT, [facility], [address] [place] [address], [id number] , tel: [phone] [facility] [place] follow up (chief complaint) Unspecified atrial fibrillationEssent ial (primary) hypertension [address] [facility] , [place], [place], [id number], . tel:[phone] Referring Provider: Tania Thomson, [facility], [place], [address] . tel:[phone] [facility] , [address] [place] [address], [id number] , tel: [phone] [facility] [place] Bradycardia, unspecified [address] [facility] [place], [id number], . tel:[phone] Referring Provider: Tania Thomson, [facility], [place], [address] . tel:[phone] sulting Provider: Tania Thomson, [facility] , [place], [address] . tel:[phone] OFFICE/OUTPA TIENT VISIT, [facility] , [address] [place] [address], [id number] , tel: [phone] [facility] Cardiac Management (chief complaint) Unspecified atrial fibrillationEssent ial (primary) hypertension [address] [facility] [place], [place], [id number], . tel:[phone] Referring Provider: Imelda parker, [address], [place], [address]. tel:[phone] [facility] , [address] [place] [address], [id number] , tel: [phone] [facility] [place] No Information [address] [facility], [place], [place], [id number], . tel:[phone] [facility], [address] [facility], [place], [place], [id number] , tel: [phone] [facility] Non-ST elevation (NSTEMI) myocardial infarctionCardiac murmur, unspecifiedNonrheu matic aortic (valve) stenosisUnspecifie d atrial fibrillationTypica l atrial flutterPresence of cardiac pacemakerBradycard ia, unspecifiedOcclusi on and stenosis of bilateral carotid arteriesChronic obstructive pulmonary disease, unspecifiedAtheros clerotic heart disease of chipeww[place] coronary artery without angina pectorisOther fatiguePure hypercholesterolem ia, unspecifiedEssenti al (primary) hypertensionSick sinus syndrome Berto Marin. [facility], [place], [place], [id number], . tel:[phone] Referring Provider: Imelda parker, [address] [facility] [address], [place], [address]. tel:[phone] Family History Family Member Type Diagnosis Age At Onset Brother Problem (finding) Hypertension Payers Payer name Insurance type Covered alliance party ID Authoriza tion(s) [employer] MEDICARE [place] [id number] Social History Type Description Quantity Date Captured Comments Alcohol Use Details Unknown Caffeine Use Details Unknown Tobacco Use Status No Information Smoking Status No Information Sex Male Vital Signs Date / Time: Height Weight BMI Pulse Rate Blood Pressure Temperature Respiratory Rate Body Surface Area Head Circumference Head Circ. Percentile Wt./Ozzie. Percentile BMI percentile Pulse Ox Inhaled Ox 11:36 AM 108.862 kg (240.00 lbs) 80 /min 145/87 mm[Hg] 12 /min 94 % Chief Complaint And Reason For Visit From encounter dated '06/26/2025 11:15'. Follow Up of cardiology exam (chief complaint) Reason For Referral Reason For Referral No Information Plan Of Treatment Date Type Action Status Appointment John Hernandez BOOKED Future Order: Lab Order CBC w/di ff ([id number]), Ordered on: Ordered Future Order: Lab Order [id number] FR ([id number]), Ordered on: Ordered Future Order: Lab Order Lipid Pa akash ([id number]), Ordered on: Ordered Future Order: Lab Order Magnesiu m ([id number]), Ordered on: Ordered Future Order: Lab Order Hemoglob in A1c ([id number]), Ordered on: Ordered Future Order: Radiology Order Ec hocardiogram, Complete Transthoracic ([id number]), Ordered on: Ordered Future Order: Radiology Order Ab late heart dysrhythm focus, atrioventricula ([id number]), Ordered on: Ordered Future Order: Lab Order CBC w/di ff ([id number]), Ordered on: Ordered Future Order: Lab Order [id number] ([id number]), Ordered on: Ordered Future Order: Lab Order PT/INR ( [id number]), Ordered on: Ordered Future Order: Lab Order PTT ([id number]), Ordered on: Ordered History Of Present Illness Encounter Date Complaint History Of Prese nt Illness Follow Up of cardiology exam follow up Cardiac Management Functional Status Date Functional Assessmen t No Information Instructions Date Instruction Additional Infor mation No Information Assessments Type Assessment Date assessment Atherosclerotic hear t disease of chipewwa coronary artery without angina pectoris assessment Essential (primary) hypertension assessment Unspecified atrial fibrillation assessment Presence of cardiac pacemaker Au Patient Care Teams Name Effective Dates (start - stop) Status Members No Information
--- NOTE | ~2025-07-02 | CT_ITS ---
EXAMINATION: CT abdomen pelvis wo/w con, 07/02/2025 7:13 CDT HISTORY: Gross Hematuria COMPARISON: No comparisons available. TECHNIQUE: CT scan of the abdomen and pelvis was performed without and with contrast. Isovue 300, 92cc injected IV. One or more of the following dose reduction techniques were used: automated exposure control, adjustment of the mA and/or kV according to patient size, use of iterative reconstruction technique. Unless otherwise stated, incidental findings do not require dedicated follow up imaging FINDINGS: CT abdomen: LUNG BASES: Lung bases demonstrate chronic changes with scattered probable calcified granulomas. LIVER: Minimal hepatic steatosis. The main portal vein is patent. No intrahepatic biliary duct dilatation. SPLEEN: Unremarkable, no splenomegaly. KIDNEYS: Right Kidney: Right kidney midpole simple appearing renal cyst 2 x 2 centimeters, no renal calculi. Left Kidney: Left kidney simple appearing peripelvic renal cyst 1 x 1 cm, no hydronephrosis. Left kidney there are subcentimeter probable renal cysts. Left kidney inferior pole there is an enhancing solid-appearing renal lesion measuring 1.9 x 2 x 1.9 cm which abuts the collecting system, there is no e xtension into the perinephric soft tissues. ADRENAL GLANDS: Unremarkable. PANCREAS: Mild pancreatic atrophy. GALLBLADDER/BILIARY: Unremarkable. No biliary dilatation. STOMACH AND ESOPHAGUS: Visualized stomach and esophagus within normal limits. BOWEL/MESENTERY: Moderate fecal content. No colitis or diverticulitis. Appendix not identified. Mesentery normal. Small bowel normal. ADENOPATHY/RETROPERITONEUM: No lymphadenopathy. AORTA/VASCULATURE: Atherosclerotic changes aorta without aneurysm. FREE FLUID OR FREE AIR: No free fluid.. CT pelvis: SOLID ORGANS/REPRODUCTIVE: The prostate does not appear enlarged. BLADDER: The bladder is distended with thickening of the bladder wall which appears irregular in some areas and perivesicular stranding with significant trabeculation of the bladder wall noted anteriorly diverticular formation. OSSEOUS STRUCTURES: Scattered punctate probable sclerotic bone islands. No lytic lesions appreciated. OVERLYING SOFT TISSUES: Small bilateral fat-containing inguinal hernia. IMPRESSION: 1. Left renal lesion concerning for neoplasm. 2. Severe cystitis, the bladder wall is irregular in several areas which is probably infectious however neoplasm is difficult to exclude. Cystoscopy is suggested. Correlate for symptoms of bladder outlet obstruction. Reviewed, dictated and finalized at location A. IMPRESSION: 1. Left renal lesion concerning for neoplasm. 2. Severe cystitis, the bladder wall is irregular in several areas which is pro bably infectious however neoplasm is difficult to exclude. Cystoscopy is sugges sinan. Correlate for symptoms of bladder outlet obstruction.
--- OUTSIDE RECORDS SUMMARY | 2025-07-02 06:55 | XMS_ITS | Clinical Summary ---
Author Organization [facility] Address [address] [place] [address] Care Team Providers Care Surveillance Observer Name Role Phone Unavailable Primary Care Provider Unavailabl e Source Comments [facility],non-owned Affiliates and Associated Physician Practices is amultiple site organization consisting of ambulatory clinics and hospital sitesin [place], [place], [place] and [place]. This disclosure is being madepursuant to the Care Everywhere program and may not contain all information available regarding this patient. Last updated 18.[facility] Social History Tobacco Use Types Packs/Day Years [...] MEDICARE AWV CALENDAR YEAR 2024 INFLUENZA VACCINE (#1) 2025 HEPATITIS B VACCINE Aged Out No [...] patient's age to complete this topic Insurance [facility] MANAGED MEDICARE ADV
--- OUTSIDE RECORDS SUMMARY | 2025-07-02 06:55 | XMS_ITS | Clinical Summary ---
Author Organization [facility] Address [address] [place] [address] Care Team Providers Care Regulatory Analyst Name Role Phone Unavailable Primary Care Provider [...] Immunization (3 of 3) 10/25/2020 08/30/2020, 08/13/2014 SARS-COV-2 Immunization (4 - season) 2024 08/20/2021, 01/26/2021, 01/02/2021 Influenza Immunization (#1) 07/06/202508/06, 09/13/2019, 09/08/2018, Additional history exists TdaP Immunization Completed 10/05/2015 DTaP/Tdap/Td Immunization Discontinued 06/08/2020, 11/2014 Hepatitis B Immunization Aged Out No longer eligible based on patient's age to complete this topic Human Papillomavirus (HPV) Immunization Aged Out No longer eligible based on patient's age to complete this topic Meningococcal Immunization (ACWY) Aged Out No longer eligible based on patient's age to complete this topic Rotavirus Immunization Aged Out No lo nger eligible based on patient's age to complete this topic
--- OUTSIDE RECORDS SUMMARY | 2025-07-02 06:55 | XMS_ITS | Clinical Summary ---
Author Organization [facility] Address [address] [place] [address] Care Team Providers Care Nylon Machine Operator Name Role Phone Imelda Costello MD Primary Care Provider [phone] Medications amLODIPine (NORVASC) 5 MG tablet TAKE 1 TABLET(5 MG) BY MOUTH 1 TIME EACH DAY 90 tablet 11/10/2021 Active Encounters Date Type Department Care Team Description 06/30/2025 Documentation Only [facility], [address] [address] Celio Cheatham DO 04/28/20[address] [address] Celio Cheatham DO from Last [...] Sign Reading Time Taken Comments Blood Pressure 120/80 03/10/2025 12:44 PM CDT Pulse 67 03/10/2025 12:44 PM CDT Temperature 36.1 C (97 F) 03/10/2025 12:44 PM CDT Respiratory Rate 18 03/10/2025 12:44 PM CDT Oxygen Saturation 99% 03/10/2025 12:44 PM CDT Inhaled Oxygen Concentration - - Weight 109 kg (241 lb) 03/10/2025 12:44 PM CDT Height 188 cm (6' 2) 01/03/2022 1:10 PM CORPORATION SECRETARY Body Mass Index 30.94 01/03/2022 1:10 PM CORPORATION SECRETARY Plan of Treatment Upcoming Encounters Date Type Department Care Team (Late st Contact Info) Description 12/15/2025 12:30 PM CORPORATION SECRETARY Office Visit [facility], [facility] [address] [facility] [address] [place] [phone] Celio Cheatham DO [address] [facility] [address] [place] [address] Health Maintenance Due Date Last Done Comments Influenza Vaccine (#1) 2025 4, 09/02/2021, 08/30/2020, Additional history exists Pneumococcal Vaccine: 50+ Years Completed 08/05/2018, 08/27/2012 Hepatitis B Vaccine Aged Out No longe r eligible based on patient's age to complete this topic Insurance A[employer]na MCR Adv PPO ([id number]) Care Teams Nylon Machine Operator Relationship Specialty Start Date End Date Imelda Costello MD [address] [facility], [address] [place] [address] PCP - General Internal Medicine 07/05/21
--- OUTSIDE RECORDS SUMMARY | 2025-07-02 06:55 | XMS_ITS | Encounter Summary ---
Author Organization [facility] Address [address] [place] [address] Care Team Providers Care Field Placement Director Name Role Phone Unavailable Primary Care Provider Unavailabl e Encounter Details Date Type Department Care Team (Late st Contact Info) Description 09/05/2022 Lab Requisition [facility] [address] [facility] [place] [id number] Horace Somers MD [address] [place] [address] Social History Tobacco Use Types [...] AM CDT) Case Report Dermatopathology Report Case: [id number] Authorizing Provider: Horace Somers MD Collected: 08/31/2022 12:00 AM Ordering Location: [facility] Lab Received: 09/05/2022 08:26 AM Pathologist: Leni Valdes MD Specimens: A) - Skin, mid chin B) - Skin, right lat upper arm 2 1:30 PM CDT DERMATOPATHOLOGY LABORATORY Final Diagnosis Specimen A. SKIN, mid chin: ANGIOFIBROMA (FIBROUS PAPULE) (D21.0) PRESENT AT MARGIN Specimen B. 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 Please Check Margins. B: Hemangioma. Please Check Margins. 1:30 PM CDT DERMATOPATHOLOGY LABORATORY Gross Description Specimen A: Received is one formalin filled container labeled with the patient's name and designated mid chin. The specimen consists of a shave biopsy measuring [id number] and it is inked. Jar 0. Specimen B: Received is one formalin filled container labeled with the patient's name and designated right lat upper arm. The specimen consists of a shave biopsy measuring [id number] and it is inked. Jar 0. 1:30 [...] characteristic determined by the Dermatopathology Laboratory at [facility], directed by Dr. Emmanuel Ni. These tests need not be, and therefore are not, approved by the [place] Food and Drug Administration. The tests are used for clinical purposes. Billing Codes Specimen Charges Stain Charges 84725 [id number] 1 1 1:30 PM CDT DERMATOPATHOLOGY LABORATORY Embedded Images 1:30 PM CDT DERMATOPATHOLOGY LABORATORY Pathology/Cytology TISSUE SPECIMEN FROM SKIN / Unknown 08/31/2022 09/05/2022 8:26 AM CDT Miscellaneous samples (specimen) TISSUE SPECIMEN FROM SKIN / Unknown 08/31/2022 09/05/2022 8:26 AM CDT us Horace Somers MD LAB - PATHOLOGY/CYTOLOGY ORDERAB LES Final Result DERMATOPATHOLOGY LABORATORY [facility] - Department of Dermatology [facility] Medicine [address] [place] [address], [address] [phone] documented in this encounter Visit Diagnoses Not on filedocumented in this encounter
--- OUTSIDE RECORDS SUMMARY | 2025-07-02 06:55 | XMS_ITS | Clinical Summary ---
Author Organization [facility] Address [address] [place] [id number] Care Team Providers Care Various Exceptionalities Teacher Name Role Phone Tania Thomson MD Unavailable [phone] Miscellaneous, Not In File Primary Care Provider Unavailable Allergies Active Allergy Reactions Criticality Noted Date Comments Pneumococcal 23-Linda Ps Vaccine Other (See comments),Shortness of breath High 04/05/2014 Ticagrelor Swelling Medium 08/23/2015 Medications lisinopriL (PRINIVIL,ZESTRI L) 20 mg tablet Take 1 tablet (20 mg total) by mouth nightly 06/05/20 22 Active isosorbide mononitrate ER (IMDUR) 60 mg 24 hr tablet Take 1 tablet (60 mg total) by mouth every morning 05/27/20 22 Active folic acid (FOLVITE) 400 mcg tablet Take 1 tablet (400 mcg total) by mouth every morning 09/14/20 20 Active fluticasone propionate (FLONASE) 50 mcg/actuation nasal spray Administer 2 sprays into each nostril nightly 10/01/20 13 Active dutasteride (AVODART) 0.5 mg capsule dutasteride 0.5 mg capsule TAKE ONE CAPSULE BY MOUTH EVERY DAY 09/09/20 08 Active atorvastatin (LIPITOR) 20 mg tablet Take 1 tablet (20 mg total) by mouth nightly 02/02/20 19 Active amLODIPine (NORVASC) 5 mg tablet Take 1 tablet (5 mg total) by mouth nightly 02/04/20 19 Active aspirin 81 mg chewable tablet Take 1 tablet (81 mg total) by mouth daily 30 tablet 06/17/20 22 Active Eliquis 5 mg tablet Take 1 tablet (5 mg total) by mouth 2 (two) times a day Active gabapentin (NEURONTIN) 100 mg capsule Take 1 capsule (100 mg total) by mouth every morning Active nitroglycerin (NITROSTAT) 0.[address] 1 tablet (0.4 mg total) under the tongue every 5 (five) minutes as needed for chest pain 07/20/20 21 Active ranolazine ER (RANEXA) 500 mg 12 hr tablet Take 1 tablet (500 mg total) by mouth 2 (two) times a day Active dofetilide (TIKOSYN) 500 mcg capsule Take 1 capsule (500 mcg total) by mouth 2 (two) times a day Active cyanocobalamin (Vitamin B-12) 1,000 mcg tabletIndication s:Prevention of Vitamin B12 Deficiency Take 1 tablet (1,000 mcg total) by mouth every morning Active potassium gluconate 600 mg (99 mg) tablet Take by mouth 3 (three) times a week Takes evening Active fluticasone propion-salmeter oL (ADVAIR DISKUS) 250-50 mcg/dose diskus inhaler Inhale 1 puff 2 (two) times a day Rinse mouth with water after use. Do not swallow. Active multivit,tx with iron,minerals (COMPLETE MULTIVITAMIN ORAL) Take 1 tablet by mouth 4 (four) times a week Takes on Sun Active benzonatate (TESSALON) 100 mg capsule Take 100 mg by mouth 3 (three) times a day 05/22/20 22 025 Discontin ued(Other ) albuterol HFA (PROVENTIL HFA,VENTOLIN HFA,PROAIR HFA) 90 mcg/actuation inhaler albuterol sulfate HFA 90 mcg/actuation aerosol inhaler INHALE 2 PUFFS BY MOUTH EVERY 4 TO 6 HOURS NEEDED FOR SHORTNESS OF BREATH 11/05/18 70 025 Discontin ued(Other ) clopidogreL (PLAVIX) 75 mg tablet Take 1 tablet (75 mg total) by mouth daily 30 tablet 06/17/20 22 025 Discontin ued(Other ) Active Problems Problem Noted Date Diagnosed Date Cardiac arrhythmia, unspecified 06/05/2025 Hallux valgus 06/05/2025 Hyperlipidemia 06/05/2025 Osteoarthritis 06/05/2025 Atherosclerotic heart diseas e of [place] coronary artery without angina pectoris 04/20/2025 Chronic ischemic heart disease, unspecified 04/05 A-fib 04/08/2025 Prediabetes 12/23/2024 Presence of cardiac pacemaker 11/20/2024 Aortic stenosis 09/10/2024 Aortic heart murmur 08/13/2024 Sick sinus syndrome 08/06/2024 Trochanteric bursitis of left hip 05/23/2024 Abnormal serum thyroid stimulating hormone (TSH) level 01/22/2023 Neuropathy 01/22/2023 Urinary incontinence 01/22/2023 Hypothyroidism 12/14/2022 COVID-19 12/05/2022 Chest pain 06/12/2022 Chest pain, unspecified type 06/12/2022 Capsulitis of metatarsophalangeal (MTP) joint of left foot 08/21/2021 Benavides's neuroma of left foot 07/29/2020 Asthma 07/20/2020 CAD (coronary atherosclerotic disease) 0 BPH (benign prostatic hyperplasia) 07/20/2020 Carotid artery stenosis 04/14/2020 MGUS (monoclonal gammopathy of unknown significa nce) 09/08/2019 Chronic kidney disease 06/27/2018 Chronic obstructive pulmonary disease 11/29/2017 Acute non-ST elevation myocardial infarction (NS DELANEY) 08/04/2015 Bradycardia 05/26/2015 Gastroesophageal reflux disease 04/02/2008 Hypertension 11/05/1959 Encounters Date Type Department Care Team Description 06/09/2025 12:32 PM CDT Anesthesia Event [facility] Electrophysiology Lab [address] [place] [id number] Shea Sarmiento DO Barnhart, Lynlee Jo, NP 06/09/2025 11:30 AM CDT - 06/09/2025 1:00 PM CDT Surgery [facility] Electrophysiology Lab [address] [place] [address] Kiana Rodriguez MD ATRIOVENTRICULAR (AV) NODE ABLATION [id number] 06/09/2025 9:35 AM CDT - 06/09/2025 5:39 PM CDT Hospital Encounter [facility] Operating Room [address] [place] [address] Kiana Rodriguez MD A-fib ([facility]) Discharge Disposition: Discharge to home or self care 06/08/2025 10:00 AM CDT Pre-Admission Testing [facility] Pre Anesthesia Testing [address] [place] [id number] 06/05/2025 9:45 AM CDT Pre-Admission Testing [facility] Pre Anesthesia Testing [address] [place] [address] Pre-op testing (Primary Dx) 05/27/2025 Orders Only [facility] Cardiac Catheterization Lab [address] [place] [id number] Kiana Rodriguez MD A-fib ([facility]) (Primary Dx) 04/20/2025 1:30 PM CDT - 04/20/2025 2:15 PM CDT Surgery [facility] GI Lab [address] [place] [address] Tania Thomson MD TRANSESOPHAGEAL ECHOCARDIOGRAM 04/20/2025 1:02 PM CDT Anesthesia Event [facility] GI Lab [address] [place] [id number] Stephanie Castillo MD PhD 04/20/2025 11:38 AM CDT - 04/20/2025 11:59 PM CDT Hospital Encounter [facility] GI Lab [address] [place] [id number] Patriciafib ([facility]) Discharge Disposition: Discharge to home or self care 04/20/2025 11:35 AM CDT - 04/20/2025 2:31 PM CDT Hospital Encounter [facility] GI Lab [address] [place] [address] Tania Thomson MD Discharge Disposition: Discharge to home or self care 04/08/2025 Orders Only [facility] Cardiac Catheterization Lab [address] [place] [id number] Tania Thomson MD A-fib ([facility]) (Primary Dx) from Last 3 Months Surgical History Surgery Date Site/Laterality Comments CARDIAC ELECTROPHYSIOLOGY ST UDY AND ABLATION x2 CARDIOVERSION CARDIAC ELECTROPHYSIOLOGY PROCEDURE 06/09/2025 N/A Procedure: ATRIOVENTRICULAR (AV) NODE ABLATION 28167; Surgeon: Kiana Rodriguez MD; Location: EP LAB; Service: Cardiovascular; Laterality: N/A; Medical History Medical History Date Comments Hypertension Hyperlipidemia Atrial fibrillation (HCC) Coronary artery disease Myocardial infarction (HCC) Asthma Family History Relation Name Status Comments Father Mother Social History Tobacco Use Types Packs/Day Years Used Date Smoking Tobacco: Never Smokeless Tobacco: Never Tobacco Cessation:Counseling Given: Not Answered Social Connection and Isolation Panel Answer Date Recorded In a typical week, how many times do you talk on the phone with family, friends, or neighbors? More than three times a week 06/14/2022 How often do you get togethe r with friends or relatives? More than three times a week 06/14/2022 How often do you attend [facility] or congregation services? More than 4 times per year 06/14/2022 Do you belong to any clubs o r organizations such as muslim groups, unions, fraternal or athletic groups, or school groups? No 06/14/2022 How often do you attend meet ings of the clubs or organizations you belong to? Never 06/14/2022 Are you , , di vorced, , never , or living with a partner? 06/14/2022 AUDIT-C Answer Date Recorded Q1: How often do you have a drink containing alcohol? Never 06/09/2025 Q2: How many drinks containi ng alcohol do you have on a typical day when you are drinking? Patient does not drink Q3: How often do you have si x or more drinks on one occasion? Never 06/09/2025 Overall Financial Resource Strain (CARDIA) Answe r Date Recorded How hard is it for you to pa y for the very basics like food, housing, medical care, and heating? Not hard at all 06/14/2022 Hunger Vital Sign Answer Date Recorded Within the past 12 months, y ou worried that your food would run out before you got the money to buy more. Never true 06/14/20 22 Within the past 12 months, t he food you bought just didn't last and you didn't have money to get more. Never true 06/14/2022 PRAPARE - Transportation Answer Date Re corded In the past 12 months, has l ack of transportation kept you from medical appointments or from getting medications? No 06/05 In the past 12 months, has l ack of transportation kept you from meetings, work, or from getting things needed for daily living? No 06/14/2022 Housing Stability Vital Sign Answer Sami e Recorded In the last 12 months, was t here a time when you were not able to pay the mortgage or rent on time? No 06/14/2022 In the last 12 months, how many places have you lived? 1 06/14/2022 In the last 12 months, was t here a time when you did not have a steady place to sleep or slept in a nursing home (including now)? No 06/14/2022 Personal Safety Answer Date Recorded Have you ever been in or are you currently in a harmful physical or emotional relationship or is someone making you feel afraid or unsafe? 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 Gender Identity Not on file Sexual Orientation Not on file Obstetrics History Last Filed Vital Signs Vital Sign Reading Time Taken Comments Blood Pressure 152/78 06/09/2025 5:00 PM CDT Pulse 80 06/09/2025 5:00 PM CDT Temperature 36.7 C (98 F) 06/09/2025 3:25 PM CDT Respiratory Rate 18 06/09/2025 5:00 PM CDT Oxygen Saturation 97% 06/09/2025 5:00 PM CDT Inhaled Oxygen Concentration - - Weight 108.6 kg (239 lb 8 oz) 06/09/2025 10:12 A M CDT Height 188 cm (6' 2) 06/09/2025 10:12 AM CDT Body Mass Index 30.75 06/09/2025 10:12 AM CDT Plan of Treatment Health Maintenance Due Date Last Done Comments Depression Screening 1945 Hepatitis B Screening 1961 Well Visit 65+ 2008 Pneumococcal vaccine 65+ (2 of 2 - PCV) 08/27/2013 08/27/2012 Covid-19 Vaccine (2023-2 5 season) 2024 09/10/2021, 08/20/2021, 01/26/2021, Additional history exists Influenza Vaccine (#1) 2025 , 09/02/2021, 08/30/2020, Additional history exists Fall Risk Assessment 06/09/2026 06/09/2025 DTaP/Tdap/Td Vaccine (5 - Td or Tdap) 05/29/2034 05/29/2024, 06/08/2020, 10/06/2015, Additional history exists Zoster Vaccine Completed 01/15/2024, 04/06, 08/30/2020, Additional history exists Medical Devices Implanted Type Area Wrapper Stitcher Device Identifier Shelf Expiration Date Model / Serial / Lot [employer] Stent Drug Eluting S Megatron Us Mr [id number] - [id number] Implanted:Qty: 1 on 06/15/2022 by Tania Thomson MD at [facility] [employer] 11/23/2022 [id number] / / [id number] Procedures Procedure Name Priority Date/Time Associated Diagnosis Comments ATRIOVENTRICULAR (AV) NODE ABLATION Routine 06/09/2025 1:18 PM CDT A-fib (HCC) SD AN ELECTIVE ENDOTRACHEAL AIRWAY Routine 06/09/2025 12:58 PM CDT POCT ACTIVATED CLOTTING TIME, HIGH RANGE Routine 06/09/2025 12:55 PM CDT ECG 12-LEAD Routine 06/05/2025 10:20 AM CDT Pre-op testing EGFR Routine 06/05/2025 10:12 AM CDT Pre-op testing DIFFERENTIAL AUTO Routine 06/05/2025 10: 12 AM CDT Pre-op testing BASIC METABOLIC PANEL Routine 06/05/2025 10:12 AM CDT Pre-op testing CBC WITH AUTO DIFFERENTIAL Routine 06/05/2025 10:12 AM CDT Pre-op testing INFLUENZA A/B, RSV, AND COVID-19 PCR Routine 06/05/2025 9:55 AM CDT Pre-op testing CARDIOVERSION 04/20/2025 1:03 PM CDT A-fib (HCC) TRANSESOPHAGEAL ECHOCARDIOGRAM 04/20/2025 1:03 PM CDT A-fib (HCC) from Last 3 Months Results * ATRIOVENTRICULAR (AV) NODE ABLATION (06/09/2025 1:18 PM CDT) Anatomical Region Laterality Modality X-Ray Angiograph y Narrative 06/10/2025 7:43 AM CDT Table formatting from the original result was not included. Cardiac electrophysiology ablation procedure and right heart catheterization procedure note Surgical Team: Surgeons and Role: * Kiana Rodriguez MD - Primary Anesthesiologist: Shea Sarmiento DO CRYPTOGRAPHIC MACHINE OPERATOR: Onel Herrera CRNA CV Documenter: Sagrario Fletcher RN CV Scrub: Lexa Pires CV Teradata Solution Architect: Susanne Mello RN; Hollie Izquierdo RN DATE OF SURGERY : 06/09/2025 Preoperative Diagnosis: * A-fib (HCC) [I48.91], PERSISTENT Atrial flutter unspecified PRESENCE OF DUAL-CHAMBER PACEMAKER MANUFACTURED BY [employer] FAILED MULTIPLE SYNCHRONIZED CARDIOVERSIONS AND ANTIARRHYTHMIC MEDICATIONS IN THE PAST DYSPNEA AT REST Postoperative Diagnosis: * A-fib (HCC) [I48.91], PERSISTENT Atrial flutter unspecified PRESENCE OF DUAL-CHAMBER PACEMAKER MANUFACTURED BY [employer] FAILED MULTIPLE SYNCHRONIZED CARDIOVERSIONS AND ANTIARRHYTHMIC MEDICATIONS IN THE PAST MILD PULMONARY HYPERTENSION Procedure(s): Procedure(s) (LRB): ATRIOVENTRICULAR (AV) NODE ABLATION 42383 (N/A) PERIOPERATIVE DUAL-CHAMBER PACEMAKER PROGRAMMING WAS DONE BY DR. RODRIGUEZ INITIALLY AND THEN DECORATING SUPERVISOR FROM [employer] UNDER DR. RODRIGUEZ GUIDANCE RIGHT HEART CATHETERIZATION [id number] History of present illness The 79 years old male who had multiple attempts with treatment of his atrial fibrillation using medications and multiple synchronized cardioversions. He would not state long enough for him to see any improvement he gets converted from atrial fibrillation. He is very concerned that his heart rate is too fast on multiple occasions. After indication alternatives complications were discussed in detail in the office he elected to proceed with AV chantale ablation Details of procedure Informed consent was obtained prior to planned procedure after indication alternatives complications were discussed detail. Patient was sterilely prepped and draped. Access was obtained to the right femoral vein under ultrasound guidance A 8 Nigerian sheath was exerted over the wire. It was exchanged to the long deflectable VIZIGO sheath A 4 mm FJ bidirectional nonirrigated catheter were used for mapping of the his bundle. Leisa-operative DUAL-CHAMBER PACEMAKER programming was done by [employer] TEAM retention representative under Dr. Rodriguez guidance. The ablation was done not exceeding 50 w and 30 seconds at any single point. Complete heart block was confirmed after ablation. Device was reprogrammed t AFTER FINAL ABLATION WAS COMPLETED COMPLETE AV BLOCK PERSISTED 5 MINUTES AFTER ABLATION WAS COMPLETED RIGHT HEART CATHETERIZATION WAS DONE AFTER FINAL ABLATION WAS COMPLETED Patient tolerated procedure well no complications Ablation Intervals Collection conditions: baseline. Type of rhythm: A-paced. Ventricular cycle length: 995 ms. Atrial cycle length: 991 ms. P-R interval: 189 ms. QRS duration: 140 ms. QT interval: 521 ms. Corrected QT interval: 522.31 ms. A-H: 151 ms. H-V: 44 ms. Ablation Ablation Site: AV node. System used: [employer]oke[employer] (3D). Energy type: radio frequency. The ablation procedure was successful. Post ablation rhythm: AV-paced. Temperature achieved: 45 C. Energy delivered: 40 aldana. Impedance: 120 ohms. Duration of energy delivered: 193 seconds. Num of energy applications: 7. There were no complications during the procedure. There is COMPLETE HEART BLOCK CONFIRMED AFTER IMMEDIATE ABLATION AT 5 MINUTES LATER HARSHAD WAS THE GOAL FOR THIS PROCEDURE Ablation Findings: Complete heart block was confirmed after ablation. Device interrogation and programming findings Device was reprogrammed to TO ALLOW HIGH OUTPUTS AND RIGHT VENTRICLE RIGHT HEART CATHETERIZATION FINDINGS RIGHT ATRIAL PRESSURE 8 MM HG/0 MM HG/4 MM HG RIGHT VENTRICULAR PRESSURE 56 MM HG/2 MM HG/20 MM HG Estimated Blood Loss: No blood loss documented. Intraoperative Fluids: See anesthesia note Specimens: No specimen collected in procedure Implants: Nothing was implanted during the procedure Blood/Blood Products Transfused: None Complications: None Condition on Discharge from the operating room was stable MD Kiana Parsons MD Date: 06/09/2025 Time: 2:32 PM No Resident involved on case Plan OKAY TO START A DIET NOW The rest for 4 hours after procedure was completed. Patient sheaths were pulled out at 13:15 p.m. patient get a get up at 5:15 p.m. today and leave at 5:30 p.m. home if hemodynamically stable Discharge patient home today Restart medications the same the patient was taking prior to this ablation Rest today and advance activities as tolerated starting tomorrow. Do not lift more than 10 lb with 1 arm for 1st week Kiana Rodriguez MD CV ELECTROPHYSIOLOGY PROCS Final Result * SD AN ELECTIVE ENDOTRACHEAL AIRWAY (06/09/2025 12:58 PM CDT) Narrative Onel Herrera CRNA - 06/09/2025 12:58 PM CDT Onel Herrera CRNA 06/09/2025 1:00 PM Airway Patient location: OR Urgency: elective Date/time: 06/09/2025 12:50 PM Indications for airway management: anesthesia Difficult airway: no Staff: Placed by: CRYPTOGRAPHIC MACHINE OPERATOR: Onel Herrera CRNA Emergent airway documentation: Risks and benefits discussed: yes Consent obtained: yes Consent given by: patient Airway prep: Preoxygenated: yes Patient position: sniffing MILS maintained throughout: yes Mask difficulty assessment: 1 - vent by mask Spontaneous ventilation during airway: present Sedation level during airway: GA Final airway details: Final airway type: endotracheal airway Tube type: ETT ETT size: 7.0 mm Cuffed: yes Technique used for successful ETT placement: video laryngoscopy Insertion site: oral Blade type: Ana M Video blade type: Marin Blade size: 4 Cormack-Lehane (video): grade I - full view of glottis Initial cuff pressure: 10 cm H2O Cuff volume: 10 mL Cuff inflated with: air ETT to lips: 22 cm Placement verified by: CO2 detection Airway secured with: silk tape Number of attempts: 1 Ventilation between attempts: BVMno Shea Sarmiento DO ANESTHESIA ORDERABLES Final Result * (ABNORMAL) POC Activated Clotting Time, High Range (06/09/2025 12:55 PM CDT) ACT 186(H) 87 - 138 sec Blood 06/09/2025 12:5 5 PM CDT 06/09/2025 12:55 PM CDT Kiana Rodriguez MD LAB BLOOD ORDERABLES Final Result Performing Organization Address City/[facility] Hospital/ZIP Co de Phone Number [facility] [phone] Department [place] [address] * ECG 12 lead (06/05/2025 10:20 AM CDT) 06/05/2025 10:2 0 AM CDT Narrative [facility] - 06/05/2025 12:36 PM CDT Vent Rate: 60 bpm RR Interval: 988 msec SD Interval: 209 msec QRS Duration: 150 msec QT Interval: 481 msec QTC Interval: 482 msec P-R-T Marina: 70 - -30 - 31 degrees IMPRESSION: SINUS RHYTHM RIGHT BUNDLE BRANCH BLOCK Electronically Signed By: Emmanuel Echevarria MD, [facility] Chio Rosario NP ECG ORDERABLES Final Result Performing Organization Address [facility] de Phone Number [facility] [employer] [facility] * eGFR (06/05/2025 10:12 AM CDT) eGFR 65 >=60 mL/min/1. 73 m2 Comment: Interpretive Data Reference Interval Normal >/= 90 mL/min/1.73m2 Mildly decreased* 60 - 89 mL/min/1.73m2 Mildly to moderately decreased 45 - 59 mL/min/1.73m2 Moderately to severely decreased 30 - 44 mL/min/1.73m2 Severely decreased 15 - 29 mL/min/1.73m2 Kidney Failure < 15 mL/min/1.73m2 *Relative to young adult level Estimated glomerular filtration rate is determined by the 2020 CKD-EPI equation recommended by the National Kidney Foundation (A Unifying Approach to GFR Estimation: Recommendations of the NKF-ASK Task Force on Reassessing the Inclusion of Race in Diagnosing Kidney Disease, JASN 2020). The CKD-EPI equation should not be used for patients with unstable renal function and has not been validated in children and those over 70. Current interpretive data was last reviewed 2021. Blood 06/05/2025 10:1 2 AM CDT 06/05/2025 10:12 AM CDT us Chio Rosario FRAME CATCHER LAB BLOOD ORDERABLES Final Res ult [facility] [id number] Department [place] [address] * Differential, auto (06/05/2025 10:12 AM CDT) Neutrophil abs 3.78 1.50 - 6.50 K/cumm Imm gran abs 0.02 0.00 - 0.10 K/cumm [facility] Lymphocyte abs 1.44 0.80 - 3.30 K/cumm [facility] Monocyte abs 0.61 0.20 - 0.80 K/cumm [facility] Eosinophil abs 0.06 0.00 - 0.50 K/cumm [facility] Basophil abs 0.02 0.00 - 0.10 K/cumm [facility] Neutrophil pct 63.8 % [facility] Comment: Interpretive Data Percent cell count reference ranges are not reported, since discordance with absolute values may lead to misinterpretation of CBC data. Current Interpretive Data was last revised on 2018. Imm gran pct 0.3 % [facility] Comment: Interpretive Data Percent cell count reference ranges are not reported, since discordance with absolute values may lead to misinterpretation of CBC data. Current Interpretive Data was last revised on 2018. Lymphocyte pct 24.3 % [facility] Comment: Interpretive Data Percent cell count reference ranges are not reported, since discordance with absolute values may lead to misinterpretation of CBC data. Current Interpretive Data was last revised on 2018. Monocyte pct 10.3 % [facility] Comment: Interpretive Data Percent cell count reference ranges are not reported, since discordance with absolute values may lead to misinterpretation of CBC data. Current Interpretive Data was last revised on 2018. Eosinophil pct 1.0 % [facility] Comment: Interpretive Data Percent cell count reference ranges are not reported, since discordance with absolute values may lead to misinterpretation of CBC data. Current Interpretive Data was last revised on 2018. Basophil pct 0.3 % [facility] Comment: Interpretive Data Percent cell count reference ranges are not reported, since discordance with absolute values may lead to misinterpretation of CBC data. Current Interpretive Data was last revised on 2018. Blood 06/05/2025 10:1 2 AM CDT 06/05/2025 10:12 AM CDT Chio Rosario FRAME CATCHER LAB BLOOD ORDERABLES Final Res ult Performing Organization Address [facility] Co de Phone Number [facility] [address] [place] [address] * (ABNORMAL) CBC with auto differential (06/05/2025 10:12 AM CDT) WBC 5.93 3.80 - 9.90 K/cumm Hgb 12.7(L) 13.0 - 17.5 g/dL [facility] Hct 38.4(L) 38.9 - 50.3 % [facility] Plt 283 150 - 400 K/cumm [facility] MPV 10.1 9.1 - 12.3 fL [facility] RBC 4.13(L) 4.30 - 5.80 M/cumm [facility] MCV 93.0 81.3 - 96.4 fL [facility] MCH 30.8 27.1 - 33.3 pg [facility] MCHC 33.1 32.3 - 35.7 g/dL [facility] RDW CV 12.0 11.1 - 14.9 % [facility] RDW SD 41.1 35.7 - 48.1 fL [facility] NRBC abs 0.00 0.00 - 0.01 K/cumm [facility] Blood 06/05/2025 10:1 2 AM CDT 06/05/2025 10:12 AM CDT Chio Rosario NP LAB BLOOD ORDERABLES Final Res ult Performing Organization Address [facility] Co de Phone Number [facility] [address] [place] [address] * Basic metabolic panel (06/05/2025 10:12 AM CDT) Sodium 137 135 - 145 mmol/L Potassium, pl 4.3 3.3 - 4.9 mmol/L [facility] Chloride 103 97 - 110 mmol/L [facility] CH CO2 26 22 - 32 mmol/L [facility] Anion gap 8 2 - 15 mmol/L [facility] BUN 19 6 - 25 mg/dL [facility] Creatinine 1.13 0.80 - 1.30 mg/dL [facility] Glucose 129 70 - 199 mg/dL [facility] Comment: Interpretive Data Fasting glucose >/= 126 mg/dl is diagnostic for diabetes. Fasting is defined as no caloric intake for at least 8 hours. Fasting glucose between 100 mg/dl to 125 mg/dl is diagnostic of prediabetes. In a patient with classic symptoms of hyperglycemia or hyperglycemic crisis, a random glucose >/= 200 mg/dl is diagnostic for diabetes. In the absence of unequivocal hyperglycemia, results should be confirmed by repeat testing. The classification and Diagnosis of Diabetes Diabetes Care 2021; 46: S19-S40. Current interpretive data was last revised 2022. Calcium 9.0 8.5 - 10.3 mg/dL [facility] Blood 06/05/2025 10:1 2 AM CDT 06/05/2025 10:12 AM CDT us Chio Rosario FRAME CATCHER LAB BLOOD ORDERABLES Final Res ult [facility] [id number] Department [place] [address] * Influenza A/B, RSV, and COVID-19 PCR Nasopharyngeal (06/05/2025 9:55 AM CDT) COVID-19 RNA Negative Negative Influenza A RNA Negative Negative [facility] Influenza B RNA Negative Negative [facility] RSV RNA Negative Negative [facility] Comment: Interpretive data: Testing performed by [facility]. This test is performed using the [employer] Xpert Xpress CoV-2/Flu/RSV plus assay. This is a multiplex, real-time reverse transcriptase PCR assay intended for the qualitative detection of nucleic acid from SARS-CoV-2, influenza A, influenza B, and respiratory syncytial virus. This assay has been cleared by the [place] Food and Drug administration. The performance characteristics have been verified by the [facility]. Results must be considered in the clinical context, and a negative result does not rule out infection. Interpretive Data last revised 2023 Nasopharyngeal 06/05/2025 9: 55 AM CDT 06/05/2025 10:28 AM CDT Narrative FERNANDEZ - 06/05/2025 11:45 AM CDT Is the Patient experiencing symptoms consistent with COVID?->Yes Kiana Rodriguez MD LAB MICROBIOLOGY - GENERAL ORDERABLES Final Result [facility] [id number] Department [place] [address] from Last 3 Months Insurance [facility]IC[facility] ADVANT[facility] Address: [facility] [address] [place] [address] [facility] MEDICARE ADVANTAGE [facility] MEDICARE Address: [address] [address] [place] [address] [facility] MEDICARE [facility] Advance Directives For more information, please contact: [phone] Documents on File Type Date 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
--- OUTSIDE RECORDS SUMMARY | 2025-07-02 06:55 | XMS_ITS | Clinical Summary ---
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
--- OUTSIDE RECORDS SUMMARY | 2025-07-02 06:55 | XMS_ITS | Encounter Summary ---
Author Organization [facility] [employer] [facility] [employer] [facility] Address [address] [facility] [place] [address] Phone Care Team Providers Care Regional Engagement Consultant Name Role Phone Imelda Costello MD Primary Care Provider [phone] Encounter Details Date Type Department Care Team (Late Contact Info) Description 06/30/2025 Documentation Only [employer] [facility] [address] [place] [address] [address] [place] [address] Celio Cheatham DO [address] [facility] [address] [place] [address] Social History Tobacco Use Types Packs/Day Years [...] as of this encounter Plan of Treatment Upcoming Encounters Date Type Department Care Team (Late Contact Info) Description 12/15/2025 12:30 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 [place] [id number] PCP - General Internal Medicine 07/05/21 documented as of this encounter
[2025-07-02 07:22] LABS: Estimated Glomerular Filt Rate 49
== END 2025-07-02 06:53 | disposition home or self-care (01) ==
PROVIDERS: PCP Internal Medicine; Visit Provider Nurse Practitioner Family
DX: R31.0 Gross hematuria (principal); N28.89 Other specified disorders of kidney and ureter; N30.90 Cystitis, unspecified without hematuria
CPT/HCPCS: 74178; Q9967